=== PATIENT | male | born 1985 | race Caucasian/White ===

== ENCOUNTER 2020-10-16 16:30 | Emergency (ER) | payer MEDICAID, SELFPAY ==
[2020-10-16 17:54] VITALS: BP 140/79; PULSE 87; RESP 22; TEMP 37.6; O2SAT 97; BMI 21.7
== END 2020-10-16 22:46 | disposition left against medical advice (07) ==
PROVIDERS: Emergency Provider Emergency Medicine
DX: L02.414 Cutaneous abscess of left upper limb (principal); L02.413 Cutaneous abscess of right upper limb; F19.90 Other psychoactive substance use, unspecified, uncomplicated
CPT/HCPCS: 99281; 99282

== ENCOUNTER 2020-10-16 23:32 | Inpatient (IN) | payer MEDICAID, SELFPAY ==
[2020-10-16 23:41] VITALS: BP 140/92; BP 160/90; PULSE 82; PULSE 88; RESP 16; TEMP 37.5; O2SAT 100; O2SAT 97; BMI 21.7
[2020-10-17] VITALS (8 sets, daily range): BP systolic 115–137; BP diastolic 63–89; PULSE 56–78; RESP 12–22; TEMP 36.3–37.4; O2SAT 98–100
--- NOTE | 2020-10-17 03:10 | ED_ITS ---
HPI - Skin/Abscess/Foreign Bdy General Chief complaint: Skin/Abscess/Foreign Body Stated complaint: ABSCESS Time Seen by Provider: 10/17/20 03:00 Source: patient Mode of arrival: EMS Limitations: no limitations History of Present Illness HPI narrative: Patient comes emergency room complaining of bilateral abscesses in both arms. Patient states it started 2-3 days ago. Patient admits to inject heroin. Patient denies fever chills, patient complaining of localized pain, states the redness is spreading especially on their right arm. Patient denies fever chills Related Data Allergies Allergy/AdvReac Type Severity Reaction Status Date / Time ibuprofen Allergy Unknown headaches Verified 10/17/20 03:21 onion [ONION] Allergy Unknown ANAPHYLAXIS Verified 10/17/20 03:21 Review of Systems Review of Systems: Constitutional : No Weight loss, No Fever, No Chills, No Night Sweats, No Fatigue, No Malaise ENT/Mouth : No Hearing loss, No Ear Pain, No Nasal Congestion, No Sinus Pain, No Hoarseness, No sore throat, No Rhinorrhea, No Swallowing Difficulty Eyes: No Eye Pain, No Swelling, No Redness, No Foreign Body, No Discharge, No Vision Changes Cardiovascular : No Chest Pain, No SOB, No Dyspnea on Exertion, No Orthopnea, No Edema, No Palpitations Respiratory : No Cough, No Sputum, No Wheezing, No Smoke Exposure, No Dyspnea Gastrointestinal : No Nausea, No Vomiting, No Diarrhea, No Constipation, No abdominal Pain, No Hematochezia, No Melena Genitourinary : no irregular bleeding, No Dysuria, No Urinary Frequency, No Hematuria, No Urinary Incontinence, No Urgency, No Flank Pain, No Urinary Flow Changes, No Hesitancy Musculoskeletal : No joint pain, No Myalgias, No Joint Swelling Skin : Abscesses in both arms Neuro : No Weakness, No Numbness, No Paresthesias, No Loss of Consciousness, No Dizziness, No Headache Psych : No Anxiety/Panic, No Depression, No SI/HI/AH/VH, No Social Issues, Heme/Lymph: No Bruising, No Bleeding,No Lymphadenopathy Endocrine : No Polyuria, No Polydipsia, No Temperature Intolerance PMFSH Past Medical History Medical History (Updated 10/17/20 @ 05:59 by Olinda Allred MD) IV drug user No known health problems Social History Social History Alcohol intake: never Smoking Status: Current every day smoker Use of substances other than those prescribed or required for medical reasons: Yes Substance Use Type: Crack/Cocaine and Heroin Advance Directives: No Advance Directives Information Provided: No Physical Exam Vital Signs: Vital Signs: Last Vital Signs Temp 99.1 F 10/17/20 04:45 Pulse 78 10/17/20 05:32 Resp 22 H 10/17/20 05:32 BP 135/63 10/17/20 05:32 Pulse Ox 98 10/17/20 05:32 Body Mass Index 21.7 Appearance: Alert. Oriented X3. No acute distress. Eyes: Pupils equal, round and reactive to light. ENT: Pharynx normal. Neck: Normal inspection. Neck supple. No lymph nodes noted. No crepitus CVS: Normal heart rate and rhythm. Pulses normal. Normal S1 and S2, 2/6 systolic murmur Respiratory: No respiratory distress. Breath sounds normal. No Wheezing. No rales Abdomen: Soft and nontender. No rigidity. No distention. good BS x4 Skin: Skin warm and dry. In the forearms, patient has multiple scabs, needle track medina. Patient has bilateral abscesses, left arm is prominent, bedside ultrasound shows a significant amount of pus in the left anterior cubital fossa. Right arm has extensive cellulitis from the anterior cubital fossa toe extending towards the mid upper arm. Patient has no pain to palpation on the elbow, able to flex elbow, states has no joint pain Extremities: No lower extremity edema. See above Neuro: Oriented X 3. No motor deficit. No sensory deficit. Moving all extermities. No slurred speech. Course Course Course Narrative: Patient agree to have the abscess is drained, IV antibiotics being started, agrees to stay. On physical exam, it was noted the patient has systolic murmur, patient states he is aware of it, not new. Patient has 1 incision in the left forearm and 2 in the left forearm. A large amount of pus was drained from all 3 incisions. Between both arms, it is estimated that the patient drained approximately a cup full (200 mL). On physical exam after the drainage was completed. Patient is able to flex and extend both elbows, open and close both hands. No neurological deficits. I discussed the patient with our hospitalist Dr. Marr, patient is being admitted. Procedures Abscess I/D Site: upper extremity Side (if applicable): left and right Local Anesthetic: lidocaine 2% Amount of anesthesia used (mL): 20 Technique: incised with blade Amount of fluid expressed (mL): 200 Sent for culture/gram staining?: No Packing used?: iodoform MDM - Skin/Abscess/Foreign Bdy Lab Data Result diagrams: 10/17/20 04:40 10/17/20 04:40 Labs: Lab Results 10/17/20 10/17/20 10/17/20 Range/Units 04:40 04:40 04:40 WBC 16.2 H (4.8-10.8) X10*3/uL RBC 3.70 L (4.60-5.80) X10*6/uL Hgb 9.7 L (14.0-18.0) g/dl Hct 29.7 L (42-52) % MCV 80.3 (80-98) fL MCH 26.2 L (27.0-33.0) pg MCHC 32.7 (31.0-36.0) g/dl RDW 13.6 (11.0-16.0) % Plt Count 380 (160-400) X10*3/uL MPV 9.0 L (9.4-12.4) fL Immature Gran % (Auto) 0.5 H (0.0-0.4) % Neut % (Auto) 81.3 H (45-73) % Lymph % (Auto) 12.7 L (20-40) % [place] % (Auto) 5.1 (2-11) % Eos % (Auto) 0.2 (0-4) % Baso % (Auto) 0.2 (0-2) % Lymph # (Auto) 2.1 (1.2-4.9) X10*3/uL [place] # (Auto) 0.8 (0.1-1.2) X10*3/uL Eos # (Auto) 0.0 (0.0-0.4) X10*3/uL Baso # (Auto) 0.0 (0.0-0.2) X10*3/uL Abs Immat Gran (auto) 0.08 H (0.00-0.03) X10*3/uL Absolute Neuts (auto) 13.2 H (2.0-8.3) X10*3/uL Absolute Nucleated RBC 0.000 (0.0-0.012) X10*3/uL Nucleated RBC % (auto) 0.0 (0.0-0.2) /100WBC Sodium 135 (135-145) mmol/L Potassium 3.8 (3.3-5.1) mmol/L Chloride 100 (96-108) mmol/L Carbon Dioxide 27 (22-29) mmol/L Anion Gap 12 (12-20) BUN 10 (9-16) mg/dL Creatinine 0.85 (0.5-1.4) mg/dL Estim Creat Clear Calc 127.1 Estimated GFR > 60 Random Glucose 136 H (60-115) mg/dL Lactic Acid 1.0 (0.5-2.0) mmol/L Calcium 8.2 L (8.4-10.2) mg/dL Total Bilirubin 0.2 (0.0-1.0) mg/dL Direct Bilirubin < 0.2 (0.0-0.5) mg/dL AST 16 (5-37) U/L ALT 21 (0-40) U/L Alkaline Phosphatase 140 H (39-117) U/L Total Protein 6.4 L (6.5-8.0) g/dL Albumin 3.4 L (3.5-5.0) g/dL Discharge Plan Discharge Clinical Impression: IV drug user Abscess of skin or subcutaneous tissue Qualifiers: Site of cutaneous abscess: unspecified site Qualified Code(s): L02.91 - Cutaneous abscess, unspecified
[2020-10-17] MEDS: Lidocaine HCl 2 % MPF 5 ML VIAL 20 ML INFILTRATI (03:25)
--- NOTE | 2020-10-17 03:27 | PC.NURSE ---
Lido at bedside for provider use
--- NOTE | 2020-10-17 04:06 | PC.NURSE ---
No IV access established at this time. Provider aware.
[2020-10-17 04:46] LABS: Basophils Percent Auto 0.2 % (0-2); Eosinophils Percent Auto 0.2 % (0-4); Hematocrit 29.7 % (42-52); Hemoglobin 9.7 g/dl (14.0-18.0); Imm Gran Abs Auto 0.08 X10*3/uL (0.00-0.03); Imm Gran Pct Auto 0.5 % (0.0-0.4); Lymphocytes Absolute Auto 2.1 X10*3/uL (1.2-4.9); Lymphocytes Percent Auto 12.7 % (20-40); MANUAL DIFF FLAG NO; Mean Corpuscular HGB Conc 32.7 g/dl (31.0-36.0); Mean Corpuscular Hemoglobin 26.2 pg (27.0-33.0); Mean Corpuscular Volume 80.3 fL (80-98); Monocytes Absolute Auto 0.8 X10*3/uL (0.1-1.2); Monocytes Percent Auto 5.1 % (2-11); Neutrophils Absolute Auto 13.2 X10*3/uL (2.0-8.3); Neutrophils Percent Auto 81.3 % (45-73); Platelet Count 380 X10*3/uL (160-400); Red Cell Distribution Width 13.6 % (11.0-16.0); White Blood Count 16.2 X10*3/uL (4.8-10.8)
[2020-10-17] MEDS: Piperacillin Sodium/Tazobactam 3.375 GM in 0.9 % Sodium Chloride 50 ML IV (04:48)
[2020-10-17] MEDS: 0.9 % Sodium Chloride 1,000 ML 999 ML IVCONT (04:50)
[2020-10-17] MEDS: HYDROmorphone HCl 2 MG/ML VIAL IVPUSH ×2 (04:55→06:44)
[2020-10-17 05:21] LABS: Alanine Aminotransferase 21 U/L (0-40); Albumin Level 3.4 g/dL (3.5-5.0); Alkaline Phosphatase 140 U/L (39-117); Anion Gap 12 (12-20); Aspartate Amino Transferase 16 U/L (5-37); Bilirubin Direct < 0.2 mg/dL (0.0-0.5); Bilirubin Total 0.2 mg/dL (0.0-1.0); Blood Urea Nitrogen 10 mg/dL (9-16); Calcium 8.2 mg/dL (8.4-10.2); Carbon Dioxide 27 mmol/L (22-29); Chloride 100 mmol/L (96-108); Creatinine Clr Calc Pharmacy 127.1; Estimated Glomerular Filt Rate > 60; Glucose Random 136 mg/dL (60-115); Potassium 3.8 mmol/L (3.3-5.1); Sodium 135 mmol/L (135-145); Total Protein 6.4 g/dL (6.5-8.0)
[2020-10-17] MEDS: vancomycin HCL 1,000 MG in 0.9 % Sodium Chloride 250 ML 270 MG IV ×2 (05:30→18:34)
--- NOTE | 2020-10-17 07:23 | PC.NURSE ---
kitchen called for breakfast tray
[2020-10-17] MEDS: HYDROmorphone HCl 1 MG/ML SYRINGE IVPUSH ×4 (07:27→20:10)
--- NOTE | 2020-10-17 08:14 | P.HPHOSP_ITS ---
History of Present Illness Date of Service: 10/17/20 Chief Complaint: forearm bilateral pain, swelling 35M who uses IV heroin, complaining of 2 days of painful swollen abscesses. one on each forearm. at injection sites. denies fever, chills, sob, chest pain. denies previous infections or treatment. in ED noted to have elevated WBC of 16, underwent I and D in ED with packing. given vancomycin. Review of Systems Review of Systems: Constitutional: Denies fever, denies Chills Eyes: denies blurry vision ENT: denies sore throat CVS: denies chest pain Respiratory: Denies dyspnea GI: no abdominal pain : denies dysuria MSK: denies neck pain Skin: denies rash Neuro: denies specific motor weakness Psych: denies suicidal ideation Endocrine: denies heat/cold intoleratnce Hematologic: denies easy bleeding Allergy: denies hives [facility] Medical History IV drug user No known health problems Family history: reviewed and not pertinent Social History Alcohol intake: never Smoking Status: Current every day smoker Use of substances other than those prescribed or required for medical reasons: Yes Substance Use Type: Crack/Cocaine and Heroin Advance Directives: No Advance Directives Information Provided: No Meds Allergies Allergy/AdvReac Type Severity Reaction Status Date / Time ibuprofen Allergy Unknown headaches Verified 10/17/20 03:21 onion [ONION] Allergy Unknown ANAPHYLAXIS Verified 10/17/20 03:21 Active Medications: Current Medications Generic Name Dose Route Start Last Admin Trade Name Freq PRN Reason Stop Dose Admin Vancomycin HCl 1,000 mg/ 270 mls @ 270 mls/hr 10/17/20 18:00 Sodium Chloride IV Q12H [facility] Pharmacy Consult 1 each 10/17/20 03:09 Consult Rx Vancomycin Dosing MISCELLANE DAILY PRN Consult order Physical Exam Vital Signs and Narrative: Vital Signs: Last Vital Signs Temp 99.1 F 10/17/20 04:45 Pulse 78 10/17/20 05:32 Resp 22 H 10/17/20 05:32 BP 135/63 10/17/20 05:32 Pulse Ox 98 10/17/20 05:32 Body Mass Index 21.7 General: no acute distress HEENT: atraumatic Neck: normal to visual inspection CVS: S1, S2, RRR Resp: CTA bilateral Chest: non tender GI: soft, non tender, non distended : no CVA tenderness Skin: multiple track medina over arms, two areas of abscesses s/p drainage on each forearm Extremities: no edema Neuro: Oriented X3, grossly intact Psych: cooperative Results Labs CBC and Chem 7: 10/17/20 04:40 10/17/20 04:40 Labs: Laboratory Results - last 24 hr 10/17/20 10/17/20 10/17/20 04:40 04:40 04:40 MCV 80.3 MCH 26.2 L MCHC 32.7 RDW 13.6 Plt Count 380 MPV 9.0 L Immature Gran % (Auto) 0.5 H Neut % (Auto) 81.3 H Lymph % (Auto) 12.7 L [place] % (Auto) 5.1 Eos % (Auto) 0.2 Baso % (Auto) 0.2 Lymph # (Auto) 2.1 [place] # (Auto) 0.8 Eos # (Auto) 0.0 Baso # (Auto) 0.0 Abs Immat Gran (auto) 0.08 H Absolute Neuts (auto) 13.2 H Absolute Nucleated RBC 0.000 Nucleated RBC % (auto) 0.0 Anion Gap 12 Estim Creat Clear Calc 127.1 Estimated GFR > 60 Random Glucose 136 H Lactic Acid 1.0 Calcium 8.2 L Total Bilirubin 0.2 Direct Bilirubin < 0.2 AST 16 ALT 21 Alkaline Phosphatase 140 H Total Protein 6.4 L Albumin 3.4 L Assessment and Plan (1) IV drug user: Status: Acute (2) Abscess of skin or subcutaneous tissue: Qualifiers: Site of cutaneous abscess: unspecified site Qualified Code(s): L02.91 - Cutaneous abscess, unspecified Status: Acute 35M presented with bilateral forearm abscesses associated with IVDA bilateral forearm abscesses with significant purulence and elevated WBC concerning for systemic infection iv vanco follow up blood cultures general surgery eval opioid dependence with withdrawl addiction team eval smoking cessation jud low risk for VTE - encourage ambulation
--- NOTE | 2020-10-17 10:21 | PC.NURSE ---
REPORT GIVEN TECH WILL TRANSPOT PT TO FLOOR
[2020-10-17] MEDS: Nicotine 21 MG PATCH.TD24 TRANSDERMA (11:37)
--- NOTE | 2020-10-17 12:30 | MHC.RECOVRN ---
35 yr old male presented to [facility] via EMS on 10/16 due to pt L[facility] earlier. Abscesses to bilat ACs, right worse than left. Swelling noted from right AC down arm to right hand. Pt self reports using IV heroin. Pt last used IV heroin yesterday, denies other drugs/alcohol. Denies fever. Abcesses red in color, hot to the touch, circled with a skin pen. Pt denies any weeping from abcesses. Pt crying, reports severe pain, unable to straighten right arm per surveying technician. Pt subsequently admitted for treatment of bilateral forearm abscesses with significant purulence and elevated WBC concerning for systemic infection. T/w met with pt in 363 to discuss substance use. Pt reports heroin, 4 bundles daily x months, last use prior to arrival. Pt denies other substances. Pt very anxious anticipating withdrawal. Pt states If I get sick I'm just going to check out. Pt? restless and unable to engage in recovery discussion due to this. Pt interested is willing to try methadone to help while inpatient. Case discussed with pts RN as well as Antonia Mantilla APRN, who will see pt to discuss methadone further.?
--- NOTE | 2020-10-17 15:16 | MHC.CM.PN ---
CASE MANAGEMENT NAME WRITTEN ON WHITE BOARD. CONTACT CARD LEFT BEDSIDE. PATIENT CURRENTLY ASLEEP. INDEPENDENT WITH ACTIVITIES. CASE MANAGEMENT TO RETURN
--- NOTE | 2020-10-17 15:41 | P.EN_ITS ---
Event Note Date of Service: 10/17/20 Event Note: Addiction note: Patient is a 35 year old male with OUD currently medically admitted with abcess secondary to IVDU Patient seen earlier by HENRRY RN and reporting opioid withdrawal sx. Pt reporting stomach cramps, restlessness, irritability. chills and sweating when seen by this adjusto writer operator. He does report a history of methadone and buprenorphien treatment in the past. Declines buprenorphine Plan: -methadone 30mg administered with somewhat moderate effect -may receive additional 10mg tonight if necessary to address withdrawl sx -manage pain as necessary -full addiction note to follow
[2020-10-17] MEDS: 0.9 % Sodium Chloride Flush 3 ML SYRINGE IVFLUSH ×2 (16:26→22:49)
--- NOTE | 2020-10-17 16:30 | MHC.RECOVRN ---
T/w met with pt to f/u after receiving methadone dose. Pt states I'm still hurting. I'm clammy, restless. Pt appears diaphoretic. However, pt has been able to sleep and eat. Discussed with Antonia Mantilla APRN. Will continue to follow.
[2020-10-18 03:06] VITALS: BP 139/86; PULSE 56; RESP 18; TEMP 36.1; O2SAT 100
[2020-10-18] MEDS: HYDROmorphone HCl 1 MG/ML SYRINGE IVPUSH ×2 (03:15→07:42)
[2020-10-18 05:13] LABS: MANUAL DIFF FLAG NO
[2020-10-18 05:16] LABS: Basophils Percent Auto 0.2 % (0-2); Eosinophils Absolute Auto 0.1 X10*3/uL (0.0-0.4); Eosinophils Percent Auto 0.7 % (0-4); Hematocrit 32.3 % (42-52); Hemoglobin 10.2 g/dl (14.0-18.0); Imm Gran Abs Auto 0.01 X10*3/uL (0.00-0.03); Imm Gran Pct Auto 0.1 % (0.0-0.4); Lymphocytes Absolute Auto 1.6 X10*3/uL (1.2-4.9); Lymphocytes Percent Auto 19.2 % (20-40); Mean Corpuscular HGB Conc 31.6 g/dl (31.0-36.0); Mean Corpuscular Volume 82.2 fL (80-98); Mean Platelet Volume 9.5 fL (9.4-12.4); Monocytes Absolute Auto 0.4 X10*3/uL (0.1-1.2); Monocytes Percent Auto 5.1 % (2-11); Neutrophils Absolute Auto 6.3 X10*3/uL (2.0-8.3); Neutrophils Percent Auto 74.7 % (45-73); Platelet Count 426 X10*3/uL (160-400); Red Blood Count 3.93 X10*6/uL (4.60-5.80); Red Cell Distribution Width 13.4 % (11.0-16.0); White Blood Count 8.5 X10*3/uL (4.8-10.8)
[2020-10-18 05:40] LABS: Anion Gap 13 (12-20); Blood Urea Nitrogen 12 mg/dL (9-16); Calcium 8.3 mg/dL (8.4-10.2); Carbon Dioxide 22 mmol/L (22-29); Chloride 107 mmol/L (96-108); Estimated Glomerular Filt Rate > 60; Glucose Random 118 mg/dL (60-115); Potassium 4.4 mmol/L (3.3-5.1); Sodium 138 mmol/L (135-145)
[2020-10-18] MEDS: vancomycin HCL 1,000 MG in 0.9 % Sodium Chloride 250 ML 270 MG IV (06:01)
[2020-10-18] MEDS: Nicotine 21 MG PATCH.TD24 TRANSDERMA (07:37)
[2020-10-18 08:00] VITALS: TEMP 36.3
[2020-10-18 08:29] VITALS: BP 140/88; PULSE 70; RESP 18; TEMP 36.4; O2SAT 100
[2020-10-18 12:00] VITALS: TEMP 36.9
--- NOTE | 2020-10-18 12:28 | PM.DS ---
DS: Providers Provider Date of Service: 10/18/20 Date of admission: 10/17/20 08:13 Primary care physician: Unknown Physician Consults: 10/17/20 10:48 Addiction Medicine Routine Consulting Provider: Antonia Mantilla Reason for consultation: iv heroin Consult to General Surgery Routine Consulting Provider: Preet Wood Reason for consultation: bilateral forearm abscesses, ivda, s/p i and d in ED DS: Diagnosis Discharge Diagnosis (1) IV drug user: Status: Acute (2) Abscess of skin or subcutaneous tissue: Status: Acute DS: Medications Discharge Medications Home Medications: Previous Rx's Medication Instructions Recorded amoxicillin-pot clavulanate 1 tab PO Q12H #10 tab 10/18/20 [Augmentin] doxycycline hyclate 100 mg PO BID #10 tab 10/18/20 DS: Summary Hospital Course Hospital Course: Patient was admitted for abscess and cellulitis due to IV drug use and concern for systemic infection requiring IV antibiotics. Patient was treated with IV vancomycin. He was seen by surgery who performed dressing change and made recommendations for local care. Patient did not develop any systemic symptoms, WBC improved from 16.2-8.5 and blood cultures are negative to date. Patient will be discharged home with 5 more days of Augmentin and doxycycline. Time Spent with Patient Time attestation: Total time spent providing and/or coordinating discharge services: Discharge coordination time: Greater than 30 minutes Quality: Stroke Does the patient have a stroke diagnosis?: No Physical Exam Vital Signs: Vital Signs: Last Vital Signs Temp 97.5 F 10/18/20 08:29 Pulse 70 10/18/20 08:29 Resp 18 10/18/20 08:29 BP 140/88 H 10/18/20 08:29 Pulse Ox 100 10/18/20 08:29 Body Mass Index 21.7 Appearance: Alert. Oriented X3. No acute distress. Eyes: Pupils equal, round and reactive to light. ENT: Pharynx normal. Neck: Normal inspection. Neck supple. No lymph nodes noted. No crepitus CVS: Normal heart rate and rhythm. Pulses normal. Normal S1 and S2, 2/6 systolic murmur Respiratory: No respiratory distress. Breath sounds normal. No Wheezing. No rales Abdomen: Soft and nontender. No rigidity. No distention. good BS x4 Skin: Skin warm and dry. In the forearms, patient has multiple scabs, needle track medina. Patient has bilateral abscesses, left arm is prominent, bedside ultrasound shows a significant amount of pus in the left anterior cubital fossa. Right arm has extensive cellulitis from the anterior cubital fossa toe extending towards the mid upper arm. Patient has no pain to palpation on the elbow, able to flex elbow, states has no joint pain Extremities: No lower extremity edema. See above Neuro: Oriented X 3. No motor deficit. No sensory deficit. Moving all extermities. No slurred speech. DS: Data Data Completed and Pending Labs on day of discharge: Laboratory Results - last 24 hr 10/18/20 10/18/20 04:23 04:23 WBC 8.5 RBC 3.93 L Hgb 10.2 L Hct 32.3 L MCV 82.2 MCH 26.0 L MCHC 31.6 RDW 13.4 Plt Count 426 H MPV 9.5 Immature Gran % (Auto) 0.1 Neut % (Auto) 74.7 H Lymph % (Auto) 19.2 L [place] % (Auto) 5.1 Eos % (Auto) 0.7 Baso % (Auto) 0.2 Lymph # (Auto) 1.6 [place] # (Auto) 0.4 Eos # (Auto) 0.1 Baso # (Auto) 0.0 Abs Immat Gran (auto) 0.01 Absolute Neuts (auto) 6.3 Absolute Nucleated RBC 0.000 Nucleated RBC % (auto) 0.0 Sodium 138 Potassium 4.4 Chloride 107 Carbon Dioxide 22 Anion Gap 13 BUN 12 Creatinine 0.74 Estim Creat Clear Calc 146.0 Estimated GFR > 60 Random Glucose 118 H Calcium 8.3 L Preliminary micro results at discharge 10/17/20 04:40 Blood Culture - Preliminary Blood - Venous No growth after 24 hours. 10/17/20 04:40 Blood Culture - Preliminary Blood - Venous No growth after 24 hours. Discharge Plan Discharge Patient Disposition: Home, Self-Care Discharge Diagnosis: abscess Referrals: Physician,Unknown [Primary Care Provider] - 1 Week Discharge Medications: New amoxicillin-pot clavulanate [Augmentin] 875-125 mg tablet 1 tab PO Q12H Qty: 10 RF: 0 doxycycline hyclate 100 mg tablet 100 mg PO BID Qty: 10 RF: 0 Discharge Orders: Discharge Order (Routine); Ordered 10/18/20 Ordered By: Bartolome Nova Activity on Discharge: As tolerated Stand Alone Forms: Patient Portal Discharge page Care Plan Goals: recovery Health Concerns: abscess Plan of Treatment: antibiotics, local dressings, avoid drugs Assessment: see above
--- NOTE | 2020-10-18 12:34 | P.CONGS_ITS ---
History of Present Illness Consult details Consult date: 10/18/20 Requesting physician: Bartolome Nova Narrative: 35-year-old male patient presenting with complaints of pain bilateral upper extremities. He has a history of IV drug abuse and reports injecting both locations. He noted increased redness and swelling over the last several days and subsequently presented to the emergency department. In the emergency department he was found to have bilateral antecubital fossa abscess collections. He was subsequently treated with incision and drainage with production of a large purulence collection. He reports feeling improved today and notes the redness in his arm to be much improved. He is being discharged from the hospital today. Surgical consultation was recommended for wound care evaluation. Review of Systems Constitutional: Constitutional: Reports body ache(s), Reports fatigue and Rep orts night sweats Cardiovascular: Cardiovascular: Reports no additional cardiovascular complaints Respiratory: Respiratory: Reports no additional respiratory complaints Gastrointestinal: Gastrointestinal: Reports no additional gastrointestinal complaints Musculoskeletal: Musculoskeletal: Reports as per HPI Integumentary/Breasts: Skin/Breast: Reports as per HPI Psychiatric: Comments: Addiction history Endocrine: Endocrine: Reports fatigue PMFSH Past Medical History Medical History IV drug user No known health problems Family History Family history: reviewed and not pertinent Social History Social History Household Members: None Housing: Homeless Alcohol intake: never Smoking Status: Current every day smoker Tobacco Type: Cigarette Packs Per Day: 0.5 Cigarettes Per Day: 10.0 Substance Use Type: Heroin Meds Allergies Allergy/AdvReac Type Severity Reaction Status Date / Time ibuprofen Allergy Unknown headaches Verified 10/17/20 03:21 onion [ONION] Allergy Unknown ANAPHYLAXIS Verified 10/17/20 03:21 Active Medications: Current Medications Generic Name Dose Route Start Last Admin Trade Name Freq PRN Reason Stop Dose Admin Hydromorphone HCl 1 mg 10/17/20 10:48 10/18/20 07:42 Hydromorphone Hcl 1 Mg/Ml Syringe IVPUSH 1 mg Q4H PRN Administration pain Vancomycin HCl 1,000 mg/ 270 mls @ 270 mls/hr 10/17/20 18:00 10/18/20 07:47 Sodium Chloride IV Infused Q12H AD Infusion Methadone HCl 40 mg 10/18/20 08:00 10/18/20 07:37 Methadone Hcl 1 Mg/0.1 Ml Oral.Conc PO 40 mg DAILY AD Administration Nicotine 21 mg 10/17/20 10:48 10/18/20 07:37 Nicotine 21 Mg Patch.Td24 TRANSDERMA 21 mg DAILY AD Administration Pharmacy Consult 1 each 10/17/20 03:09 Consult Rx Vancomycin Dosing MISCELLANE DAILY PRN Consult order Sodium Chloride 3 ml 10/17/20 16:00 10/18/20 07:50 0.9 % Sodium Chloride Flush 3 Ml Syringe IVFLUSH Not Given QSHIFT AD Physical Exam Vital Signs: Vital Signs: Last Vital Signs Temp 97.5 F 10/18/20 08:29 Pulse 70 10/18/20 08:29 Resp 18 10/18/20 08:29 BP 140/88 H 10/18/20 08:29 Pulse Ox 100 10/18/20 08:29 Body Mass Index 21.7 Const: General: cooperative, comfortable, alert and awake Nutritional Appearance: thin Orientation/consciousness: patient oriented x3 Eyes: Sclerae: sclerae normal Resp: Effort & Inspection: normal respiratory effort and no stridor GI: Inspection: Yes normal to inspection Skin: Other: See extremities below Neuro: General: patient oriented x3 Extrem: Other: Right antecubital fossa: 2 areas of incision and drainage with packing. Dressings were changed. Some purulence drainage is noted from the lateral wound. The packing was removed and the collection completely drained. Incisions are open and no undrained collection is identified. Wounds were dressed with dry sterile dressings and [place]. No erythema is noted in the skin. Left antecubital fossa: 1 incision and drainage areas located in the antecubital fossa. Packing was removed and no residual purulence collection could be identified. No erythema is noted in the surrounding skin. Clean sterile dressings with [place] dressings were applied. Results Labs Result diagrams: 10/18/20 04:23 10/18/20 04:23 Labs: Abnormal lab results 10/18/20 10/18/20 Range/Units 04:23 04:23 RBC 3.93 L (4.60-5.80) X10*6/uL Hgb 10.2 L (14.0-18.0) g/dl Hct 32.3 L (42-52) % MCH 26.0 L (27.0-33.0) pg Plt Count 426 H (160-400) X10*3/uL Neut % (Auto) 74.7 H (45-73) % Lymph % (Auto) 19.2 L (20-40) % Random Glucose 118 H (60-115) mg/dL Calcium 8.3 L (8.4-10.2) mg/dL Short CBC 10/18/20 Range/Units 04:23 WBC 8.5 (4.8-10.8) X10*3/uL Hgb 10.2 L (14.0-18.0) g/dl Hct 32.3 L (42-52) % Plt Count 426 H (160-400) X10*3/uL BMP 10/18/20 04:23 Sodium 138 Potassium 4.4 Chloride 107 Carbon Dioxide 22 BUN 12 Creatinine 0.74 Calcium 8.3 L All other labs normal. Assessment and Plan (1) Abscess of skin or subcutaneous tissue: Qualifiers: Site of cutaneous abscess: unspecified site Qualified Code(s): L02.91 - Cutaneous abscess, unspecified Status: Acute 35-year-old male patient with history of IV drug abuse, presenting with bilateral antecubital abscess collections, status post incision and drainage in the emergency department. Both wounds are adequately drained with no evidence of residual abscess. Surrounding cellulitis is resolved. Patient will need daily dressing changes to the wound which could include large Band-Aids to be applied over the incision and drainage location. He should be supplied with adequate dressings for the next week. He with following up next week for Suboxone treatment.
--- NOTE | 2020-10-18 12:42 | MHC.CM.PN ---
PATIENT DOES NOT WANT TO DC TO A DETOX PROGRAM. HE IS WILLING TO PARTICIPATE IN OUTPATIENT SUBOXONE TREATMENT WITH [facility] FOLLOW UP THIS WEDNESDAY. PATIENT WILL NEED EXTRA BANDAGE SUPPLIES. RN AWARE.
--- NOTE | 2020-10-18 13:00 | MHC.RECOVRN ---
T/w met with pt to discuss continuance of methadone. Pt would like to remain on MOUD, however, has barriers due to transportation to an OTP daily. Pt would prefer to transition to Suboxone and in time, Sublocade. Pt reports success in the past with Sublocade. Case discussed with Antonia Mantilla APRN who will discuss microdosing with pt to transition. Pt has appt at the [facility] on Saturday 10/21 at 1PM.
--- NOTE | 2020-10-18 13:31 | HO.ADDICT_ITS ---
History of Present Illness Date of Service: 10/18/2020 Chief Complaint: ABSCESS, IVDA Reason for Consult: OUD Requesting physician: Bartolome Nova Discussed with referring provider: Yes Sources of Information: patient interviewed and chart reviewed HPI Narrative: Patient is a 35 year old male with OUD currently medically admitted with abscess to his arm. He has been medically cleared for discharge and this lead technical writer is following up on initial visit from 10/17 when patient was started on methadone to address opioid withdrawal. Methadone increased to 40mg based on persisting withdrawal sx, with good effect Patient reports he had previously been on suboxone and sublocade and would like to transition back to that. He is currently unhoused and has minimal supports in this area Past Psychiatric History: deferred Medical Evaluation Reviewed: Yes Review of Systems Constitutional: Reports malaise Psychiatric: Reports anxiety Diagnostics Vital Signs (24Hr): Vital Signs - 24 hr 10/17/20 15:18 10/17/20 19:09 10/17/20 23:51 Temperature 97.5 F 98.2 F 97.3 F Pulse Rate 63 72 56 Respiratory Rate 16 16 16 Blood Pressure 129/73 133/75 137/89 Pulse Oximetry 100 99 100 10/18/20 03:06 10/18/20 08:00 10/18/20 08:29 Temperature 97 F 97.3 F 97.5 F Pulse Rate 56 70 Respiratory Rate 18 18 Blood Pressure 139/86 140/88 H Pulse Oximetry 100 100 Body Mass Index 21.7 Labs Results: 10/18/20 04:23 10/18/20 04:23 Labs: Laboratory Results - last 48 hr 10/17/20 10/17/20 10/17/20 04:40 04:40 04:40 WBC 16.2 H RBC 3.70 L Hgb 9.7 L Hct 29.7 L MCV 80.3 MCH 26.2 L MCHC 32.7 RDW 13.6 Plt Count 380 MPV 9.0 L Immature Gran % (Auto) 0.5 H Neut % (Auto) 81.3 H Lymph % (Auto) 12.7 L [place] % (Auto) 5.1 Eos % (Auto) 0.2 Baso % (Auto) 0.2 Lymph # (Auto) 2.1 [place] # (Auto) 0.8 Eos # (Auto) 0.0 Baso # (Auto) 0.0 Abs Immat Gran (auto) 0.08 H Absolute Neuts (auto) 13.2 H Absolute Nucleated RBC 0.000 Nucleated RBC % (auto) 0.0 Sodium 135 Potassium 3.8 Chloride 100 Carbon Dioxide 27 Anion Gap 12 BUN 10 Creatinine 0.85 Estim Creat Clear Calc 127.1 Estimated GFR > 60 Random Glucose 136 H Lactic Acid 1.0 Calcium 8.2 L Total Bilirubin 0.2 Direct Bilirubin < 0.2 AST 16 ALT 21 Alkaline Phosphatase 140 H Total Protein 6.4 L Albumin 3.4 L 10/18/20 10/18/20 04:23 04:23 WBC 8.5 RBC 3.93 L Hgb 10.2 L Hct 32.3 L MCV 82.2 MCH 26.0 L MCHC 31.6 RDW 13.4 Plt Count 426 H MPV 9.5 Immature Gran % (Auto) 0.1 Neut % (Auto) 74.7 H Lymph % (Auto) 19.2 L [place] % (Auto) 5.1 Eos % (Auto) 0.7 Baso % (Auto) 0.2 Lymph # (Auto) 1.6 [place] # (Auto) 0.4 Eos # (Auto) 0.1 Baso # (Auto) 0.0 Abs Immat Gran (auto) 0.01 Absolute Neuts (auto) 6.3 Absolute Nucleated RBC 0.000 Nucleated RBC % (auto) 0.0 Sodium 138 Potassium 4.4 Chloride 107 Carbon Dioxide 22 Anion Gap 13 BUN 12 Creatinine 0.74 Estim Creat Clear Calc 146.0 Estimated GFR > 60 Random Glucose 118 H Lactic Acid Calcium 8.3 L Total Bilirubin Direct Bilirubin AST ALT Alkaline Phosphatase Total Protein Albumin Mental Status Exam Mental Status Exam Patient Appearance: Unkempt Patient Orientation: Person, Place, Time and Situation Level of Consciousness: Awake, Appropriate and Alert Patient Behavior: Appropriate and Cooperative Mood Description: Calm and Appropriate Affect Description: Calm and Appropriate Patient Cognition Impaired: No Ability to Follow Directions: Excellent Speech Pattern: Clear Delusions: Not Present Thought Process: Intact and Goal Oriented Thought Content: positive for Intact Judgement: Good Medications Medications Current Medications Generic Name Dose Route Start Last Admin Trade Name Freq PRN Reason Stop Dose Admin Hydromorphone HCl 1 mg 10/17/20 10:48 10/18/20 07:42 Hydromorphone Hcl 1 Mg/Ml Syringe IVPUSH 1 mg Q4H PRN Administration pain Vancomycin HCl 1,000 mg/ 270 mls @ 270 mls/hr 10/17/20 18:00 10/18/20 07:47 Sodium Chloride IV Infused Q12H AD Infusion Methadone HCl 40 mg 10/18/20 08:00 10/18/20 07:37 Methadone Hcl 1 Mg/0.1 Ml Oral.Conc PO 40 mg DAILY AD Administration Nicotine 21 mg 10/17/20 10:48 10/18/20 07:37 Nicotine 21 Mg Patch.Td24 TRANSDERMA 21 mg DAILY AD Administration Pharmacy Consult 1 each 10/17/20 03:09 Consult Rx Vancomycin Dosing MISCELLANE DAILY PRN Consult order Sodium Chloride 3 ml 10/17/20 16:00 10/18/20 07:50 0.9 % Sodium Chloride Flush 3 Ml Syringe IVFLUSH Not Given QSHIFT AD Allergies Allergies Allergy/AdvReac Type Severity Reaction Status Date / Time ibuprofen Allergy Unknown headaches Verified 10/17/20 03:21 onion [ONION] Allergy Unknown ANAPHYLAXIS Verified 10/17/20 03:21 Assessment & Plan Assessment & Plan (1) Opioid use disorder: Status: Acute Code(s): F11.99 - Opioid use, unspecified with unspecified opioid-induced disorder Recommendations: * plan to transition from methadone to buprenorphine * will start microdosing over the weekend--written and verbal instructions provided by this lead technical writer. Pt verbalized understandings * appt scheduled at [facility] for Wednesday, 10/21 for intake with provider * take home narcan provided as well Greater than 50% of the session was spent on counseling and/or coordination of care Patient educated on: medication risk/benefits and therapeutic strategies Informed Consent: understands [facility] Past Medical History Medical History IV drug user No known health problems Family History Family history: reviewed and not pertinent Social History Social History Household Members: None Housing: Homeless Alcohol intake: never Smoking Status: Current every day smoker Tobacco Type: Cigarette Packs Per Day: 0.5 Cigarettes Per Day: 10.0 Substance Use Type: Heroin
== END 2020-10-18 14:25 | disposition home or self-care (01) | DRG 383 ==
LOC: HO.ED 10-17 02:59 → HO.EDOVER 10-17 08:19 → HO.S3 10-17 08:38
PROVIDERS: Admitting Provider Internal Medicine; Emergency Provider Emergency Medicine; Visit Provider Internal Medicine
DX: L02.413 Cutaneous abscess of right upper limb (principal); L02.414 Cutaneous abscess of left upper limb; F11.23 Opioid dependence with withdrawal; L03.114 Cellulitis of left upper limb; L03.113 Cellulitis of right upper limb; F17.210 Nicotine dependence, cigarettes, uncomplicated; Z71.6 Tobacco abuse counseling; Z88.6 Allergy status to analgesic agent; Z79.899 Other long term (current) drug therapy
CPT/HCPCS: 36415; 80048; 80076; 83605; 85025; 87040; 96365; 96367; 96368; 96375; 99218; 99285; J1170; J2543; J3370

== ENCOUNTER → 2020-10-21 13:10 | Outpatient (BNVA) | payer MEDICAID, SELFPAY | PROVIDERS: Visit Provider Internal Medicine | DX: F11.99 Opioid use, unspecified with unspecified opioid-induced disorder (principal); L02.91 Cutaneous abscess, unspecified; F19.90 Other psychoactive substance use, unspecified, uncomplicated | CPT/HCPCS: 80305; 99202 ==

== ENCOUNTER 2022-03-28 05:13 | Emergency (ER) | payer MEDICAID, SELFPAY ==
[2022-03-28 05:17] VITALS: BP 124/84; PULSE 84; RESP 18; TEMP 37.4; O2SAT 99; BMI 21.2
[2022-03-28] MEDS: Lidocaine HCl 1 % MPF 5 ML VIAL 30 ML INFILTRATI (10:05)
[2022-03-28] MEDS: cephALEXin 500 MG CAPSULE PO (10:45)
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
== END 2022-03-28 11:44 | disposition home or self-care (01) ==
PROVIDERS: Emergency Provider Emergency Medicine
DX: L02.413 Cutaneous abscess of right upper limb (principal); L03.113 Cellulitis of right upper limb; S01.511A Laceration without foreign body of lip, initial encounter; Y04.2XXA Assault by strike against or bumped into by another person, initial encounter; F19.10 Other psychoactive substance abuse, uncomplicated; R50.9 Fever, unspecified; F11.20 Opioid dependence, uncomplicated; F17.210 Nicotine dependence, cigarettes, uncomplicated; Y93.01 Activity, walking, marching and hiking; Y92.414 Local residential or business street as the place of occurrence of the external cause; Y99.9 Unspecified external cause status; Z79.899 Other long term (current) drug therapy
CPT/HCPCS: 10060; 12013; 87070; 87077; 87186; 87205; 99283; 99284

== ENCOUNTER 2022-10-29 03:29 | Emergency (ER) | payer MEDICAID, SELFPAY ==
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
[2022-10-29 06:11] VITALS: BP 120/60; PULSE 67; RESP 17; TEMP 36.7; O2SAT 95
--- NOTE | 2022-10-29 06:25 | PC.NURSE ---
pt sleeping on stretcher in 6 hallway, respirations even and unlabored no apparent distress. metabolize to freedom per MD. pt placed in physician observation until sober to call for ride . pt denies SI/HI. has no current complaints. vital signs stable. will CTM
--- NOTE | 2022-10-29 08:34 | PC.NURSE ---
offered the pt deotx but pt refused, md sargent
[2022-10-29 08:57] VITALS: BP 130/72; PULSE 54; RESP 18; O2SAT 97
== END 2022-10-29 09:30 | disposition home or self-care (01) ==
PROVIDERS: Emergency Provider Emergency Medicine
DX: F10.129 Alcohol abuse with intoxication, unspecified (principal); F11.90 Opioid use, unspecified, uncomplicated; Y90.9 Presence of alcohol in blood, level not specified; F17.210 Nicotine dependence, cigarettes, uncomplicated; Z71.6 Tobacco abuse counseling
CPT/HCPCS: 99282; 99284

== ENCOUNTER 2022-12-12 12:57 | Emergency (ER) | payer MEDICAID, SELFPAY ==
[2022-12-12 13:38] VITALS: BP 127/79; PULSE 79; RESP 17; TEMP 36.3; O2SAT 97; BMI 16.3
--- NOTE | 2022-12-12 13:38 | ED.GENADULT ---
HPI - General Adult General Chief complaint: Extremity Problem Stated complaint: both feet pain infection and swelling Time Seen by Provider: 12/12/22 13:43 Source: patient Mode of arrival: ambulatory Limitations: no limitations History of Present Illness HPI narrative: this is a 37-year-old male with a history of opiate use disorder, currently homeless who presents to the ER with complaints of intermittent feet redness, swelling and pain over the last few months. Patient reports he frequently wears wet socks and shoes. He has a hard time keeping his feet dry. He denies any fevers or chills. He has plans to go to detox on to Wednesday or Wednesday. He is not currently interested in any detox related resources. He does not want to start any Suboxone or methadone. Related Data Previous Rx's Medication Instructions Recorded amoxicillin 875 mg-potassium 1 tab PO Q12H #10 tabs 10/18/20 clavulanate 125 mg tablet (Augmentin) buprenorphine 2 mg-naloxone 0.5 mg 1 film buccal DAILY #4 ea 10/18/20 sublingual film (Suboxone) clonidine HCl 0.1 mg tablet 0.1 mg PO TID PRN anxiety #10 tabs 10/18/20 doxycycline hyclate 100 mg tablet 100 mg PO BID #10 tabs 10/18/20 buprenorphine 8 mg-naloxone 2 mg 2 film sublingual DAILY 7 days #14 10/21/20 sublingual film (Suboxone) ea cephalexin 500 mg capsule 500 mg PO QID 7 days #28 caps 03/28/22 doxycycline hyclate 100 mg tablet 100 mg PO BID 7 days #14 tabs 03/28/22 doxycycline monohydrate 100 mg 100 mg PO BID #14 tabs 12/12/22 tablet Allergies Allergy/AdvReac Type Severity Reaction Status Date / Time ibuprofen Allergy Unknown headaches Verified 10/17/20 03:21 onion [ONION] Allergy Unknown ANAPHYLAXIS Verified 10/17/20 03:21 Review of Systems Review of Systems: Yes all other systems are reviewed and are negative Constitutional: Constitutional: Reports no additional constitutional complaints, Denies body ache(s), Denies chills, Denies fever(s), Denies headache(s) and Denies weakness Eyes: Eyes: Reports no additional eye complaints and Denies change in vision ENT: Reports system reviewed and no additional complaints, except as documented, Denies dizziness, Denies headache(s), Denies nasal congestion, Denies nasal discharge and Denies neck pain Cardiovascular: Cardiovascular: Reports no additional cardiovascular complaints, Denies chest pain, Denies leg edema and Denies dyspnea Respiratory: Respiratory: Reports no additional respiratory complaints, Denies cough and Denies dyspnea Gastrointestinal: Gastrointestinal: Reports no additional gastrointestinal complaints, Denies abdominal pain, Denies diarrhea, Denies nausea and Denies vomiting Genitourinary: Genitourinary: Denies urinary incontinence Musculoskeletal: Musculoskeletal: Reports no additional musculoskeletal complaints, Denies back pain, Denies arthralgias, Denies joint swelling, Denies neck pain, Denies numbness and Denies tingling Integumentary/Breasts: Skin/Breast: Reports system reviewed and no additional complaints, except as docu, Reports swelling, Reports erythema and Denies rash Neurologic: Reports system reviewed and no additional complaints, except as documented, Denies dizziness, Denies headache(s), Denies numbness, Denies tingling and Denies weakness PMFSH Past Medical History Attestation statement: The following information was validated with the patient. Source: old records reviewed and nursing notes reviewed Medical History Alcohol abuse IV drug user No known health problems Social History Social History Household Members: None Housing: Homeless Alcohol intake: never Cigarette Packs Per Day: 0.5 Cigarettes Per Day: 10.0 Smoked in Last 30 Days: No Use of substances other than those prescribed or required for medical reasons: No Substance Use Type: Marijuana Advance Directives: No Advance Directives Information Provided: No Physical Exam ED Vital Signs: Vital Signs - 24 hr 12/12/22 13:38 12/12/22 14:19 Temperature 97.3 F 98.1 F Pulse Rate 79 66 Respiratory Rate 17 15 Blood Pressure 127/79 132/80 Pulse Oximetry 97 97 Oxygen Delivery Method Room Air Room Air BMI result Body Mass Index 16.3 Const General: alert and poor hygiene Nutritional Appearance: thin Orientation/consciousness: patient oriented x3 Limitations: no limitations HENMT Head: Yes normal to inspection Ears: hearing grossly normal bilaterally Eyes General: appearance normal, both eyes and all related structures Pupils: Equal, round and reactive pupils present Neck Neck: Yes normal visual inspection Chest Chest palpation & inspection: normal inspection of the chest Resp Effort & Inspection: normal respiratory effort Cardio Peripheral pulses: Peripheral pulses 2+ throughout Neuro General: patient oriented x3 and moves all extremities Cranial nerves: Yes Equal, round and reactive pupils present Cognition (Neuro): normal cognition Gait exam (Neuro): Normal gait present Extrem Other: Course Course Course Narrative: RME: 37yo M w/PMHx ETOH abuse, IVDA, c/o bilateral feet pain, feeling raw x few months. denies injecting in feet. denies injury/fall. patient currently homeless L foot appears swollen, mildly erythematous w/skin breakdown. R foot not evaluated in triage Will need proper eval, cleansing and dressing Full HPI, ROS and PE to be performed by primary ED provider. Medical Decision Making Medical Decision Making [facility] Narrative: 37-year-old male with history of opiate use disorder, currently homeless presents the ER with bilateral feet redness and swelling and pain. On exam patient has some mild cellulitis likely secondary to moisture, unable to keep his feet dry. we discussed keeping his feet dry. will start him on oral antibiotic. offered detox resources but patient declined Differential Diagnosis Differential Diagnoses: The differential diagnosis associated with the presentation includes cellulitis Prescription Management I considered prescription management with: Antibiotic mild cellulitis necessitating oral antibiotics Discharge Plan Discharge Clinical Impression: Cellulitis Patient Disposition: Home, Self-Care Instructions: Cellulitis (ED) Prescriptions: New doxycycline monohydrate 100 mg tablet 100 mg PO BID Qty: 14 0RF No Action amoxicillin-pot clavulanate [Augmentin] 875-125 mg tablet 1 tab PO Q12H Qty: 10 0RF doxycycline hyclate 100 mg tablet 100 mg PO BID Qty: 10 0RF buprenorphine-naloxone [Suboxone] 2-0.5 mg film 1 film buccal DAILY Qty: 4 0RF Rx Instructions: place 1 strip/tab under (each) side of tongue clonidine HCl 0.1 mg tablet 0.1 mg PO TID PRN (Reason: anxiety) Qty: 10 0RF cephalexin 500 mg capsule 500 mg PO QID 7 Days Qty: 28 0RF doxycycline hyclate 100 mg tablet 100 mg PO BID 7 Days Qty: 14 0RF buprenorphine-naloxone [Suboxone] 8-2 mg film 2 film sublingual DAILY 7 Days Qty: 14 0RF Rx Instructions: place 1 strip/tab under (each) side of tongue Referrals: Physician,None [Primary Care Provider] - Interventions: ED Discharge Assessment Last Done: 12/12/22 14:20 Discharge Date/Time: 12/12/22 14:21
[2022-12-12 14:19] VITALS: BP 132/80; PULSE 66; RESP 15; TEMP 36.7; O2SAT 97
== END 2022-12-12 14:21 | disposition home or self-care (01) ==
PROVIDERS: Emergency Provider Emergency Medicine
DX: L03.116 Cellulitis of left lower limb (principal); L03.115 Cellulitis of right lower limb; F19.10 Other psychoactive substance abuse, uncomplicated; Z79.899 Other long term (current) drug therapy
CPT/HCPCS: 99283; 99284

== ENCOUNTER 2023-04-27 21:06 | Emergency (ER) | payer MEDICAID, SELFPAY ==
--- NOTE | ~2023-04-27 | XR_ITS ---
EXAMINATION: XR MANDIBLE CLINICAL INFORMATION: Right-sided pain with question of fracture COMPARISON: None available. TECHNIQUE: 4 views of the mandible were obtained. FINDINGS: There are no fractures or dislocations. No bone, joint or soft tissue abnormality is demonstrated. XR/XR mandible min 4V IMPRESSION: Unremarkable examination.
[2023-04-27 21:28] VITALS: BP 140/101; PULSE 84; RESP 20; TEMP 36.7; O2SAT 98; BMI 23.7
[2023-04-28 00:08] VITALS: BP 123/83; PULSE 82; RESP 20; TEMP 36.8; O2SAT 99
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
--- NOTE | 2023-04-28 01:03 | PC.NURSE ---
pt left with out discharge instructions.
== END 2023-04-28 01:06 | disposition home or self-care (01) ==
PROVIDERS: Emergency Provider Emergency Medicine Emergency Medical Services
DX: S09.90XA Unspecified injury of head, initial encounter (principal); X58.XXXA Exposure to other specified factors, initial encounter; Y93.9 Activity, unspecified; Y92.9 Unspecified place or not applicable; Y99.9 Unspecified external cause status; F19.90 Other psychoactive substance use, unspecified, uncomplicated; R68.84 Jaw pain
CPT/HCPCS: 70110; 99283; 99284

== ENCOUNTER 2024-01-10 17:47 | Emergency (ER) | payer MEDICAID, SELFPAY ==
[2024-01-10 17:59] VITALS: PULSE 123
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
[2024-01-10 18:06] VITALS: BP 130/90; PULSE 104; RESP 18; TEMP 36.8; O2SAT 94; BMI 21.8
[2024-01-10 18:24] VITALS: BP 130/90; PULSE 104; RESP 18; TEMP 36.8; O2SAT 94
== END 2024-01-10 18:25 | disposition home or self-care (01) ==
PROVIDERS: Emergency Provider Student in an Organized Health Care Education/Training Program
DX: R45.1 Restlessness and agitation (principal)
CPT/HCPCS: 99282

== ENCOUNTER 2024-01-12 01:38 | Inpatient (IN) | payer MEDICAID, SELFPAY ==
[2024-01-12] VITALS (15 sets, daily range): BP systolic 90–124; BP diastolic 50–88; PULSE 53–98; RESP 12–30; TEMP 36.3–38; O2SAT 97–100; BMI 26.6; BMI 24.5
--- NOTE | ~2024-01-12 | XR_ITS ---
EXAMINATION: XR CHEST CLINICAL INFORMATION: Chills. COMPARISON: None available. TECHNIQUE: Frontal view of the chest was obtained. FINDINGS: No significant abnormality is noted involving the heart, lungs, mediastinum, bony thorax or soft tissues. XR/XR chest 1V IMPRESSION: Unremarkable examination.
--- NOTE | ~2024-01-12 | CT_ITS ---
EXAMINATION: CT ABDOMEN AND PELVIS WITHOUT CONTRAST CLINICAL INFORMATION: Abdominal pain and fever. COMPARISON: None available. TECHNIQUE: Multidetector volumetric imaging was performed from the superior aspect of the liver through the pubic symphysis. Sagittal and coronal reformatted images were obtained on the technologist's workstation. This CT examination was performed using dose optimization techniques as appropriate, variously including the following: *Automated exposure control *Adjustment of mA and/or kV according to patient size (this includes techniques or standardized protocols for targeted exams where dose is matched to indication/reason for exam; i.e. extremities or head) *Use of iterative reconstruction technique DLP: 414 mGy-cm FINDINGS: LUNG BASES: Trace right pleural effusion. LIVER, GALLBLADDER, AND BILIARY TREE: The noncontrast liver is enlarged. Periportal edema. No biliary ductal dilatation is present. Diffuse gallbladder wall thickening and gallbladder wall edema. PANCREAS: Appears edematous with possible peripancreatic stranding. SPLEEN: Enlarged. ADRENAL GLANDS: No adrenal mass. KIDNEYS AND URETERS: The kidneys are symmetric in size. No hydronephrosis, hydroureter, or calculi seen. No perinephric stranding. BLADDER: Unremarkable. GASTROINTESTINAL TRACT: Possible small bowel wall thickening. No small bowel obstruction. Small volume ascites in the abdomen and pelvis. ABDOMINAL WALL: No significant hernia is appreciated. LYMPH NODES: No bulky lymphadenopathy. VASCULAR: Normal caliber abdominal aorta. PELVIC VISCERA: Unremarkable. OSSEOUS STRUCTURES: No destructive bone lesions. CT/CT abdomen pelvis wo IV con IMPRESSION: Diffuse gallbladder wall thickening and gallbladder wall edema. Advise correlation with right upper quadrant ultrasound. The pancreas appears edematous with possible peripancreatic stranding. Advise correlation with pancreatic enzymes. Hepatosplenomegaly. Periportal edema. Trace right pleural effusion. Small volume ascites. Possible small bowel wall thickening. This may represent enteritis versus wet bowel pattern.
--- NOTE | ~2024-01-12 | US_ITS ---
EXAMINATION: US ABDOMEN LIMITED CLINICAL INFORMATION: Abdominal pain. COMPARISON: CT abdomen and pelvis of the same date. TECHNIQUE: Real-time imaging of the right upper quadrant abdominal viscera. FINDINGS: GALLBLADDER: There is gallbladder wall thickening to 1.3 cm. No gallstone is seen. There is mild pericholecystic fluid. COMMON BILE DUCT: Normal in caliber measuring 0.4 cm in diameter. US/US abdomen limited IMPRESSION: There is gallbladder wall thickening to 1.3 cm, without gallstone seen. There is mild pericholecystic fluid. The findings suggest possible acalculous cholecystitis. This could be further evaluated with nuclear HIDA imaging, if clinically indicated.
--- NOTE | 2024-01-12 01:55 | MHC.EDTECH ---
Pt changed over with security. Belongings in decon.
--- NOTE | 2024-01-12 03:20 | PC.NURSE ---
Multiple failed attempts at obtaining IV line and lab work. U/S guided line pending. aware.
[2024-01-12] MEDS: 0.9 % Sodium Chloride 1,000 ML 500 ML IVCONT (03:27)
[2024-01-12 03:28] LABS: Hematocrit 32.5 % (42.0-52.0); Hemoglobin 10.6 g/dl (14.0-18.0); Mean Corpuscular HGB Conc 32.6 g/dl (31.0-36.0); Mean Corpuscular Hemoglobin 25.4 pg (27.0-33.0); Mean Corpuscular Volume 77.8 fL (80.0-98.0); Mean Platelet Volume 8.9 fL (9.4-12.4); Platelet Count 294 X10*3/uL (160-400); Red Blood Count 4.18 X10*6/uL (4.60-5.80); Red Cell Distribution Width 14.9 % (11.0-16.0); White Blood Count 8.6 X10*3/uL (4.8-10.8)
[2024-01-12 03:41] LABS: Alanine Aminotransferase 152 U/L (0-40); Albumin Level 3.3 g/dL (3.5-5.0); Alkaline Phosphatase 226 U/L (39-117); Anion Gap 16 (12-20); Aspartate Amino Transferase 537 U/L (5-37); Bilirubin Total 0.7 mg/dL (0.0-1.0); Blood Urea Nitrogen 21 mg/dL (9-16); Calcium 8.4 mg/dL (8.4-10.2); Carbon Dioxide 19 mmol/L (22-29); Chloride 103 mmol/L (96-108); Creatinine Clr Calc Pharmacy 73.4; Estimated Glomerular Filt Rate 59; Glucose Random 159 mg/dL (60-115); Potassium 3.4 mmol/L (3.3-5.1); Sodium 135 mmol/L (135-145); Total Protein 6.6 g/dL (6.5-8.0)
[2024-01-12 03:55] LABS: Band Neutrophils Percent 21 % (3-5); Lymphocytes Absolute Manual 0.3 X10*3/uL (1.2-4.9); Lymphocytes Percent Manual 4 % (20-40); Metamyelocytes Absolute 0.2 X10*3/uL; Metamyelocytes Percent 2 %; Neutrophils Absolute Manual 8.1 X10*3/uL (2.0-8.3); Neutrophils Percent Manual 73 % (45-73)
[2024-01-12 03:57] LABS: Acanthocytes 2+ (3-5) /OIF; Hypochromasia 1+ (5-14) /OIF; Microcytosis 1+ (5-14) /OIF; Ovalocytes 1+ (5-14) /OIF; Platelet Estimate NORMAL (NORMAL); Platelet Morphology Comment NORMAL; RBC Morphology NOTED; Toxic Vacuolation PRESENT
[2024-01-12] MEDS: cefTRIAXone sodium 1 GM in 0.9 % Sodium Chloride 50 ML IV (04:20)
--- NOTE | 2024-01-12 04:20 | MHC.EDTECH ---
Pt given juice and water per request and Pt was given a urinal and instructed to use that when he needs to urinate for a sample. Call dixon within reach.
[2024-01-12 04:37] LABS: Lactic Acid 3.8 mmol/L (0.5-2.0)
--- NOTE | 2024-01-12 04:43 | ED_ITS ---
HPI - General Adult General Chief complaint: ETOH/Substance Use Stated complaint: herion use cold headache Time Seen by Provider: 01/12/24 01:45 Source: patient and EMS Mode of arrival: EMS Limitations: no limitations History of Present Illness ED Provider: Dr. Vazquez HPI narrative: After shooting up heroine patient presents with shaking chills and headache. Onset (ago): hour(s) Related Data Previous Rx's ?Medication ?Instructions ?Recorded amoxicillin 875 mg-potassium 1 tab PO Q12H #10 tabs 10/18/20 clavulanate 125 mg tablet (Augmentin) buprenorphine 2 mg-naloxone 0.5 mg 1 film buccal DAILY #4 ea 10/18/20 sublingual film (Suboxone) clonidine HCl 0.1 mg tablet 0.1 mg PO TID PRN anxiety #10 tabs 10/18/20 doxycycline hyclate 100 mg tablet 100 mg PO BID #10 tabs 10/18/20 buprenorphine 8 mg-naloxone 2 mg 2 film sublingual DAILY 7 days #14 10/21/20 sublingual film (Suboxone) ea cephalexin 500 mg capsule 500 mg PO QID 7 days #28 caps 03/28/22 doxycycline hyclate 100 mg tablet 100 mg PO BID 7 days #14 tabs 03/28/22 doxycycline monohydrate 100 mg 100 mg PO BID #14 tabs 12/12/22 tablet cephalexin 500 mg capsule 500 mg PO TID 7 days #21 caps 04/28/23 ibuprofen 400 mg tablet 400 mg PO Q6H PRN pain #20 tabs 04/28/23 Allergies Allergy/AdvReac Type Severity Reaction Status Date / Time ibuprofen Allergy Unknown headaches Verified 01/12/24 02:02 onion [ONION] Allergy Unknown ANAPHYLAXIS Verified 01/12/24 02:02 Review of Systems 2 Review of Systems: Yes all other systems are reviewed and are negative Neurologic: Denies Sensory deficit (Neuro) PMFSH Past Medical History Medical History Alcohol abuse IV drug user No known health problems Social History Social History Household Members: None Housing: Homeless Alcohol intake: never Cigarette Packs Per Day: 0.5 Cigarettes Per Day: 10.0 Smoked in Last 30 Days: Yes Use of substances other than those prescribed or required for medical reasons: Yes Substance Use Type: Heroin Substance Use Frequency: Chronic Longstanding Last Used Substance: Hours (ago) Advance Directives: No Advance Directives Information Provided: Yes Do you have a plan to hurt others: No Plan Physical Exam ED Vital Signs: Vital Signs - 24 hr 01/12/24 01:58 01/12/24 03:58 Temperature 98.9 F 100.4 F Pulse Rate 93 98 Respiratory Rate 18 16 Blood Pressure 106/50 L 116/79 Pulse Oximetry 100 99 Oxygen Delivery Method Room Air Room Air BMI result Body Mass Index 26.6 Const Other: unkept male looking older than stated age, shivering feeling unwell Nutritional Appearance: average body habitus Orientation/consciousness: oriented to person and patient oriented x3 Limitations: no limitations HENMT Head: Yes normal to inspection Ears: external ears normal General nose exam: Normal external nose present Mouth: Normal oral and palatal mucosa present and oropharynx normal Throat: Yes posterior oropharynx normal Eyes General: appearance normal, both eyes and all related structures Neck Neck: Yes normal visual inspection Chest Chest palpation & inspection: normal inspection of the chest Resp Auscultation: clear to auscultation bilaterally Cardio Jugular venous distension: no JVD Rate: regular rate Rhythm: regular rhythm Heart sounds: S1 normal heart sound present and S2 normal heart sound present GI Inspection: Yes normal to inspection Palpation (GI): Soft to palpation, nontender and No hepatosplenomegaly present Auscultation: normal bowel sounds General: Yes no CVA tenderness Back/Spine/Pelvis Back: no CVA tenderness Skin General skin exam: no rashes or lesions noted Neuro General: oriented to person and patient oriented x3 Cranial nerves: Yes CN's II-XII intact bilaterally Motor exam (neuro): 5/5 motor strength present throughout Sensory Exam: No Sensory deficit (Neuro) Extrem General: Yes normal to inspection Psych Appearance: grossly normal Course Reevaluation(s) Reevaluation #1: with bandemia of 24 and lactic acid of 3.8 will admit for likely bacteremia Time: 04:46 Reevaluation #2: I spent 40 minutes of critical care, with interventions, assessments, speaking to patient, consultants, and family. Time: 04:46 Medications Administered Discontinued Medications Generic Name Dose Route Start Last Admin Trade Name Freq PRN Reason Stop Dose Admin Sodium Chloride 1,000 mls @ 500 mls/hr 01/12/24 02:15 01/12/24 04:23 Ns IVCONT 01/12/24 04:14 Infused .Q2H AD Infusion Ceftriaxone Sodium 1 gm/ 50 mls @ 100 mls/hr 01/12/24 04:09 01/12/24 04:50 Sodium Chloride IV 01/12/24 04:38 Infused ONCE ONE Infusion Medical Decision Making Differential Diagnosis Differential Diagnoses: The differential diagnosis associated with the presentation includes (sepsis, bacteremia, opiate withdrawal, medication reaction) Admission/Observation Consideration of admission/observation: Escalation of care including admission/observation considered (upon arrival patient was considered for admission) Consult Healthcare Provider Management of the patient was discussed with: Hospitalist Lab Data MDM Lab Attestation statement: I reviewed the patient's lab results. 01/12/24 03:23 01/12/24 03:23 Labs: Lab Results 01/12/24 01/12/24 Range/Units 03:23 04:19 WBC 8.6 (4.8-10.8) X10*3/uL RBC 4.18 L (4.60-5.80) X10*6/uL Hgb 10.6 L (14.0-18.0) g/dl Hct 32.5 L (42.0-52.0) % MCV 77.8 L (80.0-98.0) fL MCH 25.4 L (27.0-33.0) pg MCHC 32.6 (31.0-36.0) g/dl RDW 14.9 (11.0-16.0) % Plt Count 294 (160-400) X10*3/uL MPV 8.9 L (9.4-12.4) fL Immature Gran % (Auto) Cancelled Neut % (Auto) Cancelled Lymph % (Auto) Cancelled [place] % (Auto) Cancelled Eos % (Auto) Cancelled Baso % (Auto) Cancelled Lymph # (Auto) Cancelled [place] # (Auto) Cancelled Eos # (Auto) Cancelled Baso # (Auto) Cancelled Abs Immat Gran (auto) Cancelled Absolute Neuts (auto) Cancelled Absolute Nucleated RBC 0.000 (0.0-0.012) X10*3/uL Nucleated RBC % (auto) 0.0 (0.0-0.2) /100WBC Neutrophils % (Manual) 73 (45-73) % Band Neutrophils % 21 H (3-5) % Lymphocytes % (Manual) 4 L (20-40) % Metamyelocytes % 2 % Abs Neuts (Manual) 8.1 (2.0-8.3) X10*3/uL Lymphocytes # (Manual) 0.3 L (1.2-4.9) X10*3/uL Metamyelocytes # 0.2 X10*3/uL Toxic Vacuolation PRESENT Platelet Estimate NORMAL (NORMAL) Plt Morphology Comment NORMAL RBC Morphology NOTED Hypochromasia 1+ (5-14) /OIF Microcytosis 1+ (5-14) /OIF Ovalocytes 1+ (5-14) /OIF Acanthocytes (Spur) 2+ (3-5) /OIF Sodium 135 (135-145) mmol/L Potassium 3.4 (3.3-5.1) mmol/L Chloride 103 (96-108) mmol/L Carbon Dioxide 19 L (22-29) mmol/L Anion Gap 16 (12-20) BUN 21 H (9-16) mg/dL Creatinine 1.35 (0.5-1.4) mg/dL Estim Creat Clear Calc 73.4 Estimated GFR 59 Random Glucose 159 H (60-115) mg/dL Lactic Acid 3.8 H* (0.5-2.0) mmol/L Calcium 8.4 (8.4-10.2) mg/dL Total Bilirubin 0.7 (0.0-1.0) mg/dL AST 537 H (5-37) U/L ALT 152 H (0-40) U/L Alkaline Phosphatase 226 H (39-117) U/L Total Protein 6.6 (6.5-8.0) g/dL Albumin 3.3 L (3.5-5.0) g/dL Independent Interpretation I performed an independent interpretation of an: Plain X-Ray (no infiltrate) Independent Historian Clinical information obtained from an independent historian. History obtained from or confirmed by: EMS Chronic Conditions Patient?s care impacted by: Other (IVDU) Social Determinants Patient?s care significantly limited by Social Determinants of Health including: Alcoholism and drug addiction in family Discharge Plan Discharge Clinical Impression: Bacteremia, Bandemia, IV drug user, Opioid use disorder Patient Disposition: Admitted As Inpatient Print Language: Macedonian
[2024-01-12] MEDS: vancomycin/NS 2,000 MG/500 ML PLAST..BAG 250 MG IV (05:26)
[2024-01-12] MEDS: LACTATED RINGERS 2449.41 ML IV (05:28)
[2024-01-12 06:22] LABS: Reflex Lactate? Lactic Acid Added
[2024-01-12] MEDS: Lactated Ringers 1,000 ML 999 ML IV ×2 (07:50→15:00)
--- NOTE | 2024-01-12 07:50 | PC.NURSE ---
patient appears to be asleep, respirations equal and unlabored. patient noted to be hypotensive this morning, provider called to bedside, medicated per mar with LR 1000ml. patient in normal sinus rhythm. skin dry and intact. patient awakens to verbal stimuli.
[2024-01-12 08:38] LABS: Reflex Lactate? 2 Y
[2024-01-12] MEDS: methADONE HCl 20 MG/2 ML ORAL.CONC 40 MG PO (08:46)
--- NOTE | 2024-01-12 08:55 | PC.NURSE ---
patient alter this RN that he as feeling as if he has stomach cramping, patient ambulated with thi RN to the bathroom, states he had diarrhea. patient requested methadone to help with withdrawal. ED provider ordered methadone for patient. patient medicated per AUG. VSS, respirations equal and unlabored.
--- NOTE | 2024-01-12 09:05 | P.HPHOSP_ITS ---
History of Present Illness Date of Service: 01/12/24 Chief Complaint: Chills This is a 38-year-old male with 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 Patient states he has been having fevers and chills that started on the day of presentation. Also has associated nausea and nonbloody emesis. Patient admits to using IV heroin on the day of presentation. Is not on any prescription medications. Denies chest discomfort, palpitations, shortness of breath, changes in urinary or bowel habits. Endorses generalized abdominal discomfort, intermittent, nonradiating. In the emergency department, patient with temperature 100.4 degrees and 21% bands. Lactic acid elevated at 4 Review of Systems 2 Constitutional: Constitutional: Reports chills, Reports fatigue and Reports fever(s) ENT: Reports system reviewed and no additional complaints, except as documented Cardiovascular: Cardiovascular: Reports no additional cardiovascular complaints Respiratory: Respiratory: Reports no additional respiratory complaints Gastrointestinal: Gastrointestinal: Reports abdominal pain, Reports nausea and Reports vomiting Genitourinary: Genitourinary: Reports no additional male genitourinary complaints Endocrine: Endocrine: Reports fatigue [facility] Medical History Alcohol abuse IV drug user No known health problems Pertinent family history: No family history of early CAD Social History Household Members: None Housing: Homeless Alcohol intake: never Cigarette Packs Per Day: 0.5 Cigarettes Per Day: 10.0 Smoked in Last 30 Days: Yes Use of substances other than those prescribed or required for medical reasons: Yes Substance Use Type: Heroin Substance Use Frequency: Chronic Longstanding Last Used Substance: Hours (ago) Advance Directives: No Advance Directives Information Provided: Yes Do you have a plan to hurt others: No Plan Meds Allergies Allergy/AdvReac Type Severity Reaction Status Date / Time ibuprofen Allergy Unknown headaches Verified 01/12/24 02:02 onion [ONION] Allergy Unknown ANAPHYLAXIS Verified 01/12/24 02:02 Physical Exam 2 Vital Signs and Narrative: Vital Signs: Last Vital Signs Temp 98.5 F 01/12/24 08:50 Pulse 76 01/12/24 08:50 Resp 29 H 01/12/24 08:50 BP 118/82 01/12/24 08:50 Pulse Ox 100 01/12/24 08:50 O2 Del Method Room Air 01/12/24 08:50 BMI result Body Mass Index 26.6 Middle-aged male lying in bed in no distress Neck supple, no JVD Regular rate and rhythm, S1-S2 heard Regular breath sounds bilaterally, no wheezing or crackles appreciated Abdomen with generalized mild tenderness, no rigidity, no rebound tenderness Patient is awake, alert and oriented to self, place, time and person ; no focal motor deficit Psych: Normal mood Bilateral extremities with track medina Results Labs 01/12/24 03:23 01/12/24 03:23 Labs: Laboratory Results - last 24 hr 01/12/24 01/12/24 01/12/24 03:23 04:19 06:34 MCV 77.8 L MCH 25.4 L MCHC 32.6 RDW 14.9 Plt Count 294 MPV 8.9 L Immature Gran % (Auto) Cancelled Neut % (Auto) Cancelled Lymph % (Auto) Cancelled [place] % (Auto) Cancelled Eos % (Auto) Cancelled Baso % (Auto) Cancelled Lymph # (Auto) Cancelled [place] # (Auto) Cancelled Eos # (Auto) Cancelled Baso # (Auto) Cancelled Abs Immat Gran (auto) Cancelled Absolute Neuts (auto) Cancelled Absolute Nucleated RBC 0.000 Nucleated RBC % (auto) 0.0 Neutrophils % (Manual) 73 Band Neutrophils % 21 H Lymphocytes % (Manual) 4 L Metamyelocytes % 2 Abs Neuts (Manual) 8.1 Lymphocytes # (Manual) 0.3 L Metamyelocytes # 0.2 Toxic Vacuolation PRESENT Platelet Estimate NORMAL Plt Morphology Comment NORMAL RBC Morphology NOTED Hypochromasia 1+ (5-14) Microcytosis 1+ (5-14) Ovalocytes 1+ (5-14) Acanthocytes (Spur) 2+ (3-5) Anion Gap 16 Estim Creat Clear Calc 73.4 Estimated GFR 59 Random Glucose 159 H Lactic Acid 3.8 H* Lactic Acid F/U @ 2Hr 4.0 H* Calcium 8.4 Total Bilirubin 0.7 AST 537 H ALT 152 H Alkaline Phosphatase 226 H Total Protein 6.6 Albumin 3.3 L Imaging Radiologist's Impressions: Impressions Chest X-Ray 01/12/24 04:55 IMPRESSION: Unremarkable examination. Assessment and Plan (1) Bandemia: Status: Acute (2) IV drug user: Status: Acute Plan This is a 38-year-old male with 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 #. Fevers, chills with bandemia: Concern for bacteremia in a patient with IV drug use disorder. Does have a history of MRSA. Continue IV vancomycin. Monitor cultures #. Acute lactic acidosis: Likely due to sepsis in the setting of above. Resuscitating with IV crystalloids #. Microcytic anemia: Obtaining iron panel #. Abdominal discomfort with elevated transaminases: Obtaining CT abdomen/pelvis to further evaluate #. Opiate use disorder: Monitor for withdrawal. 40 mg methadone given in the ER. Consulted Addiction Team Med rec pending DVT prophylaxis: Lovenox Full code Admit as inpatient and will require two night minimum hospital stay for IV antibiotics (as above), which is not possible in a lesser acute setting. Quality Stroke Does the patient have a stroke diagnosis?: No VTE Prior VTE?: No VTE Risk Level:: Medical - moderate - high VTE Device Contraindication: Treatment Not Indicated VTE Drug Contraindication: N/A - Med Ordered
--- NOTE | 2024-01-12 09:26 | PHA.PROG ---
Admission Date/Time: January 12, 2024 09:12 Indication: SKIN Weight in k.647 kg Adjusted body weight in Kg: [place] body weight in Kg: Obesity Dosing Indication % IBW: Serum Creatinine - Last 168 Hours 01/12/24 03:23 Creatinine 1.35 Estimated CrCl and GFR - Last 168 Hours 01/12/24 03:23 Estim Creat Clear Calc 73.4 Estimated GFR 59 Vancomycin Loading Dose: 2000 MG Current Vancomycin Dosing Regimen: 750 MG Q12H Vancomycin Monitoring using AUC goal of 400 - 600 range with trough as surrogate marker: SFH=653 TROUGH=14.3 Date and Time for next Vancomycin Level to be drawn: 01/13/2024 @1600 Pharmacist Comments on Vancomycin Plan: Vancomycin dosing will take advantage of [employer] as a clinical decision support tool that uses Bayesian modeling to calculate individual patient's pharmacokinetic parameters and forecast the patient's drug concentration time course with the target goal AUC 24 range of 400 - 600 mg/L/hr.
[2024-01-12] MEDS: Morphine Sulfate 4 MG/ML CARTRIDGE IVPUSH (10:01)
[2024-01-12] MEDS: ondansetron HCL 4 MG/2 ML VIAL IVPUSH ×2 (10:01→19:27)
[2024-01-12] MEDS: Enoxaparin Sodium 40 MG/0.4 ML SYRINGE SUBCUT (10:03)
--- NOTE | 2024-01-12 10:30 | PC.NURSE ---
phlebotomy attempted blood draw for lactic acid, unable to get draw. stated she was going to ask a coworker to come try.
--- NOTE | 2024-01-12 11:01 | PHA.MEDREC ---
Addendum entered by Nimesh Brandon [facility] 01/12/24 12:29: MED REC DOUBLE CHECKED BY [facility] Original Note: Pharmacy Consult ? Medication Reconciliation Pharmacy has completed the medication reconciliation. Went down to speak to patient a few times this morning and I had no luck with the patient and was not able to get a response or anything. I called his pharmacy on file and asked when he last filled with them and they state They cannot see the last time he filled due to not having anything in their record history except for medications from 2022 that were never filled or picked up. I looked in patient profile to get more info and I noticed a note from this morning 01/12/24 @0900 they said he is not on any prescription medications.
--- NOTE | 2024-01-12 11:21 | MHC.RECOVRN ---
Briefly met with pt in ED10 after consult placed to Addiction Medicine for OUD. Pt had presented to the ED reporting cotton fever. Upon evaluation, pt admitted for concern for bacteremia. Pt laying in bed, actively vomiting and diaphoretic. Received 40 mg methadone approx 1 hour prior to meeting. Pt reports using heroin/fentanyl, at least 2 bundles daily, IV, as well as cocaine, a couple grams, IV. Unable to have full discussion regarding substance use due to pt not feeling well. Pt to receive Zofran and morphine, will follow up later. Discussed with Antonia Mantilla APRN.
[2024-01-12] MEDS: Calcium Carbonate 750 MG TAB.CHEW PO (13:26)
[2024-01-12 14:04] LABS: ~Lactic Acid-LAB USE ONLY 3.4 mmol/L (0.5-2.0)
[2024-01-12 16:04] LABS: Lipase 17 U/L (8-78)
[2024-01-12] MEDS: methADONE HCl 20 MG/2 ML ORAL.CONC 10 MG PO (16:37)
[2024-01-12] MEDS: vancomycin HCL 750 MG in 0.9 % Sodium Chloride 250 ML 265 MG IV (18:14)
[2024-01-13] MEDS: Metoclopramide HCl 10 MG/2 ML VIAL 5 MG IVPUSH ×2 (02:30→19:49)
[2024-01-13 03:52] VITALS: BP 119/66; PULSE 60; RESP 18; TEMP 37.2; O2SAT 96
--- NOTE | 2024-01-13 04:33 | PC.NURSE ---
Patient has been vomiting a lot, not able to keep fluids down. Dr Nova made aware, Reglan PRN and LR ordered.
[2024-01-13] MEDS: Lactated Ringers 1,000 ML 80 ML IVCONT ×2 (04:48→20:29)
[2024-01-13] MEDS: ondansetron HCL 4 MG/2 ML VIAL IVPUSH ×2 (04:48→18:34)
[2024-01-13] MEDS: vancomycin HCL 750 MG in 0.9 % Sodium Chloride 250 ML 265 MG IV (04:49)
[2024-01-13 06:14] LABS: Hematocrit 32.6 % (42.0-52.0); Mean Corpuscular HGB Conc 33.7 g/dl (31.0-36.0); Mean Corpuscular Hemoglobin 25.4 pg (27.0-33.0); Mean Corpuscular Volume 75.3 fL (80.0-98.0); Mean Platelet Volume 9.6 fL (9.4-12.4); Platelet Count 323 X10*3/uL (160-400); Red Blood Count 4.33 X10*6/uL (4.60-5.80); Red Cell Distribution Width 14.9 % (11.0-16.0)
[2024-01-13 06:27] LABS: White Blood Count 45.6 X10*3/uL (4.8-10.8)
--- NOTE | 2024-01-13 06:29 | PM.EVENT ---
Event Note Date of Service: 01/13/24 Event Note: leukomoid reaction concern for acute cholecystitis, adding iv zosyn and gen surgery consults Time Spent With Patient Time: Total time managing care of this patient today ____ minutes.
[2024-01-13 06:48] LABS: Anion Gap 15 (12-20); Blood Urea Nitrogen 19 mg/dL (9-16); Calcium 8.5 mg/dL (8.4-10.2); Carbon Dioxide 27 mmol/L (22-29); Chloride 98 mmol/L (96-108); Creatinine Clr Calc Pharmacy 94.4; Estimated Glomerular Filt Rate > 60; Glucose Random 128 mg/dL (60-115); Iron 8 mcg/dL (45-160); Percent Iron Saturation 3 % (15-50); Potassium 2.6 mmol/L (3.3-5.1); Sodium 137 mmol/L (135-145); Total Iron Binding Capacity 246 mcg/dL (228-428); Unsaturated Iron Binding 238 ug/dL
[2024-01-13] MEDS: Potassium Chloride/H20 10 MEQ/100 ML PIGGYBACK 100 MEQ IV ×8 (06:53→13:37)
[2024-01-13] MEDS: 0.9 % Sodium Chloride Flush 3 ML SYRINGE IVFLUSH (06:57)
[2024-01-13 07:03] LABS: Band Neutrophils Percent 23 % (3-5); Lymphocytes Absolute Manual 1.4 X10*3/uL (1.2-4.9); Lymphocytes Percent Manual 3 % (20-40); Metamyelocytes Absolute 0.5 X10*3/uL; Metamyelocytes Percent 1 %; Monocytes Absolute Manual 1.8 X10*3/uL (0.1-1.2); Monocytes Percent Manual 4 % (2-11); Neutrophils Percent Manual 69 % (45-73)
[2024-01-13 07:07] LABS: Acanthocytes 1+ (0-2) /OIF; Burr Cells 1+ (0-2) /OIF; Microcytosis 1+ (5-14) /OIF; Ovalocytes 1+ (5-14) /OIF; RBC Morphology NOTED
[2024-01-13 07:08] LABS: Hypochromasia 1+ (5-14) /OIF; Platelet Estimate NORMAL (NORMAL); Platelet Morphology Comment NORMAL; Toxic Vacuolation PRESENT
[2024-01-13] MEDS: methADONE HCl 20 MG/2 ML ORAL.CONC 50 MG PO (07:45)
[2024-01-13] MEDS: Piperacillin Sodium/Tazobactam 3.375 GM in 0.9 % Sodium Chloride 50 ML IV (07:46)
[2024-01-13 08:00] VITALS: BP 118/73; PULSE 56; RESP 18; TEMP 36.4; O2SAT 97
--- NOTE | 2024-01-13 09:20 | P.PNIM_ITS ---
Subjective Subjective Date of Service: 01/13/24 Interval History: Multiple episodes of nausea and nonbloody emesis overnight. Continues to have abdominal pain. Unable to tolerate p.o. intake Constitutional Constitutional: Reports fatigue, Reports malaise and Reports weakness Cardiovascular Cardiovascular: Reports no additional cardiovascular complaints Respiratory Respiratory: Reports no additional respiratory complaints Gastrointestinal Gastrointestinal: Reports abdominal pain, Reports nausea and Reports vomiting Neurologic Neurologic: Reports weakness Endocrine Endocrine: Reports fatigue Physical Exam 2 Vital Signs: Vital Signs: Last Vital Signs Temp 97.6 F 01/13/24 08:00 Pulse 56 01/13/24 08:00 Resp 18 01/13/24 08:00 BP 118/73 01/13/24 08:00 Pulse Ox 97 01/13/24 08:00 O2 Del Method Room Air 01/13/24 08:00 BMI result Body Mass Index 24.5 Middle-aged male lying in bed in no distress Neck supple, no JVD Regular rate and rhythm, S1-S2 heard Regular breath sounds bilaterally, no wheezing or crackles appreciated Abdomen with right upper quadrant tenderness, no rigidity, no rebound tenderness Patient is awake, alert and oriented to self, place, time and person ; no focal motor deficit Psych: Normal mood No pedal edema Objective Data Active Medications Acetaminophen (Acetaminophen 325 Mg Tablet) 650 mg PO Q6H PRN PRN Reason: Pain, Mild (Pain Scale 1-3), fever or headache Calcium Carbonate (Calcium Carbonate 750 Mg Tab.Chew) 750 mg PO Q4H PRN PRN Reason: Heartburn Last Admin: 01/12/24 13:26 Dose: 750 mg Documented By: EMMA Enoxaparin Sodium (Enoxaparin Sodium 40 Mg/0.4 Ml Syringe) 40 mg SUBCUT Q24H [facility] Last Admin: 01/12/24 10:03 Dose: 40 mg Documented By: EMMA Vancomycin HCl 750 mg/ Sodium (Chloride) 265 mls @ 265 mls/hr IV Q12H [facility] Last Infusion: 01/13/24 05:59 Dose: Infused Documented By: ACRRIE Lactated Ringer's (Lr) 1,000 mls @ 80 mls/hr IVCONT .[id number] [facility] Last Infusion: 01/13/24 05:59 Dose: 80 mls/hr Documented By: CARRIE Piperacillin Sod/Tazobactam (Sod 3.375 gm/ Sodium Chloride) 50 mls @ 100 mls/hr IV Q6H [facility] Last Infusion: 01/13/24 08:18 Dose: Infused Documented By: MERLIN Potassium Chloride (Potassium Chloride/H20) 10 meq in 100 mls @ 100 mls/hr IV Q1H [facility] Stop: 01/13/24 10:59 Last Admin: 01/13/24 08:56 Dose: 100 mls/hr Documented By: MERLIN Magnesium Hydroxide (Milk Of Magnesia 30 Ml Oral.Susp) 30 ml PO DAILY PRN PRN Reason: Constipation Melatonin (Melatonin 3 Mg Tablet) 6 mg PO BEDTIME PRN PRN Reason: Insomnia Methadone HCl (Methadone Hcl 20 Mg/2 Ml Oral.Conc) 50 mg PO DAILY [facility] Last Admin: 01/13/24 07:45 Dose: 50 mg Documented By: MERLIN Metoclopramide HCl (Metoclopramide Hcl 10 Mg/2 Ml Vial) 5 mg IVPUSH Q6H PRN PRN Reason: Nausea and Vomiting Last Admin: 01/13/24 02:30 Dose: 5 mg Documented By: CARRIE Ondansetron HCl (Ondansetron Hcl 4 Mg/2 Ml Vial) 4 mg IVPUSH Q8H PRN PRN Reason: Nausea and Vomiting Last Admin: 01/13/24 04:48 Dose: 4 mg Documented By: CARRIE Pharmacy Consult (Consult Rx Vancomycin Dosing) 1 each MISCELLANE DAILY PRN PRN Reason: Consult order Sodium Chloride (0.9 % Sodium Chloride Flush 3 Ml Syringe) 3 ml IVFLUSH QSHIFT [facility] Last Admin: 01/13/24 06:57 Dose: 3 ml Documented By: MERLIN Labs 01/13/24 05:26 01/13/24 05:26 Labs: Laboratory Results - last 24 hr 01/12/24 01/12/24 01/13/24 03:23 13:31 05:26 MCV 75.3 L MCH 25.4 L MCHC 33.7 RDW 14.9 Plt Count 323 MPV 9.6 Immature Gran % (Auto) Cancelled Neut % (Auto) Cancelled Lymph % (Auto) Cancelled [place] % (Auto) Cancelled Eos % (Auto) Cancelled Baso % (Auto) Cancelled Lymph # (Auto) Cancelled [place] # (Auto) Cancelled Eos # (Auto) Cancelled Baso # (Auto) Cancelled Abs Immat Gran (auto) Cancelled Absolute Neuts (auto) Cancelled Absolute Nucleated RBC 0.000 Nucleated RBC % (auto) 0.0 Neutrophils % (Manual) 69 Band Neutrophils % 23 H Lymphocytes % (Manual) 3 L Monocytes % (Manual) 4 Metamyelocytes % 1 Abs Neuts (Manual) 42.0 H Lymphocytes # (Manual) 1.4 Monocytes # (Manual) 1.8 H Metamyelocytes # 0.5 Toxic Vacuolation PRESENT Platelet Estimate NORMAL Plt Morphology Comment NORMAL RBC Morphology NOTED Hypochromasia 1+ (5-14) Microcytosis 1+ (5-14) Ovalocytes 1+ (5-14) [place] Cells 1+ (0-2) Acanthocytes (Spur) 1+ (0-2) Smear Path Review SEE NOTE Anion Gap 15 Estim Creat Clear Calc 94.4 Estimated GFR > 60 Random Glucose 128 H Lactic Acid F/U @ 4Hr 3.4 H* Calcium 8.5 Iron 8 L TIBC 246 % Saturation 3 L Unsat Iron Binding 238 Lipase 17 Microbiology Microbiology Results: Microbiology 01/12/24 03:23 Blood Culture - Preliminary Blood - Venous No growth after 24 hours. 01/12/24 03:23 Blood Culture - Preliminary Blood - Venous No growth after 24 hours. Assessment and Plan (1) Cholecystitis: Status: Acute Plan This is a 38-year-old male with 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 #. Sepsis due to acute cholecystitis: Initiated IV Zosyn. Spoke to General surgery> plan for cholecystectomy either later today or tomorrow morning. Will keep patient NPO. Hold Lovenox. Also continue IV vancomycin for concern of bacteremia in this patient with IV drug use and history of MRSA. Follow blood cultures. #. Leukemoid reaction in the setting of above. #. Hypokalemia due to GI losses: Repleting #. Acute lactic acidosis: Due to sepsis. Resuscitated with IV crystalloids #. Iron deficiency anemia: Start iron supplementation once acute infection resolves. Outpatient follow-up #. Elevated transaminases due to sepsis. Repeat liver panel pending #. Opiate use disorder: Monitor for withdrawal. Methadone 50 mg daily initiated by Addiction Team DVT prophylaxis: Hold Lovenox for surgical procedure Full code Admit as inpatient and will require two night minimum hospital stay for IV antibiotics (as above), which is not possible in a lesser acute setting. Quality Stroke Does the patient have a stroke diagnosis?: No VTE Prior VTE?: No VTE Risk Level:: Medical - moderate - high VTE Device Contraindication: Treatment Not Indicated VTE Drug Contraindication: N/A - Med Ordered
--- NOTE | 2024-01-13 10:06 | P.CONGS_ITS ---
History of Present Illness Consult details Consult date: 01/13/24 Narrative: Patient was not the best historian but states he has had several day history of upper abdominal/right upper quadrant pain which has progressed. Because of persistence of discomfort, he presented emergency department where workup including CT scan and an ultrasound her consistent with acute cholecystitis. Patient otherwise tolerating a diet, has regular bowel habits. Never been jaundiced before. He has never had such symptoms before. Chart was reviewed and patient evaluated PMFSH Past Medical History Medical History Alcohol abuse IV drug user No known health problems Social History Social History Household Members: None Housing: Homeless Do you presently have visiting nurse or other home services: No Alcohol intake: never Patient Tobacco Use Status: Current everyday Tobacco user Tobacco use type: Cigarette Cigarette Packs Per Day: 1 Cigarettes Per Day: 20.0 Second Hand Smoke Exposure: No Substance Use Type: Crack/Cocaine, Heroin and Marijuana Meds Allergies Allergy/AdvReac Type Severity Reaction Status Date / Time ibuprofen Allergy Unknown headaches Verified 01/12/24 02:02 onion [ONION] Allergy Unknown ANAPHYLAXIS Verified 01/12/24 02:02 Active Medications: Current Medications Acetaminophen (Acetaminophen 325 Mg Tablet) 650 mg PO Q6H PRN PRN Reason: Pain, Mild (Pain Scale 1-3), fever or headache Calcium Carbonate (Calcium Carbonate 750 Mg Tab.Chew) 750 mg PO Q4H PRN PRN Reason: Heartburn Last Admin: 01/12/24 13:26 Dose: 750 mg Vancomycin HCl 750 mg/ Sodium (Chloride) 265 mls @ 265 mls/hr IV Q12H [facility] Last Infusion: 01/13/24 05:59 Dose: Infused Lactated Ringer's (Lr) 1,000 mls @ 80 mls/hr IVCONT .[id number] [facility] Last Infusion: 01/13/24 05:59 Dose: 80 mls/hr Potassium Chloride (Potassium Chloride/H20) 10 meq in 100 mls @ 100 mls/hr IV Q1H [facility] Stop: 01/13/24 10:59 Last Admin: 01/13/24 09:40 Dose: 100 mls/hr Potassium Chloride (Potassium Chloride/H20) 10 meq in 100 mls @ 100 mls/hr IV Q1H [facility] Stop: 01/13/24 13:29 Piperacillin Sod/Tazobactam (Sod 4.5 gm/ Sodium Chloride) 100 mls @ 200 mls/hr IV Q6H [facility] Magnesium Hydroxide (Milk Of Magnesia 30 Ml Oral.Susp) 30 ml PO DAILY PRN PRN Reason: Constipation Melatonin (Melatonin 3 Mg Tablet) 6 mg PO BEDTIME PRN PRN Reason: Insomnia Methadone HCl (Methadone Hcl 20 Mg/2 Ml Oral.Conc) 50 mg PO DAILY [facility] Last Admin: 01/13/24 07:45 Dose: 50 mg Metoclopramide HCl (Metoclopramide Hcl 10 Mg/2 Ml Vial) 5 mg IVPUSH Q6H PRN PRN Reason: Nausea and Vomiting Last Admin: 01/13/24 02:30 Dose: 5 mg Ondansetron HCl (Ondansetron Hcl 4 Mg/2 Ml Vial) 4 mg IVPUSH Q8H PRN PRN Reason: Nausea and Vomiting Last Admin: 01/13/24 04:48 Dose: 4 mg Pharmacy Consult (Consult Rx Vancomycin Dosing) 1 each MISCELLANE DAILY PRN PRN Reason: Consult order Sodium Chloride (0.9 % Sodium Chloride Flush 3 Ml Syringe) 3 ml IVFLUSH QSHIFT [facility] Last Admin: 01/13/24 06:57 Dose: 3 ml Home Medications ?Medication ?Instructions ?Recorded ?Confirmed ?Last Taken ?Type No Known Home Meds 01/12/24 01/12/24 Unknown History Physical Exam 2 Vital Signs: Vital Signs: Last Vital Signs Temp 97.6 F 01/13/24 08:00 Pulse 56 01/13/24 08:00 Resp 18 01/13/24 08:00 BP 118/73 01/13/24 08:00 Pulse Ox 97 01/13/24 08:00 O2 Del Method Room Air 01/13/24 08:00 BMI result Body Mass Index 24.5 Chest: Other: Chest breath sounds bilaterally, HS 1 in 2 GI: Other: Marked right upper quadrant tenderness and a positive Patel's sign Results Labs 01/13/24 05:26 01/13/24 05:26 Labs: Abnormal lab results 01/12/24 01/13/24 Range/Units 13:31 05:26 WBC 45.6 H* (4.8-10.8) X10*3/uL RBC 4.33 L (4.60-5.80) X10*6/uL Hgb 11.0 L (14.0-18.0) g/dl Hct 32.6 L (42.0-52.0) % MCV 75.3 L (80.0-98.0) fL MCH 25.4 L (27.0-33.0) pg Band Neutrophils % 23 H (3-5) % Lymphocytes % (Manual) 3 L (20-40) % Abs Neuts (Manual) 42.0 H (2.0-8.3) X10*3/uL Monocytes # (Manual) 1.8 H (0.1-1.2) X10*3/uL Potassium 2.6 L* D (3.3-5.1) mmol/L BUN 19 H (9-16) mg/dL Random Glucose 128 H (60-115) mg/dL Lactic Acid F/U @ 4Hr 3.4 H* (0.5-2.0) mmol/L Iron 8 L (45-160) mcg/dL % Saturation 3 L (15-50) % Short CBC 01/13/24 Range/Units 05:26 WBC 45.6 H* (4.8-10.8) X10*3/uL Hgb 11.0 L (14.0-18.0) g/dl Hct 32.6 L (42.0-52.0) % Plt Count 323 (160-400) X10*3/uL BMP 01/13/24 05:26 Sodium 137 Potassium 2.6 L* D Chloride 98 Carbon Dioxide 27 BUN 19 H Creatinine 1.05 Calcium 8.5 All other labs normal. Assessment and Plan (1) Cholecystitis: Status: Acute Plan I discussed with the patient therapeutic options which include continued observation with IV antibiotics or laparoscopic cholecystectomy. He prefers to have the problem resolved. Risks, benefits, alternatives laparoscopic possible open cholecystectomy reviewed with the patient and included but not limited to bleeding, infection, numbness, pain, scarring, bowel or bile duct injury or leak and the patient wishes to proceed. All questions answered. Arrangements made for an add on for today. Patient's LFTs from admission were within normal limits. A.m. LFTs pending. Patient is undergoing repletion of hypokalemia Procedures Date of Service Date of Service: 01/13/24
--- NOTE | 2024-01-13 10:10 | PC.NURSE ---
4 bags of IV potassium ordered at 7 am , and additional 4 bags of IV potassium ordered at 8am . This rn confirmed with that we wanted a total of 8 bags , he confirmed yes . Dr. Munoz at bedside and states potential surgery this afternoon for gallbladder , this rn also updated him on labs . No further labs ordered at this time . pt appears comfortable , no vomiting this AM.
[2024-01-13 10:13] LABS: Alanine Aminotransferase 86 U/L (0-40); Albumin Level 3.2 g/dL (3.5-5.0); Alkaline Phosphatase 147 U/L (39-117); Aspartate Amino Transferase 63 U/L (5-37); Bilirubin Direct 0.2 mg/dL (0.0-0.5); Bilirubin Total 0.4 mg/dL (0.0-1.0); Total Protein 6.6 g/dL (6.5-8.0)
--- NOTE | 2024-01-13 10:30 | ECG_ITS ---
Test Reason : drug use Blood Pressure : / mmHG Vent. Rate : 055 BPM Atrial Rate : 055 BPM P-R Int : 136 ms QRS Dur : 106 ms QT Int : 518 ms P-R-T Axes : 080 065 052 degrees QTc Int : 495 ms Sinus bradycardia Minimal voltage criteria for LVH, may be normal variant ( Sokolow-Ortez ) Prolonged QT Abnormal ECG When compared with ECG of 21-NOV-2017 22:14, Premature ventricular complexes are no longer Present Vent. rate has decreased BY 44 BPM Nonspecific T wave abnormality no longer evident in Lateral leads Referred By: Elizabeth Smith Electronically Signed By:AMY HENRIQUEZ MD
[2024-01-13 10:35] LABS: Appearance Urine Clear; Color Urine Yellow; Glucose Urine UA Negative (Negative); Leukocyte Esterase Urine Negative (Negative); Nitrite Urine Negative (Negative); PH >= 9.0 (5.0-9.0); Specific Gravity - Urine 1.025 (1.005-1.025); UMIC TRIGGER UACC YES; Urine Blood Negative (Negative); Urine Ketones Negative (Negative); Urine Protein 100 (2+) mg/dL (Neg-Trace)
[2024-01-13 10:40] LABS: Bacteria Urine None Seen (None Seen); Hyaline Casts Urine 0-2 /LPF (0-2); RBC Urine 0-2 /HPF (0-2); Squamous Epithelial Cell Urine 0-2 /HPF (0-2); WBC Urine 0-5 /HPF (0-5)
[2024-01-13] MEDS: Magnesium Sulfate/H2O 2 GM/50 ML PIGGYBACK IV (10:48)
[2024-01-13 11:04] LABS: Amphetamine Screen Urine Not Detected (Not Detect); Barbiturates, Urine Not Detected (Not Detect); Benzodiazepines Screen Urine Not Detected (Not Detect); Buprenorphine Scr Not Detected (Not Detect); Cannabinoid Screen Urine Not Detected (Not Detect); Cocaine Screen Urine POSITIVE (Not Detect); Fentanyl, urine POSITIVE (Not Detect); Methadone Screen, Urine Positive (Not Detect); Opiate Screen Urine POSITIVE (Not Detect); Oxycodone Screen Urine Not Detected (Not Detect); Phencyclidine Screen Urine Not Detected (Not Detect)
--- NOTE | 2024-01-13 11:16 | MHC.SHP ---
Pre-Procedural Eval Section A - 24 Hr Update-Section A only Date of Service: 01/14/24 The patient is an INPATIENT: Yes Changes since office visit: No Cold of Flu in the past 2 weeks, No New Medical Problems, No Changes in Medication and No Patient answered all questions Section B - Complete if H&P > 30 days Chief Complaint: Chills Allergies: Allergies Allergy/AdvReac Type Severity Reaction Status Date / Time ibuprofen Allergy Unknown headaches Verified 01/12/24 02:02 onion [ONION] Allergy Unknown ANAPHYLAXIS Verified 01/12/24 02:02 Plan I have reviewed the history and physical and performed a pertinent physical examination on my patient. No changes have occurred unless specified. Time Spent With Patient Time: Total time managing care of this patient today ____ minutes.
[2024-01-13 11:19] LABS: Alanine Aminotransferase 95 U/L (0-40); Albumin Level 3.2 g/dL (3.5-5.0); Alkaline Phosphatase 162 U/L (39-117); Aspartate Amino Transferase 83 U/L (5-37); Bilirubin Total 0.5 mg/dL (0.0-1.0); Total Protein 6.7 g/dL (6.5-8.0)
[2024-01-13 11:20] LABS: Troponin-I High Sensitivity 15.7 ng/L (<3.5-35.0)
[2024-01-13 11:30] LABS: Phosphorus 3.4 mg/dL (2.7-4.5)
[2024-01-13 11:59] LABS: Phosphorus 3.6 mg/dL (2.7-4.5)
--- NOTE | 2024-01-13 12:32 | MHC.CM.PN ---
PT REPORTS HE IS HOMELESS AND STAYS ON THE STREETS IN [place] HE DENIES BEING CONNECTED TO ANY COMMUNITY SERVICES OR HAVING DME HE HAS NO HEALTH INSURANCE OR PCP AT THIS TIME HE IS AWARE A REFERRAL WAS SENT TO [facility] FOR [place] PT REPORTS IF HE GETS MH BACK, HE WOULD LIKE TO DC TO [facility] IN [place]
[2024-01-13] MEDS: Piperacillin Sodium/Tazobactam 4.5 GM in 0.9 % Sodium Chloride 100 ML IV ×2 (13:14→19:51)
--- NOTE | 2024-01-13 14:14 | P.PNADD_ITS ---
Subjective Subjective Date of Service: 01/13/24 Reason For Visit: Chills Interim History: Patient seen in follow up -admitted with cholecystitis Initiated on methadone while in ED and seen by operations associate--this AM received methadone 50mg Substance use history reviewed Admission assessment documented as meeting +screen for AUDIT, however this is incorrect as patient reported not drinking alcohol during screen. Seen in room 361. Eyes closed, but awake. Reports he is not feeling well, having abdominal discomfort. Reporting intermittent leg cramps and restlessness. Scheduled for abdullahi today. Review of Systems Acute medical concerns: Yes Medical Review of Systems: unchanged Mental Status Exam Mental Status Exam Patient Behavior: Guarded Mood Description: Calm Diagnostics Vital Signs (24Hr): Vital Signs - 24 hr 01/12/24 16:52 01/12/24 17:50 01/12/24 19:43 Temperature 97.3 F 98.2 F 98.2 F Pulse Rate 65 53 56 Respiratory Rate 16 14 16 Blood Pressure 114/69 124/64 108/74 Pulse Oximetry 98 99 100 Oxygen Delivery Method Room Air Room Air Room Air 01/13/24 03:52 01/13/24 08:00 Temperature 98.9 F 97.6 F Pulse Rate 60 56 Respiratory Rate 18 18 Blood Pressure 119/66 118/73 Pulse Oximetry 96 97 Oxygen Delivery Method Room Air Room Air BMI result Body Mass Index 24.5 Labs 01/13/24 05:26 01/13/24 05:26 Labs: Laboratory Results - last 48 hr 01/12/24 01/12/24 01/12/24 03:23 04:19 06:34 WBC 8.6 RBC 4.18 L Hgb 10.6 L Hct 32.5 L MCV 77.8 L MCH 25.4 L MCHC 32.6 RDW 14.9 Plt Count 294 MPV 8.9 L Immature Gran % (Auto) Cancelled Neut % (Auto) Cancelled Lymph % (Auto) Cancelled [place] % (Auto) Cancelled Eos % (Auto) Cancelled Baso % (Auto) Cancelled Lymph # (Auto) Cancelled [place] # (Auto) Cancelled Eos # (Auto) Cancelled Baso # (Auto) Cancelled Abs Immat Gran (auto) Cancelled Absolute Neuts (auto) Cancelled Absolute Nucleated RBC 0.000 Nucleated RBC % (auto) 0.0 Neutrophils % (Manual) 73 Band Neutrophils % 21 H Lymphocytes % (Manual) 4 L Monocytes % (Manual) Metamyelocytes % 2 Abs Neuts (Manual) 8.1 Lymphocytes # (Manual) 0.3 L Monocytes # (Manual) Metamyelocytes # 0.2 Toxic Vacuolation PRESENT Platelet Estimate NORMAL Plt Morphology Comment NORMAL RBC Morphology NOTED Hypochromasia 1+ (5-14) Microcytosis 1+ (5-14) Ovalocytes 1+ (5-14) Rachel Cells Acanthocytes (Spur) 2+ (3-5) Smear Path Review Hold Purple Top Sodium 135 Potassium 3.4 Chloride 103 Carbon Dioxide 19 L Anion Gap 16 BUN 21 H Creatinine 1.35 Estim Creat Clear Calc 73.4 Estimated GFR 59 Random Glucose 159 H Fasting Glucose Lactic Acid 3.8 H* Lactic Acid F/U @ 2Hr 4.0 H* Lactic Acid F/U @ 4Hr Calcium 8.4 Phosphorus Iron TIBC % Saturation Unsat Iron Binding Total Bilirubin 0.7 Direct Bilirubin AST 537 H ALT 152 H Alkaline Phosphatase 226 H Troponin I High Sens Total Protein 6.6 Albumin 3.3 L Lipase 17 Hold Yellow Top Urine Color Urine Appearance Urine pH Ur Specific [place] Urine Protein Urine Glucose (UA) Urine Ketones Urine Blood Urine Nitrite Ur Leukocyte Esterase Urine RBC Urine WBC Ur Squamous Epith Cells Urine Bacteria Hyaline Casts Urine Opiates Screen Ur Buprenorphine Scrn Ur Oxycodone Screen Urine Methadone Screen Urine Fentanyl Screen Ur Barbiturates Screen Ur Phencyclidine Scrn Ur Amphetamines Screen U Benzodiazepines Scrn Urine Cocaine Screen U Marijuana (THC) Screen 01/12/24 01/13/24 01/13/24 13:31 05:26 05:26 WBC 45.6 H* RBC 4.33 L Hgb 11.0 L Hct 32.6 L MCV 75.3 L MCH 25.4 L MCHC 33.7 RDW 14.9 Plt Count 323 MPV 9.6 Immature Gran % (Auto) Cancelled Neut % (Auto) Cancelled Lymph % (Auto) Cancelled [place] % (Auto) Cancelled Eos % (Auto) Cancelled Baso % (Auto) Cancelled Lymph # (Auto) Cancelled [place] # (Auto) Cancelled Eos # (Auto) Cancelled Baso # (Auto) Cancelled Abs Immat Gran (auto) Cancelled Absolute Neuts (auto) Cancelled Absolute Nucleated RBC 0.000 Nucleated RBC % (auto) 0.0 Neutrophils % (Manual) 69 Band Neutrophils % 23 H Lymphocytes % (Manual) 3 L Monocytes % (Manual) 4 Metamyelocytes % 1 Abs Neuts (Manual) 42.0 H Lymphocytes # (Manual) 1.4 Monocytes # (Manual) 1.8 H Metamyelocytes # 0.5 Toxic Vacuolation PRESENT Platelet Estimate NORMAL Plt Morphology Comment NORMAL RBC Morphology NOTED Hypochromasia 1+ (5-14) Microcytosis 1+ (5-14) Ovalocytes 1+ (5-14) [place] Cells 1+ (0-2) Acanthocytes (Spur) 1+ (0-2) Smear Path Review SEE NOTE Hold Purple Top Sodium 137 Cancelled Potassium 2.6 L* D Chloride Carbon Dioxide Anion Gap BUN Creatinine Estim Creat Clear Calc Estimated GFR Random Glucose Fasting Glucose Lactic Acid Lactic Acid F/U @ 2Hr Lactic Acid F/U @ 4Hr 3.4 H* Calcium Phosphorus Iron TIBC % Saturation Unsat Iron Binding Total Bilirubin Direct Bilirubin AST ALT Alkaline Phosphatase Troponin I High Sens Total Protein Albumin Lipase Hold Yellow Top Urine Color Urine Appearance Urine pH Ur Specific [place] Urine Protein Urine Glucose (UA) Urine Ketones Urine Blood Urine Nitrite Ur Leukocyte Esterase Urine RBC Urine WBC Ur Squamous Epith Cells Urine Bacteria Hyaline Casts Urine Opiates Screen Ur Buprenorphine Scrn Ur Oxycodone Screen Urine Methadone Screen Urine Fentanyl Screen Ur Barbiturates Screen Ur Phencyclidine Scrn Ur Amphetamines Screen U Benzodiazepines Scrn Urine Cocaine Screen U Marijuana (THC) Screen 01/13/24 01/13/24 01/13/24 05:26 05:26 05:26 WBC RBC Hgb Hct MCV MCH MCHC RDW Plt Count MPV Immature Gran % (Auto) Neut % (Auto) Lymph % (Auto) [place] % (Auto) Eos % (Auto) Baso % (Auto) Lymph # (Auto) [place] # (Auto) Eos # (Auto) Baso # (Auto) Abs Immat Gran (auto) Absolute Neuts (auto) Absolute Nucleated RBC Nucleated RBC % (auto) Neutrophils % (Manual) Band Neutrophils % Lymphocytes % (Manual) Monocytes % (Manual) Metamyelocytes % Abs Neuts (Manual) Lymphocytes # (Manual) Monocytes # (Manual) Metamyelocytes # Toxic Vacuolation Platelet Estimate Plt Morphology Comment RBC Morphology Hypochromasia Microcytosis Ovalocytes [place] Cells Acanthocytes (Spur) Smear Path Review Hold Purple Top Sodium Potassium Cancelled Chloride 98 Cancelled Carbon Dioxide 27 Cancelled Anion Gap 15 BUN Creatinine Estim Creat Clear Calc Estimated GFR Random Glucose Fasting Glucose Lactic Acid Lactic Acid F/U @ 2Hr Lactic Acid F/U @ 4Hr Calcium Phosphorus Iron TIBC % Saturation Unsat Iron Binding Total Bilirubin Direct Bilirubin AST ALT Alkaline Phosphatase Troponin I High Sens Total Protein Albumin Lipase Hold Yellow Top Urine Color Urine Appearance Urine pH Ur Specific [place] Urine Protein Urine Glucose (UA) Urine Ketones Urine Blood Urine Nitrite Ur Leukocyte Esterase Urine RBC Urine WBC Ur Squamous Epith Cells Urine Bacteria Hyaline Casts Urine Opiates Screen Ur Buprenorphine Scrn Ur Oxycodone Screen Urine Methadone Screen Urine Fentanyl Screen Ur Barbiturates Screen Ur Phencyclidine Scrn Ur Amphetamines Screen U Benzodiazepines Scrn Urine Cocaine Screen U Marijuana (THC) Screen 01/13/24 01/13/24 01/13/24 05:26 05:26 05:26 WBC RBC Hgb Hct MCV MCH MCHC RDW Plt Count MPV Immature Gran % (Auto) Neut % (Auto) Lymph % (Auto) [place] % (Auto) Eos % (Auto) Baso % (Auto) Lymph # (Auto) [place] # (Auto) Eos # (Auto) Baso # (Auto) Abs Immat Gran (auto) Absolute Neuts (auto) Absolute Nucleated RBC Nucleated RBC % (auto) Neutrophils % (Manual) Band Neutrophils % Lymphocytes % (Manual) Monocytes % (Manual) Metamyelocytes % Abs Neuts (Manual) Lymphocytes # (Manual) Monocytes # (Manual) Metamyelocytes # Toxic Vacuolation Platelet Estimate Plt Morphology Comment RBC Morphology Hypochromasia Microcytosis Ovalocytes [place] Cells Acanthocytes (Spur) Smear Path Review Hold Purple Top Sodium Potassium Chloride Carbon Dioxide Anion Gap Cancelled BUN 19 H Cancelled Creatinine 1.05 Cancelled Estim Creat Clear Calc 94.4 Estimated GFR Random Glucose Fasting Glucose Lactic Acid Lactic Acid F/U @ 2Hr Lactic Acid F/U @ 4Hr Calcium Phosphorus Iron TIBC % Saturation Unsat Iron Binding Total Bilirubin Direct Bilirubin AST ALT Alkaline Phosphatase Troponin I High Sens Total Protein Albumin Lipase Hold Yellow Top Urine Color Urine Appearance Urine pH Ur Specific [place] Urine Protein Urine Glucose (UA) Urine Ketones Urine Blood Urine Nitrite Ur Leukocyte Esterase Urine RBC Urine WBC Ur Squamous Epith Cells Urine Bacteria Hyaline Casts Urine Opiates Screen Ur Buprenorphine Scrn Ur Oxycodone Screen Urine Methadone Screen Urine Fentanyl Screen Ur Barbiturates Screen Ur Phencyclidine Scrn Ur Amphetamines Screen U Benzodiazepines Scrn Urine Cocaine Screen U Marijuana (THC) Screen 01/13/24 01/13/24 01/13/24 05:26 05:26 05:26 WBC RBC Hgb Hct MCV MCH MCHC RDW Plt Count MPV Immature Gran % (Auto) Neut % (Auto) Lymph % (Auto) [place] % (Auto) Eos % (Auto) Baso % (Auto) Lymph # (Auto) [place] # (Auto) Eos # (Auto) Baso # (Auto) Abs Immat Gran (auto) Absolute Neuts (auto) Absolute Nucleated RBC Nucleated RBC % (auto) Neutrophils % (Manual) Band Neutrophils % Lymphocytes % (Manual) Monocytes % (Manual) Metamyelocytes % Abs Neuts (Manual) Lymphocytes # (Manual) Monocytes # (Manual) Metamyelocytes # Toxic Vacuolation Platelet Estimate Plt Morphology Comment RBC Morphology Hypochromasia Microcytosis Ovalocytes Rachel Cells Acanthocytes (Spur) Smear Path Review Hold Purple Top Sodium Potassium Chloride Carbon Dioxide Anion Gap BUN Creatinine Estim Creat Clear Calc Cancelled Estimated GFR > 60 Cancelled Random Glucose 128 H Fasting Glucose Cancelled Cancelled Lactic Acid Lactic Acid F/U @ 2Hr Lactic Acid F/U @ 4Hr Calcium 8.5 Phosphorus Iron TIBC % Saturation Unsat Iron Binding Total Bilirubin Direct Bilirubin AST ALT Alkaline Phosphatase Troponin I High Sens Total Protein Albumin Lipase Hold Yellow Top Urine Color Urine Appearance Urine pH Ur Specific [place] Urine Protein Urine Glucose (UA) Urine Ketones Urine Blood Urine Nitrite Ur Leukocyte Esterase Urine RBC Urine WBC Ur Squamous Epith Cells Urine Bacteria Hyaline Casts Urine Opiates Screen Ur Buprenorphine Scrn Ur Oxycodone Screen Urine Methadone Screen Urine Fentanyl Screen Ur Barbiturates Screen Ur Phencyclidine Scrn Ur Amphetamines Screen U Benzodiazepines Scrn Urine Cocaine Screen U Marijuana (THC) Screen 01/13/24 01/13/24 01/13/24 05:26 05:26 05:26 WBC RBC Hgb Hct MCV MCH MCHC RDW Plt Count MPV Immature Gran % (Auto) Neut % (Auto) Lymph % (Auto) [place] % (Auto) Eos % (Auto) Baso % (Auto) Lymph # (Auto) [place] # (Auto) Eos # (Auto) Baso # (Auto) Abs Immat Gran (auto) Absolute Neuts (auto) Absolute Nucleated RBC Nucleated RBC % (auto) Neutrophils % (Manual) Band Neutrophils % Lymphocytes % (Manual) Monocytes % (Manual) Metamyelocytes % Abs Neuts (Manual) Lymphocytes # (Manual) Monocytes # (Manual) Metamyelocytes # Toxic Vacuolation Platelet Estimate Plt Morphology Comment RBC Morphology Hypochromasia Microcytosis Ovalocytes [place] Cells Acanthocytes (Spur) Smear Path Review Hold Purple Top Sodium Potassium Chloride Carbon Dioxide Anion Gap BUN Creatinine Estim Creat Clear Calc Estimated GFR Random Glucose Fasting Glucose Lactic Acid Lactic Acid F/U @ 2Hr Lactic Acid F/U @ 4Hr Calcium Cancelled Phosphorus 3.4 Iron 8 L TIBC 246 % Saturation 3 L Unsat Iron Binding 238 Total Bilirubin 0.5 Cancelled Direct Bilirubin AST 83 H Cancelled ALT 95 H Alkaline Phosphatase Troponin I High Sens Total Protein Albumin Lipase Hold Yellow Top Urine Color Urine Appearance Urine pH Ur Specific [place] Urine Protein Urine Glucose (UA) Urine Ketones Urine Blood Urine Nitrite Ur Leukocyte Esterase Urine RBC Urine WBC Ur Squamous Epith Cells Urine Bacteria Hyaline Casts Urine Opiates Screen Ur Buprenorphine Scrn Ur Oxycodone Screen Urine Methadone Screen Urine Fentanyl Screen Ur Barbiturates Screen Ur Phencyclidine Scrn Ur Amphetamines Screen U Benzodiazepines Scrn Urine Cocaine Screen U Marijuana (THC) Screen 01/13/24 01/13/24 01/13/24 05:26 05:26 05:26 WBC RBC Hgb Hct MCV MCH MCHC RDW Plt Count MPV Immature Gran % (Auto) Neut % (Auto) Lymph % (Auto) [place] % (Auto) Eos % (Auto) Baso % (Auto) Lymph # (Auto) [place] # (Auto) Eos # (Auto) Baso # (Auto) Abs Immat Gran (auto) Absolute Neuts (auto) Absolute Nucleated RBC Nucleated RBC % (auto) Neutrophils % (Manual) Band Neutrophils % Lymphocytes % (Manual) Monocytes % (Manual) Metamyelocytes % Abs Neuts (Manual) Lymphocytes # (Manual) Monocytes # (Manual) Metamyelocytes # Toxic Vacuolation Platelet Estimate Plt Morphology Comment RBC Morphology Hypochromasia Microcytosis Ovalocytes [place] Cells Acanthocytes (Spur) Smear Path Review Hold Purple Top Sodium Potassium Chloride Carbon Dioxide Anion Gap BUN Creatinine Estim Creat Clear Calc Estimated GFR Random Glucose Fasting Glucose Lactic Acid Lactic Acid F/U @ 2Hr Lactic Acid F/U @ 4Hr Calcium Phosphorus Iron TIBC % Saturation Unsat Iron Binding Total Bilirubin Direct Bilirubin AST ALT Cancelled Alkaline Phosphatase 162 H Cancelled Troponin I High Sens 15.7 Total Protein 6.7 Cancelled Albumin 3.2 L Lipase Hold Yellow Top Urine Color Urine Appearance Urine pH Ur Specific [place] Urine Protein Urine Glucose (UA) Urine Ketones Urine Blood Urine Nitrite Ur Leukocyte Esterase Urine RBC Urine WBC Ur Squamous Epith Cells Urine Bacteria Hyaline Casts Urine Opiates Screen Ur Buprenorphine Scrn Ur Oxycodone Screen Urine Methadone Screen Urine Fentanyl Screen Ur Barbiturates Screen Ur Phencyclidine Scrn Ur Amphetamines Screen U Benzodiazepines Scrn Urine Cocaine Screen U Marijuana (THC) Screen 01/13/24 01/13/24 01/13/24 05:26 09:50 10:24 WBC RBC Hgb Hct MCV MCH MCHC RDW Plt Count MPV Immature Gran % (Auto) Neut % (Auto) Lymph % (Auto) [place] % (Auto) Eos % (Auto) Baso % (Auto) Lymph # (Auto) [place] # (Auto) Eos # (Auto) Baso # (Auto) Abs Immat Gran (auto) Absolute Neuts (auto) Absolute Nucleated RBC Nucleated RBC % (auto) Neutrophils % (Manual) Band Neutrophils % Lymphocytes % (Manual) Monocytes % (Manual) Metamyelocytes % Abs Neuts (Manual) Lymphocytes # (Manual) Monocytes # (Manual) Metamyelocytes # Toxic Vacuolation Platelet Estimate Plt Morphology Comment RBC Morphology Hypochromasia Microcytosis Ovalocytes [place] Cells Acanthocytes (Spur) Smear Path Review Hold Purple Top Sodium Potassium Chloride Carbon Dioxide Anion Gap BUN Creatinine Estim Creat Clear Calc Estimated GFR Random Glucose Fasting Glucose Lactic Acid Lactic Acid F/U @ 2Hr Lactic Acid F/U @ 4Hr Calcium Phosphorus Iron TIBC % Saturation Unsat Iron Binding Total Bilirubin 0.4 Direct Bilirubin 0.2 AST 63 H ALT 86 H Alkaline Phosphatase 147 H Troponin I High Sens Total Protein 6.6 Albumin Cancelled 3.2 L Lipase Hold Yellow Top Urine Color Yellow Urine Appearance Clear Urine pH >= 9.0 Ur Specific [place] 1.025 Urine Protein 100 (2+) H Urine Glucose (UA) Negative Urine Ketones Negative Urine Blood Negative Urine Nitrite Negative Ur Leukocyte Esterase Negative Urine RBC 0-2 Urine WBC 0-5 Ur Squamous Epith Cells 0-2 Urine Bacteria None Seen Hyaline Casts 0-2 Urine Opiates Screen POSITIVE H Ur Buprenorphine Scrn Not Detected Ur Oxycodone Screen Not Detected Urine Methadone Screen Positive H Urine Fentanyl Screen POSITIVE H Ur Barbiturates Screen Not Detected Ur Phencyclidine Scrn Not Detected Ur Amphetamines Screen Not Detected U Benzodiazepines Scrn Not Detected Urine Cocaine Screen POSITIVE H U Marijuana (THC) Screen Not Detected 01/13/24 11:31 WBC RBC Hgb Hct MCV MCH MCHC RDW Plt Count MPV Immature Gran % (Auto) Neut % (Auto) Lymph % (Auto) [place] % (Auto) Eos % (Auto) Baso % (Auto) Lymph # (Auto) [place] # (Auto) Eos # (Auto) Baso # (Auto) Abs Immat Gran (auto) Absolute Neuts (auto) Absolute Nucleated RBC Nucleated RBC % (auto) Neutrophils % (Manual) Band Neutrophils % Lymphocytes % (Manual) Monocytes % (Manual) Metamyelocytes % Abs Neuts (Manual) Lymphocytes # (Manual) Monocytes # (Manual) Metamyelocytes # Toxic Vacuolation Platelet Estimate Plt Morphology Comment RBC Morphology Hypochromasia Microcytosis Ovalocytes [place] Cells Acanthocytes (Spur) Smear Path Review Hold Purple Top SEE NOTE Sodium Potassium Chloride Carbon Dioxide Anion Gap BUN Creatinine Estim Creat Clear Calc Estimated GFR Random Glucose Fasting Glucose Lactic Acid Lactic Acid F/U @ 2Hr Lactic Acid F/U @ 4Hr Calcium Phosphorus 3.6 Iron TIBC % Saturation Unsat Iron Binding Total Bilirubin Direct Bilirubin AST ALT Alkaline Phosphatase Troponin I High Sens Total Protein Albumin Lipase Hold Yellow Top See Note Urine Color Urine Appearance Urine pH Ur Specific [place] Urine Protein Urine Glucose (UA) Urine Ketones Urine Blood Urine Nitrite Ur Leukocyte Esterase Urine RBC Urine WBC Ur Squamous Epith Cells Urine Bacteria Hyaline Casts Urine Opiates Screen Ur Buprenorphine Scrn Ur Oxycodone Screen Urine Methadone Screen Urine Fentanyl Screen Ur Barbiturates Screen Ur Phencyclidine Scrn Ur Amphetamines Screen U Benzodiazepines Scrn Urine Cocaine Screen U Marijuana (THC) Screen Imaging Radiology Impressions: ITS Impressions Chest X-Ray 01/12/24 04:55 IMPRESSION: Unremarkable examination. Abdomen/Pelvis CT 01/12/24 10:31 IMPRESSION: Diffuse gallbladder wall thickening and gallbladder wall edema. Advise correlation with right upper quadrant ultrasound. The pancreas appears edematous with possible peripancreatic stranding. Advise correlation with pancreatic enzymes. Hepatosplenomegaly. Periportal edema. Trace right pleural effusion. Small volume ascites. Possible small bowel wall thickening. This may represent enteritis versus wet bowel pattern. Abdomen Ultrasound 01/12/24 14:29 IMPRESSION: There is gallbladder wall thickening to 1.3 cm, without gallstone seen. There is mild pericholecystic fluid. The findings suggest possible acalculous cholecystitis. This could be further evaluated with nuclear HIDA imaging, if clinically indicated. Medications Medications Current Medications Acetaminophen (Acetaminophen 325 Mg Tablet) 650 mg PO Q6H PRN PRN Reason: Pain, Mild (Pain Scale 1-3), fever or headache Calcium Carbonate (Calcium Carbonate 750 Mg Tab.Chew) 750 mg PO Q4H PRN PRN Reason: Heartburn Last Admin: 01/12/24 13:26 Dose: 750 mg Vancomycin HCl 750 mg/ Sodium (Chloride) 265 mls @ 265 mls/hr IV Q12H [facility] Last Infusion: 01/13/24 05:59 Dose: Infused Lactated Ringer's (Lr) 1,000 mls @ 80 mls/hr IVCONT .[id number] [facility] Last Infusion: 01/13/24 05:59 Dose: 80 mls/hr Piperacillin Sod/Tazobactam (Sod 4.5 gm/ Sodium Chloride) 100 mls @ 200 mls/hr IV Q6H [facility] Last Infusion: 01/13/24 13:47 Dose: Infused Magnesium Hydroxide (Milk Of Magnesia 30 Ml Oral.Susp) 30 ml PO DAILY PRN PRN Reason: Constipation Melatonin (Melatonin 3 Mg Tablet) 6 mg PO BEDTIME PRN PRN Reason: Insomnia Methadone HCl (Methadone Hcl 20 Mg/2 Ml Oral.Conc) 50 mg PO DAILY [facility] Last Admin: 01/13/24 07:45 Dose: 50 mg Metoclopramide HCl (Metoclopramide Hcl 10 Mg/2 Ml Vial) 5 mg IVPUSH Q6H PRN PRN Reason: Nausea and Vomiting Last Admin: 01/13/24 02:30 Dose: 5 mg Ondansetron HCl (Ondansetron Hcl 4 Mg/2 Ml Vial) 4 mg IVPUSH Q8H PRN PRN Reason: Nausea and Vomiting Last Admin: 01/13/24 04:48 Dose: 4 mg Pharmacy Consult (Consult Rx Vancomycin Dosing) 1 each MISCELLANE DAILY PRN PRN Reason: Consult order Sodium Chloride (0.9 % Sodium Chloride Flush 3 Ml Syringe) 3 ml IVFLUSH QSHIFT [facility] Last Admin: 01/13/24 13:20 Dose: Not Given Tizanidine HCl (Tizanidine Hcl 4 Mg Tablet) 4 mg PO TID AD Allergies Allergies Allergy/AdvReac Type Severity Reaction Status Date / Time ibuprofen Allergy Unknown headaches Verified 01/12/24 02:02 onion [ONION] Allergy Unknown ANAPHYLAXIS Verified 01/12/24 02:02 Assessment & Plan Assessment & Plan (1) Opioid use disorder: Status: Acute Code(s): F11.99 - Opioid use, unspecified with unspecified opioid-induced disorder Assessment and Plan: * increase methadone to 60mg in AM * tizanidine TID to address restless legs/muscle spasms (should d/c prior to discharge) * will continue to follow Total time managing care of this patient today _20___ minutes.
[2024-01-13 14:29] LABS: Troponin-I High Sensitivity 10.3 ng/L (<3.5-35.0)
[2024-01-13] MEDS: TiZANidine HCL 4 MG TABLET PO ×2 (15:13→20:26)
[2024-01-13 15:37] VITALS: BP 105/65; PULSE 57; RESP 14; TEMP 37.6; O2SAT 97
[2024-01-13 16:33] LABS: Vancomycin Random 7.3 mcg/mL (15-20)
[2024-01-13] MEDS: vancomycin HCL 1,250 MG in 0.9 % Sodium Chloride 250 ML 166.67 MG IV (17:41)
[2024-01-13 19:36] VITALS: BP 115/71; PULSE 75; RESP 20; TEMP 37.1; O2SAT 97
--- NOTE | 2024-01-13 21:12 | HE.PHANOTE ---
RE: VANCO DOSING Random came back as 7.3. Dose is increased to 1250 mg q12h. Next random is scheduled for 01/14/24 @1600.
[2024-01-14] VITALS (17 sets, daily range): BP systolic 107–190; BP diastolic 69–127; PULSE 46–74; RESP 8–20; TEMP 36.4–36.7; O2SAT 96–100
[2024-01-14] MEDS: Piperacillin Sodium/Tazobactam 4.5 GM in 0.9 % Sodium Chloride 100 ML IV ×4 (01:52→20:02)
[2024-01-14] MEDS: vancomycin HCL 1,250 MG in 0.9 % Sodium Chloride 250 ML 166.67 MG IV ×2 (05:17→17:45)
[2024-01-14 05:54] LABS: Basophils Absolute Auto 0.1 X10*3/uL (0.0-0.2); Basophils Percent Auto 0.3 % (0-2); Hematocrit 30.9 % (42.0-52.0); Hemoglobin 10.3 g/dl (14.0-18.0); Imm Gran Abs Auto 0.56 X10*3/uL (0.00-0.03); Imm Gran Pct Auto 1.9 % (0.0-0.4); MANUAL DIFF FLAG SCAN; Mean Corpuscular HGB Conc 33.3 g/dl (31.0-36.0); Mean Corpuscular Hemoglobin 25.1 pg (27.0-33.0); Mean Corpuscular Volume 75.4 fL (80.0-98.0); Mean Platelet Volume 10.2 fL (9.4-12.4); Monocytes Percent Auto 3.4 % (2-11); Neutrophils Absolute Auto 25.3 x10*3/uL (2.0-8.3); Neutrophils Percent Auto 84.4 % (45-73); PLT CLUMP 1; Red Cell Distribution Width 14.8 % (11.0-16.0); SCAN SMEAR FLAG 1
[2024-01-14 05:55] LABS: White Blood Count 29.9 X10*3/uL (4.8-10.8)
[2024-01-14 06:16] LABS: Alanine Aminotransferase 61 U/L (0-40); Alkaline Phosphatase 135 U/L (39-117); Anion Gap 10 (12-20); Aspartate Amino Transferase 25 U/L (5-37); Bilirubin Total 0.4 mg/dL (0.0-1.0); Blood Urea Nitrogen 16 mg/dL (9-16); Carbon Dioxide 23 mmol/L (22-29); Chloride 107 mmol/L (96-108); Creatinine Clr Calc Pharmacy 111.4; Estimated Glomerular Filt Rate > 60; Glucose Random 112 mg/dL (60-115); Magnesium 2.2 mg/dL (1.6-2.6); Potassium 3.4 mmol/L (3.3-5.1); Sodium 137 mmol/L (135-145); Total Protein 6.2 g/dL (6.5-8.0)
[2024-01-14 06:25] LABS: SLIDE REVIEW VERIFIED
[2024-01-14] MEDS: methADONE HCl 20 MG/2 ML ORAL.CONC 60 MG PO (08:38)
[2024-01-14] MEDS: TiZANidine HCL 4 MG TABLET PO ×2 (08:39→20:02)
--- NOTE | 2024-01-14 13:02 | MHC.CM.PN ---
PER MD ROUNDS, PT IS NOT EXPECTED TO BE MEDICALLY CLEARED TODAY DCP REMAINS TBD, PT HOPING FOR SA TREATMENT HOWEVER MAY HAVE TO DC TO A LONG TERM
[2024-01-14] MEDS: Lactated Ringers 1,000 ML 80 ML IVCONT (13:14)
--- NOTE | 2024-01-14 13:22 | MHC.RECOVRN ---
Pts referral sent to [facility].
--- NOTE | 2024-01-14 13:44 | P.CONAN_ITS ---
[facility] Active Problems Active Problems: All Active Problems Cholecystitis (Acute) Bandemia (Acute) Bacteremia (Acute) Opioid use disorder (Acute) Abscess of skin or subcutaneous tissue (Acute) IV drug user (Acute) Past Medical History Medical History Alcohol abuse IV drug user No known health problems Surgical History History of Problems with Anesthesia: No Social History Social History Household Members: None Housing: Homeless Do you presently have visiting nurse or other home services: No Alcohol intake: never Patient Tobacco Use Status: Current everyday Tobacco user Tobacco use type: Cigarette Cigarette Packs Per Day: 0.5 Cigarettes Per Day: 10.0 Second Hand Smoke Exposure: No Substance Use Type: Crack/Cocaine, Heroin and Marijuana service: No Meds Allergies Allergy/AdvReac Type Severity Reaction Status Date / Time ibuprofen Allergy Unknown headaches Verified 01/12/24 02:02 onion [ONION] Allergy Unknown ANAPHYLAXIS Verified 01/12/24 02:02 Active Medications: Current Medications Acetaminophen (Acetaminophen 325 Mg Tablet) 650 mg PO Q6H PRN PRN Reason: Pain, Mild (Pain Scale 1-3), fever or headache Calcium Carbonate (Calcium Carbonate 750 Mg Tab.Chew) 750 mg PO Q4H PRN PRN Reason: Heartburn Last Admin: 01/12/24 13:26 Dose: 750 mg Lactated Ringer's (Lr) 1,000 mls @ 80 mls/hr IVCONT .[id number] [facility] Last Admin: 01/14/24 13:14 Dose: 80 mls/hr Piperacillin Sod/Tazobactam (Sod 4.5 gm/ Sodium Chloride) 100 mls @ 200 mls/hr IV Q6H [facility] Last Infusion: 01/14/24 09:16 Dose: Infused Vancomycin HCl 1,250 mg/ (Sodium Chloride) 250 mls @ 166.667 mls/hr IV Q12H [facility] Last Infusion: 01/14/24 06:54 Dose: Infused Magnesium Hydroxide (Milk Of Magnesia 30 Ml Oral.Susp) 30 ml PO DAILY PRN PRN Reason: Constipation Melatonin (Melatonin 3 Mg Tablet) 6 mg PO BEDTIME PRN PRN Reason: Insomnia Methadone HCl (Methadone Hcl 20 Mg/2 Ml Oral.Conc) 60 mg PO DAILY [facility] Last Admin: 01/14/24 08:38 Dose: 60 mg Metoclopramide HCl (Metoclopramide Hcl 10 Mg/2 Ml Vial) 5 mg IVPUSH Q6H PRN PRN Reason: Nausea and Vomiting Last Admin: 01/13/24 19:49 Dose: 5 mg Ondansetron HCl (Ondansetron Hcl 4 Mg/2 Ml Vial) 4 mg IVPUSH Q8H PRN PRN Reason: Nausea and Vomiting Last Admin: 01/13/24 18:34 Dose: 4 mg Pharmacy Consult (Consult Rx Vancomycin Dosing) 1 each MISCELLANE DAILY PRN PRN Reason: Consult order Sodium Chloride (0.9 % Sodium Chloride Flush 3 Ml Syringe) 3 ml IVFLUSH QSHIFT [facility] Last Admin: 01/14/24 08:43 Dose: Not Given Tizanidine HCl (Tizanidine Hcl 4 Mg Tablet) 4 mg PO TID [facility] Last Admin: 01/14/24 08:39 Dose: 4 mg Home Medications ?Medication ?Instructions ?Recorded ?Confirmed ?Last Taken ?Type No Known Home Meds 01/12/24 01/12/24 Unknown History Exam Height,Weight and Vital Signs: Height 5 ft 9 in Weight 75.2 kg Last Vital Signs Temp 97.7 F 01/14/24 07:56 Pulse 46 L 01/14/24 07:56 Resp 18 01/14/24 07:56 BP 113/69 01/14/24 07:56 Pulse Ox 96 01/14/24 07:56 O2 Del Method Room Air 01/14/24 07:56 Pertinent Lab Results Pertinent Lab Results: Laboratory Tests 01/12/24 01/12/24 01/12/24 03:23 04:19 06:34 WBC 8.6 RBC 4.18 L Hgb 10.6 L Hct 32.5 L MCV 77.8 L MCH 25.4 L MCHC 32.6 RDW 14.9 Plt Count 294 MPV 8.9 L Immature Gran % (Auto) Cancelled Neut % (Auto) Cancelled Lymph % (Auto) Cancelled [place] % (Auto) Cancelled Eos % (Auto) Cancelled Baso % (Auto) Cancelled Lymph # (Auto) Cancelled [place] # (Auto) Cancelled Eos # (Auto) Cancelled Baso # (Auto) Cancelled Abs Immat Gran (auto) Cancelled Absolute Neuts (auto) Cancelled Absolute Nucleated RBC 0.000 Nucleated RBC % (auto) 0.0 Neutrophils % (Manual) 73 Band Neutrophils % 21 H Lymphocytes % (Manual) 4 L Monocytes % (Manual) Metamyelocytes % 2 Abs Neuts (Manual) 8.1 Lymphocytes # (Manual) 0.3 L Monocytes # (Manual) Metamyelocytes # 0.2 Toxic Vacuolation PRESENT Platelet Estimate NORMAL Plt Morphology Comment NORMAL RBC Morphology NOTED Hypochromasia 1+ (5-14) Microcytosis 1+ (5-14) Ovalocytes 1+ (5-14) Morrison Cells Acanthocytes (Spur) 2+ (3-5) Smear Tech's Comments Smear Path Review Hold Purple Top Sodium 135 Potassium 3.4 Chloride 103 Carbon Dioxide 19 L Anion Gap 16 BUN 21 H Creatinine 1.35 Estim Creat Clear Calc 73.4 Estimated GFR 59 Random Glucose 159 H Fasting Glucose Lactic Acid 3.8 H* Lactic Acid F/U @ 2Hr 4.0 H* Lactic Acid F/U @ 4Hr Calcium 8.4 Phosphorus Magnesium Iron TIBC % Saturation Unsat Iron Binding Total Bilirubin 0.7 Direct Bilirubin AST 537 H ALT 152 H Alkaline Phosphatase 226 H Troponin I High Sens Total Protein 6.6 Albumin 3.3 L Lipase 17 Hold Yellow Top Urine Color Urine Appearance Urine pH Ur Specific [place] Urine Protein Urine Glucose (UA) Urine Ketones Urine Blood Urine Nitrite Ur Leukocyte Esterase Urine RBC Urine WBC Ur Squamous Epith Cells Urine Bacteria Hyaline Casts Random Vancomycin Urine Opiates Screen Ur Buprenorphine Scrn Ur Oxycodone Screen Urine Methadone Screen Urine Fentanyl Screen Ur Barbiturates Screen Ur Phencyclidine Scrn Ur Amphetamines Screen U Benzodiazepines Scrn Urine Cocaine Screen U Marijuana (THC) Screen 01/12/24 01/13/24 01/13/24 13:31 05:26 05:26 WBC 45.6 H* RBC 4.33 L Hgb 11.0 L Hct 32.6 L MCV 75.3 L MCH 25.4 L MCHC 33.7 RDW 14.9 Plt Count 323 MPV 9.6 Immature Gran % (Auto) Cancelled Neut % (Auto) Cancelled Lymph % (Auto) Cancelled [place] % (Auto) Cancelled Eos % (Auto) Cancelled Baso % (Auto) Cancelled Lymph # (Auto) Cancelled [place] # (Auto) Cancelled Eos # (Auto) Cancelled Baso # (Auto) Cancelled Abs Immat Gran (auto) Cancelled Absolute Neuts (auto) Cancelled Absolute Nucleated RBC 0.000 Nucleated RBC % (auto) 0.0 Neutrophils % (Manual) 69 Band Neutrophils % 23 H Lymphocytes % (Manual) 3 L Monocytes % (Manual) 4 Metamyelocytes % 1 Abs Neuts (Manual) 42.0 H Lymphocytes # (Manual) 1.4 Monocytes # (Manual) 1.8 H Metamyelocytes # 0.5 Toxic Vacuolation PRESENT Platelet Estimate NORMAL Plt Morphology Comment NORMAL RBC Morphology NOTED Hypochromasia 1+ (5-14) Microcytosis 1+ (5-14) Ovalocytes 1+ (5-14) Morrison Cells 1+ (0-2) Acanthocytes (Spur) 1+ (0-2) Smear Tech's Comments Smear Path Review SEE NOTE Hold Purple Top Sodium 137 Cancelled Potassium 2.6 L* D Chloride Carbon Dioxide Anion Gap BUN Creatinine Estim Creat Clear Calc Estimated GFR Random Glucose Fasting Glucose Lactic Acid Lactic Acid F/U @ 2Hr Lactic Acid F/U @ 4Hr 3.4 H* Calcium Phosphorus Magnesium Iron TIBC % Saturation Unsat Iron Binding Total Bilirubin Direct Bilirubin AST ALT Alkaline Phosphatase Troponin I High Sens Total Protein Albumin Lipase Hold Yellow Top Urine Color Urine Appearance Urine pH Ur Specific [place] Urine Protein Urine Glucose (UA) Urine Ketones Urine Blood Urine Nitrite Ur Leukocyte Esterase Urine RBC Urine WBC Ur Squamous Epith Cells Urine Bacteria Hyaline Casts Random Vancomycin Urine Opiates Screen Ur Buprenorphine Scrn Ur Oxycodone Screen Urine Methadone Screen Urine Fentanyl Screen Ur Barbiturates Screen Ur Phencyclidine Scrn Ur Amphetamines Screen U Benzodiazepines Scrn Urine Cocaine Screen U Marijuana (THC) Screen 01/13/24 01/13/24 01/13/24 05:26 05:26 05:26 WBC RBC Hgb Hct MCV MCH MCHC RDW Plt Count MPV Immature Gran % (Auto) Neut % (Auto) Lymph % (Auto) [place] % (Auto) Eos % (Auto) Baso % (Auto) Lymph # (Auto) [place] # (Auto) Eos # (Auto) Baso # (Auto) Abs Immat Gran (auto) Absolute Neuts (auto) Absolute Nucleated RBC Nucleated RBC % (auto) Neutrophils % (Manual) Band Neutrophils % Lymphocytes % (Manual) Monocytes % (Manual) Metamyelocytes % Abs Neuts (Manual) Lymphocytes # (Manual) Monocytes # (Manual) Metamyelocytes # Toxic Vacuolation Platelet Estimate Plt Morphology Comment RBC Morphology Hypochromasia Microcytosis Ovalocytes Morrison Cells Acanthocytes (Spur) Smear Tech's Comments Smear Path Review Hold Purple Top Sodium Potassium Cancelled Chloride 98 Cancelled Carbon Dioxide 27 Cancelled Anion Gap 15 BUN Creatinine Estim Creat Clear Calc Estimated GFR Random Glucose Fasting Glucose Lactic Acid Lactic Acid F/U @ 2Hr Lactic Acid F/U @ 4Hr Calcium Phosphorus Magnesium Iron TIBC % Saturation Unsat Iron Binding Total Bilirubin Direct Bilirubin AST ALT Alkaline Phosphatase Troponin I High Sens Total Protein Albumin Lipase Hold Yellow Top Urine Color Urine Appearance Urine pH Ur Specific [place] Urine Protein Urine Glucose (UA) Urine Ketones Urine Blood Urine Nitrite Ur Leukocyte Esterase Urine RBC Urine WBC Ur Squamous Epith Cells Urine Bacteria Hyaline Casts Random Vancomycin Urine Opiates Screen Ur Buprenorphine Scrn Ur Oxycodone Screen Urine Methadone Screen Urine Fentanyl Screen Ur Barbiturates Screen Ur Phencyclidine Scrn Ur Amphetamines Screen U Benzodiazepines Scrn Urine Cocaine Screen U Marijuana (THC) Screen 01/13/24 01/13/24 01/13/24 05:26 05:26 05:26 WBC RBC Hgb Hct MCV MCH MCHC RDW Plt Count MPV Immature Gran % (Auto) Neut % (Auto) Lymph % (Auto) [place] % (Auto) Eos % (Auto) Baso % (Auto) Lymph # (Auto) [place] # (Auto) Eos # (Auto) Baso # (Auto) Abs Immat Gran (auto) Absolute Neuts (auto) Absolute Nucleated RBC Nucleated RBC % (auto) Neutrophils % (Manual) Band Neutrophils % Lymphocytes % (Manual) Monocytes % (Manual) Metamyelocytes % Abs Neuts (Manual) Lymphocytes # (Manual) Monocytes # (Manual) Metamyelocytes # Toxic Vacuolation Platelet Estimate Plt Morphology Comment RBC Morphology Hypochromasia Microcytosis Ovalocytes Rachel Cells Acanthocytes (Spur) Smear Tech's Comments Smear Path Review Hold Purple Top Sodium Potassium Chloride Carbon Dioxide Anion Gap Cancelled BUN 19 H Cancelled Creatinine 1.05 Cancelled Estim Creat Clear Calc 94.4 Estimated GFR Random Glucose Fasting Glucose Lactic Acid Lactic Acid F/U @ 2Hr Lactic Acid F/U @ 4Hr Calcium Phosphorus Magnesium Iron TIBC % Saturation Unsat Iron Binding Total Bilirubin Direct Bilirubin AST ALT Alkaline Phosphatase Troponin I High Sens Total Protein Albumin Lipase Hold Yellow Top Urine Color Urine Appearance Urine pH Ur Specific [place] Urine Protein Urine Glucose (UA) Urine Ketones Urine Blood Urine Nitrite Ur Leukocyte Esterase Urine RBC Urine WBC Ur Squamous Epith Cells Urine Bacteria Hyaline Casts Random Vancomycin Urine Opiates Screen Ur Buprenorphine Scrn Ur Oxycodone Screen Urine Methadone Screen Urine Fentanyl Screen Ur Barbiturates Screen Ur Phencyclidine Scrn Ur Amphetamines Screen U Benzodiazepines Scrn Urine Cocaine Screen U Marijuana (THC) Screen 01/13/24 01/13/24 01/13/24 05:26 05:26 05:26 WBC RBC Hgb Hct MCV MCH MCHC RDW Plt Count MPV Immature Gran % (Auto) Neut % (Auto) Lymph % (Auto) [place] % (Auto) Eos % (Auto) Baso % (Auto) Lymph # (Auto) [place] # (Auto) Eos # (Auto) Baso # (Auto) Abs Immat Gran (auto) Absolute Neuts (auto) Absolute Nucleated RBC Nucleated RBC % (auto) Neutrophils % (Manual) Band Neutrophils % Lymphocytes % (Manual) Monocytes % (Manual) Metamyelocytes % Abs Neuts (Manual) Lymphocytes # (Manual) Monocytes # (Manual) Metamyelocytes # Toxic Vacuolation Platelet Estimate Plt Morphology Comment RBC Morphology Hypochromasia Microcytosis Ovalocytes Rachel Cells Acanthocytes (Spur) Smear Tech's Comments Smear Path Review Hold Purple Top Sodium Potassium Chloride Carbon Dioxide Anion Gap BUN Creatinine Estim Creat Clear Calc Cancelled Estimated GFR > 60 Cancelled Random Glucose 128 H Fasting Glucose Cancelled Cancelled Lactic Acid Lactic Acid F/U @ 2Hr Lactic Acid F/U @ 4Hr Calcium 8.5 Phosphorus Magnesium Iron TIBC % Saturation Unsat Iron Binding Total Bilirubin Direct Bilirubin AST ALT Alkaline Phosphatase Troponin I High Sens Total Protein Albumin Lipase Hold Yellow Top Urine Color Urine Appearance Urine pH Ur Specific [place] Urine Protein Urine Glucose (UA) Urine Ketones Urine Blood Urine Nitrite Ur Leukocyte Esterase Urine RBC Urine WBC Ur Squamous Epith Cells Urine Bacteria Hyaline Casts Random Vancomycin Urine Opiates Screen Ur Buprenorphine Scrn Ur Oxycodone Screen Urine Methadone Screen Urine Fentanyl Screen Ur Barbiturates Screen Ur Phencyclidine Scrn Ur Amphetamines Screen U Benzodiazepines Scrn Urine Cocaine Screen U Marijuana (THC) Screen 01/13/24 01/13/24 01/13/24 05:26 05:26 05:26 WBC RBC Hgb Hct MCV MCH MCHC RDW Plt Count MPV Immature Gran % (Auto) Neut % (Auto) Lymph % (Auto) [place] % (Auto) Eos % (Auto) Baso % (Auto) Lymph # (Auto) [place] # (Auto) Eos # (Auto) Baso # (Auto) Abs Immat Gran (auto) Absolute Neuts (auto) Absolute Nucleated RBC Nucleated RBC % (auto) Neutrophils % (Manual) Band Neutrophils % Lymphocytes % (Manual) Monocytes % (Manual) Metamyelocytes % Abs Neuts (Manual) Lymphocytes # (Manual) Monocytes # (Manual) Metamyelocytes # Toxic Vacuolation Platelet Estimate Plt Morphology Comment RBC Morphology Hypochromasia Microcytosis Ovalocytes Morrison Cells Acanthocytes (Spur) Smear Tech's Comments Smear Path Review Hold Purple Top Sodium Potassium Chloride Carbon Dioxide Anion Gap BUN Creatinine Estim Creat Clear Calc Estimated GFR Random Glucose Fasting Glucose Lactic Acid Lactic Acid F/U @ 2Hr Lactic Acid F/U @ 4Hr Calcium Cancelled Phosphorus 3.4 Magnesium Iron 8 L TIBC 246 % Saturation 3 L Unsat Iron Binding 238 Total Bilirubin 0.5 Cancelled Direct Bilirubin AST 83 H Cancelled ALT 95 H Alkaline Phosphatase Troponin I High Sens Total Protein Albumin Lipase Hold Yellow Top Urine Color Urine Appearance Urine pH Ur Specific [place] Urine Protein Urine Glucose (UA) Urine Ketones Urine Blood Urine Nitrite Ur Leukocyte Esterase Urine RBC Urine WBC Ur Squamous Epith Cells Urine Bacteria Hyaline Casts Random Vancomycin Urine Opiates Screen Ur Buprenorphine Scrn Ur Oxycodone Screen Urine Methadone Screen Urine Fentanyl Screen Ur Barbiturates Screen Ur Phencyclidine Scrn Ur Amphetamines Screen U Benzodiazepines Scrn Urine Cocaine Screen U Marijuana (THC) Screen 01/13/24 01/13/24 01/13/24 05:26 05:26 05:26 WBC RBC Hgb Hct MCV MCH MCHC RDW Plt Count MPV Immature Gran % (Auto) Neut % (Auto) Lymph % (Auto) [place] % (Auto) Eos % (Auto) Baso % (Auto) Lymph # (Auto) [place] # (Auto) Eos # (Auto) Baso # (Auto) Abs Immat Gran (auto) Absolute Neuts (auto) Absolute Nucleated RBC Nucleated RBC % (auto) Neutrophils % (Manual) Band Neutrophils % Lymphocytes % (Manual) Monocytes % (Manual) Metamyelocytes % Abs Neuts (Manual) Lymphocytes # (Manual) Monocytes # (Manual) Metamyelocytes # Toxic Vacuolation Platelet Estimate Plt Morphology Comment RBC Morphology Hypochromasia Microcytosis Ovalocytes Rachel Cells Acanthocytes (Spur) Smear Tech's Comments Smear Path Review Hold Purple Top Sodium Potassium Chloride Carbon Dioxide Anion Gap BUN Creatinine Estim Creat Clear Calc Estimated GFR Random Glucose Fasting Glucose Lactic Acid Lactic Acid F/U @ 2Hr Lactic Acid F/U @ 4Hr Calcium Phosphorus Magnesium Iron TIBC % Saturation Unsat Iron Binding Total Bilirubin Direct Bilirubin AST ALT Cancelled Alkaline Phosphatase 162 H Cancelled Troponin I High Sens 15.7 Total Protein 6.7 Cancelled Albumin 3.2 L Lipase Hold Yellow Top Urine Color Urine Appearance Urine pH Ur Specific [place] Urine Protein Urine Glucose (UA) Urine Ketones Urine Blood Urine Nitrite Ur Leukocyte Esterase Urine RBC Urine WBC Ur Squamous Epith Cells Urine Bacteria Hyaline Casts Random Vancomycin Urine Opiates Screen Ur Buprenorphine Scrn Ur Oxycodone Screen Urine Methadone Screen Urine Fentanyl Screen Ur Barbiturates Screen Ur Phencyclidine Scrn Ur Amphetamines Screen U Benzodiazepines Scrn Urine Cocaine Screen U Marijuana (THC) Screen 01/13/24 01/13/24 01/13/24 05:26 09:50 10:24 WBC RBC Hgb Hct MCV MCH MCHC RDW Plt Count MPV Immature Gran % (Auto) Neut % (Auto) Lymph % (Auto) [place] % (Auto) Eos % (Auto) Baso % (Auto) Lymph # (Auto) [place] # (Auto) Eos # (Auto) Baso # (Auto) Abs Immat Gran (auto) Absolute Neuts (auto) Absolute Nucleated RBC Nucleated RBC % (auto) Neutrophils % (Manual) Band Neutrophils % Lymphocytes % (Manual) Monocytes % (Manual) Metamyelocytes % Abs Neuts (Manual) Lymphocytes # (Manual) Monocytes # (Manual) Metamyelocytes # Toxic Vacuolation Platelet Estimate Plt Morphology Comment RBC Morphology Hypochromasia Microcytosis Ovalocytes Rachel Cells Acanthocytes (Spur) Smear Tech's Comments Smear Path Review Hold Purple Top Sodium Potassium Chloride Carbon Dioxide Anion Gap BUN Creatinine Estim Creat Clear Calc Estimated GFR Random Glucose Fasting Glucose Lactic Acid Lactic Acid F/U @ 2Hr Lactic Acid F/U @ 4Hr Calcium Phosphorus Magnesium Iron TIBC % Saturation Unsat Iron Binding Total Bilirubin 0.4 Direct Bilirubin 0.2 AST 63 H ALT 86 H Alkaline Phosphatase 147 H Troponin I High Sens Total Protein 6.6 Albumin Cancelled 3.2 L Lipase Hold Yellow Top Urine Color Yellow Urine Appearance Clear Urine pH >= 9.0 Ur Specific [place] 1.025 Urine Protein 100 (2+) H Urine Glucose (UA) Negative Urine Ketones Negative Urine Blood Negative Urine Nitrite Negative Ur Leukocyte Esterase Negative Urine RBC 0-2 Urine WBC 0-5 Ur Squamous Epith Cells 0-2 Urine Bacteria None Seen Hyaline Casts 0-2 Random Vancomycin Urine Opiates Screen POSITIVE H Ur Buprenorphine Scrn Not Detected Ur Oxycodone Screen Not Detected Urine Methadone Screen Positive H Urine Fentanyl Screen POSITIVE H Ur Barbiturates Screen Not Detected Ur Phencyclidine Scrn Not Detected Ur Amphetamines Screen Not Detected U Benzodiazepines Scrn Not Detected Urine Cocaine Screen POSITIVE H U Marijuana (THC) Screen Not Detected 01/13/24 01/13/24 01/13/24 11:31 13:51 15:56 WBC RBC Hgb Hct MCV MCH MCHC RDW Plt Count MPV Immature Gran % (Auto) Neut % (Auto) Lymph % (Auto) [place] % (Auto) Eos % (Auto) Baso % (Auto) Lymph # (Auto) [place] # (Auto) Eos # (Auto) Baso # (Auto) Abs Immat Gran (auto) Absolute Neuts (auto) Absolute Nucleated RBC Nucleated RBC % (auto) Neutrophils % (Manual) Band Neutrophils % Lymphocytes % (Manual) Monocytes % (Manual) Metamyelocytes % Abs Neuts (Manual) Lymphocytes # (Manual) Monocytes # (Manual) Metamyelocytes # Toxic Vacuolation Platelet Estimate Plt Morphology Comment RBC Morphology Hypochromasia Microcytosis Ovalocytes Rachel Cells Acanthocytes (Spur) Smear Tech's Comments Smear Path Review Hold Purple Top SEE NOTE Sodium Potassium Chloride Carbon Dioxide Anion Gap BUN Creatinine Estim Creat Clear Calc Estimated GFR Random Glucose Fasting Glucose Lactic Acid Lactic Acid F/U @ 2Hr Lactic Acid F/U @ 4Hr Calcium Phosphorus 3.6 Magnesium Iron TIBC % Saturation Unsat Iron Binding Total Bilirubin Direct Bilirubin AST ALT Alkaline Phosphatase Troponin I High Sens 10.3 Total Protein Albumin Lipase Hold Yellow Top See Note Urine Color Urine Appearance Urine pH Ur Specific [place] Urine Protein Urine Glucose (UA) Urine Ketones Urine Blood Urine Nitrite Ur Leukocyte Esterase Urine RBC Urine WBC Ur Squamous Epith Cells Urine Bacteria Hyaline Casts Random Vancomycin 7.3 L Urine Opiates Screen Ur Buprenorphine Scrn Ur Oxycodone Screen Urine Methadone Screen Urine Fentanyl Screen Ur Barbiturates Screen Ur Phencyclidine Scrn Ur Amphetamines Screen U Benzodiazepines Scrn Urine Cocaine Screen U Marijuana (THC) Screen 01/14/24 05:41 WBC 29.9 H RBC 4.10 L Hgb 10.3 L Hct 30.9 L MCV 75.4 L MCH 25.1 L MCHC 33.3 RDW 14.8 Plt Count TNP MPV 10.2 Immature Gran % (Auto) 1.9 H Neut % (Auto) 84.4 H Lymph % (Auto) 10.0 L [place] % (Auto) 3.4 Eos % (Auto) 0.0 Baso % (Auto) 0.3 Lymph # (Auto) 3.0 [place] # (Auto) 1.0 Eos # (Auto) 0.0 Baso # (Auto) 0.1 Abs Immat Gran (auto) 0.56 H Absolute Neuts (auto) 25.3 H Absolute Nucleated RBC 0.000 Nucleated RBC % (auto) 0.0 Neutrophils % (Manual) Band Neutrophils % Lymphocytes % (Manual) Monocytes % (Manual) Metamyelocytes % Abs Neuts (Manual) Lymphocytes # (Manual) Monocytes # (Manual) Metamyelocytes # Toxic Vacuolation Platelet Estimate Plt Morphology Comment RBC Morphology Hypochromasia Microcytosis Ovalocytes Rachel Cells Acanthocytes (Spur) Smear Tech's Comments VERIFIED Smear Path Review Hold Purple Top Sodium 137 Potassium 3.4 D Chloride 107 Carbon Dioxide 23 Anion Gap 10 L BUN 16 Creatinine 0.89 Estim Creat Clear Calc 111.4 Estimated GFR > 60 Random Glucose 112 Fasting Glucose Lactic Acid Lactic Acid F/U @ 2Hr Lactic Acid F/U @ 4Hr Calcium 8.0 L Phosphorus 3.0 Magnesium 2.2 Iron TIBC % Saturation Unsat Iron Binding Total Bilirubin 0.4 Direct Bilirubin AST 25 ALT 61 H Alkaline Phosphatase 135 H Troponin I High Sens Total Protein 6.2 L Albumin 3.0 L Lipase Hold Yellow Top Urine Color Urine Appearance Urine pH Ur Specific [place] Urine Protein Urine Glucose (UA) Urine Ketones Urine Blood Urine Nitrite Ur Leukocyte Esterase Urine RBC Urine WBC Ur Squamous Epith Cells Urine Bacteria Hyaline Casts Random Vancomycin Urine Opiates Screen Ur Buprenorphine Scrn Ur Oxycodone Screen Urine Methadone Screen Urine Fentanyl Screen Ur Barbiturates Screen Ur Phencyclidine Scrn Ur Amphetamines Screen U Benzodiazepines Scrn Urine Cocaine Screen U Marijuana (THC) Screen Airway Mallampati Class: II (globally poor dentition) TM Dist: >3cm Neck ROM: Full Loose/Missing/Broken Teeth: Yes, Upper and Lower Heart: RRR Lungs: CTA Assessment and Plan Assessment Anesthesia Assessment: Anesthesia Plan Discussed and Chart Reviewed Final Anesthetic Review History of Problems with Anesthesia: No NPO: Yes ASA Class: III Final Preanesthetic Review: Meds/Allgs Chart Reviewed, Consent Obtained/Reviewed and Anes Risks/Benef Reviewed Patient Risk: Intermediate Procedure Risk: Intermediate Anesthetic Plan Anesthetic Plan: GA Disposition: Standard PACU
--- NOTE | 2024-01-14 13:54 | P.PNIM_ITS ---
Subjective Subjective Date of Service: 01/14/24 Interval History: abd pain Review of Systems Patient says nausea vomiting improving, still has abdominal pain No fever Physical Exam 2 Vital Signs: Vital Signs: Last Vital Signs Temp 97.7 F 01/14/24 07:56 Pulse 46 L 01/14/24 07:56 Resp 18 01/14/24 07:56 BP 113/69 01/14/24 07:56 Pulse Ox 96 01/14/24 07:56 O2 Del Method Room Air 01/14/24 07:56 BMI result Body Mass Index 24.5 Appearance: Alert.? Oriented X3.? cvs: rrr, [id number] res: clear to auscultation ,no rhonchii or wheezing abd: no rebound or guarding , bs present. ext pulses present , no cyanosis . neuro: axo3 , nonfocal. Objective Data Active Medications Acetaminophen (Acetaminophen 325 Mg Tablet) 650 mg PO Q6H PRN PRN Reason: Pain, Mild (Pain Scale 1-3), fever or headache Calcium Carbonate (Calcium Carbonate 750 Mg Tab.Chew) 750 mg PO Q4H PRN PRN Reason: Heartburn Last Admin: 01/12/24 13:26 Dose: 750 mg Documented By: EMMA Lactated Ringer's (Lr) 1,000 mls @ 80 mls/hr IVCONT .[id number] [facility] Last Admin: 01/14/24 13:14 Dose: 80 mls/hr Documented By: AMAYA Piperacillin Sod/Tazobactam (Sod 4.5 gm/ Sodium Chloride) 100 mls @ 200 mls/hr IV Q6H [facility] Last Infusion: 01/14/24 09:16 Dose: Infused Documented By: AMAYA Vancomycin HCl 1,250 mg/ (Sodium Chloride) 250 mls @ 166.667 mls/hr IV Q12H [facility] Last Infusion: 01/14/24 06:54 Dose: Infused Documented By: AMAYA Magnesium Hydroxide (Milk Of Magnesia 30 Ml Oral.Susp) 30 ml PO DAILY PRN PRN Reason: Constipation Melatonin (Melatonin 3 Mg Tablet) 6 mg PO BEDTIME PRN PRN Reason: Insomnia Methadone HCl (Methadone Hcl 20 Mg/2 Ml Oral.Conc) 60 mg PO DAILY [facility] Last Admin: 01/14/24 08:38 Dose: 60 mg Documented By: AMAYA Metoclopramide HCl (Metoclopramide Hcl 10 Mg/2 Ml Vial) 5 mg IVPUSH Q6H PRN PRN Reason: Nausea and Vomiting Last Admin: 01/13/24 19:49 Dose: 5 mg Documented By: ROHAN Ondansetron HCl (Ondansetron Hcl 4 Mg/2 Ml Vial) 4 mg IVPUSH Q8H PRN PRN Reason: Nausea and Vomiting Last Admin: 01/13/24 18:34 Dose: 4 mg Documented By: MERLIN Pharmacy Consult (Consult Rx Vancomycin Dosing) 1 each MISCELLANE DAILY PRN PRN Reason: Consult order Sodium Chloride (0.9 % Sodium Chloride Flush 3 Ml Syringe) 3 ml IVFLUSH QSHIFT [facility] Last Admin: 01/14/24 08:43 Dose: Not Given Documented By: AMAYA Non-Admin Reason: IV Running Tizanidine HCl (Tizanidine Hcl 4 Mg Tablet) 4 mg PO TID [facility] Last Admin: 01/14/24 08:39 Dose: 4 mg Documented By: AMAYA Labs 01/14/24 05:41 01/14/24 05:41 Labs: Laboratory Results - last 24 hr 01/13/24 01/13/24 01/14/24 13:51 15:56 05:41 MCV 75.4 L MCH 25.1 L MCHC 33.3 RDW 14.8 Plt Count TNP MPV 10.2 Immature Gran % (Auto) 1.9 H Neut % (Auto) 84.4 H Lymph % (Auto) 10.0 L [place] % (Auto) 3.4 Eos % (Auto) 0.0 Baso % (Auto) 0.3 Lymph # (Auto) 3.0 [place] # (Auto) 1.0 Eos # (Auto) 0.0 Baso # (Auto) 0.1 Abs Immat Gran (auto) 0.56 H Absolute Neuts (auto) 25.3 H Absolute Nucleated RBC 0.000 Nucleated RBC % (auto) 0.0 Smear Tech's Comments VERIFIED Anion Gap 10 L Estim Creat Clear Calc 111.4 Estimated GFR > 60 Random Glucose 112 Calcium 8.0 L Phosphorus 3.0 Magnesium 2.2 Total Bilirubin 0.4 AST 25 ALT 61 H Alkaline Phosphatase 135 H Troponin I High Sens 10.3 Total Protein 6.2 L Albumin 3.0 L Random Vancomycin 7.3 L Microbiology Microbiology Results: Microbiology 01/12/24 03:23 Blood Culture - Preliminary Blood - Venous No growth after 48 hours. 01/12/24 03:23 Blood Culture - Preliminary Blood - Venous No growth after 48 hours. 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 Sepsis due to acute cholecystitis: Initiated IV Zosyn. Spoke to General surgery> plan for cholecystectomy either later today or tomorrow morning. NPO. Hold Lovenox in anticipation of surgery, Also continue IV vancomycin for concern of bacteremia in this patient with IV drug use and history of MRSA. Follow blood cultures. Leukemoid reaction in the setting of above. wbc improving Hypokalemia due to GI losses: Repleting Acute lactic acidosis: Due to sepsis. Resuscitated with IV crystalloids . Iron deficiency anemia: Start iron supplementation once acute infection resolves. Outpatient follow-up Elevated transaminases due to sepsis. Repeat liver panel pending Opiate use disorder: Monitor for withdrawal. Methadone 50 mg daily initiated by Addiction Team DVT prophylaxis: Hold Lovenox for surgical procedure Full code ongoing inpatient need for hospital stay for IV antibiotics (as above), also need gall bladder surgery,which is not possible in a lesser acute setting. Quality Stroke Does the patient have a stroke diagnosis?: No VTE Prior VTE?: No VTE Risk Level:: Medical - moderate - high VTE Device Contraindication: Treatment Not Indicated VTE Drug Contraindication: N/A - Med Ordered
--- NOTE | 2024-01-14 14:20 | MHC.SHP ---
Pre-Procedural Eval Section A - 24 Hr Update-Section A only Date of Service: 01/14/24 The patient is an INPATIENT: Yes Changes since office visit: No Cold of Flu in the past 2 weeks, No New Medical Problems, No Changes in Medication and No Patient answered all questions The patient has been examined within 24 hours of the surgical procedure. The History & Physical has been completed within 30 days and I have reviewed it.: Yes Section B - Complete if H&P > 30 days Chief Complaint: Chills Allergies: Allergies Allergy/AdvReac Type Severity Reaction Status Date / Time ibuprofen Allergy Unknown headaches Verified 01/12/24 02:02 onion [ONION] Allergy Unknown ANAPHYLAXIS Verified 01/12/24 02:02 Plan I have reviewed the history and physical and performed a pertinent physical examination on my patient. No changes have occurred unless specified. Time Spent With Patient Time: Total time managing care of this patient today ____ minutes.
--- NOTE | 2024-01-14 15:37 | W.PM.OPN ---
Operative Note Operative Note Date of Service: 01/14/24 Narrative: Preoperative diagnosis: [] Symptomatic gallbladder/acute cholecystitis Postop diagnosis: [] The same Procedure [] laparoscopic cholecystectomy Surgeon: [] Alexander Loan Workout Officer: [] Hilary Type of Anesthesia: [] General Indication for surgery: [] Edematous inflamed Gallbladder with omental adhesions to it. Moderately intrahepatic gallbladder. Findings: [] Patient brought to the operating room, placed on operative table supine position, after an adequate level of general anesthesia was induced, the patient's abdomen was prepped and draped in usual sterile fashion. Using a supraumbilical curvilinear incision, Barahona technique was used to insufflate abdominal cavity to 15 mm of CO2. Upper midline and right subcostal ports were placed under direct laparoscopic view, and the patient placed in reverse Trendelenburg position, and tilted to the left. Findings were as noted above. Gallbladder was grasped using laparoscopic graspers and retracted superiorly and laterally. Soft omental adhesions were swept off the gallbladder where the hilum was approached. Cystic artery and cystic duct were each identified, circumferentially skeletonized, traced directly into the gallbladder, and critical view obtained. Each was clipped proximally x2, distally x1, and transected. The gallbladder which was moderately intrahepatic was then cauterized from the gallbladder fossa using Bovie. Specimen placed in an Endo-Catch bag, and retrieved through the umbilical port. Abdominal cavity was copiously irrigated and secured hemostasis. All ports removed under direct laparoscopic view. Wounds were closed in the following manner; umbilical wound is fascia reapproximated using interrupted 0 Vicryl sutures. Skin wounds were closed using subcuticular 4-0 Vicryl sutures followed by Steri-Strips and sterile dressings. Wounds were infiltrated 0.5% Marcaine at completion. Sponge, needle, and instrument counts reported correct. Patient tolerated the procedure well and emerged from anesthesia stable condition. EBL minimal
[2024-01-14] MEDS: fentaNYL citrate/PF 100 MCG/2 ML VIAL 50 MCG IVPUSH ×2 (15:38→15:43)
[2024-01-14] MEDS: hydrALAZINE HCl 20 MG/ML VIAL 10 MG IVPUSH (16:05)
[2024-01-14 17:54] LABS: Vancomycin Random 15.7 mcg/mL (15-20)
[2024-01-14] MEDS: Morphine Sulfate 4 MG/ML CARTRIDGE IVPUSH (19:00)
[2024-01-14] MEDS: HYDROmorphone HCl 1 MG/ML SYRINGE IVPUSH (20:37)
[2024-01-15] VITALS (7 sets, daily range): BP systolic 123–152; BP diastolic 80–105; PULSE 46–65; RESP 16–18; TEMP 36.3–37.1; O2SAT 96–99
[2024-01-15] MEDS: Piperacillin Sodium/Tazobactam 4.5 GM in 0.9 % Sodium Chloride 100 ML IV ×4 (02:18→19:26)
[2024-01-15] MEDS: Morphine Sulfate 4 MG/ML CARTRIDGE IVPUSH (02:22)
--- NOTE | 2024-01-15 02:46 | PC.NURSE ---
Pt c/o unrelieved surgical pain after the prn Morphine, Dr. Ortega was notified, Dilaudid IV x1 given with good effect, pt slept at intervals.
[2024-01-15] MEDS: vancomycin HCL 1,250 MG in 0.9 % Sodium Chloride 250 ML 166.67 MG IV (05:56)
[2024-01-15] MEDS: Lactated Ringers 1,000 ML 80 ML IVCONT ×2 (05:56→19:28)
[2024-01-15 07:20] LABS: Creatinine Clr Calc Pharmacy 94.4; Estimated Glomerular Filt Rate > 60
[2024-01-15] MEDS: HYDROmorphone HCl 1 MG/ML SYRINGE IVPUSH ×4 (07:57→23:18)
[2024-01-15] MEDS: methADONE HCl 20 MG/2 ML ORAL.CONC 60 MG PO (08:02)
[2024-01-15] MEDS: Docusate Sodium 100 MG CAPSULE PO ×2 (08:04→19:27)
[2024-01-15] MEDS: TiZANidine HCL 4 MG TABLET PO ×3 (08:04→19:27)
--- NOTE | 2024-01-15 09:57 | PM.PNGS ---
Subjective Subjective Date of Service: 01/15/24 Interval history: Underwent laparoscopic cholecystectomy yesterday Patient complaining of some incisional pain No events overnight Physical Exam Vital Signs: Vital Signs: Last Vital Signs Temp 97.8 F 01/15/24 07:52 Pulse 65 01/15/24 07:52 Resp 16 01/15/24 07:52 BP 133/86 01/15/24 07:52 Pulse Ox 98 01/15/24 07:52 O2 Del Method Room Air 01/15/24 07:52 O2 Flow Rate 1 01/14/24 16:18 BMI result Body Mass Index 24.5 Const: General: comfortable and no acute distress Resp: Effort & Inspection: normal respiratory effort GI: Other: Soft, dressings dry, no guarding Objective Data Active Medications Acetaminophen (Acetaminophen 325 Mg Tablet) 650 mg PO Q6H PRN PRN Reason: Pain, Mild (Pain Scale 1-3), fever or headache Calcium Carbonate (Calcium Carbonate 750 Mg Tab.Chew) 750 mg PO Q4H PRN PRN Reason: Heartburn Last Admin: 01/12/24 13:26 Dose: 750 mg Documented By: EMMA Docusate Sodium (Docusate Sodium 100 Mg Capsule) 100 mg PO BID [facility] Last Admin: 01/15/24 08:04 Dose: 100 mg Documented By: EDA Hydromorphone HCl (Hydromorphone Hcl 1 Mg/Ml Syringe) 1 mg IVPUSH Q4H PRN; Protocol PRN Reason: Pain, Moderate(Pain Scale 4-6) Last Admin: 01/15/24 07:57 Dose: 1 mg Documented By: EDA Comments: pain is 9/10, pt requesting this medication as the only one that helps Hydromorphone HCl (Hydromorphone Hcl 1 Mg/Ml Syringe) 1 mg IVPUSH BID PRN; Protocol PRN Reason: Pain, Severe (Pain Scale 7-10) Lactated Ringer's (Lr) 1,000 mls @ 80 mls/hr IVCONT .[id number] [facility] Last Admin: 01/15/24 05:56 Dose: 80 mls/hr Documented By: BRITTANEY Piperacillin Sod/Tazobactam (Sod 4.5 gm/ Sodium Chloride) 100 mls @ 200 mls/hr IV Q6H [facility] Last Admin: 01/15/24 08:02 Dose: 200 mls/hr Documented By: EDA Magnesium Hydroxide (Milk Of Magnesia 30 Ml Oral.Susp) 30 ml PO DAILY PRN PRN Reason: Constipation Melatonin (Melatonin 3 Mg Tablet) 6 mg PO BEDTIME PRN PRN Reason: Insomnia Methadone HCl (Methadone Hcl 20 Mg/2 Ml Oral.Conc) 60 mg PO DAILY [facility] Last Admin: 01/15/24 08:02 Dose: 60 mg Documented By: EDA Metoclopramide HCl (Metoclopramide Hcl 10 Mg/2 Ml Vial) 5 mg IVPUSH Q6H PRN PRN Reason: Nausea and Vomiting Last Admin: 01/13/24 19:49 Dose: 5 mg Documented By: ROHAN Ondansetron HCl (Ondansetron Hcl 4 Mg/2 Ml Vial) 4 mg IVPUSH Q8H PRN PRN Reason: Nausea and Vomiting Last Admin: 01/13/24 18:34 Dose: 4 mg Documented By: MERLIN Polyethylene Glycol (Polyethylene Glycol 3350 17 Gm Powd.Pack) 17 gm PO DAILY PRN PRN Reason: Constipation Sodium Chloride (0.9 % Sodium Chloride Flush 3 Ml Syringe) 3 ml IVFLUSH QSHIFT [facility] Last Admin: 01/15/24 00:56 Dose: Not Given Documented By: BRITTANEY Non-Admin Reason: IV Running Tizanidine HCl (Tizanidine Hcl 4 Mg Tablet) 4 mg PO TID [facility] Last Admin: 01/15/24 08:04 Dose: 4 mg Documented By: EDA Labs 01/14/24 05:41 01/15/24 05:55 Labs: Laboratory Results - last 24 hr 01/14/24 01/15/24 17:25 05:55 Estim Creat Clear Calc 94.4 Estimated GFR > 60 Random Vancomycin 15.7 Procedures Date of Service Date of Service: 01/15/24 Progress Note: A&P Assessment and plan (1) Cholecystitis: Status: Acute Assessment and Plan: Status post lap abdullahi yesterday Looks well Has opioid use disorder and preop skin abscess as well Diet as tolerated Okay to shower starting tomorrow and remove dressings Follow up with Dr. Munoz in the office in 1-2 weeks Time Spent With Patient Time: Total time managing care of this patient today ____ minutes. Quality Stroke Does the patient have a stroke diagnosis?: No VTE Prior VTE?: No VTE Risk Level:: Medical - moderate - high VTE Device Contraindication: Treatment Not Indicated VTE Drug Contraindication: N/A - Med Ordered
--- NOTE | 2024-01-15 10:15 | MHC.RECOVRN ---
Met with pt in 358 to follow up and provide support.? Pt sitting up in bed but drowsy and lethargic.? Pt S/P gallbladder removal and is reporting having a lot of abd pain. Pt is receiving IV Dilaudid 1mg Q 4 hours PRN. Pt also requesting his methadone be increased as I used to be on 90mg . I spoke with pt's nurse Ruth and with pt and plan is for pt to access IV Dilaudid more frequently to control pain, if needed. No COWS assessment was ordered and pt did not present with W/D during my visit (he seemed somewhat sedated). Pt states that the W/D happen in the evening so we will monitor COWS t/o the day and evening and t/w will re assess in the AM. Ruth has agreed to reach out to provider if pain med is maxed out and changes needed.? Pt denies other concerns at this time.? T/w available as needed. Will F/U tomorrow.
--- NOTE | 2024-01-15 13:02 | P.PNIM_ITS ---
Subjective Subjective Date of Service: 01/15/24 Interval History: acute cholecystitis Review of Systems abd pain improving no nausea/vomiting no fevers Physical Exam 2 Vital Signs: Vital Signs: Last Vital Signs Temp 97.4 F 01/15/24 12:00 Pulse 53 01/15/24 12:00 Resp 16 01/15/24 12:00 BP 138/80 01/15/24 12:00 Pulse Ox 97 01/15/24 12:00 O2 Del Method Room Air 01/15/24 12:00 O2 Flow Rate 1 01/14/24 16:18 BMI result Body Mass Index 24.5 Appearance: Alert.? Oriented X3.? cvs: rrr, [id number] res: clear to auscultation ,no rhonchii or wheezing abd: no rebound or guarding , has some inciconal pain at lap abdullahi site,bs present. ext pulses present , no cyanosis . neuro: axo3 , nonfocal. Objective Data Active Medications Acetaminophen (Acetaminophen 325 Mg Tablet) 650 mg PO Q6H PRN PRN Reason: Pain, Mild (Pain Scale 1-3), fever or headache Calcium Carbonate (Calcium Carbonate 750 Mg Tab.Chew) 750 mg PO Q4H PRN PRN Reason: Heartburn Last Admin: 01/12/24 13:26 Dose: 750 mg Documented By: EMMA Docusate Sodium (Docusate Sodium 100 Mg Capsule) 100 mg PO BID [facility] Last Admin: 01/15/24 08:04 Dose: 100 mg Documented By: EDA Hydromorphone HCl (Hydromorphone Hcl 1 Mg/Ml Syringe) 1 mg IVPUSH Q4H PRN; Protocol PRN Reason: Pain, Moderate(Pain Scale 4-6) Last Admin: 01/15/24 07:57 Dose: 1 mg Documented By: EDA Comments: pain is 9/10, pt requesting this medication as the only one that helps Hydromorphone HCl (Hydromorphone Hcl 1 Mg/Ml Syringe) 1 mg IVPUSH BID PRN; Protocol PRN Reason: Pain, Severe (Pain Scale 7-10) Lactated Ringer's (Lr) 1,000 mls @ 80 mls/hr IVCONT .[id number] [facility] Last Admin: 01/15/24 05:56 Dose: 80 mls/hr Documented By: CASTILLynn Piperacillin Sod/Tazobactam (Sod 4.5 gm/ Sodium Chloride) 100 mls @ 200 mls/hr IV Q6H [facility] Last Infusion: 01/15/24 09:59 Dose: Infused Documented By: EDA Magnesium Hydroxide (Milk Of Magnesia 30 Ml Oral.Susp) 30 ml PO DAILY PRN PRN Reason: Constipation Melatonin (Melatonin 3 Mg Tablet) 6 mg PO BEDTIME PRN PRN Reason: Insomnia Methadone HCl (Methadone Hcl 20 Mg/2 Ml Oral.Conc) 60 mg PO DAILY [facility] Last Admin: 01/15/24 08:02 Dose: 60 mg Documented By: EDA Metoclopramide HCl (Metoclopramide Hcl 10 Mg/2 Ml Vial) 5 mg IVPUSH Q6H PRN PRN Reason: Nausea and Vomiting Last Admin: 01/13/24 19:49 Dose: 5 mg Documented By: ROHAN Ondansetron HCl (Ondansetron Hcl 4 Mg/2 Ml Vial) 4 mg IVPUSH Q8H PRN PRN Reason: Nausea and Vomiting Last Admin: 01/13/24 18:34 Dose: 4 mg Documented By: MERLIN Polyethylene Glycol (Polyethylene Glycol 3350 17 Gm Powd.Pack) 17 gm PO DAILY PRN PRN Reason: Constipation Sodium Chloride (0.9 % Sodium Chloride Flush 3 Ml Syringe) 3 ml IVFLUSH QSHIFT [facility] Last Admin: 01/15/24 09:57 Dose: Not Given Documented By: EDA Non-Admin Reason: IV Running Tizanidine HCl (Tizanidine Hcl 4 Mg Tablet) 4 mg PO TID [facility] Last Admin: 01/15/24 08:04 Dose: 4 mg Documented By: EDA Labs 01/14/24 05:41 01/15/24 05:55 Labs: Laboratory Results - last 24 hr 01/14/24 01/15/24 17:25 05:55 Estim Creat Clear Calc 94.4 Estimated GFR > 60 Random Vancomycin 15.7 Assessment and Plan (1) Cholecystitis: Status: Acute Assessment and Plan: 38-year-old male with 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 Sepsis due to acute cholecystitis: s/p lap abdullahi (01/14/24) no fevers blood cultures-negative @48hrs continue linda almaguer . Leukemoid reaction in the setting of above. wbc improving Hypokalemia due to GI losses: Repleting Acute lactic acidosis: Due to sepsis. Resuscitated with IV crystalloids . Iron deficiency anemia: Start iron supplementation once acute infection resolves. Outpatient follow-up Elevated transaminases due to sepsis. Repeat liver panel pending Opiate use disorder: Methadone 60 mg daily addiction team following DVT prophylaxis: Hold Lovenox for surgical procedure Full code ongoing inpatient need for hospital stay for IV antibiotics (as above), also need gall bladder surgery,which is not possible in a lesser acute setting. Quality Stroke Does the patient have a stroke diagnosis?: No VTE Prior VTE?: No VTE Risk Level:: Medical - moderate - high VTE Device Contraindication: Treatment Not Indicated VTE Drug Contraindication: N/A - Med Ordered
--- NOTE | 2024-01-15 14:36 | HO.POSTANES ---
Post Anesthesia Evaluation Post Anesthesia Evaluation Date of Service: 01/15/24 Vital Signs: Vital Signs Temp Pulse Resp BP Pulse Ox O2 Del Method 01/15/24 12:00 97.4 F 53 16 138/80 97 Room Air 01/15/24 07:52 97.8 F 65 16 133/86 98 Room Air 01/15/24 03:37 98.4 F 47 L 16 123/94 H 98 Room Air Anesthesia: General Endotracheal-GETA Mental Status: Awake Pain Control: Satisfactory Nausea/Vomiting: None Hydration: Adequate Anesthesia-Related Issues: No Anes. Related Issues
[2024-01-16] VITALS (9 sets, daily range): BP systolic 135–161; BP diastolic 89–110; PULSE 45–54; RESP 14–18; TEMP 36.8–37.1; O2SAT 97–99
[2024-01-16] MEDS: Piperacillin Sodium/Tazobactam 4.5 GM in 0.9 % Sodium Chloride 100 ML IV ×4 (02:12→20:05)
[2024-01-16] MEDS: HYDROmorphone HCl 1 MG/ML SYRINGE IVPUSH ×5 (03:58→23:15)
[2024-01-16] MEDS: methADONE HCl 20 MG/2 ML ORAL.CONC 60 MG PO (08:12)
[2024-01-16] MEDS: polyethylene glycoL 3350 17 GM POWD.PACK PO (08:18)
[2024-01-16] MEDS: Docusate Sodium 100 MG CAPSULE PO ×2 (08:21→20:04)
[2024-01-16] MEDS: TiZANidine HCL 4 MG TABLET PO ×3 (08:21→20:04)
[2024-01-16] MEDS: Lactated Ringers 1,000 ML 80 ML IVCONT ×2 (08:27→20:44)
--- NOTE | 2024-01-16 09:53 | PM.EVENT ---
Event Note Date of Service: 01/16/24 Event Note: Complains of pain Says he has problems with constipation as well Otherwise tolerating diet well Looks comfortable Abdomen soft Incisions clean and dry Dressings removed Vital signs stable Seems stable for discharge from surgical standpoint Stool softeners for constipation Time Spent With Patient Time: Total time managing care of this patient today ____ minutes.
--- NOTE | 2024-01-16 10:57 | P.PNIM_ITS ---
Subjective Subjective Date of Service: 01/16/24 Interval History: acute cholecystitis Review of Systems abd pain improving no fever or chills Physical Exam 2 Vital Signs: Vital Signs: Last Vital Signs Temp 98.7 F 01/16/24 07:41 Pulse 50 01/16/24 07:41 Resp 16 01/16/24 07:41 BP 135/90 H 01/16/24 07:41 Pulse Ox 99 01/16/24 07:41 O2 Del Method Room Air 01/16/24 07:41 O2 Flow Rate 1 01/14/24 16:18 BMI result Body Mass Index 24.5 Appearance: Alert.? Oriented X3.? cvs: rrr, [id number] . res: clear to auscultation ,no rhonchii or wheezing abd: no rebound or guarding ,abd soarness at incision area , bs present. ext pulses present , no cyanosis. neuro: axo3 , nonfocal. Objective Data Active Medications Acetaminophen (Acetaminophen 325 Mg Tablet) 650 mg PO Q6H PRN PRN Reason: Pain, Mild (Pain Scale 1-3), fever or headache Calcium Carbonate (Calcium Carbonate 750 Mg Tab.Chew) 750 mg PO Q4H PRN PRN Reason: Heartburn Last Admin: 01/12/24 13:26 Dose: 750 mg Documented By: EMMA Docusate Sodium (Docusate Sodium 100 Mg Capsule) 100 mg PO BID [facility] Last Admin: 01/16/24 08:21 Dose: 100 mg Documented By: EDA Hydromorphone HCl (Hydromorphone Hcl 1 Mg/Ml Syringe) 1 mg IVPUSH Q4H PRN; Protocol PRN Reason: Pain, Moderate(Pain Scale 4-6) Last Admin: 01/16/24 03:58 Dose: 1 mg Documented By: CASTRAYMON Hydromorphone HCl (Hydromorphone Hcl 1 Mg/Ml Syringe) 1 mg IVPUSH BID PRN; Protocol PRN Reason: Pain, Severe (Pain Scale 7-10) Last Admin: 01/16/24 08:23 Dose: 1 mg Documented By: EDA Lactated Ringer's (Lr) 1,000 mls @ 80 mls/hr IVCONT .[id number] [facility] Last Admin: 01/16/24 08:27 Dose: 80 mls/hr Documented By: EDA Piperacillin Sod/Tazobactam (Sod 4.5 gm/ Sodium Chloride) 100 mls @ 200 mls/hr IV Q6H [facility] Last Infusion: 01/16/24 10:05 Dose: Infused Documented By: EDA Magnesium Hydroxide (Milk Of Magnesia 30 Ml Oral.Susp) 30 ml PO DAILY PRN PRN Reason: Constipation Melatonin (Melatonin 3 Mg Tablet) 6 mg PO BEDTIME PRN PRN Reason: Insomnia Methadone HCl (Methadone Hcl 20 Mg/2 Ml Oral.Conc) 60 mg PO DAILY [facility] Last Admin: 01/16/24 08:12 Dose: 60 mg Documented By: EDA Metoclopramide HCl (Metoclopramide Hcl 10 Mg/2 Ml Vial) 5 mg IVPUSH Q6H PRN PRN Reason: Nausea and Vomiting Last Admin: 01/13/24 19:49 Dose: 5 mg Documented By: ROHAN Ondansetron HCl (Ondansetron Hcl 4 Mg/2 Ml Vial) 4 mg IVPUSH Q8H PRN PRN Reason: Nausea and Vomiting Last Admin: 01/13/24 18:34 Dose: 4 mg Documented By: MERLIN Polyethylene Glycol (Polyethylene Glycol 3350 17 Gm Powd.Pack) 17 gm PO DAILY PRN PRN Reason: Constipation Last Admin: 01/16/24 08:18 Dose: 17 gm Documented By: EDA Sodium Chloride (0.9 % Sodium Chloride Flush 3 Ml Syringe) 3 ml IVFLUSH QSHIFT [facility] Last Admin: 01/16/24 08:28 Dose: Not Given Documented By: EDA Non-Admin Reason: IV Running Tizanidine HCl (Tizanidine Hcl 4 Mg Tablet) 4 mg PO TID [facility] Last Admin: 01/16/24 08:21 Dose: 4 mg Documented By: EDA Labs 01/14/24 05:41 01/15/24 05:55 Assessment and Plan (1) Cholecystitis: Status: Acute Assessment and Plan: 38-year-old male with 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 Sepsis due to acute cholecystitis: s/p lap abdullahi (01/14/24) no fevers blood cultures-negative @48hrs continue zosyn ,dc vanco . Leukemoid reaction in the setting of above. wbc improving Hypokalemia due to GI losses: Repleting Acute lactic acidosis: Due to sepsis. Resuscitated with IV crystalloids . Iron deficiency anemia: Start iron supplementation once acute infection resolves. Outpatient follow-up Elevated transaminases due to sepsis. Repeat liver panel pending Opiate use disorder: Methadone 60 mg daily addiction team following DVT prophylaxis: Lovenox Full code ongoing inpatient need for hospital stay for IV antibiotics (as above), also need gall bladder surgery,which is not possible in a lesser acute setting. Quality Stroke Does the patient have a stroke diagnosis?: No VTE Prior VTE?: No VTE Risk Level:: Medical - moderate - high VTE Device Contraindication: Treatment Not Indicated VTE Drug Contraindication: N/A - Med Ordered
[2024-01-16 11:12] LABS: Hematocrit 39.5 % (42.0-52.0); Hemoglobin 12.5 g/dl (14.0-18.0); Mean Corpuscular HGB Conc 31.6 g/dl (31.0-36.0); Mean Corpuscular Hemoglobin 24.9 pg (27.0-33.0); Mean Corpuscular Volume 78.5 fL (80.0-98.0); Mean Platelet Volume 9.9 fL (9.4-12.4); Platelet Count 318 X10*3/uL (160-400); Red Blood Count 5.03 X10*6/uL (4.60-5.80); Red Cell Distribution Width 14.6 % (11.0-16.0); White Blood Count 10.2 X10*3/uL (4.8-10.8)
[2024-01-16] MEDS: Enoxaparin Sodium 40 MG/0.4 ML SYRINGE SUBCUT (11:23)
[2024-01-16 11:33] LABS: Anion Gap 17 (12-20); Blood Urea Nitrogen 11 mg/dL (9-16); Calcium 8.7 mg/dL (8.4-10.2); Carbon Dioxide 16 mmol/L (22-29); Chloride 108 mmol/L (96-108); Creatinine Clr Calc Pharmacy 97.2; Estimated Glomerular Filt Rate > 60; Glucose Random 109 mg/dL (60-115); Potassium 3.8 mmol/L (3.3-5.1); Sodium 137 mmol/L (135-145)
--- NOTE | 2024-01-16 11:57 | MHC.RECOVRN ---
Met with pt in 358 to follow up and provide support.? Pt sitting up in recliner but drowsy and lethargic.? Pt reports better pain control with using pain meds more consistently. COWS was ordered and pt has not scored higher than a 0. No W/D sx reported or observed. Pt again is requesting an increase in his methadone as he is not at his therapeutic dose . I educated pt. on reasons methadone would be increased and also on being proactive with his pain management to stay ahead of it. I informed pt that I would refer ACS director for eval tomorrow for further input on dosing and pain control. He agreed. Report to pt's nurse Ruth Blandon. Pt denies other concerns at this time.? ACS will continue to follow while pt. is admitted. Report to ACS team
--- NOTE | 2024-01-16 16:58 | PC.NURSE ---
at about 16:45, T called nursing station to alert visitor in room of 361 was noted to have handed the patient something on camera, that was then placed in pocket of hemal. Patient walked into bathroom, and was stopped before entering. This nurse asked for the patient to empty pockets and hand over what was given by the visitor. Nurse was handed a glass pipe and a red continuous towel roller. Visitor exited hospital, security called and on unit. Security secured and searched room. Visitors restricted per security.
[2024-01-16] MEDS: 0.9 % Sodium Chloride Flush 3 ML SYRINGE IVFLUSH (20:06)
--- NOTE | 2024-01-16 21:05 | PC.NURSE ---
Assumed care of patient at 19:00. Pt states pain is 7/10. Pt given scheduled Tizanidine. Duplicate dilaudid prn orders clarified with covering Dr. Merlos; duplicate order discontinued by .
[2024-01-17] VITALS: BP 155/89; PULSE 52; RESP 17; TEMP 37.1; O2SAT 97
[2024-01-17] MEDS: Piperacillin Sodium/Tazobactam 4.5 GM in 0.9 % Sodium Chloride 100 ML IV ×2 (02:31→08:14)
[2024-01-17 03:03] VITALS: BP 162/98; PULSE 50; RESP 15; TEMP 36.7; O2SAT 98
[2024-01-17] MEDS: HYDROmorphone HCl 1 MG/ML SYRINGE IVPUSH ×2 (03:09→08:13)
[2024-01-17 03:39] VITALS: RESP 16
[2024-01-17 07:52] VITALS: BP 163/103; PULSE 50; RESP 14; TEMP 36.6; O2SAT 99
[2024-01-17] MEDS: TiZANidine HCL 4 MG TABLET PO ×2 (08:07→15:33)
[2024-01-17] MEDS: Docusate Sodium 100 MG CAPSULE PO (08:07)
[2024-01-17] MEDS: methADONE HCl 20 MG/2 ML ORAL.CONC 60 MG PO (08:08)
--- NOTE | 2024-01-17 11:04 | MHC.CM.PN ---
pcp l;ist given to pt prior to dc
[2024-01-17] MEDS: Amoxicillin/Potassium Clav 875 MG TABLET PO (11:07)
[2024-01-17] MEDS: amLODIPine Besylate 2.5 MG TABLET PO (11:07)
[2024-01-17] MEDS: Enoxaparin Sodium 40 MG/0.4 ML SYRINGE SUBCUT (11:08)
--- NOTE | 2024-01-17 11:14 | PM.DS ---
DS: Providers Provider Date of Service: 01/17/24 Date of admission: 01/12/24 09:12 Date of discharge: 01/17/24 Primary care physician: Val Physician Admitting clinician: Gray Sanford Attending physician on admission: Gray Sanford Consults: 01/12/24 09:19 Addiction Medicine Stat Consulting Provider: Addiction Covering Reason for consultation: opioid use disorder 01/13/24 06:28 Consult to General Surgery Routine Consulting Provider: [facility] [place] General Surgeons Reason for consultation: acute cholecystitis DS: Diagnosis Discharge Diagnosis (1) Cholecystitis: Status: Acute DS: Summary Hospital Course Hospital Course: 38-year-old male with 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 Patient states he has been having fevers and chills that started on the day of presentation. Also has associated nausea and nonbloody emesis. Patient admits to using IV heroin on the day of presentation. Is not on any prescription medications. Denies chest discomfort, palpitations, shortness of breath, changes in urinary or bowel habits. Endorses generalized abdominal discomfort, intermittent, nonradiating. In the emergency department, patient with temperature 100.4 degrees and 21% bands. Lactic acid elevated at 4. 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 seen by surgery -s/p kaur fernando , with above management -sepsis improved , wbc normalised,lft's improving ,blood cultures neg: switch to po augmentin upon discharge. opoid use disorder : seen by care team on methadone 60 mg po daily.as per addiction-referred to [facility] [place] [facility] . elevated BP: blood pressure flactuating - added amlodipine 2.5 mg po daily, moniter bp.moniter bp,lifestyle modifications ,low salt diet. patient was strongly advised for getting outpatient pcp for further management . plan: Complete Augmentin 875 mg p.o. b.i.d. for 6 more days. Started on amlodipine 2.5 mg daily, Monitor blood pressure. Strongly advised to abstain from drugs use, follow-up outpatient clinic as per Addiction. Follow-up with surgery, patient was strongly advised for getting outpatient pcp for further management . Time Attestation Total time managing care of this patient today: 40 mintues. Discharge Coordination Time (in mins): 40 min Quality: Safe Use of Opioids Does Pt have an Active Cancer Diagnosis on the Problem List?: No Quality: Stroke Does the patient have a stroke diagnosis?: No Physical Exam Vital Signs: Vital Signs: Last Vital Signs Temp 97.9 F 01/17/24 07:52 Pulse 50 01/17/24 07:52 Resp 14 01/17/24 07:52 BP 163/103 H 01/17/24 07:52 Pulse Ox 99 01/17/24 07:52 O2 Del Method Room Air 01/17/24 07:52 O2 Flow Rate 1 01/14/24 16:18 BMI result Body Mass Index 24.5 Appearance: Alert.? Oriented X3.? cvs: rrr, [id number] . res: clear to auscultation ,no rhonchii or wheezing abd: no rebound or guarding ,lap abdullahi area -seems clean /no discharge or erythema , bs present. ext pulses present , no cyanosis. neuro: axo3 , nonfocal. DS: Data Data Completed and Pending Completed studies during hospitalization [Text1]: Procedures Detoxification Services for Substance Abuse Treatment (10/17/20) Drainage of Left Upper Arm Skin, External Approach (10/17/20) Drainage of Right Upper Arm Skin, External Approach (10/17/20) Pending studies at discharge: Pending at discharge 01/14/24 15:12 Surgical [PTH] Routine Labs on day of discharge: Laboratory Results - last 24 hr 01/16/24 11:01 WBC 10.2 RBC 5.03 D Hgb 12.5 L D Hct 39.5 L D MCV 78.5 L MCH 24.9 L MCHC 31.6 RDW 14.6 Plt Count 318 MPV 9.9 Absolute Nucleated RBC 0.000 Nucleated RBC % (auto) 0.0 Sodium 137 Potassium 3.8 Chloride 108 Carbon Dioxide 16 L Anion Gap 17 BUN 11 Creatinine 1.02 Estim Creat Clear Calc 97.2 Estimated GFR > 60 Random Glucose 109 Calcium 8.7 D Imaging Chest x-ray: Radiologist's impression: ITS Impressions Chest X-Ray 01/12/24 04:55 IMPRESSION: Unremarkable examination. Abdomen/Pelvis CT 01/12/24 10:31 IMPRESSION: Diffuse gallbladder wall thickening and gallbladder wall edema. Advise correlation with right upper quadrant ultrasound. The pancreas appears edematous with possible peripancreatic stranding. Advise correlation with pancreatic enzymes. Hepatosplenomegaly. Periportal edema. Trace right pleural effusion. Small volume ascites. Possible small bowel wall thickening. This may represent enteritis versus wet bowel pattern. Abdomen Ultrasound 01/12/24 14:29 IMPRESSION: There is gallbladder wall thickening to 1.3 cm, without gallstone seen. There is mild pericholecystic fluid. The findings suggest possible acalculous cholecystitis. This could be further evaluated with nuclear HIDA imaging, if clinically indicated. Discharge Plan Discharge Anticipated Discharge Date/Time: 01/17/24 10:54 Patient Disposition: Home, Self-Care Discharge Diagnosis: sepsis sec to acute cholecystitis ,elevated BP,Opiate use . Referrals: Physician,None [Primary Care Provider] - 1 Week Ludin Munoz MD [Physician] - 1 Week Discharge Medications: New hydrocodone-acetaminophen 5-325 mg tablet 1 tab PO Q4-6H PRN (Reason: pain) Qty: 20 0RF Rx Instructions: Partial Fill upon patient request. methadone [Methadose] 10 mg/mL Concentrate 60 mg PO DAILY Qty: 1 0RF Rx Instructions: Partial Fill upon patient request. (DME) blood pressure monitor [Blood Pressure Kit] Kit See Rx Instructions .Route Qty: 1 0RF Rx Instructions: As directed amlodipine 2.5 mg Tablet 2.5 mg PO DAILY Qty: 90 0RF Protocol: Hold for SBP< HOLD for SBP < : 90 polyethylene glycol 3350 [Miralax] 17 gram/dose powder 17 g PO DAILY PRN (Reason: constipation) Qty: 119 0RF amoxicillin-pot clavulanate 875-125 mg tablet 1 tab PO BID Qty: 12 0RF docusate sodium [Colace] 100 mg capsule 100 mg PO BID Qty: 20 0RF Discharge Orders: Discharge Order (Routine); Ordered 01/17/24 Ordered By: Gray Sanford Diet: Low salt diet Activity on Discharge: As tolerated Stand Alone Forms: Patient Portal Discharge page Print Language: Fijian Activity Restrictions/Additional Instructions: Ice to wound 20 minutes several times today and tomorrow. May shower in 2 days. Remove outside dressing only. Leave Steri-Strips intact. 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 opoid use disorder : seen by care team on methadone 60 mg po daily.as per addiction-referred to [facility] [place] [facility] . elevated BP: blood pressure flactuating - added amlodipine 2.5 mg po daily, moniter bp.moniter bp,lifestyle modifications ,low salt diet. patient was strongly advised for getting outpatient pcp for further management . plan: Complete Augmentin 875 mg p.o. b.i.d. for 6 more days. Started on amlodipine 2.5 mg daily, Monitor blood pressure. Strongly advised to abstain from drugs use, follow-up outpatient clinic as per Addiction. Follow-up with surgery, patient was strongly advised for getting outpatient pcp for further management . Health Concerns: as above. Plan of Treatment: as above. Assessment: as above.
[2024-01-17 12:00] VITALS: BP 142/89; PULSE 53; RESP 16; TEMP 36.8; O2SAT 97
[2024-01-17 14:31] VITALS: BP 144/95; PULSE 64; RESP 16; TEMP 36.9; O2SAT 99
== END 2024-01-17 16:27 | disposition home or self-care (01) | DRG 710 ==
LOC: HO.ED 08:11 → HO.EDOVER 09:13 → HO.S3 14:09
PROVIDERS: Anesthesiology; Surgery; Admitting Provider Student in an Organized Health Care Education/Training Program; Emergency Provider Emergency Medicine; Visit Provider Internal Medicine
PROC: 0FT44ZZ Resection of Gallbladder, Percutaneous Endoscopic Approach (ICD-10-PCS; CPT 47562; principal; 2024-01-14 14:10)
DX: A41.9 Sepsis, unspecified organism (principal); E87.21 Acute metabolic acidosis; K81.0 Acute cholecystitis; E87.6 Hypokalemia; F10.10 Alcohol abuse, uncomplicated; D50.9 Iron deficiency anemia, unspecified; F11.90 Opioid use, unspecified, uncomplicated; F17.210 Nicotine dependence, cigarettes, uncomplicated; Z71.6 Tobacco abuse counseling; Z86.14 Personal history of Methicillin resistant Staphylococcus aureus infection
CPT/HCPCS: 36415; 71045; 74176; 76705; 80048; 80053; 80076; 80202; 80307; 81001; 82040; 82247; 82565; 83540; 83605; 83690; 83735; 84075; 84100; 84155; 84450; 84460; 84484; 85007; 85025; 85027; 87040; 88304; 93005; 99285; J0131; J0360; J0696; J1100; J1170; J1596; J1650; J2250; J2270; J2405; J2543; J2704; J2765; J2795; J3010; J3370; J3371; J3475; J3480; J7120

== ENCOUNTER 2024-01-12 09:12 | Outpatient (BNV) | payer MEDICAID, SELFPAY | END 2024-01-13 10:30 | PROVIDERS: Admitting Provider Student in an Organized Health Care Education/Training Program; Emergency Provider Emergency Medicine; Visit Provider Internal Medicine Cardiovascular Disease | DX: R00.1 Bradycardia, unspecified (principal); R94.31 Abnormal electrocardiogram [ECG] [EKG] | CPT/HCPCS: 93010 ==

== ENCOUNTER → 2024-01-12 09:12 | Outpatient (BNV) | payer MEDICAID, SELFPAY | PROVIDERS: Admitting Provider Student in an Organized Health Care Education/Training Program; Emergency Provider Emergency Medicine; Visit Provider Nurse Practitioner Psychiatric/Mental Health | DX: F11.90 Opioid use, unspecified, uncomplicated (principal) | CPT/HCPCS: 99231 ==

== ENCOUNTER → 2024-01-12 09:12 | Outpatient (BNV) | payer MEDICAID, SELFPAY | PROVIDERS: Admitting Provider Student in an Organized Health Care Education/Training Program; Emergency Provider Emergency Medicine; Visit Provider Surgery | DX: K81.9 Cholecystitis, unspecified (principal) | CPT/HCPCS: 47562; 99024; 99223; 99499 ==

== ENCOUNTER → 2024-01-12 09:12 | Outpatient (BNV) | payer MEDICAID, SELFPAY | PROVIDERS: Admitting Provider Student in an Organized Health Care Education/Training Program; Emergency Provider Emergency Medicine; Visit Provider Student in an Organized Health Care Education/Training Program | DX: A41.9 Sepsis, unspecified organism (principal); K81.9 Cholecystitis, unspecified | CPT/HCPCS: 99223; 99231; 99232; 99233; 99239; 99499 ==

== ENCOUNTER 2024-03-19 18:01 | Inpatient (IN) | payer MEDICAID, SELFPAY ==
--- NOTE | 2024-03-19 | ECG_ITS ---
Test Reason : ABD PAIN Blood Pressure : / mmHG Vent. Rate : 094 BPM Atrial Rate : 094 BPM P-R Int : 130 ms QRS Dur : 088 ms QT Int : 338 ms P-R-T Axes : 070 063 058 degrees QTc Int : 422 ms Normal sinus rhythm Minimal voltage criteria for LVH, may be normal variant ( Sokolow-Ortez ) Borderline ECG When compared with ECG of 13-JAN-2024 10:35, Vent. rate has increased BY 39 BPM QT has shortened Referred By: Generic ED Physician Electronically Signed By:RACHELL ARMENTA
--- NOTE | ~2024-03-19 | MR_ITS ---
EXAMINATION: MRI ABDOMEN WITHOUT CONTRAST, MRCP CLINICAL INFORMATION: Abdominal pain, dilated common bile duct. COMPARISON: CT abdomen/pelvis 03/19/2024. TECHNIQUE: Multiple routine MRI sequences through the abdomen were obtained without intravenous contrast. 3D MRCP images were processed on an independent workstation under concurrent supervision. FINDINGS: Limited evaluation secondary to motion. LUNG BASES: No focal consolidation or pleural effusion. LIVER: Hepatomegaly measuring 21.7 cm craniocaudally. Otherwise, liver is normal in morphology and signal. Periportal edema again noted. No discrete focal liver lesions. GALLBLADDER AND BILIARY TREE: Cholecystectomy with small amount of free fluid around the liver and postcholecystectomy bed. Evaluation of the biliary tree is limited due to motion, MRCP images are essentially nondiagnostic. Within the limitations, there is mild extrahepatic biliary ductal dilatation without significant intrahepatic biliary ductal dilatation. The common bile duct measures up to 1.1 cm in diameter with gradual tapering into the periampullary region. A few T2 hypointense filling defects that are only visualized on the nonfat sat axial T2 HASTE sequence 5, for example images 24 and 28 are most suggestive of artifacts, although evaluation is limited due to motion. SPLEEN: Splenomegaly measuring 13.5 cm craniocaudally. PANCREAS: No significant abnormality. ADRENAL GLANDS: Unremarkable. KIDNEYS AND URETERS: Unremarkable. LYMPHOVASCULAR STRUCTURES: Normal caliber abdominal aorta. No lymphadenopathy. OSSEOUS STRUCTURES: No acute or suspicious osseous abnormalities. MR/MR MRCP IMPRESSION: Limited evaluation secondary to motion. Small amount of free fluid and stranding in the postoperative bed is indeterminate in a recent postoperative setting. Evaluation of biliary tree injury and abscesses is limited in the absence of intravenous contrast. Clinical correlation is advised. Mild extrahepatic biliary ductal dilatation with a few T2 hypointense filling defects in the common bile duct that are only visualized in one of the sequences, suggestive of artifacts, although evaluation is limited due to motion. No significant intrahepatic biliary ductal dilatation. Redemonstration of hepatosplenomegaly and mild intrahepatic periportal edema. Electronically signed by: Roxanne Orourke MD 03/20/2024 03:50 PM EDT
--- NOTE | ~2024-03-19 | XR_ITS ---
EXAMINATION: XR CHEST CLINICAL INFORMATION: Fever COMPARISON: Chest x-ray 01/12/2024 TECHNIQUE: Frontal view of the chest was obtained. FINDINGS: No significant abnormality is noted involving the heart, lungs, mediastinum, bony thorax or soft tissues. XR/XR chest 1V IMPRESSION: Unremarkable chest examination. Electronically signed by: Obi Pitts MD 03/19/2024 09:16 PM EDT RP
--- NOTE | ~2024-03-19 | CT_ITS ---
EXAMINATION: CT ABDOMEN AND PELVIS WITH CONTRAST CLINICAL INFORMATION: Abdominal pain, vomiting COMPARISON: 01/12/2024 TECHNIQUE: Multidetector volumetric images were obtained from the superior aspect of the liver through the pubic symphysis following administration 85 mL of Omnipaque 350 intravenous contrast. Sagittal and coronal reformatted images were obtained on the technologist's workstation. Oral contrast: No This CT examination was performed using dose optimization techniques as appropriate, variously including the following: *Automated exposure control *Adjustment of mA and/or kV according to patient size (this includes techniques or standardized protocols for targeted exams where dose is matched to indication/reason for exam; i.e. extremities or head) *Use of iterative reconstruction technique DLP: 435 mGy-cm FINDINGS: LUNG BASES: The visualized lung bases are unremarkable. LIVER, GALLBLADDER, AND BILIARY TREE: Enlarged with a long length of 22.5 cm. There is moderate periportal edema within the liver. The liver is normal in shape, and attenuation. No focal hepatic lesion. Status post cholecystectomy. Small amount of fluid is seen within the gallbladder fossa. Common bile duct is mildly dilated measuring 8 mm slightly increased compared to the prior exam. PANCREAS: Unremarkable. SPLEEN: Enlarged with a long length of 13.2 cm. ADRENAL GLANDS: Unremarkable. KIDNEYS AND URETERS: The kidneys are normal in size, shape, and attenuation. No hydronephrosis, hydroureter, or calculi seen. No perinephric stranding. BLADDER: Unremarkable. GASTROINTESTINAL TRACT: The small and large bowel are unremarkable. Large amount of retained stool seen within the colon The appendix is unremarkable. ABDOMINAL WALL: No significant hernia is appreciated. LYMPH NODES: Normal. VASCULAR: Unremarkable. PELVIC VISCERA: Unremarkable. OSSEOUS STRUCTURES: Unremarkable. CT/CT abdomen pelvis w IV con IMPRESSION: 1. Status post cholecystectomy. Small amount of postoperative fluid seen within the gallbladder fossa. Cannot exclude a secondary infection. 2. Common bile duct is mildly dilated measuring 8 mm slightly increased compared to the prior exam. Cannot exclude retained common bile duct stone 3. Hepatosplenomegaly. Moderate periportal edema. 4. Large amount of retained stool seen within the colon. Electronically signed by: José Miguel Cramer MD 03/19/2024 10:02 PM EDT
--- NOTE | ~2024-03-19 | CT_ITS ---
EXAMINATION: CT ABDOMEN AND PELVIS WITH CONTRAST CLINICAL INFORMATION: worsening WBC count, ?GB fossa abscess COMPARISON: CT abdomen/pelvis 03/19/2024 TECHNIQUE: Multidetector volumetric images were obtained from the superior aspect of the liver through the pubic symphysis following administration 85 mL of Omnipaque 350 intravenous contrast. Sagittal and coronal reformatted images were obtained on the technologist's workstation. Oral contrast: No This CT examination was performed using dose optimization techniques as appropriate, variously including the following: *Automated exposure control *Adjustment of mA and/or kV according to patient size (this includes techniques or standardized protocols for targeted exams where dose is matched to indication/reason for exam; i.e. extremities or head) *Use of iterative reconstruction technique DLP: 294 mGy-cm FINDINGS: LUNG BASES: Dependent bibasilar opacities, increased from prior. No pleural effusion. Normal-sized heart without pericardial effusion. LIVER, GALLBLADDER, AND BILIARY TREE: Hepatomegaly measuring up to 21.3 cm maximum craniocaudal dimension. Status post cholecystectomy. The common bile duct is normal in caliber measuring up to 0.7 cm, compared to 0.8 cm on 03/19/2024. There is mild periportal edema, improved from prior. There is a small volume of low-density fluid in the gallbladder fossa, decreased from 03/19/2024. PANCREAS: Unremarkable. SPLEEN: Splenomegaly measuring up to 13.4 cm, as before. ADRENAL GLANDS: Unremarkable. KIDNEYS AND URETERS: The kidneys are normal in size, shape, and attenuation. No hydronephrosis, hydroureter, or calculi seen. No perinephric stranding. BLADDER: Unremarkable. GASTROINTESTINAL TRACT: The small and large bowel are nondilated. Small stool burden overall, improved from 03/19/2024. Normal appendix, coronal images 45-51. ABDOMINAL WALL: Small volume subcutaneous emphysema along the right lower quadrant abdominal wall, new from prior. No significant hernia is appreciated. LYMPH NODES: Normal. VASCULAR: Unremarkable. PELVIC VISCERA: Normal CT appearance of the prostate and seminal vesicles. OSSEOUS STRUCTURES: Unremarkable. CT/CT abdomen pelvis w IV con IMPRESSION: 1. Status post cholecystectomy. There is a small volume of low-density fluid in the gallbladder fossa, decreased from 03/19/2024. No gas locules to suggest infection. Mild common bile duct dilation is also improving. Mild periportal edema noted, improved from prior. 2. Hepatosplenomegaly, as before. 3. Worsening dependent bilateral opacities could reflect worsening atelectasis versus developing pneumonia. 4. Small volume subcutaneous emphysema along the right lower quadrant abdominal wall, new from prior and nonspecific. Clinically correlate for possible injection medication. Fleischner guidelines were followed. Electronically signed by: Radha Clayton DO 03/21/2024 05:22 PM EDT
[2024-03-19 18:23] VITALS: BP 130/68; PULSE 89; O2SAT 99
[2024-03-19 18:46] VITALS: BP 160/88; PULSE 98; RESP 18; TEMP 37.9; O2SAT 96; BMI 21.6
--- NOTE | 2024-03-19 19:44 | PC.NURSE ---
2x attempts to obtain labs, unable to d/t scar tissue. awaiting eval by ed provider.
--- NOTE | 2024-03-19 20:20 | ED.GENADULT ---
HPI - General Adult General Chief complaint: Nausea/Vomiting/Diarrhea Stated complaint: vomiting Time Seen by Provider: 03/19/24 19:55 Source: patient, RN notes reviewed and old records reviewed Mode of arrival: EMS Limitations: no limitations History of Present Illness ED Provider: Roselia HPI narrative: 38-year-old male presents with leg and lower back pain, as well as abdominal pain. He says that this morning his legs began to hurt, states that the pain is crampy, and that he feels dehydrated. He denies radiation of pain, paresthesias, or falls. His pain is in his lower back, in his worse to the left and right of the spinal column. He says that it does not radiate up or down his back, denies urinary incontinence or difficulty. He says that his abdominal pain began in mid day, is in his lower abdomen, this is that it does not radiate, that he has associated nausea and vomiting. Denies hematemesis. He had a cholecystectomy on 01/13 after being found to be septic from cholecystitis. He has a history of IV drug use, says that he is currently on methadone, but still he occasionally uses intravenously. Denies drugs or alcohol today. Onset (ago): hour(s) Location: back, abdomen, left, right and lower extremity Radiation: non-radiation Severity: moderate Quality: aching and constant Pain Consistency: constant Relieving factors: none Exacerbating factors: none Associated symptoms: fever/chills and nausea/vomiting Treatments prior to arrival: none Related Data Previous Rx's ?Medication ?Instructions ?Recorded hydrocodone 5 mg-acetaminophen 325 1 tab PO Q4-6H PRN pain #20 tabs 01/14/24 mg tablet amlodipine 2.5 mg tablet 2.5 mg PO DAILY #90 tabs 01/17/24 amoxicillin 875 mg-potassium 1 tab PO BID #12 tabs 01/17/24 clavulanate 125 mg tablet blood pressure monitor (Blood #1 ea 01/17/24 Pressure Kit) docusate sodium 100 mg capsule 100 mg PO BID #20 caps 01/17/24 (Colace) methadone 10 mg/mL oral 60 mg (6 mL) PO DAILY #1 mL 01/17/24 concentrate (Methadose) polyethylene glycol 3350 17 17 g PO DAILY PRN constipation 01/17/24 gram/dose oral powder (Miralax) #119 grams Allergies Allergy/AdvReac Type Severity Reaction Status Date / Time ibuprofen Allergy Unknown headaches Verified 03/19/24 18:47 onion [ONION] Allergy Unknown ANAPHYLAXIS Verified 03/19/24 18:47 Review of Systems Constitutional: Constitutional: Reports chills, Reports fatigue, Reports fever(s) and Denies headache(s) ENT: Denies headache(s) and Denies sore throat Cardiovascular: Cardiovascular: Denies chest pain and Denies dyspnea Respiratory: Respiratory: Denies cough and Denies dyspnea Gastrointestinal: Gastrointestinal: Reports abdominal pain, Denies constipation, Reports GI cramping, Denies fecal incontinence, Denies diarrhea, Reports nausea, Reports vomiting and Denies hematemesis Genitourinary: Genitourinary: Denies difficulty urinating and Denies dysuria Musculoskeletal: Musculoskeletal: Reports as per HPI Integumentary/Breasts: Skin/Breast: Reports as per HPI Neurologic: Denies headache(s) and Denies focal weakness Endocrine: Endocrine: Reports fatigue PMFSH Past Medical History Medical History Alcohol abuse IV drug user No known health problems Social History Social History Household Members: None Housing: Homeless Do you presently have visiting nurse or other home services: No Alcohol intake: never Comment: discontinued Patient Tobacco Use Status: Current everyday Tobacco user Tobacco use type: Cigarette Cigarette Packs Per Day: 0.5 Cigarettes Per Day: 10.0 Smoked in Last 30 Days: Yes Second Hand Smoke Exposure: No Use of substances other than those prescribed or required for medical reasons: Yes Substance Use Type: Crack/Cocaine, Heroin, IV Drugs and Marijuana Advance Directives: No Advance Directives Information Provided: No Do you have a plan to hurt others: No Plan service: No Physical Exam ED Vital Signs: Vital Signs - 24 hr 03/19/24 18:46 03/19/24 20:45 03/19/24 22:09 Temperature 100.3 F 99.7 F Pulse Rate 98 94 100 Respiratory Rate 18 16 18 Blood Pressure 160/88 H 129/91 H 129/94 H Pulse Oximetry 96 99 96 Oxygen Delivery Method Room Air Room Air Room Air 03/19/24 22:44 Temperature Pulse Rate 91 Respiratory Rate 16 Blood Pressure 134/82 Pulse Oximetry 97 Oxygen Delivery Method Room Air BMI result Body Mass Index 21.6 Const General: healthy appearing, comfortable, no acute distress, alert and awake Nutritional Appearance: well nourished Orientation/consciousness: patient oriented x3 HENMT Head: Yes normocephalic and Yes atraumatic Throat: Yes posterior oropharynx normal Eyes Eyelids: Yes eyelids normal Conjunctivae: conjunctivae normal Sclerae: sclerae normal Corneas: corneas normal Pupils: Equal, round and reactive pupils present EOM: EOMs intact bilaterally Neck Neck: Yes full ROM Resp Effort & Inspection: normal respiratory effort, able to speak in complete sentences, no audible wheezes and not labored Auscultation: clear to auscultation bilaterally Cardio Rate: regular rate Rhythm: regular rhythm GI Inspection: No distended Palpation (GI): Soft to palpation, not firm, nontender, no guarding and not rigid Auscultation: normoactive bowel sounds General: Yes no CVA tenderness Back/Spine/Pelvis Other: Mild TTP at paraspinal region bilaterally at lumbar region. No focal vertebral tenderness, step-offs or deformities. Back: no CVA tenderness Thoracic/Lumbar Spine: thoracic and lumbar spine normal to inspection and thoraco-lumbar ROM normal Skin Other: Patient has track [place] to the bilateral distal upper extremities. There was no obvious abscess, evidence of cellulitis. No streaking erythema General skin exam: no rashes or lesions noted and elasticity normal Neuro General: patient oriented x3 Cranial nerves: Yes CN's II-XII intact bilaterally, Yes Equal, round and reactive pupils present and Yes Bilaterally intact EOM present Cognition (Neuro): normal cognition Extrem Other: Moving all extremities well without any obvious deformities. Right lower extremity: normal to inspection, full ROM and normal capillary refill Left lower extremity: normal to inspection, full ROM and normal capillary refill Course Reevaluation(s) Reevaluation #1: Patient's LFTs noted to be elevated, he had already received 1 dose of Tylenol for his temperature of 100.3?. We will withhold any further Tylenol. I add on a Tylenol level as well as hepatitis profile and a CT scan of the abdomen pelvis. The patient is already status post cholecystectomy. Time: 21:10 Reevaluation #2: The patient has a bandemia of 16%, lactic acid 2.6, CT scan can not rule out infection. At this point we will treat the patient for sepsis with vancomycin, Zosyn to cover both intra-abdominal infection as well as possible bacteremia/endocarditis from IV drug abuse though he has no obvious skin findings. I IV fluids he has received 1 L, does not meet criteria for severe sepsis. Sepsis focused exam performed and unchanged Time: 22:27 Medications Administered Discontinued Medications Generic Name Dose Route Start Last Admin Trade Name Freq PRN Reason Stop Dose Admin Acetaminophen 975 mg 03/19/24 20:18 03/19/24 20:29 Acetaminophen 325 Mg Tablet PO 03/19/24 20:19 975 mg ONCE ONE Administration Sodium Chloride 1,000 mls @ 999 mls/hr 03/19/24 20:30 03/19/24 22:07 Ns IV 03/19/24 21:30 Infused .Q1H1M AD Infusion Piperacillin Sod/Tazobactam 50 mls @ 100 mls/hr 03/19/24 22:12 03/19/24 22:41 Sod 3.375 gm/ Sodium Chloride IV 03/19/24 22:41 100 mls/hr ONCE ONE Administration Iohexol 85 ml 03/19/24 21:31 03/19/24 21:31 Iohexol 350 Mg/Ml 100 Ml Infus..Btl IV 03/19/24 21:32 85 ml ONCE ONE Administration Medical Decision Making Medical Decision Making MDM Narrative: 38-year-old male with past medical history significant for IV drug abuse, cholecystectomy 2 months ago presents for evaluation of fever, body aches. He has no focal findings on exam. He does have track Active IV drug abuse, bacteremia/endocarditis is possible though he ruled out for bacteremia 2 months ago when he was admitted. He admits to occasional active IV drug abuse. He has no evidence of cellulitis or abscess on his arms or legs. Denies injecting any were else. Given that 2 months of a lap symptoms cholecystectomy I doubt a postop infection is the cause of his symptoms today, the patient will have a chest x-ray, viral swabs and a urinalysis. The patient currently does not meet sepsis criteria, but labs are pending at this time. Differential Diagnosis Differential Diagnoses: The differential diagnosis associated with the presentation includes Bacteremia Sepsis Endocarditis COVID-19 Pneumonia Admission/Observation Consideration of admission/observation: Escalation of care including admission/observation considered Consult Healthcare Provider Management of the patient was discussed with: Hospitalist (Dr. Ortega will admit the patient) Lab Data MDM Lab Attestation statement: I reviewed the patient's lab results. The patient has no leukocytosis but does have a left shift with a bandemia 16%. Does have a chronic anemia, platelet count 225. Electrolytes are within normal limits. 03/19/24 20:24 03/19/24 20:24 Labs: Lab Results 03/19/24 03/19/24 03/19/24 Range/Units 19:41 20:24 21:37 WBC 5.1 (4.8-10.8) X10*3/uL RBC 4.19 L (4.60-5.80) X10*6/uL Hgb 10.6 L (14.0-18.0) g/dl Hct 32.5 L (42.0-52.0) % MCV 77.6 L (80.0-98.0) fL MCH 25.3 L (27.0-33.0) pg MCHC 32.6 (31.0-36.0) g/dl RDW 15.3 (11.0-16.0) % Plt Count 225 D (160-400) X10*3/uL MPV 8.9 L (9.4-12.4) fL Immature Gran % (Auto) Cancelled Neut % (Auto) Cancelled Lymph % (Auto) Cancelled [place] % (Auto) Cancelled Eos % (Auto) Cancelled Baso % (Auto) Cancelled Lymph # (Auto) Cancelled [place] # (Auto) Cancelled Eos # (Auto) Cancelled Baso # (Auto) Cancelled Abs Immat Gran (auto) Cancelled Absolute Neuts (auto) Cancelled Absolute Nucleated RBC 0.000 (0.0-0.012) X10*3/uL Nucleated RBC % (auto) 0.0 (0.0-0.2) /100WBC Neutrophils % (Manual) 71 (45-73) % Band Neutrophils % 16 H (3-5) % Lymphocytes % (Manual) 8 L (20-40) % Metamyelocytes % 5 % Abs Neuts (Manual) 4.4 (2.0-8.3) X10*3/uL Lymphocytes # (Manual) 0.4 L (1.2-4.9) X10*3/uL Metamyelocytes # 0.3 X10*3/uL Toxic Vacuolation PRESENT Platelet Estimate NORMAL (NORMAL) Plt Morphology Comment NORMAL RBC Morphology NORMAL Smear Tech's Comments MANUAL DIFF Sodium 140 (135-145) mmol/L Potassium 3.6 (3.3-5.1) mmol/L Chloride 103 (96-108) mmol/L Carbon Dioxide 27 (22-29) mmol/L Anion Gap 14 (12-20) BUN 20 H (9-16) mg/dL Creatinine 1.10 (0.5-1.4) mg/dL Estim Creat Clear Calc 94.4 Estimated GFR > 60 Random Glucose 152 H (60-115) mg/dL Lactic Acid 2.6 H* (0.5-2.0) mmol/L Calcium 8.4 (8.4-10.2) mg/dL Total Bilirubin 1.8 H (0.0-1.0) mg/dL AST 1241 H (5-37) U/L ALT 560 H (0-40) U/L Alkaline Phosphatase 829 H (39-117) U/L Total Creatine Kinase 48 (38-174) U/L C-Reactive Protein 1.64 H (< or = 0.50) mg/dL Total Protein 6.5 (6.5-8.0) g/dL Albumin 3.5 (3.5-5.0) g/dL Lipase 12 (8-78) U/L Urine Color Yellow Urine Appearance Clear Urine pH 6.0 (5.0-9.0) Ur Specific [place] 1.015 (1.005-1.025) Urine Protein Trace (Neg-Trace) mg/dL Urine Glucose (UA) Negative (Negative) mg/dL Urine Ketones Negative (Negative) mg/dL Urine Blood Negative (Negative) Urine Nitrite Negative (Negative) Ur Leukocyte Esterase Negative (Negative) Urine RBC 0-2 (0-2) /HPF Urine WBC 0-5 (0-5) /HPF Ur Squamous Epith Cells 0-2 (0-2) /HPF Urine Bacteria None Seen (None Seen) Hyaline Casts 0-2 (0-2) /LPF Urine Opiates Screen POSITIVE H (Not Detect) Ur Buprenorphine Scrn Not Detected (Not Detect) ng/mL Ur Oxycodone Screen Not Detected (Not Detect) ng/mL Urine Methadone Screen Positive H (Not Detect) ng/mL Urine Fentanyl Screen POSITIVE H (Not Detect) Acetaminophen 4 (<30) mcg/mL Ur Barbiturates Screen Not Detected (Not Detect) Ur Phencyclidine Scrn Not Detected (Not Detect) Ur Amphetamines Screen Not Detected (Not Detect) U Benzodiazepines Scrn Not Detected (Not Detect) Urine Cocaine Screen POSITIVE H (Not Detect) U Marijuana (THC) Screen Not Detected (Not Detect) Influenza Type A (PCR) NEGATIVE (Negative) Influenza Type B (PCR) NEGATIVE (Negative) RSV RNA Qual (PCR) NEGATIVE (Negative) SARS-CoV-2 RNA (RT-PCR) NEGATIVE (Negative) Discharge Plan Discharge Clinical Impression: Polysubstance abuse, Sepsis Patient Disposition: Admitted As Inpatient Prescriptions: No Action hydrocodone-acetaminophen 5-325 mg tablet 1 tab PO Q4-6H PRN (Reason: pain) Qty: 20 0RF Rx Instructions: Partial Fill upon patient request. amlodipine 2.5 mg Tablet 2.5 mg PO DAILY Qty: 90 0RF Protocol: Hold for SBP< HOLD for SBP < : 90 amoxicillin-pot clavulanate 875-125 mg tablet 1 tab PO BID Qty: 12 0RF methadone [Methadose] 10 mg/mL Concentrate 60 mg PO DAILY Qty: 1 0RF Rx Instructions: Partial Fill upon patient request. docusate sodium [Colace] 100 mg capsule 100 mg PO BID Qty: 20 0RF polyethylene glycol 3350 [Miralax] 17 gram/dose powder 17 g PO DAILY PRN (Reason: constipation) Qty: 119 0RF (DME) blood pressure monitor [Blood Pressure Kit] Kit See Rx Instructions .Route Qty: 1 0RF Rx Instructions: As directed Print Language: Malaysian
[2024-03-19] MEDS: Acetaminophen 325 MG TABLET 975 MG PO (20:29)
[2024-03-19] MEDS: 0.9 % Sodium Chloride 1,000 ML 999 ML IV (20:32)
[2024-03-19 20:41] LABS: Hematocrit 32.5 % (42.0-52.0); Hemoglobin 10.6 g/dl (14.0-18.0); Mean Corpuscular HGB Conc 32.6 g/dl (31.0-36.0); Mean Corpuscular Hemoglobin 25.3 pg (27.0-33.0); Mean Corpuscular Volume 77.6 fL (80.0-98.0); Mean Platelet Volume 8.9 fL (9.4-12.4); Platelet Count 225 X10*3/uL (160-400); Red Blood Count 4.19 X10*6/uL (4.60-5.80); Red Cell Distribution Width 15.3 % (11.0-16.0); White Blood Count 5.1 X10*3/uL (4.8-10.8)
[2024-03-19 20:41] LABS: Influenza A PCR NEGATIVE (Negative); Influenza B PCR NEGATIVE (Negative); Resp Syncy Virus RNA Qual PCR NEGATIVE (Negative); SARS COV2 PCR INHOUSE NEGATIVE (Negative)
--- NOTE | 2024-03-19 20:44 | PC.NURSE ---
u/s iv establishd by Nolan PAGE. temp not obtained at this time as pt drinking ice water. pt medicated per aug for previous temp documented. labs drawn. vss. pt is tolerating po intake. resting comfortably. ivf infusing.
[2024-03-19 20:45] VITALS: BP 129/91; PULSE 94; RESP 16; O2SAT 99
[2024-03-19 20:55] LABS: Lactic Acid 2.6 mmol/L (0.5-2.0)
[2024-03-19 20:59] LABS: Alanine Aminotransferase 560 U/L (0-40); Albumin Level 3.5 g/dL (3.5-5.0); Alkaline Phosphatase 829 U/L (39-117); Anion Gap 14 (12-20); Aspartate Amino Transferase 1241 U/L (5-37); Bilirubin Total 1.8 mg/dL (0.0-1.0); Blood Urea Nitrogen 20 mg/dL (9-16); Calcium 8.4 mg/dL (8.4-10.2); Carbon Dioxide 27 mmol/L (22-29); Chloride 103 mmol/L (96-108); Creatinine Clr Calc Pharmacy 94.4; Estimated Glomerular Filt Rate > 60; Glucose Random 152 mg/dL (60-115); Lipase 12 U/L (8-78); Potassium 3.6 mmol/L (3.3-5.1); Sodium 140 mmol/L (135-145); Total Protein 6.5 g/dL (6.5-8.0)
[2024-03-19 21:00] LABS: C Reactive Protein 1.64 mg/dL (< or = 0.50); SLIDE REVIEW MANUAL DIFF
[2024-03-19 21:16] LABS: Neutrophils Percent Manual 71 % (45-73)
[2024-03-19 21:19] LABS: Band Neutrophils Percent 16 % (3-5); Lymphocytes Absolute Manual 0.4 X10*3/uL (1.2-4.9); Lymphocytes Percent Manual 8 % (20-40); Metamyelocytes Absolute 0.3 X10*3/uL; Metamyelocytes Percent 5 %; Neutrophils Absolute Manual 4.4 X10*3/uL (2.0-8.3)
[2024-03-19 21:21] LABS: Platelet Estimate NORMAL (NORMAL); Platelet Morphology Comment NORMAL; RBC Morphology NORMAL; Toxic Vacuolation PRESENT
[2024-03-19] MEDS: iohexoL 350 MG/ML 100 ML INFUS..BTL 85 ML IV (21:31)
[2024-03-19 21:46] LABS: Appearance Urine Clear; Color Urine Yellow; Glucose Urine UA Negative (Negative); Leukocyte Esterase Urine Negative (Negative); Nitrite Urine Negative (Negative); Specific Gravity - Urine 1.015 (1.005-1.025); Urine Blood Negative (Negative); Urine Ketones Negative (Negative); Urine Protein Trace mg/dL (Neg-Trace)
[2024-03-19 21:48] LABS: Bacteria Urine None Seen (None Seen); Hyaline Casts Urine 0-2 /LPF (0-2); RBC Urine 0-2 /HPF (0-2); Squamous Epithelial Cell Urine 0-2 /HPF (0-2); WBC Urine 0-5 /HPF (0-5)
[2024-03-19 21:58] LABS: Acetaminophen LAB 4 mcg/mL (<30)
[2024-03-19 21:59] LABS: Amphetamine Screen Urine Not Detected (Not Detect); Barbiturates, Urine Not Detected (Not Detect); Benzodiazepines Screen Urine Not Detected (Not Detect); Buprenorphine Scr Not Detected (Not Detect); Cannabinoid Screen Urine Not Detected (Not Detect); Cocaine Screen Urine POSITIVE (Not Detect); Fentanyl, urine POSITIVE (Not Detect); Methadone Screen, Urine Positive (Not Detect); Opiate Screen Urine POSITIVE (Not Detect); Oxycodone Screen Urine Not Detected (Not Detect); Phencyclidine Screen Urine Not Detected (Not Detect)
[2024-03-19 22:09] VITALS: BP 129/94; PULSE 100; RESP 18; TEMP 37.6; O2SAT 96
--- NOTE | 2024-03-19 22:09 | PC.NURSE ---
pt moved to room 18, on heart monitor. pt changed over to hospital attire. initially pt denied having drugs/paraphernalia. pt then reported having a box of drugs on him and agreeable for all belongings to be secured. security to bedside. belongings taken to sofie.
[2024-03-19 22:30] LABS: Reflex Lactate? Lactic Acid Added
--- NOTE | 2024-03-19 22:31 | P.HPHOSP_ITS ---
History of Present Illness Date of Service: 03/19/24 Chief Complaint: Abd pain This is a 38-year-old male with pertinent history of IV polysubstance use disorder, history of MRSA infection, hypertension who presents to the emergency department for evaluation of abdominal pain. Of note, patient was admitted about 2 months ago due to sepsis in the setting of acute cholecystitis and underwent cholecystectomy. Patient states he is not taking any home prescription medications. He presented to the ER as he had abdominal pain right-sided on the day of presentation. It was initially intermittent but progressed to being constant, nonradiating and without any relieving factors. Also complaining of lower back pain. Denies fevers or chills. Admits to using IV drugs. Abdominal pain is associated with nausea and vomiting and he is unable to tolerate p.o. intake. No chest pain, cough, changes in urinary habits. In the emergency department, bandemia 16% present and AST/ALT and alkaline phosphatase significantly elevated Review of Systems 2 Constitutional: Constitutional: Reports fatigue, Reports malaise, Reports poor appetite and Reports weakness Gastrointestinal: Gastrointestinal: Reports abdominal pain, Reports nausea and Reports vomiting Genitourinary: Genitourinary: Reports no additional male genitourinary complaints Neurologic: Reports weakness Endocrine: Endocrine: Reports fatigue [facility] Medical History Alcohol abuse IV drug user No known health problems Pertinent family history: No family history of early CAD Social History Household Members: None Housing: Homeless Do you presently have visiting nurse or other home services: No Alcohol intake: never Comment: discontinued Patient Tobacco Use Status: Current everyday Tobacco user Tobacco use type: Cigarette Cigarette Packs Per Day: 0.5 Cigarettes Per Day: 10.0 Smoked in Last 30 Days: Yes Second Hand Smoke Exposure: No Use of substances other than those prescribed or required for medical reasons: Yes Substance Use Type: Crack/Cocaine, Heroin, IV Drugs and Marijuana Advance Directives: No Advance Directives Information Provided: No Do you have a plan to hurt others: No Plan service: No Meds Allergies Allergy/AdvReac Type Severity Reaction Status Date / Time ibuprofen Allergy Unknown headaches Verified 03/19/24 18:47 onion [ONION] Allergy Unknown ANAPHYLAXIS Verified 03/19/24 18:47 Active Medications: Current Medications Piperacillin Sod/Tazobactam (Sod 3.375 gm/ Sodium Chloride) 50 mls @ 100 mls/hr IV ONCE ONE Stop: 03/19/24 22:41 Vancomycin HCl (Vancomycin/Ns) 2,000 mg in 500 mls @ 250 mls/hr IV ONCE ONE Stop: 03/20/24 00:29 Physical Exam 2 Vital Signs and Narrative: Vital Signs: Last Vital Signs Temp 99.7 F 03/19/24 22:09 Pulse 100 03/19/24 22:09 Resp 18 03/19/24 22:09 BP 129/94 H 03/19/24 22:09 Pulse Ox 96 03/19/24 22:09 O2 Del Method Room Air 03/19/24 22:09 BMI result Body Mass Index 21.6 Middle-aged male lying in bed in no distress Neck supple, no JVD Regular rate and rhythm, S1-S2 heard Regular breath sounds bilaterally, no wheezing or crackles appreciated Abdomen with tenderness to palpation, no rigidity, no rebound tenderness Patient is awake, alert and oriented to self, place, time and person ; no focal motor deficit Psych: Normal mood Multiple track medina seen in bilateral upper extremities Results Labs 03/19/24 20:24 03/19/24 20:24 Labs: Laboratory Results - last 24 hr 03/19/24 03/19/24 03/19/24 19:41 20:24 21:37 MCV 77.6 L MCH 25.3 L MCHC 32.6 RDW 15.3 Plt Count 225 D MPV 8.9 L Immature Gran % (Auto) Cancelled Neut % (Auto) Cancelled Lymph % (Auto) Cancelled [place] % (Auto) Cancelled Eos % (Auto) Cancelled Baso % (Auto) Cancelled Lymph # (Auto) Cancelled [place] # (Auto) Cancelled Eos # (Auto) Cancelled Baso # (Auto) Cancelled Abs Immat Gran (auto) Cancelled Absolute Neuts (auto) Cancelled Absolute Nucleated RBC 0.000 Nucleated RBC % (auto) 0.0 Neutrophils % (Manual) 71 Band Neutrophils % 16 H Lymphocytes % (Manual) 8 L Metamyelocytes % 5 Abs Neuts (Manual) 4.4 Lymphocytes # (Manual) 0.4 L Metamyelocytes # 0.3 Toxic Vacuolation PRESENT Platelet Estimate NORMAL Plt Morphology Comment NORMAL RBC Morphology NORMAL Smear Tech's Comments MANUAL DIFF Anion Gap 14 Estim Creat Clear Calc 94.4 Estimated GFR > 60 Random Glucose 152 H Lactic Acid 2.6 H* Calcium 8.4 Total Bilirubin 1.8 H AST 1241 H ALT 560 H Alkaline Phosphatase 829 H Total Creatine Kinase 48 C-Reactive Protein 1.64 H Total Protein 6.5 Albumin 3.5 Lipase 12 Urine Color Yellow Urine Appearance Clear Urine pH 6.0 Ur Specific [place] 1.015 Urine Protein Trace Urine Glucose (UA) Negative Urine Ketones Negative Urine Blood Negative Urine Nitrite Negative Ur Leukocyte Esterase Negative Urine RBC 0-2 Urine WBC 0-5 Ur Squamous Epith Cells 0-2 Urine Bacteria None Seen Hyaline Casts 0-2 Urine Opiates Screen POSITIVE H Ur Buprenorphine Scrn Not Detected Ur Oxycodone Screen Not Detected Urine Methadone Screen Positive H Urine Fentanyl Screen POSITIVE H Acetaminophen 4 Ur Barbiturates Screen Not Detected Ur Phencyclidine Scrn Not Detected Ur Amphetamines Screen Not Detected U Benzodiazepines Scrn Not Detected Urine Cocaine Screen POSITIVE H U Marijuana (THC) Screen Not Detected Influenza Type A (PCR) NEGATIVE Influenza Type B (PCR) NEGATIVE RSV RNA Qual (PCR) NEGATIVE SARS-CoV-2 RNA (RT-PCR) NEGATIVE Imaging Radiologist's Impressions: Impressions Chest X-Ray 03/19/24 20:33 IMPRESSION: Unremarkable chest examination. Electronically signed by: Obi Pitts MD 03/19/2024 09:16 PM EDT RP Abdomen/Pelvis CT 03/19/24 21:09 IMPRESSION: 1. Status post cholecystectomy. Small amount of postoperative fluid seen within the gallbladder fossa. Cannot exclude a secondary infection. 2. Common bile duct is mildly dilated measuring 8 mm slightly increased compared to the prior exam. Cannot exclude retained common bile duct stone 3. Hepatosplenomegaly. Moderate periportal edema. 4. Large amount of retained stool seen within the colon. Electronically signed by: José Miguel Cramer MD 03/19/2024 10:02 PM EDT RP Assessment and Plan (1) Bandemia: Status: Acute (2) Cholestasis: Status: Acute (3) Transaminitis: Status: Acute Plan This is a 38-year-old male with pertinent history of IV polysubstance use disorder, history of MRSA infection, hypertension who presents to the emergency department for evaluation of abdominal pain. #. Abdominal pain with bandemia, transaminitis and cholestasis: Will admit patient with empiric IV antibiotics. CBD elevated, obtaining MRCP. Imaging also concerning for questionable gallbladder foci infection. Consulted General surgery and Gastroenterology. Will keep patient NPO #. Lack take acidosis, acute due to sepsis #. Polysubstance use disorder: Monitor for withdrawal. Consulted Addiction Team #. Hypertension: Initiated on amlodipine during previous hospitalization. Noncompliant. Continue to monitor #. Iron deficiency anemia: Iron supplementation once acute infection resolves Med rec pending DVT prophylaxis: Mechanical until surgical evaluation Full code Admit as inpatient and will require two night minimum hospital stay for IV antibiotics (as above), which is not possible in a lesser acute setting. Specialist consult pending Quality Stroke Does the patient have a stroke diagnosis?: No VTE Prior VTE?: No VTE Risk Level:: Medical - moderate - high VTE Device Contraindication: N/A - Device Ordered VTE Drug Contraindication: Treatment Not Indicated
[2024-03-19] MEDS: Piperacillin Sodium/Tazobactam 3.375 GM in 0.9 % Sodium Chloride 50 ML IV (22:41)
[2024-03-19 22:44] VITALS: BP 134/82; PULSE 91; RESP 16; O2SAT 97
[2024-03-19 23:09] LABS: Bilirubin Direct 1.3 mg/dL (0.0-0.5)
[2024-03-19] MEDS: vancomycin/NS 2,000 MG/500 ML PLAST..BAG 250 MG IV (23:28)
[2024-03-19 23:41] VITALS: BP 129/81; PULSE 89; RESP 18; TEMP 37.4; O2SAT 97
--- NOTE | 2024-03-19 23:42 | MHC.EDTECH ---
This tech took over care of patient at 2300,rounded and introduced self to patient,vitals taken,pillow/blanket given,emptied 650MLS from urinal,belongings placed in deacon by previous shift,belongings list completed at this time, patient is resting with eyes closed,call dixon in reach
[2024-03-19 23:57] LABS: ~Lactic Acid-LAB USE ONLY 2.4 mmol/L (0.5-2.0)
[2024-03-20 01:06] VITALS: BP 115/74; PULSE 76; RESP 16; TEMP 36.6; O2SAT 98
[2024-03-20 01:08] VITALS: BMI 21.0
[2024-03-20 01:33] LABS: Reflex Lactate? 2 Y
[2024-03-20 02:35] LABS: ~Lactic Acid-LAB USE ONLY 1.5 mmol/L (0.5-2.0)
[2024-03-20 04:00] VITALS: BP 120/81; PULSE 55; RESP 18; TEMP 36.7; O2SAT 99
[2024-03-20] MEDS: Piperacillin Sodium/Tazobactam 4.5 GM in 0.9 % Sodium Chloride 100 ML IV ×4 (04:00→21:28)
[2024-03-20 07:06] LABS: Alanine Aminotransferase 474 U/L (0-40); Albumin Level 3.3 g/dL (3.5-5.0); Alkaline Phosphatase 639 U/L (39-117); Anion Gap 13 (12-20); Aspartate Amino Transferase 540 U/L (5-37); Bilirubin Total 1.2 mg/dL (0.0-1.0); Blood Urea Nitrogen 18 mg/dL (9-16); Calcium 7.9 mg/dL (8.4-10.2); Carbon Dioxide 24 mmol/L (22-29); Chloride 105 mmol/L (96-108); Creatinine Clr Calc Pharmacy 98.3; Estimated Glomerular Filt Rate > 60; Glucose Random 147 mg/dL (60-115); Potassium 3.5 mmol/L (3.3-5.1); Sodium 138 mmol/L (135-145); Total Protein 6.4 g/dL (6.5-8.0)
--- NOTE | 2024-03-20 07:26 | HE.PHANOTE ---
METHADONE Pt recieves from [facility], . Per Jeanette Hurd at facility, pt last received 75 mg on 03/18 @ 0700.
--- NOTE | 2024-03-20 07:32 | PHA.PROG ---
Admission Date/Time: March 19, 2024 22:30 Indication: Sepsis Weight in k.2 kg Adjusted body weight in K.82 Serum Creatinine - Last 168 Hours 03/19/24 03/20/24 20:24 05:47 Creatinine 1.10 1.03 Estimated CrCl and GFR - Last 168 Hours 03/19/24 03/20/24 20:24 05:47 Estim Creat Clear Calc 94.4 98.3 Estimated GFR > 60 > 60 Vancomycin Loading Dose: 2,000 mg Current Vancomycin Dosing Regimen: 1,000 q12h Vancomycin Monitoring using AUC goal of 400 - 600 range with trough as surrogate marker: 518, predicted trough 16.1 Date and Time for next Vancomycin Level to be drawn: 03/21 @ 0800 Pharmacist Comments on Vancomycin Plan: Vancomycin dosing will take advantage of [employer] as a clinical decision support tool that uses Bayesian modeling to calculate individual patient's pharmacokinetic parameters and forecast the patient's drug concentration time course with the target goal AUC 24 range of 400 - 600 mg/L/hr.
[2024-03-20 07:37] LABS: Hematocrit 30.5 % (42.0-52.0); Hemoglobin 10.1 g/dl (14.0-18.0); Mean Corpuscular HGB Conc 33.1 g/dl (31.0-36.0); Mean Corpuscular Hemoglobin 25.6 pg (27.0-33.0); Mean Corpuscular Volume 77.4 fL (80.0-98.0); Mean Platelet Volume 9.8 fL (9.4-12.4); Platelet Count 211 X10*3/uL (160-400); Red Blood Count 3.94 X10*6/uL (4.60-5.80); Red Cell Distribution Width 15.5 % (11.0-16.0); White Blood Count 17.1 X10*3/uL (4.8-10.8)
[2024-03-20 07:40] VITALS: BP 136/86; PULSE 55; RESP 16; TEMP 36.8; O2SAT 99
[2024-03-20] MEDS: methADONE HCl 20 MG/2 ML ORAL.CONC 75 MG PO (07:55)
[2024-03-20 08:12] LABS: Band Neutrophils Percent 24 % (3-5); Lymphocytes Absolute Manual 1.2 X10*3/uL (1.2-4.9); Lymphocytes Percent Manual 7 % (20-40); Metamyelocytes Absolute 0.3 X10*3/uL; Metamyelocytes Percent 2 %; Monocytes Absolute Manual 0.5 X10*3/uL (0.1-1.2); Monocytes Percent Manual 3 % (2-11); Neutrophils Percent Manual 64 % (45-73)
[2024-03-20 08:15] LABS: Microcytosis 1+ (5-14) /OIF; RBC Morphology NOTED
[2024-03-20 08:16] LABS: Dohle Bodies PRESENT; Platelet Estimate NORMAL (NORMAL); Platelet Morphology Comment NORMAL; Toxic Vacuolation PRESENT
--- NOTE | 2024-03-20 08:32 | P.CNGI_ITS ---
History of Present Illness Data of Consult Service Date: 03/20/24 Requesting physician: Chaparrita Ortega Primary Care Provider: Stew Koch MD [facility] Reason for consult: Abd pain, elevated LFTs This is a 38-year-old gentleman with past medical history of polysubstance drug use, history of MRSA infection, recent hospitalization for acute cholecystitis status post lap abdullahi 01/14/2024. Who presented to the hospital yesterday evening for worsening abdominal pain with nausea and vomiting. Reports onset around 3-4 days ago, sudden, radiates to his back. Assoc with N/V and decreased PO intake. Does not report etOH use. Has hx of IVDU and last use for around 3 days ago. On arrival home patient was noted to have low-grade fevers. Labs were significant for high white count with 24% bands. Chem 7 with BRENDA. High lactate of 2.6, which has now normalized with IV fluid resuscitation. LFTs markedly abnormal with initial total bilirubin of 1.8, alk-phos 829, AST 1241, ALT 560, bili today is 1.2, alk-phos 639, AST 540. CT abdomen pelvis images reviewed and shows dilated CBD to 8 mm with prominent intrahepatics and fluid in gallbladder fossa. Patient is currently on vanc Zosyn for antibiotic treatment. Review of Systems 2 Review of Systems: Yes all other systems are reviewed and are negative PMFSH Past Medical History Medical History Alcohol abuse IV drug user No known health problems Social History Social History Household Members: Other Housing: Homeless Do you presently have visiting nurse or other home services: No Alcohol intake: never Comment: discontinued Patient Tobacco Use Status: Tobacco use Unknown Tobacco use type: Cigarette Cigarette Packs Per Day: 0.5 Cigarettes Per Day: 10.0 Second Hand Smoke Exposure: No Substance Use Type: Crack/Cocaine, Heroin, IV Drugs and Marijuana service: No Meds Allergies Allergy/AdvReac Type Severity Reaction Status Date / Time ibuprofen Allergy Unknown headaches Verified 03/19/24 18:47 onion [ONION] Allergy Unknown ANAPHYLAXIS Verified 03/19/24 18:47 Active Medications: Current Medications Acetaminophen (Acetaminophen 325 Mg Tablet) 650 mg PO Q6H PRN PRN Reason: Pain, Mild (Pain Scale 1-3), fever or headache Calcium Carbonate (Calcium Carbonate 750 Mg Tab.Chew) 750 mg PO Q4H PRN PRN Reason: Heartburn Piperacillin Sod/Tazobactam (Sod 4.5 gm/ Sodium Chloride) 100 mls @ 200 mls/hr IV Q6H [facility] Last Infusion: 03/20/24 04:30 Dose: Infused Vancomycin HCl 1,000 mg/ (Sodium Chloride) 270 mls @ 270 mls/hr IV Q12H [facility] Magnesium Hydroxide (Milk Of Magnesia 30 Ml Oral.Susp) 30 ml PO DAILY PRN PRN Reason: Constipation Melatonin (Melatonin 3 Mg Tablet) 6 mg PO BEDTIME PRN PRN Reason: Insomnia Methadone HCl (Methadone Hcl 20 Mg/2 Ml Oral.Conc) 75 mg PO DAILY@0800 [facility] Last Admin: 03/20/24 07:55 Dose: 75 mg Ondansetron HCl (Ondansetron Hcl 4 Mg/2 Ml Vial) 4 mg IVPUSH Q8H PRN PRN Reason: Nausea and Vomiting Pharmacy Consult (Consult Rx Vancomycin Dosing) 1 each MISCELLANE DAILY PRN PRN Reason: Consult order Sodium Chloride (0.9 % Sodium Chloride Flush 3 Ml Syringe) 3 ml IVFLUSH QSHIFT [facility] Last Admin: 03/19/24 23:47 Dose: Not Given Home Medications ?Medication ?Instructions ?Recorded ?Confirmed ?Last Taken ?Type amlodipine 2.5 mg tablet 2.5 mg PO DAILY 03/20/24 03/20/24 Unknown History methadone 10 mg/5 mL oral solution 75 mg PO DAILY 03/20/24 03/20/24 03/18/24 History Physical Exam 2 Vital Signs: Vital Signs: Last Vital Signs Temp 98.2 F 03/20/24 07:40 Pulse 55 03/20/24 07:40 Resp 16 03/20/24 07:40 BP 136/86 03/20/24 07:40 Pulse Ox 99 03/20/24 07:40 O2 Del Method Room Air 03/20/24 07:40 BMI result Body Mass Index 21.0 disheveled male nonicteric clammy abd soft, tender in RUQ and RLQ with guarding, no rebound tenderness multiple track medina on bilateral upper extremities Results Labs 03/20/24 05:47 03/20/24 05:47 Labs: Short CBC 03/19/24 03/20/24 Range/Units 20:24 05:47 WBC 5.1 17.1 H (4.8-10.8) X10*3/uL Hgb 10.6 L 10.1 L (14.0-18.0) g/dl Hct 32.5 L 30.5 L (42.0-52.0) % Plt Count 225 D 211 (160-400) X10*3/uL BMP 03/19/24 03/20/24 20:24 05:47 Sodium 140 138 Potassium 3.6 3.5 Chloride 103 105 Carbon Dioxide 27 24 BUN 20 H 18 H Creatinine 1.10 1.03 Calcium 8.4 7.9 L Cardiac Enzymes 03/19/24 Range/Units 20:24 Total Creatine Kinase 48 (38-174) U/L Liver Function 03/19/24 03/20/24 Range/Units 20:24 05:47 Total Bilirubin 1.8 H 1.2 H (0.0-1.0) mg/dL Direct Bilirubin 1.3 H (0.0-0.5) mg/dL AST 1241 H 540 H (5-37) U/L ALT 560 H 474 H (0-40) U/L Alkaline Phosphatase 829 H 639 H (39-117) U/L Albumin 3.5 3.3 L (3.5-5.0) g/dL Urine 03/19/24 Range/Units 21:37 Urine Color Yellow Urine Appearance Clear Urine pH 6.0 (5.0-9.0) Ur Specific [place] 1.015 (1.005-1.025) Urine Protein Trace (Neg-Trace) mg/dL Urine Glucose (UA) Negative (Negative) mg/dL Assessment and Plan (1) Sepsis: Status: Acute (2) Abdominal pain: Status: Acute (3) Elevated LFTs: Status: Acute (4) Dilated cbd, acquired: Status: Acute Plan Ddx include cholangitis 2/2 CBD stone, bile leak -although typical presentation is within a few days-weeks post cholecystectomy, pyogenic abscess (no enhancement on contrasted CT). Panc r/o based on imaging and lipase. Plan: - Management of sepsis with IVF and Abx as per primary team - Agree with MRCP - ERCP contingent on findings on MRCP Thank you for allowing me to participate in his care. Please not hesitate to reach out for any questions or concerns Procedures Date of Service Date of Service: 03/20/24
--- NOTE | 2024-03-20 08:33 | PHA.MEDREC ---
Pharmacy Consult ? Medication Reconciliation Pharmacy has completed the medication reconciliation. Patient poor historian; asked about amlodipine and he shook his head yes but is unsure about when he last took it. Shook his head no when asked about any other prescription or OTC medications.
--- NOTE | 2024-03-20 08:51 | HO.PM.IMPN ---
Subjective Subjective Date of Service: 03/20/24 Interval History: abd pain Physical Exam Vital Signs: Vital Signs: Last Vital Signs Temp 98.2 F 03/20/24 07:40 Pulse 55 03/20/24 07:40 Resp 16 03/20/24 07:40 BP 136/86 03/20/24 07:40 Pulse Ox 99 03/20/24 07:40 O2 Del Method Room Air 03/20/24 07:40 BMI result Body Mass Index 21.0 General: AO X 3, no acute distress Resp: CTA bilateral, no accessory muscles used CVS: S1,S2,RRR GI: soft, non tender, non distended Neuro: motor grossly intact, alert Objective Data Active Medications Acetaminophen (Acetaminophen 325 Mg Tablet) 650 mg PO Q6H PRN PRN Reason: Pain, Mild (Pain Scale 1-3), fever or headache Calcium Carbonate (Calcium Carbonate 750 Mg Tab.Chew) 750 mg PO Q4H PRN PRN Reason: Heartburn Piperacillin Sod/Tazobactam (Sod 4.5 gm/ Sodium Chloride) 100 mls @ 200 mls/hr IV Q6H [facility] Last Infusion: 03/20/24 04:30 Dose: Infused Documented By: DAYNA Vancomycin HCl 1,000 mg/ (Sodium Chloride) 270 mls @ 270 mls/hr IV Q12H [facility] Magnesium Hydroxide (Milk Of Magnesia 30 Ml Oral.Susp) 30 ml PO DAILY PRN PRN Reason: Constipation Melatonin (Melatonin 3 Mg Tablet) 6 mg PO BEDTIME PRN PRN Reason: Insomnia Methadone HCl (Methadone Hcl 20 Mg/2 Ml Oral.Conc) 75 mg PO DAILY@0800 [facility] Last Admin: 03/20/24 07:55 Dose: 75 mg Documented By: ARIN Co-signed By: AMAYA Ondansetron HCl (Ondansetron Hcl 4 Mg/2 Ml Vial) 4 mg IVPUSH Q8H PRN PRN Reason: Nausea and Vomiting Pharmacy Consult (Consult Rx Vancomycin Dosing) 1 each MISCELLANE DAILY PRN PRN Reason: Consult order Sodium Chloride (0.9 % Sodium Chloride Flush 3 Ml Syringe) 3 ml IVFLUSH QSHIFT [facility] Last Admin: 03/19/24 23:47 Dose: Not Given Documented By: CARROL Non-Admin Reason: IV Running Labs 03/20/24 05:47 03/20/24 05:47 Labs: Laboratory Results - last 24 hr 03/19/24 03/19/24 03/19/24 19:41 20:24 21:37 MCV 77.6 L MCH 25.3 L MCHC 32.6 RDW 15.3 Plt Count 225 D MPV 8.9 L Immature Gran % (Auto) Cancelled Neut % (Auto) Cancelled Lymph % (Auto) Cancelled [place] % (Auto) Cancelled Eos % (Auto) Cancelled Baso % (Auto) Cancelled Lymph # (Auto) Cancelled [place] # (Auto) Cancelled Eos # (Auto) Cancelled Baso # (Auto) Cancelled Abs Immat Gran (auto) Cancelled Absolute Neuts (auto) Cancelled Absolute Nucleated RBC 0.000 Nucleated RBC % (auto) 0.0 Neutrophils % (Manual) 71 Band Neutrophils % 16 H Lymphocytes % (Manual) 8 L Monocytes % (Manual) Metamyelocytes % 5 Abs Neuts (Manual) 4.4 Lymphocytes # (Manual) 0.4 L Monocytes # (Manual) Metamyelocytes # 0.3 Toxic Vacuolation PRESENT Dohle Bodies Platelet Estimate NORMAL Plt Morphology Comment NORMAL RBC Morphology NORMAL Microcytosis Smear Tech's Comments MANUAL DIFF Anion Gap 14 Estim Creat Clear Calc 94.4 Estimated GFR > 60 Random Glucose 152 H Lactic Acid 2.6 H* Lactic Acid F/U @ 2Hr Lactic Acid F/U @ 4Hr Calcium 8.4 Total Bilirubin 1.8 H Direct Bilirubin 1.3 H AST 1241 H ALT 560 H Alkaline Phosphatase 829 H Total Creatine Kinase 48 C-Reactive Protein 1.64 H Total Protein 6.5 Albumin 3.5 Lipase 12 Urine Color Yellow Urine Appearance Clear Urine pH 6.0 Ur Specific [place] 1.015 Urine Protein Trace Urine Glucose (UA) Negative Urine Ketones Negative Urine Blood Negative Urine Nitrite Negative Ur Leukocyte Esterase Negative Urine RBC 0-2 Urine WBC 0-5 Ur Squamous Epith Cells 0-2 Urine Bacteria None Seen Hyaline Casts 0-2 Urine Opiates Screen POSITIVE H Ur Buprenorphine Scrn Not Detected Ur Oxycodone Screen Not Detected Urine Methadone Screen Positive H Urine Fentanyl Screen POSITIVE H Acetaminophen 4 Ur Barbiturates Screen Not Detected Ur Phencyclidine Scrn Not Detected Ur Amphetamines Screen Not Detected U Benzodiazepines Scrn Not Detected Urine Cocaine Screen POSITIVE H U Marijuana (THC) Screen Not Detected Influenza Type A (PCR) NEGATIVE Influenza Type B (PCR) NEGATIVE RSV RNA Qual (PCR) NEGATIVE SARS-CoV-2 RNA (RT-PCR) NEGATIVE 03/19/24 03/20/24 03/20/24 23:28 02:21 05:47 MCV 77.4 L MCH 25.6 L MCHC 33.1 RDW 15.5 Plt Count 211 MPV 9.8 Immature Gran % (Auto) Cancelled Neut % (Auto) Cancelled Lymph % (Auto) Cancelled [place] % (Auto) Cancelled Eos % (Auto) Cancelled Baso % (Auto) Cancelled Lymph # (Auto) Cancelled [place] # (Auto) Cancelled Eos # (Auto) Cancelled Baso # (Auto) Cancelled Abs Immat Gran (auto) Cancelled Absolute Neuts (auto) Cancelled Absolute Nucleated RBC 0.000 Nucleated RBC % (auto) 0.0 Neutrophils % (Manual) 64 Band Neutrophils % 24 H Lymphocytes % (Manual) 7 L Monocytes % (Manual) 3 Metamyelocytes % 2 Abs Neuts (Manual) 15.0 H Lymphocytes # (Manual) 1.2 Monocytes # (Manual) 0.5 Metamyelocytes # 0.3 Toxic Vacuolation PRESENT Dohle Bodies PRESENT Platelet Estimate NORMAL Plt Morphology Comment NORMAL RBC Morphology NOTED Microcytosis 1+ (5-14) Smear Tech's Comments Anion Gap 13 Estim Creat Clear Calc 98.3 Estimated GFR > 60 Random Glucose 147 H Lactic Acid Lactic Acid F/U @ 2Hr 2.4 H* Lactic Acid F/U @ 4Hr 1.5 Calcium 7.9 L Total Bilirubin 1.2 H Direct Bilirubin AST 540 H ALT 474 H Alkaline Phosphatase 639 H Total Creatine Kinase C-Reactive Protein Total Protein 6.4 L Albumin 3.3 L Lipase Urine Color Urine Appearance Urine pH Ur Specific [place] Urine Protein Urine Glucose (UA) Urine Ketones Urine Blood Urine Nitrite Ur Leukocyte Esterase Urine RBC Urine WBC Ur Squamous Epith Cells Urine Bacteria Hyaline Casts Urine Opiates Screen Ur Buprenorphine Scrn Ur Oxycodone Screen Urine Methadone Screen Urine Fentanyl Screen Acetaminophen Ur Barbiturates Screen Ur Phencyclidine Scrn Ur Amphetamines Screen U Benzodiazepines Scrn Urine Cocaine Screen U Marijuana (THC) Screen Influenza Type A (PCR) Influenza Type B (PCR) RSV RNA Qual (PCR) SARS-CoV-2 RNA (RT-PCR) Assessment and Plan (1) Dilated cbd, acquired: Status: Acute Plan 38M PMH IVDA, polysubstance dependence, htn presented with abdominal pain sepsis Biliary versus bacteremia and IVDA Continue vanc Zosyn Follow up MRCP and cultures Polysubstance dependence Continue methadone Hypertension Holding amlodipine for normal blood pressure DVT prophylaxis with Lovenox Full Code reason for continued hospitalization: Awaiting cultures and defercesence Quality Stroke Does the patient have a stroke diagnosis?: No VTE Prior VTE?: No VTE Risk Level:: Medical - moderate - high VTE Device Contraindication: N/A - Device Ordered VTE Drug Contraindication: Treatment Not Indicated
[2024-03-20] MEDS: 0.9 % Sodium Chloride Flush 3 ML SYRINGE IVFLUSH ×3 (09:05→21:29)
[2024-03-20] MEDS: Enoxaparin Sodium 40 MG/0.4 ML SYRINGE SUBCUT (09:40)
[2024-03-20] MEDS: vancomycin HCL 1,000 MG in 0.9 % Sodium Chloride 250 ML 270 MG IV ×2 (09:40→22:02)
--- NOTE | 2024-03-20 14:29 | PM.PNGS ---
Subjective Subjective Date of Service: 03/20/24 Interval history: Patient is lying in his chair. He is comfortable. He has no abdominal issues or complaints. MRCP is still not read. LFTs continue to show improvement Physical Exam Vital Signs: Vital Signs: Last Vital Signs Temp 98.2 F 03/20/24 07:40 Pulse 55 03/20/24 07:40 Resp 16 03/20/24 07:40 BP 136/86 03/20/24 07:40 Pulse Ox 99 03/20/24 07:40 O2 Del Method Room Air 03/20/24 07:40 BMI result Body Mass Index 21.0 GI: Other: Abdomen is soft, benign Objective Data Active Medications Acetaminophen (Acetaminophen 325 Mg Tablet) 650 mg PO Q6H PRN PRN Reason: Pain, Mild (Pain Scale 1-3), fever or headache Calcium Carbonate (Calcium Carbonate 750 Mg Tab.Chew) 750 mg PO Q4H PRN PRN Reason: Heartburn Enoxaparin Sodium (Enoxaparin Sodium 40 Mg/0.4 Ml Syringe) 40 mg SUBCUT Q24H [facility] Last Admin: 03/20/24 09:40 Dose: 40 mg Documented By: ARIN Piperacillin Sod/Tazobactam (Sod 4.5 gm/ Sodium Chloride) 100 mls @ 200 mls/hr IV Q6H [facility] Last Infusion: 03/20/24 09:45 Dose: Infused Documented By: ARIN Vancomycin HCl 1,000 mg/ (Sodium Chloride) 270 mls @ 270 mls/hr IV Q12H [facility] Last Infusion: 03/20/24 10:44 Dose: Infused Documented By: ARIN Magnesium Hydroxide (Milk Of Magnesia 30 Ml Oral.Susp) 30 ml PO DAILY PRN PRN Reason: Constipation Melatonin (Melatonin 3 Mg Tablet) 6 mg PO BEDTIME PRN PRN Reason: Insomnia Methadone HCl (Methadone Hcl 20 Mg/2 Ml Oral.Conc) 75 mg PO DAILY@0800 [facility] Last Admin: 03/20/24 07:55 Dose: 75 mg Documented By: ARIN Co-signed By: AMAYA Ondansetron HCl (Ondansetron Hcl 4 Mg/2 Ml Vial) 4 mg IVPUSH Q8H PRN PRN Reason: Nausea and Vomiting Pharmacy Consult (Consult Rx Vancomycin Dosing) 1 each MISCELLANE DAILY PRN PRN Reason: Consult order Sodium Chloride (0.9 % Sodium Chloride Flush 3 Ml Syringe) 3 ml IVFLUSH QSHIFT [facility] Last Admin: 03/20/24 09:05 Dose: 3 ml Documented By: ARIN Labs 03/20/24 05:47 03/20/24 05:47 Labs: Laboratory Results - last 24 hr 03/19/24 03/19/24 03/19/24 19:41 20:24 21:37 MCV 77.6 L MCH 25.3 L MCHC 32.6 RDW 15.3 Plt Count 225 D MPV 8.9 L Immature Gran % (Auto) Cancelled Neut % (Auto) Cancelled Lymph % (Auto) Cancelled [place] % (Auto) Cancelled Eos % (Auto) Cancelled Baso % (Auto) Cancelled Lymph # (Auto) Cancelled [place] # (Auto) Cancelled Eos # (Auto) Cancelled Baso # (Auto) Cancelled Abs Immat Gran (auto) Cancelled Absolute Neuts (auto) Cancelled Absolute Nucleated RBC 0.000 Nucleated RBC % (auto) 0.0 Neutrophils % (Manual) 71 Band Neutrophils % 16 H Lymphocytes % (Manual) 8 L Monocytes % (Manual) Metamyelocytes % 5 Abs Neuts (Manual) 4.4 Lymphocytes # (Manual) 0.4 L Monocytes # (Manual) Metamyelocytes # 0.3 Toxic Vacuolation PRESENT Dohle Bodies Platelet Estimate NORMAL Plt Morphology Comment NORMAL RBC Morphology NORMAL Microcytosis Smear Tech's Comments MANUAL DIFF Anion Gap 14 Estim Creat Clear Calc 94.4 Estimated GFR > 60 Random Glucose 152 H Lactic Acid 2.6 H* Lactic Acid F/U @ 2Hr Lactic Acid F/U @ 4Hr Calcium 8.4 Total Bilirubin 1.8 H Direct Bilirubin 1.3 H AST 1241 H ALT 560 H Alkaline Phosphatase 829 H Total Creatine Kinase 48 C-Reactive Protein 1.64 H Total Protein 6.5 Albumin 3.5 Lipase 12 Urine Color Yellow Urine Appearance Clear Urine pH 6.0 Ur Specific [place] 1.015 Urine Protein Trace Urine Glucose (UA) Negative Urine Ketones Negative Urine Blood Negative Urine Nitrite Negative Ur Leukocyte Esterase Negative Urine RBC 0-2 Urine WBC 0-5 Ur Squamous Epith Cells 0-2 Urine Bacteria None Seen Hyaline Casts 0-2 Urine Opiates Screen POSITIVE H Ur Buprenorphine Scrn Not Detected Ur Oxycodone Screen Not Detected Urine Methadone Screen Positive H Urine Fentanyl Screen POSITIVE H Acetaminophen 4 Ur Barbiturates Screen Not Detected Ur Phencyclidine Scrn Not Detected Ur Amphetamines Screen Not Detected U Benzodiazepines Scrn Not Detected Urine Cocaine Screen POSITIVE H U Marijuana (THC) Screen Not Detected Influenza Type A (PCR) NEGATIVE Influenza Type B (PCR) NEGATIVE RSV RNA Qual (PCR) NEGATIVE SARS-CoV-2 RNA (RT-PCR) NEGATIVE 03/19/24 03/20/24 03/20/24 23:28 02:21 05:47 MCV 77.4 L MCH 25.6 L MCHC 33.1 RDW 15.5 Plt Count 211 MPV 9.8 Immature Gran % (Auto) Cancelled Neut % (Auto) Cancelled Lymph % (Auto) Cancelled [place] % (Auto) Cancelled Eos % (Auto) Cancelled Baso % (Auto) Cancelled Lymph # (Auto) Cancelled [place] # (Auto) Cancelled Eos # (Auto) Cancelled Baso # (Auto) Cancelled Abs Immat Gran (auto) Cancelled Absolute Neuts (auto) Cancelled Absolute Nucleated RBC 0.000 Nucleated RBC % (auto) 0.0 Neutrophils % (Manual) 64 Band Neutrophils % 24 H Lymphocytes % (Manual) 7 L Monocytes % (Manual) 3 Metamyelocytes % 2 Abs Neuts (Manual) 15.0 H Lymphocytes # (Manual) 1.2 Monocytes # (Manual) 0.5 Metamyelocytes # 0.3 Toxic Vacuolation PRESENT Dohle Bodies PRESENT Platelet Estimate NORMAL Plt Morphology Comment NORMAL RBC Morphology NOTED Microcytosis 1+ (5-14) Smear Tech's Comments Anion Gap 13 Estim Creat Clear Calc 98.3 Estimated GFR > 60 Random Glucose 147 H Lactic Acid Lactic Acid F/U @ 2Hr 2.4 H* Lactic Acid F/U @ 4Hr 1.5 Calcium 7.9 L Total Bilirubin 1.2 H Direct Bilirubin AST 540 H ALT 474 H Alkaline Phosphatase 639 H Total Creatine Kinase C-Reactive Protein Total Protein 6.4 L Albumin 3.3 L Lipase Urine Color Urine Appearance Urine pH Ur Specific [place] Urine Protein Urine Glucose (UA) Urine Ketones Urine Blood Urine Nitrite Ur Leukocyte Esterase Urine RBC Urine WBC Ur Squamous Epith Cells Urine Bacteria Hyaline Casts Urine Opiates Screen Ur Buprenorphine Scrn Ur Oxycodone Screen Urine Methadone Screen Urine Fentanyl Screen Acetaminophen Ur Barbiturates Screen Ur Phencyclidine Scrn Ur Amphetamines Screen U Benzodiazepines Scrn Urine Cocaine Screen U Marijuana (THC) Screen Influenza Type A (PCR) Influenza Type B (PCR) RSV RNA Qual (PCR) SARS-CoV-2 RNA (RT-PCR) Procedures Date of Service Date of Service: 03/20/24 Progress Note: A&P Assessment and plan (1) Elevated LFTs: Status: Acute (2) Dilated cbd, acquired: Status: Acute Plan Patient is tentatively scheduled for a laparoscopic gallbladder by Dr. Wood for tomorrow. Continue current plan Time Spent With Patient Time: Total time managing care of this patient today ____ minutes. Quality Stroke Does the patient have a stroke diagnosis?: No VTE Prior VTE?: No VTE Risk Level:: Medical - moderate - high VTE Device Contraindication: N/A - Device Ordered VTE Drug Contraindication: Treatment Not Indicated
--- NOTE | 2024-03-20 14:31 | P.CONGS_ITS ---
History of Present Illness Consult details Consult date: 03/20/24 Narrative: Patient is admitted for variety of issues. He is complaining of multiple areas of discomfort including shoulder, back, and abdomen. States that he is about commence a diet now. Also claims he has not had any flatus or stool since admission. Chart was reviewed and patient evaluated. Placed and has a plethora of social issues and polysubstance abuse history. Patient was roughly 2 months status post laparoscopic cholecystectomy. LFTs which were elevated on admission are sequentially decreasing. White count 17 PMFSH Past Medical History Medical History Alcohol abuse IV drug user No known health problems Social History Social History Household Members: Other Housing: Homeless Do you presently have visiting nurse or other home services: No Alcohol intake: never Comment: discontinued Patient Tobacco Use Status: Tobacco use Unknown Tobacco use type: Cigarette Cigarette Packs Per Day: 0.5 Cigarettes Per Day: 10.0 Second Hand Smoke Exposure: No Substance Use Type: Crack/Cocaine, Heroin, IV Drugs and Marijuana service: No Meds Allergies Allergy/AdvReac Type Severity Reaction Status Date / Time ibuprofen Allergy Unknown headaches Verified 03/19/24 18:47 onion [ONION] Allergy Unknown ANAPHYLAXIS Verified 03/19/24 18:47 Active Medications: Current Medications Acetaminophen (Acetaminophen 325 Mg Tablet) 650 mg PO Q6H PRN PRN Reason: Pain, Mild (Pain Scale 1-3), fever or headache Calcium Carbonate (Calcium Carbonate 750 Mg Tab.Chew) 750 mg PO Q4H PRN PRN Reason: Heartburn Enoxaparin Sodium (Enoxaparin Sodium 40 Mg/0.4 Ml Syringe) 40 mg SUBCUT Q24H [facility] Last Admin: 03/20/24 09:40 Dose: 40 mg Piperacillin Sod/Tazobactam (Sod 4.5 gm/ Sodium Chloride) 100 mls @ 200 mls/hr IV Q6H [facility] Last Infusion: 03/20/24 09:45 Dose: Infused Vancomycin HCl 1,000 mg/ (Sodium Chloride) 270 mls @ 270 mls/hr IV Q12H [facility] Last Infusion: 03/20/24 10:44 Dose: Infused Magnesium Hydroxide (Milk Of Magnesia 30 Ml Oral.Susp) 30 ml PO DAILY PRN PRN Reason: Constipation Melatonin (Melatonin 3 Mg Tablet) 6 mg PO BEDTIME PRN PRN Reason: Insomnia Methadone HCl (Methadone Hcl 20 Mg/2 Ml Oral.Conc) 75 mg PO DAILY@0800 [facility] Last Admin: 03/20/24 07:55 Dose: 75 mg Ondansetron HCl (Ondansetron Hcl 4 Mg/2 Ml Vial) 4 mg IVPUSH Q8H PRN PRN Reason: Nausea and Vomiting Pharmacy Consult (Consult Rx Vancomycin Dosing) 1 each MISCELLANE DAILY PRN PRN Reason: Consult order Sodium Chloride (0.9 % Sodium Chloride Flush 3 Ml Syringe) 3 ml IVFLUSH QSHIFT [facility] Last Admin: 03/20/24 09:05 Dose: 3 ml Home Medications ?Medication ?Instructions ?Recorded ?Confirmed ?Last Taken ?Type amlodipine 2.5 mg tablet 2.5 mg PO DAILY 03/20/24 03/20/24 Unknown History methadone 10 mg/5 mL oral solution 75 mg PO DAILY 03/20/24 03/20/24 03/18/24 History Physical Exam 2 Vital Signs: Vital Signs: Last Vital Signs Temp 98.2 F 03/20/24 07:40 Pulse 55 03/20/24 07:40 Resp 16 03/20/24 07:40 BP 136/86 03/20/24 07:40 Pulse Ox 99 03/20/24 07:40 O2 Del Method Room Air 03/20/24 07:40 BMI result Body Mass Index 21.0 GI: Other: Abdomen is soft. Incisions all well healed. Mild upper abdominal tenderness but no evidence of any guarding, rebound, or rigidity. Results Labs 03/20/24 05:47 03/20/24 05:47 Labs: Abnormal lab results 03/19/24 03/19/24 03/19/24 Range/Units 20:24 21:37 23:28 WBC (4.8-10.8) X10*3/uL RBC 4.19 L (4.60-5.80) X10*6/uL Hgb 10.6 L (14.0-18.0) g/dl Hct 32.5 L (42.0-52.0) % MCV 77.6 L (80.0-98.0) fL MCH 25.3 L (27.0-33.0) pg MPV 8.9 L (9.4-12.4) fL Band Neutrophils % 16 H (3-5) % Lymphocytes % (Manual) 8 L (20-40) % Abs Neuts (Manual) (2.0-8.3) X10*3/uL Lymphocytes # (Manual) 0.4 L (1.2-4.9) X10*3/uL BUN 20 H (9-16) mg/dL Random Glucose 152 H (60-115) mg/dL Lactic Acid 2.6 H* (0.5-2.0) mmol/L Lactic Acid F/U @ 2Hr 2.4 H* (0.5-2.0) mmol/L Calcium (8.4-10.2) mg/dL Total Bilirubin 1.8 H (0.0-1.0) mg/dL Direct Bilirubin 1.3 H (0.0-0.5) mg/dL AST 1241 H (5-37) U/L ALT 560 H (0-40) U/L Alkaline Phosphatase 829 H (39-117) U/L C-Reactive Protein 1.64 H (< or = 0.50) mg/dL Total Protein (6.5-8.0) g/dL Albumin (3.5-5.0) g/dL Urine Opiates Screen POSITIVE H (Not Detect) Urine Methadone Screen Positive H (Not Detect) ng/mL Urine Fentanyl Screen POSITIVE H (Not Detect) Urine Cocaine Screen POSITIVE H (Not Detect) 03/20/24 Range/Units 05:47 WBC 17.1 H (4.8-10.8) X10*3/uL RBC 3.94 L (4.60-5.80) X10*6/uL Hgb 10.1 L (14.0-18.0) g/dl Hct 30.5 L (42.0-52.0) % MCV 77.4 L (80.0-98.0) fL MCH 25.6 L (27.0-33.0) pg MPV (9.4-12.4) fL Band Neutrophils % 24 H (3-5) % Lymphocytes % (Manual) 7 L (20-40) % Abs Neuts (Manual) 15.0 H (2.0-8.3) X10*3/uL Lymphocytes # (Manual) (1.2-4.9) X10*3/uL BUN 18 H (9-16) mg/dL Random Glucose 147 H (60-115) mg/dL Lactic Acid (0.5-2.0) mmol/L Lactic Acid F/U @ 2Hr (0.5-2.0) mmol/L Calcium 7.9 L (8.4-10.2) mg/dL Total Bilirubin 1.2 H (0.0-1.0) mg/dL Direct Bilirubin (0.0-0.5) mg/dL AST 540 H (5-37) U/L ALT 474 H (0-40) U/L Alkaline Phosphatase 639 H (39-117) U/L C-Reactive Protein (< or = 0.50) mg/dL Total Protein 6.4 L (6.5-8.0) g/dL Albumin 3.3 L (3.5-5.0) g/dL Urine Opiates Screen (Not Detect) Urine Methadone Screen (Not Detect) ng/mL Urine Fentanyl Screen (Not Detect) Urine Cocaine Screen (Not Detect) Short CBC 03/19/24 03/20/24 Range/Units 20:24 05:47 WBC 5.1 17.1 H (4.8-10.8) X10*3/uL Hgb 10.6 L 10.1 L (14.0-18.0) g/dl Hct 32.5 L 30.5 L (42.0-52.0) % Plt Count 225 D 211 (160-400) X10*3/uL BMP 03/19/24 03/20/24 20:24 05:47 Sodium 140 138 Potassium 3.6 3.5 Chloride 103 105 Carbon Dioxide 27 24 BUN 20 H 18 H Creatinine 1.10 1.03 Calcium 8.4 7.9 L Cardiac Enzymes 03/19/24 Range/Units 20:24 Total Creatine Kinase 48 (38-174) U/L Liver Function 03/19/24 03/20/24 Range/Units 20:24 05:47 Total Bilirubin 1.8 H 1.2 H (0.0-1.0) mg/dL Direct Bilirubin 1.3 H (0.0-0.5) mg/dL AST 1241 H 540 H (5-37) U/L ALT 560 H 474 H (0-40) U/L Alkaline Phosphatase 829 H 639 H (39-117) U/L Albumin 3.5 3.3 L (3.5-5.0) g/dL Urine 03/19/24 Range/Units 21:37 Urine Color Yellow Urine Appearance Clear Urine pH 6.0 (5.0-9.0) Ur Specific [place] 1.015 (1.005-1.025) Urine Protein Trace (Neg-Trace) mg/dL Urine Glucose (UA) Negative (Negative) mg/dL All other labs normal. Assessment and Plan (1) Dilated cbd, acquired: Status: Acute (2) Abdominal pain: Status: Acute (3) Transaminitis: Status: Acute (4) Bacteremia: Status: Acute (5) Opioid use disorder: Status: Acute Plan Everything reviewed the patient's CT scan, this is most probably postoperative changes and unlikely to be the cause of the patient's current source of infection. No other intra-abdominal pathology demonstrated on CT. At present, no acute surgical issues. Procedures Date of Service Date of Service: 03/20/24
--- NOTE | 2024-03-20 14:46 | MHC.CM.PN ---
Pt self-care, reports being homeless and lives on the streets. Pt states he wants to go to a detox center upon discharge, and would like to go to [facility] in [place], [place]. Pt declined further resources (pt resource booklet) when offered by this CM.
[2024-03-20 15:10] VITALS: BP 122/82; PULSE 50; RESP 12; TEMP 37; O2SAT 98
[2024-03-20 19:05] VITALS: BP 125/86; PULSE 50; RESP 16; TEMP 36.9; O2SAT 99
[2024-03-21] VITALS (7 sets, daily range): BP systolic 122–156; BP diastolic 70–91; PULSE 48–55; RESP 14–18; TEMP 36.6–37.6; O2SAT 96–98
[2024-03-21] MEDS: Piperacillin Sodium/Tazobactam 4.5 GM in 0.9 % Sodium Chloride 100 ML IV ×4 (04:02→22:56)
[2024-03-21 06:10] LABS: INTERNATIONAL NORM RATIO 1.3 (0.9-1.1); Prothrombin Time 15.6 SEC (10.9-12.4)
[2024-03-21 06:20] LABS: Alanine Aminotransferase 302 U/L (0-40); Albumin Level 3.2 g/dL (3.5-5.0); Alkaline Phosphatase 476 U/L (39-117); Anion Gap 12 (12-20); Aspartate Amino Transferase 138 U/L (5-37); Bilirubin Direct 0.2 mg/dL (0.0-0.5); Bilirubin Total 0.5 mg/dL (0.0-1.0); Blood Urea Nitrogen 17 mg/dL (9-16); Calcium 8.1 mg/dL (8.4-10.2); Carbon Dioxide 22 mmol/L (22-29); Chloride 107 mmol/L (96-108); Creatinine Clr Calc Pharmacy 104.4; Estimated Glomerular Filt Rate > 60; Glucose Fasting 175 mg/dL (60-99); Magnesium 2.1 mg/dL (1.6-2.6); Potassium 3.5 mmol/L (3.3-5.1); Sodium 137 mmol/L (135-145); Total Protein 6.4 g/dL (6.5-8.0)
[2024-03-21 06:28] LABS: Hematocrit 32.9 % (42.0-52.0); Hemoglobin 10.4 g/dl (14.0-18.0); Mean Corpuscular HGB Conc 31.6 g/dl (31.0-36.0); Mean Corpuscular Volume 79.1 fL (80.0-98.0); Platelet Count 253 X10*3/uL (160-400); Red Blood Count 4.16 X10*6/uL (4.60-5.80); Red Cell Distribution Width 15.6 % (11.0-16.0); White Blood Count 20.7 X10*3/uL (4.8-10.8)
[2024-03-21 08:36] LABS: HBS Num1 57.26 mIU/mL (0-7.99); HBsAGNum1 0.61 S/CO (0.00-0.99); Hepatitis A Antibody IgM 0.34 Index (0-0.79); Hepatitis B Core Antibody Nonreactive (Nonreactive); Hepatitis B Surface Antigen Negative (Negative); ~HepC Num1 12.22 S/CO (0.00-0.79); ~Hepatitis A Antibody IgM Nonreactive (Nonreactive); ~Hepatitis B Surface Antibody REACTIVE (Nonreactive); ~Hepatitis C Antibody Reactive (Nonreactive)
[2024-03-21] MEDS: Enoxaparin Sodium 40 MG/0.4 ML SYRINGE SUBCUT (08:38)
[2024-03-21] MEDS: methADONE HCl 20 MG/2 ML ORAL.CONC 75 MG PO (08:38)
[2024-03-21] MEDS: 0.9 % Sodium Chloride Flush 3 ML SYRINGE IVFLUSH ×2 (08:39→15:48)
--- NOTE | 2024-03-21 08:40 | P.PNGS_ITS ---
Subjective Subjective Date of Service: 03/21/24 Interval history: Continues to have RUQ abd pain, nausea. Does not feel any better since admission. Physical Exam 2 Vital Signs: Vital Signs: Last Vital Signs Temp 99.6 F 03/21/24 08:00 Pulse 50 03/21/24 08:00 Resp 14 03/21/24 08:00 BP 156/91 H 03/21/24 08:00 Pulse Ox 97 03/21/24 08:00 O2 Del Method Room Air 03/21/24 08:00 BMI result Body Mass Index 21.0 Const: General: no acute distress and alert Orientation/consciousness: p atient oriented x3 Resp: Effort & Inspection: normal respiratory effort GI: Inspection: Yes incision (well healed ) Palpation (GI): Tenderness to palpation present (GI) in the RUQ, Guarding due to palpation present (GI) (voluntary) and not rigid Percussion: Yes normal to percussion Skin: General skin exam: no rashes or lesions noted Neuro: General: patient oriented x3 and moves all extremities Objective Data Active Medications Acetaminophen (Acetaminophen 325 Mg Tablet) 650 mg PO Q6H PRN PRN Reason: Pain, Mild (Pain Scale 1-3), fever or headache Calcium Carbonate (Calcium Carbonate 750 Mg Tab.Chew) 750 mg PO Q4H PRN PRN Reason: Heartburn Enoxaparin Sodium (Enoxaparin Sodium 40 Mg/0.4 Ml Syringe) 40 mg SUBCUT Q24H [facility] Last Admin: 03/20/24 09:40 Dose: 40 mg Documented By: ARIN Piperacillin Sod/Tazobactam (Sod 4.5 gm/ Sodium Chloride) 100 mls @ 200 mls/hr IV Q6H [facility] Last Infusion: 03/21/24 04:35 Dose: Infused Documented By: NOEMÍ Vancomycin HCl 1,000 mg/ (Sodium Chloride) 270 mls @ 270 mls/hr IV Q12H [facility] Last Infusion: 03/20/24 23:08 Dose: Infused Documented By: NOEMÍ Magnesium Hydroxide (Milk Of Magnesia 30 Ml Oral.Susp) 30 ml PO DAILY PRN PRN Reason: Constipation Melatonin (Melatonin 3 Mg Tablet) 6 mg PO BEDTIME PRN PRN Reason: Insomnia Methadone HCl (Methadone Hcl 20 Mg/2 Ml Oral.Conc) 75 mg PO DAILY@0800 [facility] Last Admin: 03/20/24 07:55 Dose: 75 mg Documented By: ARIN Co-signed By: AMAYA Ondansetron HCl (Ondansetron Hcl 4 Mg/2 Ml Vial) 4 mg IVPUSH Q8H PRN PRN Reason: Nausea and Vomiting Pharmacy Consult (Consult Rx Vancomycin Dosing) 1 each MISCELLANE DAILY PRN PRN Reason: Consult order Sodium Chloride (0.9 % Sodium Chloride Flush 3 Ml Syringe) 3 ml IVFLUSH QSHIFT [facility] Last Admin: 03/20/24 21:29 Dose: 3 ml Documented By: NOEMÍ Labs 03/21/24 05:16 03/21/24 05:16 Labs: Laboratory Results - last 24 hr 03/21/24 05:16 MCV 79.1 L MCH 25.0 L MCHC 31.6 RDW 15.6 Plt Count 253 MPV 10.0 Absolute Nucleated RBC 0.000 Nucleated RBC % (auto) 0.0 PT 15.6 H INR 1.3 H Anion Gap 12 Estim Creat Clear Calc 104.4 Estimated GFR > 60 Fasting Glucose 175 H Calcium 8.1 L Magnesium 2.1 Total Bilirubin 0.5 Direct Bilirubin 0.2 AST 138 H ALT 302 H Alkaline Phosphatase 476 H Total Protein 6.4 L Albumin 3.2 L Microbiology Microbiology Results: Microbiology 03/19/24 20:24 Blood Culture - Preliminary Blood - Venous No growth after 24 hours. 03/19/24 20:24 Blood Culture - Preliminary Blood - Venous No growth after 24 hours. Procedures Date of Service Date of Service: 03/21/24 Progress Note: A&P Assessment and plan (1) Abdominal pain: Status: Acute (2) Elevated LFTs: Status: Acute Plan MRCP unrevealing, LFTs downtrending. However remains markedly tender in the RUQ with worsening leukocytosis on IV zosyn and vancomycin. Will therefore repeat CT scan with IV contrast to reassess for possible collection. Time Spent With Patient Time: Total time managing care of this patient today ____ minutes. Quality Stroke Does the patient have a stroke diagnosis?: No VTE Prior VTE?: No VTE Risk Level:: Medical - moderate - high VTE Device Contraindication: N/A - Device Ordered VTE Drug Contraindication: Treatment Not Indicated
--- NOTE | 2024-03-21 08:47 | P.PNIM_ITS ---
Subjective Subjective Date of Service: 03/21/24 Interval History: weakness, generalized pain Physical Exam 2 Vital Signs: Vital Signs: Last Vital Signs Temp 99.6 F 03/21/24 08:00 Pulse 50 03/21/24 08:00 Resp 14 03/21/24 08:00 BP 156/91 H 03/21/24 08:00 Pulse Ox 97 03/21/24 08:00 O2 Del Method Room Air 03/21/24 08:00 BMI result Body Mass Index 21.0 Const: General: no acute distress and alert Orientation/consciousness: p atient oriented x3 Resp: Effort & Inspection: normal respiratory effort GI: Inspection: Yes incision (well healed ) Palpation (GI): Tenderness to palpation present (GI) in the RUQ, Guarding due to palpation present (GI) (voluntary) and not rigid Percussion: Yes normal to percussion Skin: General skin exam: no rashes or lesions noted Neuro: General: patient oriented x3 and moves all extremities Objective Data Active Medications Acetaminophen (Acetaminophen 325 Mg Tablet) 650 mg PO Q6H PRN PRN Reason: Pain, Mild (Pain Scale 1-3), fever or headache Calcium Carbonate (Calcium Carbonate 750 Mg Tab.Chew) 750 mg PO Q4H PRN PRN Reason: Heartburn Enoxaparin Sodium (Enoxaparin Sodium 40 Mg/0.4 Ml Syringe) 40 mg SUBCUT Q24H [facility] Last Admin: 03/20/24 09:40 Dose: 40 mg Documented By: ARIN Piperacillin Sod/Tazobactam (Sod 4.5 gm/ Sodium Chloride) 100 mls @ 200 mls/hr IV Q6H [facility] Last Infusion: 03/21/24 04:35 Dose: Infused Documented By: NOEMÍ Vancomycin HCl 1,000 mg/ (Sodium Chloride) 270 mls @ 270 mls/hr IV Q12H [facility] Last Infusion: 03/20/24 23:08 Dose: Infused Documented By: NOEMÍ Magnesium Hydroxide (Milk Of Magnesia 30 Ml Oral.Susp) 30 ml PO DAILY PRN PRN Reason: Constipation Melatonin (Melatonin 3 Mg Tablet) 6 mg PO BEDTIME PRN PRN Reason: Insomnia Methadone HCl (Methadone Hcl 20 Mg/2 Ml Oral.Conc) 75 mg PO DAILY@0800 [facility] Last Admin: 03/20/24 07:55 Dose: 75 mg Documented By: RAIN Co-signed By: AMAYA Ondansetron HCl (Ondansetron Hcl 4 Mg/2 Ml Vial) 4 mg IVPUSH Q8H PRN PRN Reason: Nausea and Vomiting Pharmacy Consult (Consult Rx Vancomycin Dosing) 1 each MISCELLANE DAILY PRN PRN Reason: Consult order Sodium Chloride (0.9 % Sodium Chloride Flush 3 Ml Syringe) 3 ml IVFLUSH QSHIFT [facility] Last Admin: 03/20/24 21:29 Dose: 3 ml Documented By: NOEMÍ Labs 03/21/24 05:16 03/21/24 05:16 Labs: Laboratory Results - last 24 hr 03/21/24 05:16 MCV 79.1 L MCH 25.0 L MCHC 31.6 RDW 15.6 Plt Count 253 MPV 10.0 Absolute Nucleated RBC 0.000 Nucleated RBC % (auto) 0.0 PT 15.6 H INR 1.3 H Anion Gap 12 Estim Creat Clear Calc 104.4 Estimated GFR > 60 Fasting Glucose 175 H Calcium 8.1 L Magnesium 2.1 Total Bilirubin 0.5 Direct Bilirubin 0.2 AST 138 H ALT 302 H Alkaline Phosphatase 476 H Total Protein 6.4 L Albumin 3.2 L Microbiology Microbiology Results: Microbiology 03/19/24 20:24 Blood Culture - Preliminary Blood - Venous No growth after 24 hours. 03/19/24 20:24 Blood Culture - Preliminary Blood - Venous No growth after 24 hours. Assessment and Plan (1) Dilated cbd, acquired: Status: Acute Plan 38M PMH IVDA, polysubstance dependence, htn presented with abdominal pain sepsis Biliary versus bacteremia in IVDA Continue vanc Zosyn mrcp negative, cultures no growth to date increasing leukocytosis and persistent ruq tenderness, surgery appreciated - CT abd with iv contrast Polysubstance dependence Continue methadone Hypertension amlodipine DVT prophylaxis with Lovenox Full Code reason for continued hospitalization: Awaiting cultures and defercesence Quality Stroke Does the patient have a stroke diagnosis?: No VTE Prior VTE?: No VTE Risk Level:: Medical - moderate - high VTE Device Contraindication: N/A - Device Ordered VTE Drug Contraindication: Treatment Not Indicated
[2024-03-21 09:00] LABS: Vancomycin Random 7.8 mcg/mL (15-20)
--- NOTE | 2024-03-21 09:04 | HE.PHANOTE ---
DESIREE Changing dose to 1000mg Q8H per subtherapeutic trough and improved renal function. Predicted torugh 13.4, auc 496. Next trough on 03/22 @0800.
--- NOTE | 2024-03-21 09:46 | P.PNGI_ITS ---
Subjective Subjective Date of Service: 03/21/24 Interval History: COnt to be in pain in RUQ and RLQ. With nausea. White count worse today. Pt also bradycardiac. Critical Care Time (minutes): 0 Physical Exam 2 Vital Signs: Vital Signs: Last Vital Signs Temp 99.6 F 03/21/24 08:00 Pulse 48 L 03/21/24 09:44 Resp 14 03/21/24 08:00 BP 122/70 03/21/24 09:44 Pulse Ox 97 03/21/24 08:00 O2 Del Method Room Air 03/21/24 08:00 BMI result Body Mass Index 21.0 Clammy appearance Very tender in RUQ with guarding Objective Data Labs 03/21/24 05:16 03/21/24 05:16 Labs: Laboratory Results - last 24 hr 03/19/24 03/21/24 03/21/24 21:37 05:16 08:39 WBC 20.7 H RBC 4.16 L Hgb 10.4 L Hct 32.9 L MCV 79.1 L MCH 25.0 L MCHC 31.6 RDW 15.6 Plt Count 253 MPV 10.0 Absolute Nucleated RBC 0.000 Nucleated RBC % (auto) 0.0 PT 15.6 H INR 1.3 H Sodium 137 Potassium 3.5 Chloride 107 Carbon Dioxide 22 Anion Gap 12 BUN 17 H Creatinine 0.97 Estim Creat Clear Calc 104.4 Estimated GFR > 60 Fasting Glucose 175 H Calcium 8.1 L Magnesium 2.1 Total Bilirubin 0.5 Direct Bilirubin 0.2 AST 138 H ALT 302 H Alkaline Phosphatase 476 H Total Protein 6.4 L Albumin 3.2 L Random Vancomycin 7.8 L Hepatitis A IgM Ab Nonreactive Hep Bs Antigen Negative Hep Bs Antibody REACTIVE Hep B Core Total Ab Nonreactive Hepatitis C Ab (EIA) Reactive H Microbiology Microbiology Results: Microbiology 03/19/24 20:24 Blood - Venous Blood Culture - Preliminary No growth after 24 hours. 03/19/24 20:24 Blood - Venous Blood Culture - Preliminary No growth after 24 hours. Procedures Date of Service Date of Service: 03/21/24 Progress Note: A&P Assessment and plan (1) Dilated cbd, acquired: Status: Acute (2) Elevated LFTs: Status: Acute (3) Abdominal pain: Status: Acute (4) Sepsis: Status: Acute Plan Case reviewed with Dr Barahona as well - no filling defects noted on MRCP + lfts downtrending so recommends holding off ERCP at this point. Surg team is getting a repeat contrasted CT. Plan: - CT abd/pel as ordered by surg - Will review indication for ercp based on ct and LFTs - Consider echo given IVDU and bradycardia Time Spent With Patient Time: Total time managing care of this patient today ____ minutes. Quality Stroke Does the patient have a stroke diagnosis?: No VTE Prior VTE?: No VTE Risk Level:: Medical - moderate - high VTE Device Contraindication: N/A - Device Ordered VTE Drug Contraindication: Treatment Not Indicated
[2024-03-21] MEDS: amLODIPine Besylate 2.5 MG TABLET PO (10:28)
[2024-03-21] MEDS: vancomycin HCL 1,000 MG in 0.9 % Sodium Chloride 250 ML 270 MG IV ×2 (11:10→17:40)
--- NOTE | 2024-03-21 14:12 | MHC.RECOVRN ---
Met with pt in 347 after consult placed to Addiction Medicine for substance use. Pt had presented to the ED reporting nausea/vomiting, back/leg pain, and general malaise. Reports he had his gallbladder out in January. Upon evaluation, pt admitted for abdominal pain with bandemia, transaminitis and cholestasis. Pt currently receiving 75 mg methadone daily through [facility]. Pt reports he is drinking 1/2 pint whiskey daily; has not received any medications for alcohol withdrawal while here. Pt reports cocaine and heroin/fentanyl use, IV, every couple of days. When asked to quantify pt states not a lot, does not elaborate. Pt states I haven't really been using that much because I am on methadone. Pt is interested in CSS level of care after dc from [facility], particularly at [facility] in [place]. Denies other questions or concerns for t/w.
--- NOTE | 2024-03-21 14:42 | MHC.RECOVRN ---
Pts referral faxed to [facility].
[2024-03-21] MEDS: iohexoL 350 MG/ML 100 ML INFUS..BTL IV (14:43)
[2024-03-21] MEDS: Acetaminophen 325 MG TABLET 650 MG PO (15:58)
--- NOTE | 2024-03-21 16:16 | MHC.RECOVRN ---
Spoke with intake at [facility], referral has been received and will be sent for review for CSS.
[2024-03-21] MEDS: PHENobarbitaL sodium 130 MG/ML IM ONCE 230 MG IM (17:39)
--- NOTE | 2024-03-21 17:53 | PC.NURSE ---
MD Nova made aware pt stating hes starting to have withdrawal symptoms at 16:12. Scoring 6 on CIWA for mild tremors, nausea, headache, and anxiety. MD Ordered Phenobarbital protocol. MD Nova also aware Pt continues to have low HR, last recorded 50. Pt received 1st dose of IM Phenobarbital, tolerated well, effectiveness pending.
[2024-03-21] MEDS: PHENobarbitaL sodium 130 MG/ML VIAL IM Q3Hx2 175 MG IM ×2 (20:07→23:31)
[2024-03-22] MEDS: vancomycin HCL 1,000 MG in 0.9 % Sodium Chloride 250 ML 270 MG IV ×2 (01:53→11:23)
[2024-03-22] MEDS: 0.9 % Sodium Chloride Flush 3 ML SYRINGE IVFLUSH ×4 (02:02→21:26)
[2024-03-22 03:17] VITALS: BP 132/91; PULSE 50; RESP 18; TEMP 36.7; O2SAT 97
[2024-03-22] MEDS: Piperacillin Sodium/Tazobactam 4.5 GM in 0.9 % Sodium Chloride 100 ML IV ×4 (04:50→21:22)
[2024-03-22] MEDS: Acetaminophen 325 MG TABLET 650 MG PO ×2 (05:28→21:20)
[2024-03-22 07:36] VITALS: BP 139/91; PULSE 46; RESP 14; TEMP 36.9; O2SAT 97
[2024-03-22] MEDS: PHENobarbitaL 15 MG TABLET 45 MG PO ×2 (07:48→21:29)
[2024-03-22] MEDS: amLODIPine Besylate 2.5 MG TABLET PO (07:48)
[2024-03-22] MEDS: Enoxaparin Sodium 40 MG/0.4 ML SYRINGE SUBCUT (07:49)
[2024-03-22] MEDS: methADONE HCl 20 MG/2 ML ORAL.CONC 75 MG PO (07:49)
--- NOTE | 2024-03-22 08:10 | P.PNGS_ITS ---
Subjective Subjective Date of Service: 03/22/24 Interval history: Continues to c/o abdominal pain but was able to tolerate solid food yesterday. Physical Exam 2 Vital Signs: Vital Signs: Last Vital Signs Temp 98.4 F 03/22/24 07:36 Pulse 46 L 03/22/24 07:36 Resp 14 03/22/24 07:36 BP 139/91 H 03/22/24 07:36 Pulse Ox 97 03/22/24 07:36 O2 Del Method Room Air 03/22/24 07:36 BMI result Body Mass Index 21.0 Const: General: comfortable, no acute distress and alert O rientation/consciousness: patient oriented x3 Resp: Effort & Inspection: normal respiratory effort GI: Inspection: Yes normal to inspection and No distended Palpation (GI): S oft to palpation and Tenderness to palpation present (GI) (moderate diffuse tenderness) Percussion: Yes normal to percussion Skin: General skin exam: no rashes or lesions noted and no jaundice Neuro: General: patient oriented x3 and moves all extremities Objective Data Active Medications Acetaminophen (Acetaminophen 325 Mg Tablet) 650 mg PO Q6H PRN PRN Reason: Pain, Mild (Pain Scale 1-3), fever or headache Last Admin: 03/22/24 05:28 Dose: 650 mg Documented By: XENA Amlodipine Besylate (Amlodipine Besylate 2.5 Mg Tablet) 2.5 mg PO DAILY [facility]; Protocol Last Admin: 03/22/24 07:48 Dose: 2.5 mg Documented By: CASSANDRA Calcium Carbonate (Calcium Carbonate 750 Mg Tab.Chew) 750 mg PO Q4H PRN PRN Reason: Heartburn Enoxaparin Sodium (Enoxaparin Sodium 40 Mg/0.4 Ml Syringe) 40 mg SUBCUT Q24H [facility] Last Admin: 03/22/24 07:49 Dose: 40 mg Documented By: CASSANDRA Piperacillin Sod/Tazobactam (Sod 4.5 gm/ Sodium Chloride) 100 mls @ 200 mls/hr IV Q6H [facility] Last Infusion: 03/22/24 05:20 Dose: Infused Documented By: XENA Vancomycin HCl 1,000 mg/ (Sodium Chloride) 270 mls @ 270 mls/hr IV Q8H [facility] Last Infusion: 03/22/24 02:59 Dose: Infused Documented By: XENA Magnesium Hydroxide (Milk Of Magnesia 30 Ml Oral.Susp) 30 ml PO DAILY PRN PRN Reason: Constipation Melatonin (Melatonin 3 Mg Tablet) 6 mg PO BEDTIME PRN PRN Reason: Insomnia Methadone HCl (Methadone Hcl 20 Mg/2 Ml Oral.Conc) 75 mg PO DAILY@0800 [facility] Last Admin: 03/22/24 07:49 Dose: 75 mg Documented By: CASSANDRA Co-signed By: ABDIFATAH Ondansetron HCl (Ondansetron Hcl 4 Mg/2 Ml Vial) 4 mg IVPUSH Q8H PRN PRN Reason: Nausea and Vomiting Pharmacy Consult (Consult Rx Vancomycin Dosing) 1 each MISCELLANE DAILY PRN PRN Reason: Consult order Pharmacy Consult (Consult Rx Etoh Phenob Im/Po) 1 each MISCELLANE ONCE PRN; Protocol PRN Reason: Consult order Phenobarbital (Phenobarbital 15 Mg Tablet) 45 mg PO BID [facility]; Protocol Stop: 03/23/24 21:01 Last Admin: 03/22/24 07:48 Dose: 45 mg Documented By: CASSANDRA Phenobarbital (Phenobarbital 30 Mg Tablet) 30 mg PO BID [facility]; Protocol Stop: 03/25/24 21:01 Phenobarbital (Phenobarbital 30 Mg Tablet) 30 mg PO DAILY [facility]; Protocol Stop: 03/27/24 09:01 Sodium Chloride (0.9 % Sodium Chloride Flush 3 Ml Syringe) 3 ml IVFLUSH [facility] Last Admin: 03/22/24 07:50 Dose: 3 ml Documented By: CASSANDRA Labs 03/21/24 05:16 03/21/24 05:16 Labs: Laboratory Results - last 24 hr 03/19/24 03/21/24 21:37 08:39 Random Vancomycin 7.8 L Hepatitis A IgM Ab Nonreactive Hep Bs Antigen Negative Hep Bs Antibody REACTIVE Hep B Core Total Ab Nonreactive Hepatitis C Ab (EIA) Reactive H Microbiology Microbiology Results: Microbiology 03/19/24 20:24 Blood Culture - Preliminary Blood - Venous No growth after 48 hours. 03/19/24 20:24 Blood Culture - Preliminary Blood - Venous No growth after 48 hours. Procedures Date of Service Date of Service: 03/22/24 Progress Note: A&P Assessment and plan (1) Elevated LFTs: Status: Acute Plan Repeat CT scan shows decreased collection in GB fossa. Discussion with radiologist yesterday- CT scan shows enteritis, SI joint erosions suggestive of Crohns disease and presentation concerning for sclerosing cholangitis. Pt reports mother has history of Crohns. This was discussed with the medicine team. GI is following. No acute surgical issues. Time Spent With Patient Time: Total time managing care of this patient today ____ minutes. Quality Stroke Does the patient have a stroke diagnosis?: No VTE Prior VTE?: No VTE Risk Level:: Medical - moderate - high VTE Device Contraindication: N/A - Device Ordered VTE Drug Contraindication: Treatment Not Indicated
[2024-03-22 09:31] LABS: Alanine Aminotransferase 199 U/L (0-40); Albumin Level 3.2 g/dL (3.5-5.0); Alkaline Phosphatase 405 U/L (39-117); Anion Gap 11 (12-20); Aspartate Amino Transferase 45 U/L (5-37); Bilirubin Direct 0.1 mg/dL (0.0-0.5); Bilirubin Total 0.3 mg/dL (0.0-1.0); Blood Urea Nitrogen 16 mg/dL (9-16); Calcium 8.4 mg/dL (8.4-10.2); Carbon Dioxide 22 mmol/L (22-29); Chloride 109 mmol/L (96-108); Creatinine Clr Calc Pharmacy 111.2; Estimated Glomerular Filt Rate > 60; Glucose Fasting 104 mg/dL (60-99); Potassium 4.1 mmol/L (3.3-5.1); Sodium 138 mmol/L (135-145); Total Protein 6.7 g/dL (6.5-8.0)
[2024-03-22 09:58] LABS: Hematocrit 34.2 % (42.0-52.0); Hemoglobin 10.8 g/dl (14.0-18.0); Mean Corpuscular HGB Conc 31.6 g/dl (31.0-36.0); Mean Corpuscular Hemoglobin 25.3 pg (27.0-33.0); Mean Corpuscular Volume 80.1 fL (80.0-98.0); Mean Platelet Volume 10.2 fL (9.4-12.4); Platelet Count 238 X10*3/uL (160-400); Red Blood Count 4.27 X10*6/uL (4.60-5.80); Red Cell Distribution Width 15.3 % (11.0-16.0)
[2024-03-22 10:20] LABS: Vancomycin Random 14.9 mcg/mL (15-20)
--- NOTE | 2024-03-22 10:24 | HE.PHANOTE ---
Re: Esme Renal function improved. Trough returned at 14.9. Continue current dose of 1,000 mg q8h with predicted AUC 505, and predicted trough of 14.1. Next trough is 03/23 @ 0800.
--- NOTE | 2024-03-22 13:06 | P.PNIM_ITS ---
Subjective Subjective Date of Service: 03/22/24 Interval History: Seen and evaluated this morning feels better having his first good meal LFT trending down CIWA score going down no other events Review of Systems Review of Systems: Yes all other systems are reviewed and are negative Physical Exam 2 Vital Signs: Vital Signs: Last Vital Signs Temp 98.4 F 03/22/24 07:36 Pulse 46 L 03/22/24 07:36 Resp 14 03/22/24 07:36 BP 139/91 H 03/22/24 07:36 Pulse Ox 97 03/22/24 07:36 O2 Del Method Room Air 03/22/24 07:36 BMI result Body Mass Index 21.0 Const: Other: Constitutional : interactive, not in distress Cardiovascular : no JVP, no lower extremity edema Respiratory : bilateral chest movement, not in resp distress Gastrointestinal: soft, lax, mild epigastric tenderness Skin : Warm, Dry Neurological : Alert & oriented , No focal deficit Objective Data Active Medications Acetaminophen (Acetaminophen 325 Mg Tablet) 650 mg PO Q6H PRN PRN Reason: Pain, Mild (Pain Scale 1-3), fever or headache Last Admin: 03/22/24 05:28 Dose: 650 mg Documented By: XENA Amlodipine Besylate (Amlodipine Besylate 2.5 Mg Tablet) 2.5 mg PO DAILY [facility]; Protocol Last Admin: 03/22/24 07:48 Dose: 2.5 mg Documented By: CASSANDRA Calcium Carbonate (Calcium Carbonate 750 Mg Tab.Chew) 750 mg PO Q4H PRN PRN Reason: Heartburn Enoxaparin Sodium (Enoxaparin Sodium 40 Mg/0.4 Ml Syringe) 40 mg SUBCUT Q24H [facility] Last Admin: 03/22/24 07:49 Dose: 40 mg Documented By: CASSANDRA Piperacillin Sod/Tazobactam (Sod 4.5 gm/ Sodium Chloride) 100 mls @ 200 mls/hr IV Q6H [facility] Last Infusion: 03/22/24 11:26 Dose: Infused Documented By: CASSANDRA Vancomycin HCl 1,000 mg/ (Sodium Chloride) 270 mls @ 270 mls/hr IV Q8H [facility] Last Infusion: 03/22/24 12:23 Dose: Infused Documented By: ABDIFATAH Magnesium Hydroxide (Milk Of Magnesia 30 Ml Oral.Susp) 30 ml PO DAILY PRN PRN Reason: Constipation Melatonin (Melatonin 3 Mg Tablet) 6 mg PO BEDTIME PRN PRN Reason: Insomnia Methadone HCl (Methadone Hcl 20 Mg/2 Ml Oral.Conc) 75 mg PO DAILY@0800 [facility] Last Admin: 03/22/24 07:49 Dose: 75 mg Documented By: CASSANDRA Co-signed By: ABDIFATAH Ondansetron HCl (Ondansetron Hcl 4 Mg/2 Ml Vial) 4 mg IVPUSH Q8H PRN PRN Reason: Nausea and Vomiting Pharmacy Consult (Consult Rx Vancomycin Dosing) 1 each MISCELLANE DAILY PRN PRN Reason: Consult order Pharmacy Consult (Consult Rx Etoh Phenob Im/Po) 1 each MISCELLANE ONCE PRN; Protocol PRN Reason: Consult order Phenobarbital (Phenobarbital 15 Mg Tablet) 45 mg PO BID [facility]; Protocol Stop: 03/23/24 21:01 Last Admin: 03/22/24 07:48 Dose: 45 mg Documented By: CASSANDRA Phenobarbital (Phenobarbital 30 Mg Tablet) 30 mg PO BID [facility]; Protocol Stop: 03/25/24 21:01 Phenobarbital (Phenobarbital 30 Mg Tablet) 30 mg PO DAILY [facility]; Protocol Stop: 03/27/24 09:01 Sodium Chloride (0.9 % Sodium Chloride Flush 3 Ml Syringe) 3 ml [facility] Last Admin: 03/22/24 07:50 Dose: 3 ml Documented By: CASSANDRA Labs 03/22/24 09:35 03/22/24 08:44 Labs: Laboratory Results - last 24 hr 03/22/24 03/22/24 08:44 09:35 MCV 80.1 MCH 25.3 L MCHC 31.6 RDW 15.3 Plt Count 238 MPV 10.2 Absolute Nucleated RBC 0.000 Nucleated RBC % (auto) 0.0 Anion Gap 11 L Estim Creat Clear Calc 111.2 Estimated GFR > 60 Fasting Glucose 104 H Calcium 8.4 Total Bilirubin 0.3 Direct Bilirubin 0.1 AST 45 H ALT 199 H Alkaline Phosphatase 405 H Total Protein 6.7 Albumin 3.2 L Random Vancomycin 14.9 L Microbiology Microbiology Results: Microbiology 03/19/24 20:24 Blood Culture - Preliminary Blood - Venous No growth after 48 hours. 03/19/24 20:24 Blood Culture - Preliminary Blood - Venous No growth after 48 hours. Assessment and Plan (1) Dilated cbd, acquired: Status: Acute (2) Elevated LFTs: Status: Acute (3) Abdominal pain: Status: Acute (4) Transaminitis: Status: Acute (5) Sepsis: Status: Acute (6) Polysubstance abuse: Status: Acute Plan 38M PMH IVDA, polysubstance dependence, htn presented with abdominal pain sepsis 2/2 Biliary source of infection/Enteritis Seems he passed a stone\sludge as LFT trending down No evidence of bacteremia with negative blood cultures DC vanc , Continue Zosyn mrcp negative, cultures no growth to date CT showing atelactasis ; incentive spirometry and physiotherapy surgery appreciated - CT scan shows enteritis, SI joint erosions suggestive of Crohns disease and presentation concerning for sclerosing cholangitis. GI input appreciated, as LFT trending down he can be followed as outpatient with dr Beasley for EGD, Colonoscopy and possible elective ERCP Polysubstance dependence Continue methadone Alcohol withdrawal CIWA on Phenobarb protocol Continue to monitor Hx drug abuse interested in inpatient detox program; might be accepted tomorrow Hypertension amlodipine DVT prophylaxis with Lovenox Full Code reason for continued hospitalization: alcohl withdrawal on Phenobarb protocol Quality Stroke Does the patient have a stroke diagnosis?: No VTE Prior VTE?: No VTE Risk Level:: Medical - moderate - high VTE Device Contraindication: N/A - Device Ordered VTE Drug Contraindication: Treatment Not Indicated
--- NOTE | 2024-03-22 13:08 | MHC.RECOVRN ---
[facility] has cleared pt for admission, however, no bed availability today. Discussed with provider, plan to keep pt overnight and follow up with [facility] in the morning.
--- NOTE | 2024-03-22 14:58 | MHC.CM.PN ---
JESSICA HAMMONDS WORKING ON DC FOR TOMORROW TO DETOX
[2024-03-22 15:19] VITALS: BP 138/64; PULSE 51; RESP 16; TEMP 36.9; O2SAT 95
[2024-03-22 19:29] VITALS: BP 142/89; PULSE 49; RESP 18; TEMP 37; O2SAT 97
[2024-03-22] MEDS: ondansetron HCL 4 MG/2 ML VIAL IVPUSH (21:20)
[2024-03-23 03:19] VITALS: BP 147/83; PULSE 48; RESP 18; TEMP 36.8; O2SAT 98
[2024-03-23] MEDS: Piperacillin Sodium/Tazobactam 4.5 GM in 0.9 % Sodium Chloride 100 ML IV ×2 (04:04→10:29)
[2024-03-23 06:53] LABS: Alanine Aminotransferase 127 U/L (0-40); Albumin Level 2.7 g/dL (3.5-5.0); Alkaline Phosphatase 353 U/L (39-117); Aspartate Amino Transferase 34 U/L (5-37); Bilirubin Direct < 0.2 mg/dL (0.0-0.5); Bilirubin Total 0.2 mg/dL (0.0-1.0); Total Protein 6.4 g/dL (6.5-8.0)
[2024-03-23 07:45] VITALS: BP 151/99; PULSE 48; RESP 18; TEMP 36.8; O2SAT 98
[2024-03-23] MEDS: methADONE HCl 20 MG/2 ML ORAL.CONC 75 MG PO (09:02)
[2024-03-23] MEDS: Enoxaparin Sodium 40 MG/0.4 ML SYRINGE SUBCUT (09:02)
[2024-03-23] MEDS: PHENobarbitaL 15 MG TABLET 45 MG PO (09:05)
[2024-03-23] MEDS: amLODIPine Besylate 2.5 MG TABLET PO (09:05)
[2024-03-23] MEDS: 0.9 % Sodium Chloride Flush 3 ML SYRINGE IVFLUSH (09:08)
--- NOTE | 2024-03-23 10:17 | MHC.RECOVRN ---
Called [facility] x 3 to check for [facility] bed availability, intake still unsure if there will be a bed today.
--- NOTE | 2024-03-23 10:23 | MHC.CM.PN ---
PER MD ROUNDS, PT WILL DC TODAY DCP TBD PENDING RECOVERY TEAM UPDATES, [facility] VS SKILLED NURSING
--- NOTE | 2024-03-23 11:41 | MHC.RECOVRN ---
[facility] does not have CSS availability today. CM aware.
--- NOTE | 2024-03-23 11:59 | P.DS_ITS ---
DS: Providers Provider Date of Service: 03/23/24 Date of admission: 03/19/24 22:30 Date of discharge: 03/23/24 Primary care physician: Stew Koch MD Consults: 03/19/24 22:32 Addiction Medicine Routine Consulting Provider: Addiction Covering Reason for consultation: polysubsance use disorder 03/19/24 22:58 Consult to Gastroenterology Routine Consulting Provider: Xiomara Beasley Reason for consultation: eleavted lfts Consult to General Surgery Routine Consulting Provider: [facility] [place] [facility] Reason for consultation: ?GB fossa infection DS: Diagnosis Discharge Diagnosis (1) Dilated cbd, acquired: Status: Acute (2) Elevated LFTs: Status: Acute (3) Abdominal pain: Status: Acute (4) Transaminitis: Status: Acute (5) Sepsis: Status: Acute (6) Polysubstance abuse: Status: Acute (7) Cholestasis: Status: Acute (8) Elevated transaminase level: Status: Acute DS: Summary Hospital Course Hospital Course: Admission note HPI This is a 38-year-old male with pertinent history of IV polysubstance use disorder, history of MRSA infection, hypertension who presents to the emergency department for evaluation of abdominal pain. Of note, patient was admitted about 2 months ago due to sepsis in the setting of acute cholecystitis and underwent cholecystectomy. Patient states he is not taking any home prescription medications. He presented to the ER as he had abdominal pain right-sided on the day of presentation. It was initially intermittent but progressed to being constant, nonradiating and without any relieving factors. Also complaining of lower back pain. Denies fevers or chills. Admits to using IV drugs. Abdominal pain is associated with nausea and vomiting and he is unable to tolerate p.o. intake. No chest pain, cough, changes in urinary habits. In the emergency department, bandemia 16% present and AST/ALT and alkaline phosphatase significantly elevated Hospital course # Sepsis secondary to Enteritis complicated with transaminitis The patient was treated with IV antibiotics of Zosyn and Vancomycin. LFT started to trend down as it seems he passed a stone\sludge per GI team who evaluated him as No evidence of bacteremia with negative blood cultures. MRCP was done and cam back negative. CT showing atelactasis and possible Enteritis ; encouraged incentive spirometry and physiotherapy. He was seen by surgery team who reported that CT scan shows enteritis, SI joint erosions suggestive of Crohns disease and presentation concerning for sclerosing cholangitis. GI recommended as LFT trending down he can be followed as outpatient with dr Beasley for EGD, Colonoscopy and possible elective ERCP He will be treated with Augmentin to finish 1 week of antibiotics as he was able to tolerate diet and ambulate. #Polysubstance dependence Continue methadone. # Alcohol withdrawal Treated with Phenobarb protocol with good response. # Hx drug abuse interested in inpatient detox program; No beds were available during hospital stay. Seen by addiction team. Plan to follow as outpatient with detox program to check in. Discharge plan Continue antibiotics as prescribed Avoid drugs and check in with the detox program Time Attestation Discharge Coordination Time (in mins): 42 Quality: Safe Use of Opioids Does Pt have an Active Cancer Diagnosis on the Problem List?: No Quality: Stroke Does the patient have a stroke diagnosis?: No Physical Exam Vital Signs: Vital Signs: Last Vital Signs Temp 98.3 F 03/23/24 07:45 Pulse 48 L 03/23/24 07:45 Resp 18 03/23/24 07:45 BP 151/99 H 03/23/24 07:45 Pulse Ox 98 03/23/24 07:45 O2 Del Method Room Air 03/23/24 07:45 BMI result Body Mass Index 21.0 Const: Other: Constitutional : interactive, not in distress Cardiovascular : no JVP, no lower extremity edema Respiratory : bilateral chest movement, not in resp distress Gastrointestinal: soft, lax, no tenderness Skin : Warm, Dry Neurological : Alert & oriented , No focal deficit DS: Data Data Completed and Pending Completed studies during hospitalization [Text1]: Procedures Detoxification Services for Substance Abuse Treatment (10/17/20) Drainage of Left Upper Arm Skin, External Approach (10/17/20) Drainage of Right Upper Arm Skin, External Approach (10/17/20) Resection of Gallbladder, Percutaneous Endoscopic Approach (01/12/24) Labs on day of discharge: Laboratory Results - last 24 hr 03/23/24 05:32 Total Bilirubin 0.2 Direct Bilirubin < 0.2 AST 34 ALT 127 H Alkaline Phosphatase 353 H Total Protein 6.4 L Albumin 2.7 L Preliminary micro results at discharge 03/19/24 20:24 Blood Culture - Preliminary Blood - Venous No growth after 48 hours. 03/19/24 20:24 Blood Culture - Preliminary Blood - Venous No growth after 48 hours. Imaging Chest x-ray: Radiologist's impression: ITS Impressions Chest X-Ray 03/19/24 20:33 IMPRESSION: Unremarkable chest examination. Electronically signed by: Obi Pitts MD 03/19/2024 09:16 PM EDT RP Abdomen/Pelvis CT 03/19/24 21:09 IMPRESSION: 1. Status post cholecystectomy. Small amount of postoperative fluid seen within the gallbladder fossa. Cannot exclude a secondary infection. 2. Common bile duct is mildly dilated measuring 8 mm slightly increased compared to the prior exam. Cannot exclude retained common bile duct stone 3. Hepatosplenomegaly. Moderate periportal edema. 4. Large amount of retained stool seen within the colon. Electronically signed by: José Miguel Cramer MD 03/19/2024 10:02 PM EDT RP Cholangiopancreatography MRI 03/20/24 11:50 IMPRESSION: Limited evaluation secondary to motion. Small amount of free fluid and stranding in the postoperative bed is indeterminate in a recent postoperative setting. Evaluation of biliary tree injury and abscesses is limited in the absence of intravenous contrast. Clinical correlation is advised. Mild extrahepatic biliary ductal dilatation with a few T2 hypointense filling defects in the common bile duct that are only visualized in one of the sequences, suggestive of artifacts, although evaluation is limited due to motion. No significant intrahepatic biliary ductal dilatation. Redemonstration of hepatosplenomegaly and mild intrahepatic periportal edema. Electronically signed by: Roxanne Orourke MD 03/20/2024 03:50 PM EDT RP Abdomen/Pelvis CT 03/21/24 14:05 IMPRESSION: 1. Status post cholecystectomy. There is a small volume of low-density fluid in the gallbladder fossa, decreased from 03/19/2024. No gas locules to suggest infection. Mild common bile duct dilation is also improving. Mild periportal edema noted, improved from prior. 2. Hepatosplenomegaly, as before. 3. Worsening dependent bilateral opacities could reflect worsening atelectasis versus developing pneumonia. 4. Small volume subcutaneous emphysema along the right lower quadrant abdominal wall, new from prior and nonspecific. Clinically correlate for possible injection medication. Fleischner guidelines were followed. Electronically signed by: Radha Clayton DO 03/21/2024 05:22 PM EDT RP Discharge Plan Discharge Anticipated Discharge Date/Time: 03/23/24 11:55 Patient Disposition: Fdc Discharge Diagnosis: Enteritis Abdominal pain , elevated liver enzymes Referrals: Stew Koch MD [Primary Care Provider] - 1 Week Discharge Medications: New amoxicillin-pot clavulanate 875-125 mg tablet 1 tab PO BID Qty: 6 0RF Continued methadone 10 mg/5 mL Solution 75 mg PO DAILY amlodipine 2.5 mg tablet 2.5 mg PO DAILY Discharge Orders: Discharge Order (Routine); Ordered 03/23/24 Ordered By: Sindy Chen Diet: Advance to usual diet Activity on Discharge: As tolerated Stand Alone Forms: Patient Portal Discharge page Print Language: Amharic Care Plan Goals: Continue antibiotics as prescribed Avoid drugs and check in with the detox program Health Concerns: Drug abuse Plan of Treatment: Antibiotics Assessment: as above
--- NOTE | 2024-03-23 12:27 | MHC.CM.PN ---
OVERWEAVER REPORTS SHE CALLED THE TREATMENT FACILITIES AND THEY HAVE NO OPEN BEDS TODAY PT WAS INFORMED AND UNDERSTANDS HE CAN CONTINUE TO CALL FROM [facility] PT VISIBLY UPSET STATING HE DOES NOT KNOW WHAT WILL HAPPEN AND HE DOES NOT HAVE A PHONE PT AWARE HOPE FOR [facility] CAN ASSIST WITH PLACEMENT IN A TREATMENT FACILITY
== END 2024-03-23 12:34 | disposition home or self-care (01) | DRG 720 ==
LOC: HO.ED 22:50 → HO.EDOVER 23:06 → HO.S3 23:36
PROVIDERS: Internal Medicine; Physician Assistant; Admitting Provider Student in an Organized Health Care Education/Training Program; Emergency Provider Emergency Medicine; PCP Family Medicine; Visit Provider Student in an Organized Health Care Education/Training Program
DX: A41.9 Sepsis, unspecified organism (principal); E87.21 Acute metabolic acidosis; N17.9 Acute kidney failure, unspecified; K83.09 Other cholangitis; F11.20 Opioid dependence, uncomplicated; D50.9 Iron deficiency anemia, unspecified; F10.239 Alcohol dependence with withdrawal, unspecified; K52.9 Noninfective gastroenteritis and colitis, unspecified; F19.20 Other psychoactive substance dependence, uncomplicated; I10 Essential (primary) hypertension; J98.11 Atelectasis; K50.90 Crohn's disease, unspecified, without complications; Z59.02 Unsheltered homelessness; Z86.14 Personal history of Methicillin resistant Staphylococcus aureus infection; Z20.822 Contact with and (suspected) exposure to COVID-19; Z79.899 Other long term (current) drug therapy
CPT/HCPCS: 0241U; 36415; 71045; 74177; 74181; 80048; 80053; 80076; 80143; 80202; 80307; 81001; 82248; 82550; 83605; 83690; 83735; 85007; 85025; 85027; 85610; 86140; 86704; 86706; 86709; 86803; 87040; 87340; 93005; 99285; J1650; J2405; J2543; J2560; J3370; Q9967

== ENCOUNTER → 2024-03-19 19:08 | Outpatient (BNV) | payer MEDICAID, SELFPAY | PROVIDERS: Admitting Provider Student in an Organized Health Care Education/Training Program; Emergency Provider Emergency Medicine; PCP Family Medicine; Visit Provider Internal Medicine | DX: I45.6 Pre-excitation syndrome (principal); R10.9 Unspecified abdominal pain | CPT/HCPCS: 93010 ==

== ENCOUNTER → 2024-03-19 22:30 | Outpatient (BNV) | payer MEDICAID, SELFPAY | PROVIDERS: Admitting Provider Student in an Organized Health Care Education/Training Program; Emergency Provider Emergency Medicine; PCP Family Medicine; Visit Provider Surgery | DX: R79.89 Other specified abnormal findings of blood chemistry (principal) | CPT/HCPCS: 99222; 99232; 99499 ==

== ENCOUNTER → 2024-03-19 22:30 | Outpatient (BNV) | payer MEDICAID, SELFPAY | PROVIDERS: Admitting Provider Student in an Organized Health Care Education/Training Program; Emergency Provider Emergency Medicine; PCP Family Medicine; Visit Provider Internal Medicine | DX: K83.8 Other specified diseases of biliary tract (principal); R79.89 Other specified abnormal findings of blood chemistry; R10.9 Unspecified abdominal pain; A41.9 Sepsis, unspecified organism | CPT/HCPCS: 99222; 99232 ==

== ENCOUNTER → 2024-03-19 22:30 | Outpatient (BNV) | payer MEDICAID, SELFPAY | PROVIDERS: Admitting Provider Student in an Organized Health Care Education/Training Program; Emergency Provider Emergency Medicine; PCP Family Medicine; Visit Provider Student in an Organized Health Care Education/Training Program | DX: K83.8 Other specified diseases of biliary tract (principal); R74.01 Elevation of levels of liver transaminase levels; R79.89 Other specified abnormal findings of blood chemistry; R10.9 Unspecified abdominal pain | CPT/HCPCS: 99223; 99232; 99233; 99239 ==

== ENCOUNTER 2024-08-10 20:51 | Emergency (ER) | payer MEDICAID, SELFPAY ==
[2024-08-10 20:59] VITALS: BP 157/82; PULSE 110; RESP 20; TEMP 36.6; O2SAT 95; BMI 23.1
--- NOTE | 2024-08-10 20:59 | ED.PSYCH ---
HPI - Psych General Chief Complaint: General Medical Stated Complaint: cocaine use apprx. 2 hrs ago & aggressive Time Seen by Provider: 08/10/24 20:59 Source: patient and old records reviewed Mode of arrival: ambulatory Limitations: no limitations History of Present Illness ED Provider: LORETTA AMOS Narrative: 38 yo male with PMH of anxiety, drug abuse on methadone here with c/o being aggressive on the road after stubbing his toes and acting out then the police showed up and told him to go to the hospital. He has no SI/HI. He did not receive any narcan or prehospital treatments. He is alert and oriented x 3. He carries narcan. He states there is no reason to be here and he wants to leave. MD complaint: substance abuse Onset (ago): month(s) Duration: intermittent History of same: Yes Relieving factors: none Exacerbating factors: none Context: recent drug abuse Associated psychiatric symptoms: none Associated symptoms: denies other symptoms Treatments prior to arrival: none Related Data Home Medications ?Medication ?Instructions ?Recorded ?Confirmed amlodipine 2.5 mg tablet 2.5 mg PO DAILY 03/20/24 03/20/24 methadone 10 mg/5 mL oral solution 75 mg PO DAILY 03/20/24 03/20/24 Previous Rx's ?Medication ?Instructions ?Recorded amoxicillin 875 mg-potassium 1 tab PO BID #6 tabs 03/23/24 clavulanate 125 mg tablet Allergies Allergy/AdvReac Type Severity Reaction Status Date / Time ibuprofen Allergy Unknown headaches Verified 08/10/24 21:01 onion [ONION] Allergy Unknown ANAPHYLAXIS Verified 08/10/24 21:01 Review of Systems Review of Systems: Constitutional : No Fever, No Chills ENT/Mouth : No Ear Pain, No Nasal Congestion, No sore throat Eyes: No Eye Pain, No Swelling, No Redness Cardiovascular : No Chest Pain, No SOB Respiratory : No Cough, No Sputum, No Dyspnea Gastrointestinal : No Nausea, No Vomiting, No Diarrhea, No Hematochezia, No Melena Genitourinary : No Dysuria, No Urinary Frequency, No Hematuria Musculoskeletal : No Myalgias Skin : No Skin Lesions, No rash Neuro : No Weakness, No Numbness, No Paresthesias, No Dizziness, No Headache Psych : no Anxiety, no Depression, no SI/HI Heme/Lymph: No Lymphadenopathy Endocrine : No Polyuria, No Polydipsia All other systems reviewed and are negative [facility] Past Medical History Attestation statement: The following information was validated with the patient. Source: old records reviewed Medical History Polysubstance abuse Opioid use disorder Alcohol abuse IV drug user No known health problems Social History Social History Household Members: Other Housing: Homeless Do you presently have visiting nurse or other home services: No Alcohol intake: never Comment: discontinued Patient Tobacco Use Status: Tobacco use Unknown Tobacco use type: Cigarette Cigarette Packs Per Day: 0.5 Cigarettes Per Day: 10.0 Second Hand Smoke Exposure: No Substance Use Type: Crack/Cocaine, Heroin, IV Drugs and Marijuana Advance Directives: No Advance Directives Information Provided: No Do you have a plan to hurt others: No Plan service: No Physical Exam Vital Signs: Vital Signs: Last Vital Signs Temp 98 F 08/10/24 20:59 Pulse 110 H 08/10/24 20:59 Resp 20 08/10/24 20:59 BP 157/82 H 08/10/24 20:59 Pulse Ox 95 08/10/24 20:59 O2 Del Method Room Air 08/10/24 20:59 BMI result Body Mass Index 23.1 Appearance: Alert. Oriented X3. No acute distress. he is alert and oriented x 3, he is upset he is here, coherent though clearly appears to have used cocaine Eyes: Pupils equal, round and reactive to light. ENT: Pharynx normal. Neck: Normal inspection. Neck supple. CVS: Normal heart rate and rhythm. Pulses normal. Respiratory: No respiratory distress. Breath sounds normal. Abdomen: Soft and nontender. Skin: Skin warm and dry. Normal skin color. Normal skin turgor. Extremities: No lower extremity edema. No calf ttp Neuro: Oriented X 3. No motor deficit. No sensory deficit. CN2-12 intact Medical Decision Making Medical Decision Making MDM Narrative: 38 yo male wtih PMH of drug abuse here after acting out and police telling him to go to the hospital. He has no medical issues or complaints he refuses SUDE and detox. he states he carries narcan. At this time he is coherent no narcan given en route and he appears more under the influence of cocaine. Will DC at this time I do not feel I can section him. Differential Diagnosis Differential Diagnoses: The differential diagnosis associated with the presentation includes drug abuse Independent Historian Clinical information obtained from an independent historian. History obtained from or confirmed by: EMS External Record Review External record reviewed: Outpatient record Discharge Plan Discharge Clinical Impression: Acute anxiety Patient Disposition: Home, Self-Care Instructions: Anxiety (ED) Additional Instructions: You were seen in our Emergency Department today for treatment of a behavioral health issue. It is important after your visit that you follow up with either your behavioral health provider or a primary care doctor within 7 days.? If you have trouble finding a therapist you can reach out to [address] [phone] [facility] [employer] [facility] can be reached 7 days a week 24 hours a day.? Call [phone] to speak with someone.? Return for any worsening symptoms or concerns such as thoughts of self harm or harm to others. Please call 911 if you feel your mental health is worsening.? Prescriptions: No Action methadone 10 mg/5 mL Solution 75 mg PO DAILY amlodipine 2.5 mg tablet 2.5 mg PO DAILY amoxicillin-pot clavulanate 875-125 mg tablet 1 tab PO BID Qty: 6 0RF Interventions: ED Discharge Assessment Last Done: 08/10/24 21:05 Print Language: [place] Island[place]
[2024-08-10 21:05] VITALS: BP 157/82; PULSE 110; RESP 20; TEMP 36.6; O2SAT 95
--- NOTE | 2024-08-10 21:10 | PC.NURSE ---
patient stated that he had stubbed his foot on the curb and was cursing/angry and PD pulled over and called other research dietitian/ems to the scene and stated he needed to go to the hospital. pt states he has no medical complaints, he is homeless but refusing resources, states he has narcan with him. pt denies si/hi. pt did not overdose and narcan was not given by PD. evaluated patient and patient was discharged.
== END 2024-08-10 21:05 | disposition home or self-care (01) ==
PROVIDERS: Emergency Provider Emergency Medicine; PCP Family Medicine
DX: F41.9 Anxiety disorder, unspecified (principal); F14.10 Cocaine abuse, uncomplicated; R45.6 Violent behavior; Z79.899 Other long term (current) drug therapy
CPT/HCPCS: 99282

== ENCOUNTER 2024-11-28 21:48 | Inpatient (IN) | payer MEDICAID, SELFPAY ==
--- NOTE | ~2024-11-28 | CT_ITS ---
CLINICAL HISTORY: chest wall injury, tender chest, deform medial cla CT chest without contrast Comparison: None provided Findings: The heart size is normal. The visualized thyroid and mediastinum are unremarkable. There is a 6.5 mm nodule in the lingula with slightly spiculated margins and mild adjacent ground-glass. The upper abdomen is unremarkable. Focal lucency and cortical of the medial right clavicle with overlying soft tissue swelling. IMPRESSION: 1. 6.5 mm nodule in the lingula. Recommend follow-up per Fleischner society recommendations: 6-8 mm nodules have optional [address] follow-up in low risk, and 6-[address] follow-up followed by 18-[address] follow-up if no change in high risk patients. 2. Lucency of the medial right clavicle with surrounding soft tissue swelling. Differential considerations include subacute traumatic injury or possibly infection in the appropriate clinical scenario. Please correlate clinically. This document has been electronically signed by: Wu Hopson MD, PHD on 11/29/2024 00:34:22
--- NOTE | ~2024-11-28 | XR_ITS ---
EXAMINATION: XR TIBIA FIBULA 2 VIEWS RIGHT HISTORY: pain and swelling COMPARISON: There are no prior studies available for comparison. FINDINGS: AP and lateral views of the right tibia and fibula are submitted. Osseous mineralization is normal. There is no fracture or dislocation. The visualized knee and ankle joint spaces are preserved. There is soft tissue swelling at the anterior aspect of the distal tibia. XR/XR tibia fibula RT 2V IMPRESSION: Soft tissue swelling at the anterior aspect of the distal tibia. No osseous abnormality is identified. Electronically signed by: Aldo Ramos MD 12/04/2024 02:56 PM EDT
--- NOTE | ~2024-11-28 | US_ITS ---
EXAMINATION: US LOWER EXTREMITY VEINS LIMITED FOLLOW UP RIGHT HISTORY: swelling COMPARISON: There are no prior studies available for comparison. TECHNIQUE: Duplex and color Doppler sonographic examination of the deep venous system of the right lower extremity was performed. FINDINGS: The common femoral, superficial femoral, and popliteal veins are patent demonstrating normal compressibility, spontaneous flow, and augmentation. There is a normal color and spectral Doppler waveform appearance of the visualized deep venous system above the knee. The posterior tibial and peroneal veins are patent. There is diffuse subcutaneous edema. There are multiple enlarged lymph nodes and right inguinal region, the largest of which measures 5.2 x 1.8 x 2.9 cm. US/US venous duplex LE RT IMPRESSION: No evidence of acute DVT in the right lower extremity. Right inguinal lymphadenopathy. Electronically signed by: Aldo Ramos MD 11/29/2024 09:16 AM EDT
--- NOTE | ~2024-11-28 | CT_ITS ---
CLINICAL HISTORY: cellulitis, sepsis CT of the right tibia and fibula with IV contrast. Comparison: None provided Findings: No fracture or acute osseous abnormality. Old osseous irregularity of the tip of the medial malleolus represents remote prior injury. Osseous alignment is satisfactory. Visualized portions of the extensor mechanism are intact. There is extensive subcutaneous fat stranding or cellulitic change throughout the lower extremity. Changes are more severe of the anteromedial aspect of the left ankle. No organized or drainable fluid collection is identified. Impression: Extensive subcutaneous edema or cellulitic change with no drainable or organized fluid collection identified. This document has been electronically signed by: Wu Hopson MD, PHD on 11/29/2024 03:04:42
--- NOTE | 2024-11-28 22:05 | ECG_ITS ---
Test Reason : WOUND Blood Pressure : */* mmHG Vent. Rate : 93 BPM Atrial Rate : 93 BPM P-R Int : 142 ms QRS Dur : 84 ms QT Int : 356 ms P-R-T Axes : 64 66 53 degrees QTcB Int : 442 ms Normal sinus rhythm Possible Left atrial enlargement Nonspecific T wave abnormality Abnormal ECG When compared with ECG of 19-Mar-2024 19:08, No significant changes seen Referred By: Generic ED Physician Electronically Signed By: RACHELL ARMENTA
[2024-11-28 22:12] VITALS: BP 141/84; BP 170/82; PULSE 109; PULSE 98; RESP 20; TEMP 39; O2SAT 97; O2SAT 98; BMI 21.5
[2024-11-28 22:58] LABS: Hematocrit 28.7 % (42.0-52.0); Hemoglobin 9.8 g/dl (14.0-18.0); Imm Gran Abs Auto 0.38 X10*3/uL (0.00-0.03); Imm Gran Pct Auto 1.3 % (0.0-0.4); Lymphocytes Absolute Auto 2.8 X10*3/uL (1.2-4.9); MANUAL DIFF FLAG SCAN; Mean Corpuscular HGB Conc 34.1 g/dl (31.0-36.0); Mean Corpuscular Hemoglobin 26.5 pg (27.0-33.0); Mean Corpuscular Volume 77.6 fL (80.0-98.0); NRBC Abs Auto 0.000 X10*3/uL (0.0-0.012); NRBC Pct Auto 0.0 /100WBC (0.0-0.2); Platelet Count 388 X10*3/uL (160-400); Red Blood Count 3.70 X10*6/uL (4.60-5.80); SCAN SMEAR FLAG 1; White Blood Count 29.4 X10*3/uL (4.8-10.8)
--- NOTE | 2024-11-28 23:00 | ED.GENADULT ---
HPI - General Adult General Chief complaint: General Medical Stated complaint: LEG SWELLING, HTN, DIZZINESS Time Seen by Provider: 11/28/24 22:15 History of Present Illness ED Provider: Liu Carlton MD HPI narrative: 39-year-old male patient is a poor historian. Triage note is more lengthy then history I got from him. He does report striking his right pretibial area with a mirror that was in his bag few days ago since then swollen red draining. He notes the pain at the medial right collar bone unsure if he was injured denies cough or hemoptysis or recent fall that he can think of Related Data Home Medications ?Medication ?Instructions ?Recorded ?Confirmed methadone 10 mg/5 mL oral solution 95 mg PO DAILY 03/20/24 11/29/24 bupropion HCl 300 mg 24 hr tablet, 300 mg PO DAILY 11/29/24 11/29/24 extended release clonidine HCl 0.1 mg tablet 0.1 mg PO TID 11/29/24 11/29/24 cyclobenzaprine 5 mg tablet 5 mg PO TID PRN Muscle Spasm 11/29/24 11/29/24 fluoxetine 20 mg capsule 20 mg PO DAILY 11/29/24 11/29/24 Allergies Allergy/AdvReac Type Severity Reaction Status Date / Time ibuprofen Allergy Unknown headaches Verified 11/28/24 22:18 onion (ONION) Allergy Unknown ANAPHYLAXIS Verified 11/28/24 22:18 [facility] Past Medical History Medical History (Updated 11/29/24 @ 23:23 by Tamera Noel MD) Bacteremia Opioid use disorder Polysubstance abuse Alcohol abuse IV drug user No known health problems Social History Social History Household Members: None Housing: Homeless Do you presently have visiting nurse or other home services: No Alcohol intake: never Comment: discontinued Patient Tobacco Use Status: Current everyday Tobacco user Tobacco use type: Cigarette Cigarette Packs Per Day: 0.5 Cigarettes Per Day: 10.0 e-Cigarette/Vaping Use: Never Used Second Hand Smoke Exposure: No Substance Use Type: Crack/Cocaine, Heroin, IV Drugs and Marijuana service: No Physical Exam ED Vital Signs: Vital Signs - 24 hr 11/28/24 22:12 11/29/24 00:15 Temperature 102.2 F H 100.9 F H Pulse Rate 98 77 Respiratory Rate 20 16 Blood Pressure 141/84 H 136/73 Pulse Oximetry 98 97 Oxygen Delivery Method Room Air Room Air BMI result Body Mass Index 21.5 Const Other: Primary Survey: GCS: 15 Airway: Intact airway Breathing: Spontaneous respirations with bilateral breath sounds Circulation: Palpable bilateral carotid, brachial, femoral DP pulses with good skin color and distal perfusion. Disability: No gross paresis of the extremities or obvious focal neuro deficit. E FAST Ultrasound: Not indicated Secondary Survey: GENERAL: Disheveled, poorly kempt, thin HEAD The head is atraumatic, without swelling or ecchymosis of the face or behind the ears, including the periorbital area. There is no tenderness to face, and the oral and nasal mucosa are nonbloody. Dentition is intact. The TMs are without hemotympanum. NECK: Cervical collar in place. There is no midline cervical neck tenderness or stepoffs. The patient denies any numbness, tingling, or weakness of the extremities. The patient is able to range their neck completely without midline cervical pain, numbness, tingling, or weakness. EYES: Normal to inspection. Sclera non-icteric. EOMI, Pupils grossly symmetric/reactive. ENMT: External nose normal. No facial depression, gross hemotympanum, epistaxis. RESPIRATORY: Respiratory effort normal. Lungs clear to auscultation bilaterally. CARDIOVASCULAR: Regular rate. Normal rhythm. No murmur. No rubs. GI: Soft, non-tender, non-distended. No rebound or guarding. No masses palpable. No hepatosplenomegaly. No bruising. MSK: Chest Wall: Mild tenderness upon palpation over the right anterior and mid axillary chest wall. There is swelling protuberance of the medial clavicle. No crepitus no bruising Back: No ecchymosis, no abrasions or other external signs of trauma, no midline spinal tenderness. Upper Extremities: Atraumatic, no swelling, deformity, focal tenderness, +FROM of all joints. Lower Extremities: Right lower extremity with redness swelling but soft compartments. Drainage and discharge from various areas in the anterior pretibial region. Swelling about the ankle well-perfused. Otherwise Atraumatic, no swelling, deformity, focal tenderness, +FROM of all joints. SKIN: No jaundice. No abrasions, lacerations, or ecchymosis. Skin redness see above in the musculoskeletal exam NEUROLOGICAL: Alert. Comprehensive Neuro exam: Face symmetric, tongue midline, strong symmetric eye closure intact strong face deviation and shoulder shrug. Sensation intact to light touch throughout 5 out of 5 strength in bilateral upper extremities, 5 and 5 strength in lower extremities bilaterally? PSYCHIATRIC: Alert. Appearance appropriate for situation. Attitude cooperative. Course Course Course Narrative: Sepsis was activated at 07/27/2026. Fluids IV antibiotics cultures ordered. I was notified approximately 1115p patient had extremely difficult IV access due to scar tissue in the arms IV drug use. This delayed IV antibiotic and administration. I was able to establish an IV see procedure note with ultrasound guidance at about 23:30 Medications Administered Generic Name Dose Route Start Last Admin Trade Name Freq PRN Reason Stop Dose Admin Acetaminophen 650 mg 11/29/24 01:41 11/29/24 17:12 Acetaminophen 325 Mg Tablet PO 650 mg Q6H PRN Administration Pain, Mild 1-3,fever,headache Bupropion HCl 300 mg 11/29/24 10:00 11/30/24 08:21 Bupropion Hcl Xl 300 Mg Tab.Er.24h PO 300 mg DAILY AD Administration Ceftriaxone Sodium 2 gm 11/29/24 15:00 11/30/24 15:18 Ceftriaxone Sodium 2 Gm Vial IVPUSH 2 gm Q24H AD Administration Clonidine HCl 0.1 mg 11/29/24 10:00 11/30/24 15:18 Clonidine Hcl 0.1 Mg Tablet PO 0.1 mg TID AD Administration Protocol Enoxaparin Sodium 40 mg 11/29/24 02:00 11/30/24 01:03 Enoxaparin Sodium 40 Mg/0.4 Ml Syringe SUBCUT 40 mg Q24H AD Administration Fluoxetine HCl 20 mg 11/29/24 10:00 11/30/24 08:21 Fluoxetine Hcl 20 Mg Capsule PO 20 mg DAILY AD Administration Vancomycin HCl 1,000 mg/ 270 mls @ 270 mls/hr 11/30/24 12:00 11/30/24 12:49 Sodium Chloride IV Infused Q8H AD Infusion Methadone HCl 95 mg 11/29/24 09:00 11/30/24 08:23 Methadone Hcl 20 Mg/2 Ml Oral.Conc PO 95 mg DAILY AD Administration Oxycodone HCl 5 mg 11/29/24 15:53 11/29/24 16:47 Oxycodone Hcl Immed Release 5 Mg Tablet PO 5 mg Q4H PRN Administration Pain, Severe (Pain Scale 7-10) Sodium Chloride 3 ml 11/29/24 08:00 11/30/24 15:19 0.9 % Sodium Chloride Flush 3 Ml Syringe IVFLUSH 3 ml QSHIFT AD Administration Discontinued Medications Generic Name Dose Route Start Last Admin Trade Name Freq PRN Reason Stop Dose Admin Acetaminophen 975 mg 11/28/24 22:30 11/28/24 23:46 Acetaminophen 325 Mg Tablet PO 11/28/24 22:31 975 mg ONCE ONE Administration Ceftriaxone Sodium 2 gm 11/28/24 22:25 11/28/24 23:47 Ceftriaxone Sodium 2 Gm Vial IVPUSH 11/28/24 22:26 2 gm ONCE ONE Administration Sodium Chloride 1,000 mls @ 999 mls/hr 11/28/24 22:30 11/29/24 03:30 Ns IV 11/28/24 23:30 Infused .Q1H1M AD Infusion Vancomycin HCl 1,000 mg/ 535 mls @ 267.5 mls/hr 11/28/24 22:25 11/29/24 03:30 Vancomycin HCl 750 mg/ Sodium IV 11/29/24 00:24 Infused Chloride ONCE ONE Infusion Vancomycin HCl 1,000 mg/ 270 mls @ 270 mls/hr 11/29/24 12:00 11/30/24 02:04 Sodium Chloride IV Infused Q12H AD Infusion Iohexol 100 ml 11/29/24 02:07 11/29/24 02:14 Iohexol 350 Mg/Ml 100 Ml Infus..Btl IV 11/29/24 02:08 85 ml ONCE ONE Administration Ketorolac Tromethamine 15 mg 11/28/24 22:30 11/28/24 23:47 Ketorolac Tromethamine 15 Mg/Ml Vial IVPUSH 11/28/24 22:31 15 mg ONCE ONE Administration Procedures Procedure Narrative Procedure Narrative: Ultrasound Guided Peripheral Intravenous Catheter Placement Date/Time: 11/28/2024, 8 Indication: Intravenous Access Location: Right brachial arm Provider: Self I was approached by nursing staff and informed that multiple unsuccessful attempts had been made to establish IV access in the patient. The patients arm was surveyed with the ultrasound for verification of vessel collapsibility, patency, depth and caliber, as well as identification of nearby structures. The target area was prepped with chlorhexidine. A tourniquet was placed proximally on the extremity. Under real-time ultrasound guidance, an 20 G 2.25 inch AccuCath nontunneled catheter was advanced into the target vein. Dark blood was visualized in the flash chamber. The catheter was easily advanced into the vein. The catheter was evacuated of air and flushed with sterile saline. The catheter was secured in place with a tegaderm. The patient tolerated the procedure well and there were no complications. Estimated Blood Loss: 1mL Total Time for Procedure: 5min Image stored __ Unfortunately at approximately 06:05 the initial right-sided brachial catheter was removed by the patient. Another procedure needed to be done see below. Ultrasound Guided Peripheral Intravenous Catheter Placement Date/Time: 11/29/2024, 15:00 Indication: Intravenous Access Location: Left arm, brachial vein Provider: Oneil I was approached by nursing staff and informed that multiple unsuccessful attempts had been made to establish IV access in the patient. The patients arm was surveyed with the ultrasound for verification of vessel collapsibility, patency, depth and caliber, as well as identification of nearby structures. The target area was prepped with chlorhexidine. A tourniquet was placed proximally on the extremity. Under real-time ultrasound guidance, an 20 G 2.25 inch AccuCath nontunneled catheter was advanced into the target vein. Dark blood was visualized in the flash chamber. The catheter was easily advanced into the vein. The catheter was evacuated of air and flushed with sterile saline. The catheter was secured in place with a tegaderm. The patient tolerated the procedure well and there were no complications. Estimated Blood Loss: 1mL Total Time for Procedure: 5min Image stored Medical Decision Making Medical Decision Making MDM Narrative: This is a 39-year-old male on domicile old who reports severe pain at the right medial clavicle and redness and swelling of the right pretibial area. The patient is disheveled malodorous and poorly kempt. He acknowledges IV drug use. He is very poor historian and offers limited history but it seems that he injured his pretibial area in the right side several days ago kicking a bag that had a mirror in it. There some breaks in the skin anteriorly and weeping with purulent drainage. There was no crepitus or necrotic appearing skin. He is tachycardic and febrile but no hypotension. Doubt necrotizing fasciitis though this was considered. The compartments of the leg are soft. DVT ultrasound is ordered though this is more likely to be infectious. Patient covered broadly for cellulitis including MRSA coverage. He has leukocytosis. We have given him IV fluid pain control antipyretics. Chest CT performed given the patient's poor history with swelling and pain at the medial clavicle there is lucency in the bone there suggestive of possible fracture. Clinically this looks less suggestive of an infectious process without overlying skin changes but this can not be completely excluded. Inpatient team can perform MR of the clavicle/manubrial joint if they feel that is necessary. Differential Diagnosis Cellulitis, less likely fasciitis, chest wall injury rib fracture pneumothorax clavicle fracture, electrolyte derangement, dehydration, sepsis Lab Data MDM Lab Attestation statement: I reviewed the patient's lab results. 11/30/24 07:42 11/30/24 07:42 Labs: Lab Results 11/28/24 11/28/24 11/28/24 Range/Units 22:45 22:47 23:04 WBC 29.4 H (4.8-10.8) X10*3/uL RBC 3.70 L (4.60-5.80) X10*6/uL Hgb 9.8 L (14.0-18.0) g/dl Hct 28.7 L (42.0-52.0) % MCV 77.6 L (80.0-98.0) fL MCH 26.5 L (27.0-33.0) pg MCHC 34.1 (31.0-36.0) g/dl RDW 14.2 (11.0-16.0) % Plt Count 388 D (160-400) X10*3/uL MPV 9.9 (9.4-12.4) fL Immature Gran % (Auto) 1.3 H (0.0-0.4) % Neut % (Auto) 83.7 H (45-73) % Lymph % (Auto) 9.4 L (20-40) % [place] % (Auto) 5.3 (2-11) % Eos % (Auto) 0.1 (0-4) % Baso % (Auto) 0.2 (0-2) % Lymph # (Auto) 2.8 (1.2-4.9) X10*3/uL [place] # (Auto) 1.6 H (0.1-1.2) X10*3/uL Eos # (Auto) 0.0 (0.0-0.4) X10*3/uL Baso # (Auto) 0.1 (0.0-0.2) X10*3/uL Abs Immat Gran (auto) 0.38 H (0.00-0.03) X10*3/uL Absolute Neuts (auto) 24.6 H (2.0-8.3) x10*3/uL Absolute Nucleated RBC 0.000 (0.0-0.012) X10*3/uL Nucleated RBC % (auto) 0.0 (0.0-0.2) /100WBC Smear Tech's Comments VERIFIED ESR 98 H (0-15) MM/HR Sodium 131 L (135-145) mmol/L Potassium 4.4 (3.3-5.1) mmol/L Chloride 98 (96-108) mmol/L Carbon Dioxide 23 (22-29) mmol/L Anion Gap 14 (12-20) BUN 19 H (9-16) mg/dL Creatinine 1.13 (0.5-1.4) mg/dL Estim Creat Clear Calc 83.6 Estimated GFR > 60 Random Glucose 120 H (60-115) mg/dL Lactic Acid 0.9 (0.5-2.0) mmol/L Calcium 8.5 (8.4-10.2) mg/dL Total Bilirubin 0.4 (0.0-1.0) mg/dL AST 43 H (5-37) U/L ALT 39 (0-40) U/L Alkaline Phosphatase 295 H (39-117) U/L C-Reactive Protein 30.96 H (< or = 0.50) mg/dL Total Protein 7.5 (6.5-8.0) g/dL Albumin 3.5 (3.5-5.0) g/dL Discharge Plan Discharge Clinical Impression: Cellulitis Patient Disposition: Admitted As Inpatient Interventions: Admission Worksheet (ED) Last Done: 11/29/24 11:51 Discharge Date/Time: 11/29/24 12:33
[2024-11-28 23:09] LABS: Alanine Aminotransferase 39 U/L (0-40); Albumin Level 3.5 g/dL (3.5-5.0); Alkaline Phosphatase 295 U/L (39-117); Anion Gap 14 (12-20); Aspartate Amino Transferase 43 U/L (5-37); Blood Urea Nitrogen 19 mg/dL (9-16); Calcium 8.5 mg/dL (8.4-10.2); Carbon Dioxide 23 mmol/L (22-29); Chloride 98 mmol/L (96-108); Creatinine Clr Calc Pharmacy 83.6; Estimated Glomerular Filt Rate > 60; Potassium 4.4 mmol/L (3.3-5.1); Sodium 131 mmol/L (135-145); Total Protein 7.5 g/dL (6.5-8.0)
--- NOTE | 2024-11-28 23:28 | PC.NURSE ---
Multiple failed attempts at obtaining IV access as there is a lot of scar tissue. Failed attempt at obtaining and U/S guided line. Provider made aware and will attempt an U/S guided line.
[2024-11-28] MEDS: vancomycin HCL 1,000 MG, vancomycin HCL 750 MG in 0.9 % Sodium Chloride 500 ML 267.5 MG IV (23:47)
[2024-11-29] VITALS (12 sets, daily range): BP systolic 95–136; BP diastolic 59–76; PULSE 53–77; RESP 14–18; TEMP 36.4–38.3; O2SAT 96–99
--- NOTE | 2024-11-29 00:11 | PC.NURSE ---
20G U/S guided line obtained by . AB administered late for this reason. aware.
--- NOTE | 2024-11-29 01:43 | PM.IMHP ---
History of Present Illness Date of Service: 11/29/24 Chief Complaint: Leg infection This is a 39-year-old male with pertinent history of polysubstance IV drug use disorder, history of MRSA infection, mood disorder, hypertension who presents to the emergency department for evaluation of leg pain and swelling. Patient is a poor historian. Admits IV drug use. States he noticed right lower extremity swelling and redness 4 days prior to presentation. States he kicked his back that had a mirror in it that caused his leg injury. Also reports trauma to the right clavicle and it has been paining since, unclear duration. Patient is unable to verify if he takes any home p.o. prescription medications. He is homeless. Denies palpitations, shortness of breath, abdominal pain, changes in urinary or bowel habits. In the emergency department, patient was found to be septic with leukocytosis 29 and fever 102.2. He was given IV fluids and IV vancomycin in the ER Review of Systems Constitutional: Constitutional: Reports fatigue and Reports malaise Respiratory: Respiratory: Reports no additional respiratory complaints Gastrointestinal: Gastrointestinal: Reports no additional gastrointestinal complaints Genitourinary: Genitourinary: Reports no additional male genitourinary complaints Endocrine: Endocrine: Reports fatigue PMFSH Medical History Polysubstance abuse Opioid use disorder Alcohol abuse IV drug user No known health problems Pertinent family history: No family history of early CAD Social History Household Members: Other Housing: Homeless Do you presently have visiting nurse or other home services: No Alcohol intake: never Comment: discontinued Patient Tobacco Use Status: Tobacco use Unknown Tobacco use type: Cigarette Cigarette Packs Per Day: 0.5 Cigarettes Per Day: 10.0 Smoked in Last 30 Days: No Second Hand Smoke Exposure: No Use of substances other than those prescribed or required for medical reasons: Yes Substance Use Type: Crack/Cocaine, Heroin, IV Drugs and Marijuana Advance Directives: No Advance Directives Information Provided: Yes Do you have a plan to hurt others: No Plan Nutrition Risks: No Nutritional Risk service: No Meds Allergies Allergy/AdvReac Type Severity Reaction Status Date / Time ibuprofen Allergy Unknown headaches Verified 11/28/24 22:18 onion (ONION) Allergy Unknown ANAPHYLAXIS Verified 11/28/24 22:18 Home Medications ?Medication ?Instructions ?Recorded ?Confirmed ?Last Taken ?Type amlodipine 2.5 mg tablet 2.5 mg PO DAILY 03/20/24 03/20/24 Unknown History methadone 10 mg/5 mL oral solution 75 mg PO DAILY 03/20/24 03/20/24 03/18/24 History Physical Exam Vital Signs and Narrative: Vital Signs: Last Vital Signs Temp 102.2 F H 11/28/24 22:12 Pulse 98 11/28/24 22:12 Resp 20 11/28/24 22:12 BP 141/84 H 11/28/24 22:12 Pulse Ox 98 11/28/24 22:12 O2 Del Method Room Air 11/28/24 22:12 BMI result Body Mass Index 21.5 Middle-aged male lying in bed in no distress Neck supple, no JVD, right medial clavicle with tenderness Regular rate and rhythm, S1-S2 heard Regular breath sounds bilaterally, no wheezing or crackles appreciated Abdomen soft nontender, no guarding, no rigidity Patient is awake, alert and oriented to self, place, time and person ; no focal motor deficit Psych: Normal mood Right lower extremity with redness, swelling and purulent drainage ; bilateral extremities with track [place] Results Labs 11/28/24 22:47 11/28/24 22:45 Labs: Laboratory Results - last 24 hr 11/28/24 11/28/24 11/28/24 22:45 22:47 23:04 MCV 77.6 L MCH 26.5 L MCHC 34.1 RDW 14.2 Plt Count 388 D MPV 9.9 Immature Gran % (Auto) 1.3 H Neut % (Auto) 83.7 H Lymph % (Auto) 9.4 L [place] % (Auto) 5.3 Eos % (Auto) 0.1 Baso % (Auto) 0.2 Lymph # (Auto) 2.8 [place] # (Auto) 1.6 H Eos # (Auto) 0.0 Baso # (Auto) 0.1 Abs Immat Gran (auto) 0.38 H Absolute Neuts (auto) 24.6 H Absolute Nucleated RBC 0.000 Nucleated RBC % (auto) 0.0 Smear Tech's Comments VERIFIED ESR 98 H Anion Gap 14 Estim Creat Clear Calc 83.6 Estimated GFR > 60 Random Glucose 120 H Lactic Acid 0.9 Calcium 8.5 Total Bilirubin 0.4 AST 43 H ALT 39 Alkaline Phosphatase 295 H C-Reactive Protein 30.96 H Total Protein 7.5 Albumin 3.5 Assessment and Plan (1) Sepsis: Status: Acute (2) Cellulitis: Status: Acute Plan This is a 39-year-old male with pertinent history of polysubstance IV drug use disorder, history of MRSA infection, mood disorder, hypertension who presents to the emergency department for evaluation of leg pain and swelling. #. Sepsis due to right lower extremity cellulitis: Resuscitated with IV crystalloids. Initiating IV vancomycin. Lactic acid and blood culture obtained #. Polysubstance use disorder: Monitor for withdrawal. Consulted Addiction Team. UDS pending #. Hypertension: Initiated on amlodipine previously. Noncompliant. Continue to monitor #. Mood disorder: Continue home mood stabilizers #. Right medial clavicle injury due to trauma: Imaging with lucency and soft tissue swelling. Conservative management #. Microcytic anemia: Obtaining iron studies #. Homelessness: Consulted case management Med rec pending DVT prophylaxis: Lovenox Full code Admit as inpatient and will require two night minimum hospital stay for IV antibiotics (as above), which is not possible in a lesser acute setting. Quality Stroke Does the patient have a stroke diagnosis?: No VTE Prior VTE?: No VTE Risk Level:: Medical - moderate - high VTE Device Contraindication: Treatment Not Indicated VTE Drug Contraindication: N/A - Med Ordered
[2024-11-29] MEDS: iohexoL 350 MG/ML 100 ML INFUS..BTL IV (02:14)
--- NOTE | 2024-11-29 03:17 | PC.NURSE ---
Delay in fluid and vanco completion as pump continues to stop and beep for an occlusion on multiple occassions. IV line repositioned and redressed as fluids are going in very slow despite being on a pressure bag. Monitoring is ongoing.
[2024-11-29 05:04] LABS: Appearance Urine Clear; Glucose Urine UA Negative (Negative); PH 6.0 (5.0-9.0); Specific Gravity - Urine >= 1.030 (1.005-1.025); UMIC TRIGGER UACC YES
[2024-11-29 05:14] LABS: Cannabinoid Screen Urine Not Detected (Not Detect)
--- NOTE | 2024-11-29 05:43 | PC.NURSE ---
U/S guided IV came out while pt was sleeping. placed another one on the left bicep. Pt tolerated well.
[2024-11-29 05:46] LABS: Hematocrit 26.7 % (42.0-52.0); Hemoglobin 9.0 g/dl (14.0-18.0); Imm Gran Abs Auto 0.46 X10*3/uL (0.00-0.03); Imm Gran Pct Auto 1.9 % (0.0-0.4); Lymphocytes Absolute Auto 3.0 X10*3/uL (1.2-4.9); MANUAL DIFF FLAG NO; Mean Corpuscular HGB Conc 33.7 g/dl (31.0-36.0); Mean Corpuscular Hemoglobin 26.2 pg (27.0-33.0); Mean Corpuscular Volume 77.8 fL (80.0-98.0); NRBC Abs Auto 0.000 X10*3/uL (0.0-0.012); NRBC Pct Auto 0.0 /100WBC (0.0-0.2); Platelet Count 342 X10*3/uL (160-400); Red Blood Count 3.43 X10*6/uL (4.60-5.80); White Blood Count 24.0 X10*3/uL (4.8-10.8)
[2024-11-29 05:59] LABS: Anion Gap 10 (12-20); Blood Urea Nitrogen 15 mg/dL (9-16); Calcium 8.1 mg/dL (8.4-10.2); Carbon Dioxide 25 mmol/L (22-29); Chloride 102 mmol/L (96-108); Creatinine Clr Calc Pharmacy 99.4; Estimated Glomerular Filt Rate > 60; Iron 10 mcg/dL (45-160); Percent Iron Saturation 7 % (15-50); Potassium 3.2 mmol/L (3.3-5.1); Sodium 134 mmol/L (135-145); Total Iron Binding Capacity 152 mcg/dL (228-428); Unsaturated Iron Binding 142 ug/dL
--- NOTE | 2024-11-29 06:32 | MHC.EDTECH ---
pt admitted, when going through pt belongings for documentation purposes t/w discovered needles throughout pt belongings, security called. pt additional belongings currently with security. pt report given, care transferred
--- NOTE | 2024-11-29 07:14 | PC.NURSE ---
Report given to Eliane METZ, plan to move pt over to ED overflow.
--- NOTE | 2024-11-29 09:10 | PHA.MEDREC ---
Pharmacy Consult ? Medication Reconciliation Pharmacy has completed the medication reconciliation. Spoke to patient who confirmed meds
--- NOTE | 2024-11-29 09:10 | HE.PHANOTE ---
Methadone confirmation form received. Patient takes 95mg from [facility]. Last dose 11/28. Got 2 take homes on 11/27
[2024-11-29] MEDS: methADONE HCl 20 MG/2 ML ORAL.CONC 95 MG PO (09:52)
[2024-11-29] MEDS: 0.9 % Sodium Chloride Flush 3 ML SYRINGE IVFLUSH ×2 (09:53→14:12)
--- NOTE | 2024-11-29 09:56 | CA_ITS ---
Transthoracic Echocardiogram Patient (Last, First, Middle): Gustabo Alcocer C Gender: Male Date of : 1985 Age: 39 Procedure Date: 11/29/2024 Procedure Type: Transthoracic Echocardiogram Location: ER Height: 177.8 cm Weight: 68.04 kg BSA: 1.85 m2 Heart Rate: bpm BP: 98 / 68 mmHg Manager Special Events: TO Referring MD: Bernard Merlos MD Symptoms: concern for endocarditis Study Quality: Fair ECG Rhythm: Sinus Conclusions: - The left ventricular systolic function is normal. The calculated ejection fraction is 60% by biplane method. - No obvious valvular pathology seen on this study. Findings Left Ventricle Normal left ventricular cavity size. There is normal left ventricular wall thickness. The left ventricular systolic function is normal. The calculated ejection fraction is 60% by biplane method. There is no evidence of regional wall motion abnormalities. Diastolic function is normal for age. Right Ventricle Mildly increased right ventricular cavity size. There is normal right ventricular systolic function. Atria The left atrium is moderately dilated. The right atrium is normal in size. Aortic Valve There is a normal trileaflet aortic valve. There is no aortic valve stenosis. There is no aortic valve regurgitation. Mitral Valve The mitral valve appears normal. There is trace mitral valve regurgitation. There is no mitral valve stenosis. Pulmonic Valve The pulmonic valve is likely normal. Tricuspid Valve There is mild tricuspid valve regurgitation. There is no evidence of pulmonary hypertension. Great Vessels The asc aorta is normal in size. Venous The inferior vena cava is dilated and collapses less than 50% with inspiration. Pericardium/Pleural There is no evidence of pericardial effusion. Prior Study Comparison No prior study available for comparison. Recommendations, Care & Conclusions No obvious valvular pathology seen on this study. Measurements 2D Linear Measurements IVSd: 0.82 0.6-0.9/0.6-1.0 cm LVIDd: 4.77 3.9-5.3/4.2-5.9 cm LVIDd Index: 2.58 2.4-3.2/2.2-3.1 cm/m2 LVIDs: 2.92 2.0-3.6 cm LVPWd: 0.79 0.7-1.1 cm LA Diam: 3.20 2.7-3.8/3.0-4.0 cm LAIDs Index: 1.73 1.5-2.3 cm/m2 LV Mass: 156.57 67-162/88-224 g LV Mass Index: 84.64 43-95/49-115 g/m2 LVOT Diam: 2.30 3.0+(-)1.3 cm 2D Systolic Function EF 4C: 61.90 >55% EF 2C: 58.30 >55% EF BiP: 59.80 >55% Mitral Valve MV Pk E: 0.68 MV PK A: 0.60 MV Decel Time: 155.00 E/A: 1.10 E'Lateral: 11.90 E'Medial: 9.03 E/E' Med: 7.50 E/E' Lat: 5.70 PHT: 45.00 MVA PHT: 4.89 Decel [place]: 4.40 Aortic Valve AoV Pk Jeff: 1.82 AoV Mn Jeff: 1.33 AoV VTI: 0.39 AoV Pk Grad: 13.00 Aov Mn Grad: 8.00 QUANG Cont.VTI: 4.07 LVOT LVOT Pk Jeff: 1.75 LVOT Mn Jeff: 1.27 LVOT VTI: 0.38 LVOT Pk Grad: 12.00 LVOT Mn Grad: 7.00 LVOT Diam: 2.30 LVOT Area: 4.15 Diastolic Function MV Pk E: 0.68 MV Pk A: 0.60 E/A: 1.10 E'Medial: 9.03 E/E' Med: 7.50 E' Laterial: 11.90 E/E' Lat: 5.70 Right Ventricle TAPSE (mm): 26.30 TVS' Jeff: 11.20 Tricuspid Valve TR Pk Jeff: 2.41 TR Pk Grad: 23.00 RA Press: 15.00 RVSP: 38.00 Great Vessels Aorta Sinus of Valsalva: 3.47 2.0-3.5 cm Ao Asc: 3.80 2.1-3.4 cm Updated in Other Vendor System with Status of Final Eliceo Sahni MD electronically signed on 11/29/2024 12:03:27 PM with status of Final
--- NOTE | 2024-11-29 09:58 | PM.EVENT ---
Event Note Date of Service: 11/29/24 Event Note: Pt seen and examined, labs, imaging reviewed. C/o pain in right clavicaluar are with swelling and pain in the right leg. Vital are within normal and WBC is trending down . right le-year-old male with pertinent history of polysubstance IV drug use disorder, history of MRSA infection, mood disorder, hypertension who presents to the emergency department for evaluation of leg pain and swelling and found to have cellulitis of right leg Sepsis due to right lower extremity cellulitis continue vano, add Rocephin, get an echo to rule endocarditis Polysubstance use disorder: Monitor for withdrawal. addiction med consult continue methadone and clonidine Hypertension, non complaint continue norascasc and clonidine Mood disorder resume home meds Right medial clavicle injury due to trauma, not abscess: Imaging with lucency and soft tissue swelling. Conservative management Microcytic anemia: Obtaining iron studies Homelessness: Consulted case management DVT prophylaxis: Lovenox Full code Time Spent With Patient Time: Total time managing care of this patient today ____ minutes.
--- NOTE | 2024-11-29 10:16 | PC.NURSE ---
10am Med administration delayed d/t medications not stocked in overflow pyxis. Pharmacy notified- medications will be brought up.
[2024-11-29] MEDS: buPROPion HCl XL 300 MG TAB.ER.24H PO (14:10)
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
--- NOTE | 2024-11-29 15:13 | MHC.CM.PN ---
Pt. reports to be homeless, he does not have a PCP, he said he may want to DC to a snf. He was lethargic, falling asleep during conversatoin. CM to follow and assist with DC plan.
[2024-11-29] MEDS: oxyCODONE HCl Immed Release 5 MG TABLET PO (16:47)
--- NOTE | 2024-11-29 17:46 | PC.NURSE ---
P: Alteration in Comfort I: See nursing documentation and MD orders E: Patient complaint of severe pain in R shoulder per pain scale. Patient given PRN pain medication with no affect. Ice packs given with no affect. Doctor notified.
--- NOTE | 2024-11-29 23:19 | W.PM.IDCN ---
History of Present Illness Data of Consult Service Date: 11/29/24 Requesting physician: Bernard Merlos Primary Care Provider: Unknown Physician HPI Reason for consult: right leg and chest wall pain He presents with right leg pain and swelling. He has no fever or chills. He has temperature of 102.2 as well as tachycardia to 110. Blood cultures gram positive dwight on 11/28 x 2. PMFSH Past Medical History Medical History (Updated 11/29/24 @ 23:23 by Tamera Noel MD) Bacteremia Opioid use disorder Polysubstance abuse Alcohol abuse IV drug user No known health problems Social History Social History Household Members: None Housing: Homeless Do you presently have visiting nurse or other home services: No Alcohol intake: never Comment: discontinued Patient Tobacco Use Status: Current everyday Tobacco user Tobacco use type: Cigarette Cigarette Packs Per Day: 0.5 Cigarettes Per Day: 10.0 e-Cigarette/Vaping Use: Never Used Second Hand Smoke Exposure: No Substance Use Type: Crack/Cocaine, Heroin, IV Drugs and Marijuana service: No Meds Allergies Allergy/AdvReac Type Severity Reaction Status Date / Time ibuprofen Allergy Unknown headaches Verified 11/28/24 22:18 onion (ONION) Allergy Unknown ANAPHYLAXIS Verified 11/28/24 22:18 Active Medications: Current Medications Acetaminophen (Acetaminophen 325 Mg Tablet) 650 mg PO Q6H PRN PRN Reason: Pain, Mild 1-3,fever,headache Last Admin: 11/29/24 17:12 Dose: 650 mg Bupropion HCl (Bupropion Hcl Xl 300 Mg Tab.Er.24h) 300 mg PO DAILY AD Last Admin: 11/29/24 14:10 Dose: 300 mg Calcium Carbonate (Calcium Carbonate 750 Mg Tab.Chew) 750 mg PO Q4H PRN PRN Reason: Heartburn Ceftriaxone Sodium (Ceftriaxone Sodium 2 Gm Vial) 2 gm IVPUSH Q24H [facility] Last Admin: 11/29/24 15:44 Dose: 2 gm Clonidine HCl (Clonidine Hcl 0.1 Mg Tablet) 0.1 mg PO TID [facility]; Protocol Last Admin: 11/29/24 21:44 Dose: 0.1 mg Cyclobenzaprine HCl (Cyclobenzaprine Hcl 5 Mg Tablet) 5 mg PO TID PRN PRN Reason: Muscle Spasm Enoxaparin Sodium (Enoxaparin Sodium 40 Mg/0.4 Ml Syringe) 40 mg SUBCUT Q24H [facility] Last Admin: 11/29/24 02:32 Dose: 40 mg Fluoxetine HCl (Fluoxetine Hcl 20 Mg Capsule) 20 mg PO DAILY [facility] Last Admin: 11/29/24 12:28 Dose: 20 mg Vancomycin HCl 1,000 mg/ (Sodium Chloride) 270 mls @ 270 mls/hr IV Q12H [facility] Last Infusion: 11/29/24 14:00 Dose: Infused Magnesium Hydroxide (Milk Of Magnesia 30 Ml Oral.Susp) 30 ml PO DAILY PRN PRN Reason: Constipation Melatonin (Melatonin 3 Mg Tablet) 6 mg PO BEDTIME PRN PRN Reason: Insomnia Methadone HCl (Methadone Hcl 20 Mg/2 Ml Oral.Conc) 95 mg PO DAILY [facility] Last Admin: 11/29/24 09:52 Dose: 95 mg Ondansetron HCl (Ondansetron Hcl 4 Mg/2 Ml Vial) 4 mg IVPUSH Q8H PRN PRN Reason: Nausea and Vomiting Oxycodone HCl (Oxycodone Hcl Immed Release 5 Mg Tablet) 5 mg PO Q4H PRN PRN Reason: Pain, Severe (Pain Scale 7-10) Last Admin: 11/29/24 16:47 Dose: 5 mg Pharmacy Consult (Consult Rx Vancomycin Dosing) 1 each MISCELLANE DAILY PRN PRN Reason: Consult order Sodium Chloride (0.9 % Sodium Chloride Flush 3 Ml Syringe) 3 ml IVFLUSH QSHIFT [facility] Last Admin: 11/29/24 14:12 Dose: 3 ml Home Medications ?Medication ?Instructions ?Recorded ?Confirmed ?Last Taken ?Type methadone 10 mg/5 mL oral solution 95 mg PO DAILY 03/20/24 11/29/24 11/28/24 History 95 mg bupropion HCl 300 mg 24 hr tablet, 300 mg PO DAILY 11/29/24 11/29/24 Unknown History extended release clonidine HCl 0.1 mg tablet 0.1 mg PO TID 11/29/24 11/29/24 Unknown History cyclobenzaprine 5 mg tablet 5 mg PO TID PRN Muscle Spasm 11/29/24 11/29/24 Unknown History fluoxetine 20 mg capsule 20 mg PO DAILY 11/29/24 11/29/24 Unknown History Physical Exam Vital Signs: Vital Signs: Last Vital Signs Temp 99.2 F 11/29/24 21:47 Pulse 63 11/29/24 21:47 Resp 18 11/29/24 21:47 BP 115/73 11/29/24 21:47 Pulse Ox 96 11/29/24 21:47 O2 Del Method Room Air 11/29/24 21:47 BMI result Body Mass Index 21.5 Const: General: cooperative HEENT: Head: Yes normal to inspection Face and sinus: Yes normal facial exam Mouth: Normal oral and palatal mucosa present Teeth and gingiva: dentition normal Eyes: General: appearance normal, both eyes and all related structures Pupils: Equal, round and reactive pupils present Resp: Effort & Inspection: normal respiratory effort Cardio: Rate: regular rate Rhythm: regular rhythm GI: Palpation (GI): Soft to palpation and nontender : General: Yes no CVA tenderness Back/Spine/Pelvis: Back: no CVA tenderness Skin: General skin exam: no rashes or lesions noted Neuro: General: moves all extremities Cranial nerves: Yes Equal, round and reactive pupils present Extrem: Other: redness RLE General: Yes normal to inspection Psych: Appearance: grossly normal Results Labs 11/29/24 05:42 11/29/24 05:42 Labs: Short CBC 11/29/24 Range/Units 05:42 WBC 24.0 H (4.8-10.8) X10*3/uL Hgb 9.0 L (14.0-18.0) g/dl Hct 26.7 L (42.0-52.0) % Plt Count 342 (160-400) X10*3/uL BMP 11/29/24 05:42 Sodium 134 L Potassium 3.2 L D Chloride 102 Carbon Dioxide 25 BUN 15 Creatinine 0.95 Calcium 8.1 L Urine 11/29/24 Range/Units 04:53 Urine Color Yellow Urine Appearance Clear Urine pH 6.0 (5.0-9.0) Ur Specific [place] >= 1.030 H (1.005-1.025) Urine Protein 30 (1+) H (Neg-Trace) mg/dL Urine Glucose (UA) Negative (Negative) mg/dL Microbiology Microbiology Results: Microbiology 11/28/24 23:04 Blood - Venous Blood Culture - Preliminary Prelim: GPR Gram Stain only 11/28/24 22:45 Blood - Venous Blood Culture - Preliminary Prelim: GPR Gram Stain only 11/28/24 23:57 Leg - Left Gram Stain - Final Assessment and Plan (1) IV drug user: Status: Acute (2) Opioid use disorder: Status: Acute (3) Bacteremia: Status: Acute Plan Continue Ceftriaxone and Vancomycin (echo neg) Await blood cultures. Check HIV and Hepatitis C viral load.
[2024-11-30] MEDS: 0.9 % Sodium Chloride Flush 3 ML SYRINGE IVFLUSH ×4 (01:04→19:08)
[2024-11-30 07:33] VITALS: BP 138/85; PULSE 63; RESP 17; TEMP 36.9; O2SAT 96
[2024-11-30 07:57] LABS: Hematocrit 28.5 % (42.0-52.0); Hemoglobin 9.5 g/dl (14.0-18.0); Mean Corpuscular HGB Conc 33.3 g/dl (31.0-36.0); Mean Corpuscular Hemoglobin 26.1 pg (27.0-33.0); Mean Corpuscular Volume 78.3 fL (80.0-98.0); NRBC Abs Auto 0.000 X10*3/uL (0.0-0.012); NRBC Pct Auto 0.0 /100WBC (0.0-0.2); Platelet Count 379 X10*3/uL (160-400); Red Blood Count 3.64 X10*6/uL (4.60-5.80); White Blood Count 16.5 X10*3/uL (4.8-10.8)
[2024-11-30 08:12] LABS: Anion Gap 12 (12-20); Blood Urea Nitrogen 11 mg/dL (9-16); Calcium 8.1 mg/dL (8.4-10.2); Carbon Dioxide 26 mmol/L (22-29); Chloride 104 mmol/L (96-108); Creatinine Clr Calc Pharmacy 121.1; Estimated Glomerular Filt Rate > 60; Potassium 3.5 mmol/L (3.3-5.1); Sodium 138 mmol/L (135-145)
[2024-11-30 08:21] VITALS: BP 138/85
[2024-11-30] MEDS: buPROPion HCl XL 300 MG TAB.ER.24H PO (08:21)
[2024-11-30] MEDS: methADONE HCl 20 MG/2 ML ORAL.CONC 95 MG PO (08:23)
[2024-11-30 08:36] LABS: HIV Num 1 0.45 S/CO (0.00-0.99)
--- NOTE | 2024-11-30 08:54 | P.PNIM_ITS ---
Subjective Subjective Date of Service: 11/30/24 Interval History: Seen in f/u sepsis, right leg cellulitis and bacteremia c/o pain in the right leg and righ clavicular area Physical Exam 2 Vital Signs: Vital Signs: Last Vital Signs Temp 98.4 F 11/30/24 07:33 Pulse 63 11/30/24 07:33 Resp 17 11/30/24 07:33 BP 138/85 11/30/24 08:21 Pulse Ox 96 11/30/24 07:33 O2 Del Method Room Air 11/30/24 07:33 BMI result Body Mass Index 21.5 Const: Other: General: AO X 3, no acute distress Resp: CTA bilateral CVS: S1,S2,RRR GI: +BS, NT, no distention Skin: redness and scabs on right legs, see picture from [employer] note 11/29 Neuro: motor grossly intact Psych: appropriate affect Objective Data Active Medications Acetaminophen (Acetaminophen 325 Mg Tablet) 650 mg PO Q6H PRN PRN Reason: Pain, Mild 1-3,fever,headache Last Admin: 11/29/24 17:12 Dose: 650 mg Documented By: CATE Bupropion HCl (Bupropion Hcl Xl 300 Mg Tab.Er.24h) 300 mg PO DAILY [facility] Last Admin: 11/30/24 08:21 Dose: 300 mg Documented By: SHIVANI Calcium Carbonate (Calcium Carbonate 750 Mg Tab.Chew) 750 mg PO Q4H PRN PRN Reason: Heartburn Ceftriaxone Sodium (Ceftriaxone Sodium 2 Gm Vial) 2 gm IVPUSH Q24H [facility] Last Admin: 11/29/24 15:44 Dose: 2 gm Documented By: CATE Clonidine HCl (Clonidine Hcl 0.1 Mg Tablet) 0.1 mg PO TID [facility]; Protocol Last Admin: 11/30/24 08:21 Dose: 0.1 mg Documented By: SHIVANI Cyclobenzaprine HCl (Cyclobenzaprine Hcl 5 Mg Tablet) 5 mg PO TID PRN PRN Reason: Muscle Spasm Enoxaparin Sodium (Enoxaparin Sodium 40 Mg/0.4 Ml Syringe) 40 mg SUBCUT Q24H [facility] Last Admin: 11/30/24 01:03 Dose: 40 mg Documented By: DAREN Fluoxetine HCl (Fluoxetine Hcl 20 Mg Capsule) 20 mg PO DAILY [facility] Last Admin: 11/30/24 08:21 Dose: 20 mg Documented By: SHIVANI Vancomycin HCl 1,000 mg/ (Sodium Chloride) 270 mls @ 270 mls/hr IV Q12H [facility] Last Infusion: 11/30/24 02:04 Dose: Infused Documented By: DAREN Magnesium Hydroxide (Milk Of Magnesia 30 Ml Oral.Susp) 30 ml PO DAILY PRN PRN Reason: Constipation Melatonin (Melatonin 3 Mg Tablet) 6 mg PO BEDTIME PRN PRN Reason: Insomnia Methadone HCl (Methadone Hcl 20 Mg/2 Ml Oral.Conc) 95 mg PO DAILY [facility] Last Admin: 11/30/24 08:23 Dose: 95 mg Documented By: SHIVANI Co-signed By: HAKEEM Ondansetron HCl (Ondansetron Hcl 4 Mg/2 Ml Vial) 4 mg IVPUSH Q8H PRN PRN Reason: Nausea and Vomiting Oxycodone HCl (Oxycodone Hcl Immed Release 5 Mg Tablet) 5 mg PO Q4H PRN PRN Reason: Pain, Severe (Pain Scale 7-10) Last Admin: 11/29/24 16:47 Dose: 5 mg Documented By: CATE Pharmacy Consult (Consult Rx Vancomycin Dosing) 1 each MISCELLANE DAILY PRN PRN Reason: Consult order Sodium Chloride (0.9 % Sodium Chloride Flush 3 Ml Syringe) 3 ml IVFLUSH QSHIFT [facility] Last Admin: 11/30/24 08:21 Dose: 3 ml Documented By: SHIVANI Labs 11/30/24 07:42 11/30/24 07:42 Labs: Laboratory Results - last 24 hr 11/30/24 07:42 MCV 78.3 L MCH 26.1 L MCHC 33.3 RDW 14.6 Plt Count 379 MPV 9.4 Absolute Nucleated RBC 0.000 Nucleated RBC % (auto) 0.0 Anion Gap 12 Estim Creat Clear Calc 121.1 Estimated GFR > 60 Random Glucose 87 Calcium 8.1 L Microbiology Microbiology Results: Microbiology 11/28/24 23:57 Gram Stain - Final Leg - Left Routine Culture - Preliminary Staphylococcus aureus 11/28/24 23:04 Blood Culture - Preliminary Blood - Venous Prelim: GPR Gram Stain only 11/28/24 22:45 Blood Culture - Preliminary Blood - Venous Prelim: GPR Gram Stain only Assessment and Plan (1) Bacteremia: Status: Acute (2) Cellulitis: Status: Acute (3) Sepsis: Status: Acute (4) IV drug user: Status: Acute (5) Opioid use disorder: Status: Acute Plan 39-year-old male with pertinent history of polysubstance IV drug use disorder, history of MRSA infection, mood disorder, hypertension who presents to the emergency department for evaluation of leg pain and swelling and found to have cellulitis of right leg Sepsis due to right lower extremity cellulitis in setting of IVDA, WBC down from 29K to 16 now GPR bacteremia, sensitivity pending. Wound culture staph aureus continue vanco and Rocephin echo 11/29 no vegetations ID consult pending Polysubstance use disorder: Monitor for withdrawal. addiction med consult continue methadone and clonidine Hypertension, non compliant with meds continue norascasc and clonidine Mood disorder resume home meds Right medial clavicle injury due to trauma, not abscess: Imaging with lucency and soft tissue swelling. Conservative management Microcytic anemia: Obtaining iron studies Homelessness: Consulted case management Quality Stroke Does the patient have a stroke diagnosis?: No VTE Prior VTE?: No VTE Risk Level:: Medical - moderate - high VTE Device Contraindication: Treatment Not Indicated VTE Drug Contraindication: N/A - Med Ordered
--- NOTE | 2024-11-30 10:39 | HE.PHANOTE ---
RE: VANCO DOSING Trough came back as 9 mg/L and renal function is stable. Dose is increased to 1000 mg q8h, next trough is scheduled for 12/01/24 @1000.
[2024-11-30 15:27] VITALS: BP 120/75; PULSE 61; RESP 17; TEMP 36.6; O2SAT 96
--- NOTE | 2024-11-30 15:56 | MHC.CM.PN ---
Addendum entered by Evangelina Romero RN 11/30/24 16:03: MRALENE emailed to [facility] w/ request for guest dosing start date of Wednesday. Also faxed information to [employer]. Original Note: Per MD rounds patient will likely need SNF for IV abx. Discussed w/ patient who agrees to plan and accepted a bed at [facility]. No estimated discharge date at this time. Patient signed MARLENE for [facility] to release information to [employer] for guest dosing. Also completed HCP naming his mother as HCA.
[2024-11-30] MEDS: oxyCODONE HCl Immed Release 5 MG TABLET PO (19:19)
[2024-11-30 23:27] VITALS: BP 115/76; PULSE 56; RESP 16; TEMP 37.3; O2SAT 98
[2024-12-01 07:32] VITALS: BP 124/78; PULSE 63; RESP 18; TEMP 37.2; O2SAT 98
[2024-12-01 09:05] VITALS: BP 124/78
[2024-12-01] MEDS: methADONE HCl 20 MG/2 ML ORAL.CONC 95 MG PO (09:05)
[2024-12-01] MEDS: buPROPion HCl XL 300 MG TAB.ER.24H PO (09:05)
[2024-12-01] MEDS: 0.9 % Sodium Chloride Flush 3 ML SYRINGE IVFLUSH ×3 (09:05→19:48)
--- NOTE | 2024-12-01 09:07 | HO.PM.IMPN ---
Subjective Subjective Date of Service: 12/01/24 Interval History: Seen in f/u sepsis, right leg cellulitis and bacteremia still complaint of pain in the leg, there is difficulty drawing blood on him Physical Exam Vital Signs: Vital Signs: Last Vital Signs Temp 98.9 F 12/01/24 07:32 Pulse 63 12/01/24 07:32 Resp 18 12/01/24 07:32 BP 124/78 12/01/24 07:32 Pulse Ox 98 12/01/24 07:32 O2 Del Method Room Air 12/01/24 07:32 BMI result Body Mass Index 21.5 Const: Other: General: AO X 3, no acute distress Resp: CTA bilateral CVS: S1,S2,RRR GI: +BS, NT, no distention Skin: redness and scabs on right legs, see picture from [employer] note 11/29 Neuro: motor grossly intact Psych: appropriate affect Objective Data Active Medications Acetaminophen (Acetaminophen 325 Mg Tablet) 650 mg PO Q6H PRN PRN Reason: Pain, Mild 1-3,fever,headache Last Admin: 11/29/24 17:12 Dose: 650 mg Documented By: CATE Bupropion HCl (Bupropion Hcl Xl 300 Mg Tab.Er.24h) 300 mg PO DAILY [facility] Last Admin: 11/30/24 08:21 Dose: 300 mg Documented By: SHIVANI Calcium Carbonate (Calcium Carbonate 750 Mg Tab.Chew) 750 mg PO Q4H PRN PRN Reason: Heartburn Ceftriaxone Sodium (Ceftriaxone Sodium 2 Gm Vial) 2 gm IVPUSH Q24H [facility] Last Admin: 11/30/24 15:18 Dose: 2 gm Documented By: SHIVANI Clonidine HCl (Clonidine Hcl 0.1 Mg Tablet) 0.1 mg PO TID [facility]; Protocol Last Admin: 11/30/24 19:07 Dose: 0.1 mg Documented By: CARRIE Cyclobenzaprine HCl (Cyclobenzaprine Hcl 5 Mg Tablet) 5 mg PO TID PRN PRN Reason: Muscle Spasm Last Admin: 11/30/24 19:18 Dose: 5 mg Documented By: CARRIE Enoxaparin Sodium (Enoxaparin Sodium 40 Mg/0.4 Ml Syringe) 40 mg SUBCUT Q24H [facility] Last Admin: 12/01/24 03:08 Dose: 40 mg Documented By: CARRIE Fluoxetine HCl (Fluoxetine Hcl 20 Mg Capsule) 20 mg PO DAILY [facility] Last Admin: 11/30/24 08:21 Dose: 20 mg Documented By: SHIVANI Vancomycin HCl 1,000 mg/ (Sodium Chloride) 270 mls @ 270 mls/hr IV Q8H [facility] Last Infusion: 12/01/24 04:09 Dose: Infused Documented By: CARRIE Magnesium Hydroxide (Milk Of Magnesia 30 Ml Oral.Susp) 30 ml PO DAILY PRN PRN Reason: Constipation Melatonin (Melatonin 3 Mg Tablet) 6 mg PO BEDTIME PRN PRN Reason: Insomnia Methadone HCl (Methadone Hcl 20 Mg/2 Ml Oral.Conc) 95 mg PO DAILY [facility] Last Admin: 11/30/24 08:23 Dose: 95 mg Documented By: SHIVANI Co-signed By: HAKEEM Ondansetron HCl (Ondansetron Hcl 4 Mg/2 Ml Vial) 4 mg IVPUSH Q8H PRN PRN Reason: Nausea and Vomiting Oxycodone HCl (Oxycodone Hcl Immed Release 5 Mg Tablet) 5 mg PO Q4H PRN PRN Reason: Pain, Severe (Pain Scale 7-10) Last Admin: 11/30/24 19:19 Dose: 5 mg Documented By: CARRIE Pharmacy Consult (Consult Rx Vancomycin Dosing) 1 each MISCELLANE DAILY PRN PRN Reason: Consult order Sodium Chloride (0.9 % Sodium Chloride Flush 3 Ml Syringe) 3 ml IVFLUSH QSHIFT [facility] Last Admin: 11/30/24 19:08 Dose: 3 ml Documented By: CARRIE Labs 11/30/24 07:42 11/30/24 07:42 Labs: Laboratory Results - last 24 hr 11/30/24 11/30/24 07:42 10:10 Random Vancomycin 9.0 L HIV 1&2 Ab/P24 Ag 4thGn Nonreactive Microbiology Microbiology Results: Microbiology 11/28/24 23:57 Gram Stain - Final Leg - Left Routine Culture - Final Staphylococcus aureus 11/28/24 23:04 Blood Culture - Preliminary Blood - Venous Bacillus species 11/28/24 22:45 Blood Culture - Preliminary Blood - Venous Bacillus species Assessment and Plan (1) Bacteremia: Status: Acute (2) Cellulitis: Status: Acute (3) Sepsis: Status: Acute (4) IV drug user: Status: Acute (5) Opioid use disorder: Status: Acute Plan 39-year-old male with pertinent history of polysubstance IV drug use disorder, history of MRSA infection, mood disorder, hypertension who presents to the emergency department for evaluation of leg pain and swelling and found to have cellulitis of right leg Sepsis due to right lower extremity cellulitis in setting of IVDA, WBC down from 29K to 16 now GPR bacteremia (Bacillus species) being sent out for , sensitivity.. Wound culture staph aureus (MSSA) continue vanco and Rocephin echo 11/29 no vegetations ID consult pending repeat blood cultures today Polysubstance use disorder: Monitor for withdrawal. addiction med consult continue methadone and clonidine Hypertension, non compliant with meds continue Norvasc and clonidine Mood disorder resume home meds Right medial clavicle injury due to trauma, not abscess: Imaging with lucency and soft tissue swelling. Conservative management Microcytic anemia: Obtaining iron studies Homelessness: Consulted case management DVT propyhlaxis: Levenox Full code Quality Stroke Does the patient have a stroke diagnosis?: No VTE Prior VTE?: No VTE Risk Level:: Medical - moderate - high VTE Device Contraindication: Treatment Not Indicated VTE Drug Contraindication: N/A - Med Ordered
[2024-12-01 10:38] LABS: Anion Gap 14 (12-20); Blood Urea Nitrogen 9 mg/dL (9-16); Calcium 8.2 mg/dL (8.4-10.2); Carbon Dioxide 25 mmol/L (22-29); Chloride 101 mmol/L (96-108); Creatinine Clr Calc Pharmacy 133.0; Estimated Glomerular Filt Rate > 60; Potassium 3.6 mmol/L (3.3-5.1); Sodium 136 mmol/L (135-145)
[2024-12-01 10:49] LABS: Hematocrit 28.0 % (42.0-52.0); Hemoglobin 9.0 g/dl (14.0-18.0); Mean Corpuscular HGB Conc 32.1 g/dl (31.0-36.0); Mean Corpuscular Hemoglobin 25.7 pg (27.0-33.0); Mean Corpuscular Volume 80.0 fL (80.0-98.0); NRBC Abs Auto 0.000 X10*3/uL (0.0-0.012); NRBC Pct Auto 0.0 /100WBC (0.0-0.2); Platelet Count 401 X10*3/uL (160-400); Red Blood Count 3.50 X10*6/uL (4.60-5.80); White Blood Count 12.2 X10*3/uL (4.8-10.8)
[2024-12-01] MEDS: oxyCODONE HCl Immed Release 5 MG TABLET PO ×3 (11:10→20:00)
--- NOTE | 2024-12-01 12:18 | P.PNADD_ITS ---
Subjective Subjective Date of Service: 11/30/24 Reason For Visit: Leg Pain Interim History: Late entry Patient seen on 11/30. He is awake, alert, engaged in interview. Reporting leg pain and clavicle pain. Reporting injection drug use to the neck. He states clavicle area was very swollen over a week ago, and while swelling has gone down considerably, discomfort has not. PRN oxycodone order in place. Review of Systems Constitutional: Reports as per HPI and Reports no additional constitutional complaints Mental Status Exam Mental Status Exam Level of Consciousness: Awake and Appropriate Patient Behavior: Appropriate, Talkative and Cooperative Affect Description: Calm Speech Pattern: Clear Hallucinations: None Thought Process: Intact Thought Content: positive for Intact Judgement: Good Diagnostics Vital Signs (24Hr): Vital Signs - 24 hr 11/30/24 15:27 11/30/24 23:27 12/01/24 07:32 Temperature 98 F 99.1 F 98.9 F Pulse Rate 61 56 63 Respiratory Rate 17 16 18 Blood Pressure 120/75 115/76 124/78 Pulse Oximetry 96 98 98 Oxygen Delivery Method Room Air Room Air Room Air 12/01/24 09:05 Temperature Pulse Rate Respiratory Rate Blood Pressure 124/78 Pulse Oximetry Oxygen Delivery Method BMI result Body Mass Index 21.5 Labs 12/01/24 10:35 12/01/24 09:58 Labs: Laboratory Results - last 48 hr 11/30/24 11/30/24 12/01/24 07:42 10:10 09:58 WBC 16.5 H RBC 3.64 L Hgb 9.5 L Hct 28.5 L MCV 78.3 L MCH 26.1 L MCHC 33.3 RDW 14.6 Plt Count 379 MPV 9.4 Absolute Nucleated RBC 0.000 Nucleated RBC % (auto) 0.0 Sodium 138 136 Potassium 3.5 3.6 Chloride 104 101 Carbon Dioxide 26 25 Anion Gap 12 14 BUN 11 9 Creatinine 0.78 0.71 Estim Creat Clear Calc 121.1 133.0 Estimated GFR > 60 > 60 Random Glucose 87 113 Calcium 8.1 L 8.2 L Random Vancomycin 9.0 L 14.5 L HIV 1&2 Ab/P24 Ag 4thGn Nonreactive 12/01/24 10:35 WBC 12.2 H RBC 3.50 L Hgb 9.0 L Hct 28.0 L MCV 80.0 MCH 25.7 L MCHC 32.1 RDW 14.6 Plt Count 401 H MPV 9.9 Absolute Nucleated RBC 0.000 Nucleated RBC % (auto) 0.0 Sodium Potassium Chloride Carbon Dioxide Anion Gap BUN Creatinine Estim Creat Clear Calc Estimated GFR Random Glucose Calcium Random Vancomycin HIV 1&2 Ab/P24 Ag 4thGn Imaging Radiology Impressions: ITS Impressions Venous Duplex 11/29/24 07:13 IMPRESSION: No evidence of acute DVT in the right lower extremity. Right inguinal lymphadenopathy. Electronically signed by: Aldo Ramos MD 11/29/2024 09:16 AM EDT RP Medications Medications Current Medications Acetaminophen (Acetaminophen 325 Mg Tablet) 650 mg PO Q6H PRN PRN Reason: Pain, Mild 1-3,fever,headache Last Admin: 11/29/24 17:12 Dose: 650 mg Bupropion HCl (Bupropion Hcl Xl 300 Mg Tab.Er.24h) 300 mg PO DAILY [facility] Last Admin: 12/01/24 09:05 Dose: 300 mg Calcium Carbonate (Calcium Carbonate 750 Mg Tab.Chew) 750 mg PO Q4H PRN PRN Reason: Heartburn Ceftriaxone Sodium (Ceftriaxone Sodium 2 Gm Vial) 2 gm IVPUSH Q24H [facility] Last Admin: 11/30/24 15:18 Dose: 2 gm Clonidine HCl (Clonidine Hcl 0.1 Mg Tablet) 0.1 mg PO TID [facility]; Protocol Last Admin: 12/01/24 09:05 Dose: 0.1 mg Cyclobenzaprine HCl (Cyclobenzaprine Hcl 5 Mg Tablet) 5 mg PO TID PRN PRN Reason: Muscle Spasm Last Admin: 12/01/24 11:11 Dose: 5 mg Enoxaparin Sodium (Enoxaparin Sodium 40 Mg/0.4 Ml Syringe) 40 mg SUBCUT Q24H [facility] Last Admin: 12/01/24 03:08 Dose: 40 mg Fluoxetine HCl (Fluoxetine Hcl 20 Mg Capsule) 20 mg PO DAILY [facility] Last Admin: 12/01/24 09:05 Dose: 20 mg Vancomycin HCl 1,000 mg/ (Sodium Chloride) 270 mls @ 270 mls/hr IV Q8H [facility] Last Admin: 12/01/24 11:12 Dose: 270 mls/hr Magnesium Hydroxide (Milk Of Magnesia 30 Ml Oral.Susp) 30 ml PO DAILY PRN PRN Reason: Constipation Melatonin (Melatonin 3 Mg Tablet) 6 mg PO BEDTIME PRN PRN Reason: Insomnia Methadone HCl (Methadone Hcl 20 Mg/2 Ml Oral.Conc) 95 mg PO DAILY [facility] Last Admin: 12/01/24 09:05 Dose: 95 mg Ondansetron HCl (Ondansetron Hcl 4 Mg/2 Ml Vial) 4 mg IVPUSH Q8H PRN PRN Reason: Nausea and Vomiting Oxycodone HCl (Oxycodone Hcl Immed Release 5 Mg Tablet) 5 mg PO Q4H PRN PRN Reason: Pain, Severe (Pain Scale 7-10) Last Admin: 12/01/24 11:10 Dose: 5 mg Pharmacy Consult (Consult Rx Vancomycin Dosing) 1 each MISCELLANE DAILY PRN PRN Reason: Consult order Sodium Chloride (0.9 % Sodium Chloride Flush 3 Ml Syringe) 3 ml IVFLUSH QSHIFT [facility] Last Admin: 12/01/24 09:05 Dose: 3 ml Allergies Allergies Allergy/AdvReac Type Severity Reaction Status Date / Time ibuprofen Allergy Unknown headaches Verified 11/28/24 22:18 onion (ONION) Allergy Unknown ANAPHYLAXIS Verified 11/28/24 22:18 Assessment & Plan Assessment & Plan (1) Opioid use disorder: Status: Acute Code(s): F11.99 - Opioid use, unspecified with unspecified opioid-induced disorder Assessment and Plan: * safer injection practices discussed, including avoiding the neck area * reviewed stimulant use and extreme heat--encouraged hydration and being with someone he feels safe with * PRN oxycodone for pain as needed. Advised patient that CT scan showed soft tissue swelling in clavicle area and no abscess. * corporate responsibility officer to follow up and complete MARIA TERESA eval--already connected to [facility]. Total time managing care of this patient today _20___ minutes.
--- NOTE | 2024-12-01 12:50 | P.PNID_ITS ---
Subjective Subjective Date of Service: 12/01/24 Critical Care Time (minutes): 15 Comment: He has no complaints except right knee discomfort Objective Data Labs 12/01/24 10:35 12/01/24 09:58 Labs: Laboratory Results - last 24 hr 12/01/24 12/01/24 09:58 10:35 WBC 12.2 H RBC 3.50 L Hgb 9.0 L Hct 28.0 L MCV 80.0 MCH 25.7 L MCHC 32.1 RDW 14.6 Plt Count 401 H MPV 9.9 Absolute Nucleated RBC 0.000 Nucleated RBC % (auto) 0.0 Sodium 136 Potassium 3.6 Chloride 101 Carbon Dioxide 25 Anion Gap 14 BUN 9 Creatinine 0.71 Estim Creat Clear Calc 133.0 Estimated GFR > 60 Random Glucose 113 Calcium 8.2 L Random Vancomycin 14.5 L Microbiology Microbiology Results: Microbiology 11/28/24 23:04 Blood - Venous Blood Culture - Preliminary Bacillus species 11/28/24 23:57 Leg - Left Gram Stain - Final 11/28/24 23:57 Leg - Left Routine Culture - Final Staphylococcus aureus 11/28/24 22:45 Blood - Venous Blood Culture - Preliminary Bacillus species Physical Exam 2 Vital Signs: Vital Signs: Last Vital Signs Temp 98.9 F 12/01/24 07:32 Pulse 63 12/01/24 07:32 Resp 18 12/01/24 07:32 BP 124/78 12/01/24 09:05 Pulse Ox 98 12/01/24 07:32 O2 Del Method Room Air 12/01/24 07:32 BMI result Body Mass Index 21.5 Const: General: cooperative HEENT: Head: Yes normal to inspection Face and sinus: Yes normal facial exam Mouth: Normal oral and palatal mucosa present Teeth and gingiva: d entition normal Eyes: General: appearance normal, both eyes and all related structures P upils: Equal, round and reactive pupils present Resp: Effort & Inspection: normal respiratory effort Cardio: Rate: regular rate Rhythm: regular rhythm GI: Palpation (GI): Soft to palpation and nontender : General: Yes no CVA tenderness Back/Spine/Pelvis: Back: no CVA tenderness Skin: General skin exam: no rashes or lesions noted Neuro: General: moves all extremities Cranial nerves: Yes Equal, round and reactive pupils present Extrem: Other: redness right knee General: Yes normal to inspection Psych: Appearance: grossly normal Assessment and Plan Assessment and plan (1) Opioid use disorder: Status: Acute (2) Abscess of skin or subcutaneous tissue: Status: Acute (3) Sepsis: Problem details: Bacillus bacteremia,likely real from wounds Status: Acute (4) Bacteremia: Status: Acute Plan IV Vancomycin or Daptomycin for four weeks with weekly CK and creatinine. Get appt with me when he leaves hospital. Time Spent With Patient Time: Total time managing care of this patient today ____ minutes.
[2024-12-01 13:29] LABS: HCV Log PCR <1.18 NOT DETECTED Log IU/mL (NOT DETECTED); HepC Viral Load <15 NOT DETECTED IU/mL (NOT DETECTED)
[2024-12-01 15:31] VITALS: BP 135/81; PULSE 64; RESP 18; TEMP 37.2; O2SAT 98
--- NOTE | 2024-12-01 16:07 | MHC.CM.PN ---
A clinical update has been sent to the facility. The patient will need an MDS. ID consult recommendation is IV ABX, Dapto vs Vanco x 4 weeks. NAVIN Corrales via BLS. Pending medical clearance, guest dosing, and MDS for elder services approval.
[2024-12-01 23:42] VITALS: BP 123/76; PULSE 60; RESP 18; TEMP 36.5; O2SAT 97
[2024-12-02 07:27] VITALS: BP 122/76; PULSE 62; RESP 16; TEMP 36.4; O2SAT 98
[2024-12-02 08:43] LABS: Hematocrit 29.9 % (42.0-52.0); Hemoglobin 9.7 g/dl (14.0-18.0); Mean Corpuscular HGB Conc 32.4 g/dl (31.0-36.0); Mean Corpuscular Hemoglobin 25.7 pg (27.0-33.0); Mean Corpuscular Volume 79.3 fL (80.0-98.0); NRBC Abs Auto 0.000 X10*3/uL (0.0-0.012); NRBC Pct Auto 0.0 /100WBC (0.0-0.2); Platelet Count 439 X10*3/uL (160-400); Red Blood Count 3.77 X10*6/uL (4.60-5.80); White Blood Count 12.9 X10*3/uL (4.8-10.8)
[2024-12-02 09:05] LABS: Blood Urea Nitrogen 10 mg/dL (9-16); Calcium 8.6 mg/dL (8.4-10.2); Creatinine Clr Calc Pharmacy 127.7; Estimated Glomerular Filt Rate > 60
[2024-12-02] MEDS: methADONE HCl 20 MG/2 ML ORAL.CONC 95 MG PO (09:07)
[2024-12-02] MEDS: buPROPion HCl XL 300 MG TAB.ER.24H PO (09:10)
[2024-12-02 09:11] VITALS: BP 124/76; PULSE 64
[2024-12-02] MEDS: 0.9 % Sodium Chloride Flush 3 ML SYRINGE IVFLUSH ×3 (09:12→19:59)
[2024-12-02 09:20] LABS: Anion Gap 14 (12-20); Carbon Dioxide 25 mmol/L (22-29); Chloride 102 mmol/L (96-108); Potassium 4.4 mmol/L (3.3-5.1); Sodium 137 mmol/L (135-145)
[2024-12-02] MEDS: oxyCODONE HCl Immed Release 5 MG TABLET PO ×3 (09:42→19:58)
--- NOTE | 2024-12-02 11:30 | HE.PHANOTE ---
RE: VANCO DOSING Trough came back as 13.8 mg/L (subtherapeutic for sepsis) and renal function is stable. Dose is increased to 1250 mg q8h, next troug is scheduled for 12/03/24 @1000.
--- NOTE | 2024-12-02 12:06 | HO.PM.IMPN ---
Subjective Subjective Date of Service: 12/02/24 Interval History: seen and evaluated leg still painful but erythema improving reports Rt shoulder pain No other events Review of Systems Review of Systems: Yes all other systems are reviewed and are negative Physical Exam Vital Signs: Vital Signs: Last Vital Signs Temp 97.6 F 12/02/24 07:27 Pulse 64 12/02/24 09:11 Resp 16 12/02/24 07:27 BP 124/76 12/02/24 09:11 Pulse Ox 98 12/02/24 07:27 O2 Del Method Room Air 12/02/24 07:27 BMI result Body Mass Index 21.5 Const: Other: General: AO X 3, no acute distress Resp: CTA bilateral CVS: S1,S2,RRR GI: +BS, NT, no distention Skin: redness and scabs on right legs, right medial clavicle swelling and tendenress Neuro: motor grossly intact Psych: appropriate affect Objective Data Active Medications Acetaminophen (Acetaminophen 325 Mg Tablet) 650 mg PO Q6H PRN PRN Reason: Pain, Mild 1-3,fever,headache Last Admin: 12/02/24 09:52 Dose: 650 mg Documented By: JESSE Bupropion HCl (Bupropion Hcl Xl 300 Mg Tab.Er.24h) 300 mg PO DAILY [facility] Last Admin: 12/02/24 09:10 Dose: 300 mg Documented By: JESSE Calcium Carbonate (Calcium Carbonate 750 Mg Tab.Chew) 750 mg PO Q4H PRN PRN Reason: Heartburn Ceftriaxone Sodium (Ceftriaxone Sodium 2 Gm Vial) 2 gm IVPUSH Q24H [facility] Last Admin: 12/01/24 15:28 Dose: 2 gm Documented By: SHIVANI Clonidine HCl (Clonidine Hcl 0.1 Mg Tablet) 0.1 mg PO TID [facility]; Protocol Last Admin: 12/02/24 09:12 Dose: 0.1 mg Documented By: JESSE Cyclobenzaprine HCl (Cyclobenzaprine Hcl 5 Mg Tablet) 5 mg PO TID PRN PRN Reason: Muscle Spasm Last Admin: 12/01/24 20:01 Dose: 5 mg Documented By: CARRIE Enoxaparin Sodium (Enoxaparin Sodium 40 Mg/0.4 Ml Syringe) 40 mg SUBCUT Q24H [facility] Last Admin: 12/02/24 03:29 Dose: 40 mg Documented By: CARRIE Fluoxetine HCl (Fluoxetine Hcl 20 Mg Capsule) 20 mg PO DAILY [facility] Last Admin: 12/02/24 09:13 Dose: 20 mg Documented By: JESSE Vancomycin HCl 1,250 mg/ (Sodium Chloride) 250 mls @ 166.667 mls/hr IV Q8H [facility] Magnesium Hydroxide (Milk Of Magnesia 30 Ml Oral.Susp) 30 ml PO DAILY PRN PRN Reason: Constipation Melatonin (Melatonin 3 Mg Tablet) 6 mg PO BEDTIME PRN PRN Reason: Insomnia Methadone HCl (Methadone Hcl 20 Mg/2 Ml Oral.Conc) 95 mg PO DAILY [facility] Last Admin: 12/02/24 09:07 Dose: 95 mg Documented By: JESSE Co-signed By: AMI Ondansetron HCl (Ondansetron Hcl 4 Mg/2 Ml Vial) 4 mg IVPUSH Q8H PRN PRN Reason: Nausea and Vomiting Oxycodone HCl (Oxycodone Hcl Immed Release 5 Mg Tablet) 5 mg PO Q4H PRN PRN Reason: Pain, Severe (Pain Scale 7-10) Last Admin: 12/02/24 09:42 Dose: 5 mg Documented By: JESSE Pharmacy Consult (Consult Rx Vancomycin Dosing) 1 each MISCELLANE DAILY PRN PRN Reason: Consult order Sodium Chloride (0.9 % Sodium Chloride Flush 3 Ml Syringe) 3 ml IVFLUSH QSHIFT [facility] Last Admin: 12/02/24 09:12 Dose: 3 ml Documented By: JESSE Labs 12/02/24 08:14 12/02/24 08:14 Labs: Laboratory Results - last 24 hr 11/30/24 12/02/24 12/02/24 07:42 08:14 10:08 MCV 79.3 L MCH 25.7 L MCHC 32.4 RDW 14.6 Plt Count 439 H MPV 9.4 Absolute Nucleated RBC 0.000 Nucleated RBC % (auto) 0.0 Anion Gap 14 Estim Creat Clear Calc 127.7 Estimated GFR > 60 Random Glucose 88 Calcium 8.6 Random Vancomycin 13.8 L Hep C Viral Load <15 NOT DETECTED Hep C Viral Load Log <1.18 NOT DETECTED Microbiology Microbiology Results: Microbiology 11/28/24 23:04 Blood Culture - Preliminary Blood - Venous Bacillus species 11/28/24 23:57 Gram Stain - Final Leg - Left Routine Culture - Final Staphylococcus aureus Assessment and Plan (1) Bacteremia: Status: Acute (2) Cellulitis: Status: Acute (3) Sepsis: Status: Acute (4) Opioid use disorder: Status: Acute Plan 39-year-old male with pertinent history of polysubstance IV drug use disorder, history of MRSA infection, mood disorder, hypertension who presents to the emergency department for evaluation of leg pain and swelling and found to have cellulitis of right leg Sepsis due to right lower extremity cellulitis in setting of IVDA complicated with bacteremia WBC down from 29K to 16 now GPR bacteremia (Bacillus species) being sent out for , sensitivity.. Wound culture staph aureus (MSSA) continue vanco and Rocephin echo 11/29 no vegetations ID consult, 4 weeks of IV Abx Vanco\Dapto repeat blood cultures pending follow Vancomycin trough right medial clavicle swelling and tendenress CT showing lucency with surrounding swelling concerning for OM might need longer course of treatment consider MRI , ID eval Polysubstance use disorder: Monitor for withdrawal. addiction med consult continue methadone and clonidine Hypertension, non compliant with meds continue Norvasc and clonidine Mood disorder resume home meds Right medial clavicle injury due to trauma, not abscess: Imaging with lucency and soft tissue swelling. Conservative management Microcytic anemia: Obtaining iron studies Homelessness: Consulted case management DVT propyhlaxis: Levenox Full code Quality Stroke Does the patient have a stroke diagnosis?: No VTE Prior VTE?: No VTE Risk Level:: Medical - moderate - high VTE Device Contraindication: Treatment Not Indicated VTE Drug Contraindication: N/A - Med Ordered
[2024-12-02 14:36] VITALS: BP 121/72
[2024-12-02 15:24] VITALS: BP 128/82; PULSE 60; RESP 16; TEMP 36.3; O2SAT 95
[2024-12-02 23:15] VITALS: BP 121/70; PULSE 62; RESP 16; TEMP 36.3; O2SAT 97
[2024-12-03] MEDS: oxyCODONE HCl Immed Release 5 MG TABLET PO ×5 (01:53→21:42)
[2024-12-03 07:25] VITALS: BP 134/77; PULSE 62; RESP 16; TEMP 36.3; O2SAT 99
[2024-12-03] MEDS: methADONE HCl 20 MG/2 ML ORAL.CONC 95 MG PO (08:29)
[2024-12-03] MEDS: buPROPion HCl XL 300 MG TAB.ER.24H PO (08:34)
[2024-12-03] MEDS: 0.9 % Sodium Chloride Flush 3 ML SYRINGE IVFLUSH ×3 (08:34→20:14)
[2024-12-03 10:38] LABS: MANUAL DIFF FLAG NO
[2024-12-03 10:45] LABS: Hematocrit 30.6 % (42.0-52.0); Hemoglobin 9.6 g/dl (14.0-18.0); Imm Gran Abs Auto 0.26 X10*3/uL (0.00-0.03); Imm Gran Pct Auto 2.1 % (0.0-0.4); Lymphocytes Absolute Auto 2.4 X10*3/uL (1.2-4.9); Mean Corpuscular HGB Conc 31.4 g/dl (31.0-36.0); Mean Corpuscular Hemoglobin 25.7 pg (27.0-33.0); Mean Corpuscular Volume 81.8 fL (80.0-98.0); NRBC Abs Auto 0.000 X10*3/uL (0.0-0.012); NRBC Pct Auto 0.0 /100WBC (0.0-0.2); Platelet Count 531 X10*3/uL (160-400); Red Blood Count 3.74 X10*6/uL (4.60-5.80); White Blood Count 12.4 X10*3/uL (4.8-10.8)
--- NOTE | 2024-12-03 10:50 | P.PNIM_ITS ---
Subjective Subjective Date of Service: 12/03/24 Interval History: seen and evaluated leg still painful but erythema improving slowly Vancomycin trough still running low level reports Rt shoulder pain better No other events Review of Systems Review of Systems: Yes all other systems are reviewed and are negative Physical Exam 2 Vital Signs: Vital Signs: Last Vital Signs Temp 97.4 F 12/03/24 07:25 Pulse 62 12/03/24 07:25 Resp 16 12/03/24 07:25 BP 134/77 12/03/24 07:25 Pulse Ox 99 12/03/24 07:25 O2 Del Method Room Air 12/03/24 07:25 BMI result Body Mass Index 21.5 Const: Other: General: AO X 3, no acute distress Resp: CTA bilateral CVS: S1,S2,RRR GI: +BS, NT, no distention Skin: redness and scabs with Injection medina on right leg, right medial clavicle swelling and tenderness Neuro: motor grossly intact Psych: appropriate affect Objective Data Active Medications Acetaminophen (Acetaminophen 325 Mg Tablet) 650 mg PO Q6H PRN PRN Reason: Pain, Mild 1-3,fever,headache Last Admin: 12/02/24 09:52 Dose: 650 mg Documented By: JESSE Bupropion HCl (Bupropion Hcl Xl 300 Mg Tab.Er.24h) 300 mg PO DAILY [facility] Last Admin: 12/03/24 08:34 Dose: 300 mg Documented By: JESSE Calcium Carbonate (Calcium Carbonate 750 Mg Tab.Chew) 750 mg PO Q4H PRN PRN Reason: Heartburn Ceftriaxone Sodium (Ceftriaxone Sodium 2 Gm Vial) 2 gm IVPUSH Q24H [facility] Last Admin: 12/02/24 14:32 Dose: 2 gm Documented By: JESSE Clonidine HCl (Clonidine Hcl 0.1 Mg Tablet) 0.1 mg PO TID [facility]; Protocol Last Admin: 12/03/24 08:33 Dose: 0.1 mg Documented By: JESSE Cyclobenzaprine HCl (Cyclobenzaprine Hcl 5 Mg Tablet) 5 mg PO TID PRN PRN Reason: Muscle Spasm Last Admin: 12/02/24 19:58 Dose: 5 mg Documented By: CARRIE Enoxaparin Sodium (Enoxaparin Sodium 40 Mg/0.4 Ml Syringe) 40 mg SUBCUT Q24H [facility] Last Admin: 12/03/24 01:53 Dose: 40 mg Documented By: CARRIE Fluoxetine HCl (Fluoxetine Hcl 20 Mg Capsule) 20 mg PO DAILY [facility] Last Admin: 12/03/24 08:33 Dose: 20 mg Documented By: JESSE Vancomycin HCl 1,250 mg/ (Sodium Chloride) 250 mls @ 166.667 mls/hr IV Q8H [facility] Last Infusion: 12/03/24 05:46 Dose: Infused Documented By: CARRIE Magnesium Hydroxide (Milk Of Magnesia 30 Ml Oral.Susp) 30 ml PO DAILY PRN PRN Reason: Constipation Melatonin (Melatonin 3 Mg Tablet) 6 mg PO BEDTIME PRN PRN Reason: Insomnia Methadone HCl (Methadone Hcl 20 Mg/2 Ml Oral.Conc) 95 mg PO DAILY [facility] Last Admin: 12/03/24 08:29 Dose: 95 mg Documented By: JESSE Co-signed By: RAYNM Ondansetron HCl (Ondansetron Hcl 4 Mg/2 Ml Vial) 4 mg IVPUSH Q8H PRN PRN Reason: Nausea and Vomiting Oxycodone HCl (Oxycodone Hcl Immed Release 5 Mg Tablet) 5 mg PO Q4H PRN PRN Reason: Pain, Severe (Pain Scale 7-10) Last Admin: 12/03/24 08:33 Dose: 5 mg Documented By: JESSE Pharmacy Consult (Consult Rx Vancomycin Dosing) 1 each MISCELLANE DAILY PRN PRN Reason: Consult order Sodium Chloride (0.9 % Sodium Chloride Flush 3 Ml Syringe) 3 ml IVFLUSH QSMSFT [facility] Last Admin: 12/03/24 08:34 Dose: 3 ml Documented By: JESSE Labs 12/03/24 10:03 12/02/24 08:14 Labs: Laboratory Results - last 24 hr 12/02/24 12/03/24 10:08 10:03 MCV 81.8 MCH 25.7 L MCHC 31.4 RDW 14.6 Plt Count 531 H MPV 9.6 Immature Gran % (Auto) 2.1 H Neut % (Auto) 73.6 H Lymph % (Auto) 19.1 L [place] % (Auto) 3.6 Eos % (Auto) 1.0 Baso % (Auto) 0.6 Lymph # (Auto) 2.4 [place] # (Auto) 0.5 Eos # (Auto) 0.1 Baso # (Auto) 0.1 Abs Immat Gran (auto) 0.26 H Absolute Neuts (auto) 9.2 H Absolute Nucleated RBC 0.000 Nucleated RBC % (auto) 0.0 Random Vancomycin 13.8 L Microbiology Microbiology Results: Microbiology 12/01/24 09:58 Blood Culture - Preliminary Blood - Venous No growth after 24 hours. 12/01/24 09:58 Blood Culture - Preliminary Blood - Venous No growth after 24 hours. 11/28/24 23:04 Blood Culture - Preliminary Blood - Venous Bacillus species Assessment and Plan (1) IV drug user: Status: Acute (2) Opioid use disorder: Status: Acute (3) Cellulitis: Status: Acute (4) Bacteremia: Status: Acute Plan 39-year-old male with pertinent history of polysubstance IV drug use disorder, history of MRSA infection, mood disorder, hypertension who presents to the emergency department for evaluation of leg pain and swelling and found to have cellulitis of right leg Sepsis due to right lower extremity cellulitis in setting of IVDA complicated with bacteremia WBC down from 29K to 12 now GPR bacteremia (Bacillus species) being sent out for sensitivity Wound culture staph aureus (MSSA) continue vanco and Rocephin for now, adjust Vanco dose echo 11/29 no vegetations ID consult, 4-6 weeks of IV Abx Vanco\Dapto repeat blood cultures negative afte [address] PICC line follow Vancomycin trough right medial clavicle swelling and tendenress CT showing lucency with surrounding swelling concerning for OM might need longer course of treatment up to 6 weeks Discussed with ID, no need for MRI at this point, treat with Abx Polysubstance use disorder: Monitor for withdrawal. addiction med consult continue methadone and clonidine Hypertension, non compliant with meds continue Norvasc and clonidine Mood disorder resume home meds Right medial clavicle injury due to trauma, not abscess: Imaging with lucency and soft tissue swelling. Conservative management Microcytic anemia: Obtaining iron studies Homelessness: Consulted case management DVT propyhlaxis: Levenox Full code Quality Stroke Does the patient have a stroke diagnosis?: No VTE Prior VTE?: No VTE Risk Level:: Medical - moderate - high VTE Device Contraindication: Treatment Not Indicated VTE Drug Contraindication: N/A - Med Ordered
[2024-12-03 11:05] LABS: Anion Gap 14 (12-20); Blood Urea Nitrogen 13 mg/dL (9-16); Calcium 8.2 mg/dL (8.4-10.2); Carbon Dioxide 26 mmol/L (22-29); Chloride 100 mmol/L (96-108); Creatinine Clr Calc Pharmacy 119.6; Estimated Glomerular Filt Rate > 60; Potassium 4.3 mmol/L (3.3-5.1); Sodium 136 mmol/L (135-145)
[2024-12-03 14:23] VITALS: BP 111/75
[2024-12-03 15:11] VITALS: BP 112/72; PULSE 65; RESP 16; TEMP 36.5; O2SAT 97
--- NOTE | 2024-12-03 15:31 | MHC.CM.PN ---
Per MD, patient may be ready for dc to SNF tomorrow. Loraine Diaz is aware. Will need prior to dc: PICC: ordered PASRR: completed, pending in system, will need less than 30 day on dc summary [facility] Approval: MDS completed and faxed to [facility] with PASRR and clinicals. DC summary w/ less than 30 should be faxed when available ([phone]). Guest Dosing: Initiated 11/30 w/ clinicals sent to [employer] & MARLENE emailed to [facility]. Have not received a response from [facility]. Sent follow up email today w/ updated guest dosing start date of 12/05. Will need to confirm receipt w/ both [employer] and [facility] when open.
[2024-12-03 20:13] VITALS: BP 113/72
[2024-12-03 23:57] VITALS: BP 117/71; PULSE 63; RESP 18; TEMP 36.3; O2SAT 96
[2024-12-04] MEDS: oxyCODONE HCl Immed Release 5 MG TABLET PO ×4 (03:56→21:11)
[2024-12-04 06:04] LABS: MANUAL DIFF FLAG NO
[2024-12-04 06:17] LABS: Hematocrit 29.9 % (42.0-52.0); Hemoglobin 9.3 g/dl (14.0-18.0); Imm Gran Abs Auto 0.21 X10*3/uL (0.00-0.03); Imm Gran Pct Auto 1.9 % (0.0-0.4); Lymphocytes Absolute Auto 3.1 X10*3/uL (1.2-4.9); Mean Corpuscular HGB Conc 31.1 g/dl (31.0-36.0); Mean Corpuscular Hemoglobin 25.2 pg (27.0-33.0); Mean Corpuscular Volume 81.0 fL (80.0-98.0); NRBC Abs Auto 0.000 X10*3/uL (0.0-0.012); NRBC Pct Auto 0.0 /100WBC (0.0-0.2); Platelet Count 533 X10*3/uL (160-400); Red Blood Count 3.69 X10*6/uL (4.60-5.80); White Blood Count 11.0 X10*3/uL (4.8-10.8)
[2024-12-04 06:25] LABS: Anion Gap 11 (12-20); Blood Urea Nitrogen 20 mg/dL (9-16); Calcium 8.1 mg/dL (8.4-10.2); Carbon Dioxide 29 mmol/L (22-29); Chloride 101 mmol/L (96-108); Creatinine Clr Calc Pharmacy 121.1; Estimated Glomerular Filt Rate > 60; Potassium 4.3 mmol/L (3.3-5.1); Sodium 137 mmol/L (135-145)
[2024-12-04 07:17] VITALS: BP 127/85; PULSE 58; RESP 16; TEMP 36.5; O2SAT 96
[2024-12-04 09:45] VITALS: BP 130/82
[2024-12-04] MEDS: buPROPion HCl XL 300 MG TAB.ER.24H PO (09:45)
[2024-12-04] MEDS: methADONE HCl 20 MG/2 ML ORAL.CONC 95 MG PO (09:46)
--- NOTE | 2024-12-04 13:19 | HO.PM.IMPN ---
Subjective Subjective Date of Service: 12/04/24 Interval History: leg still painful but erythema improving slowly Vancomycin trough still running low level No other events Review of Systems Review of Systems: Yes all other systems are reviewed and are negative Physical Exam Vital Signs: Vital Signs: Last Vital Signs Temp 97.7 F 12/04/24 07:17 Pulse 58 12/04/24 07:17 Resp 16 12/04/24 07:17 BP 130/82 12/04/24 09:45 Pulse Ox 96 12/04/24 07:17 O2 Del Method Room Air 12/04/24 07:17 BMI result Body Mass Index 21.5 Appearing in no acute distress lung sounds are clear to auscultation heart regular rate rhythm, clear S1, S2 positive bowel sounds, abdomen is soft, nontender neuro patient is alert x3, no focal deficits Objective Data Active Medications Acetaminophen (Acetaminophen 325 Mg Tablet) 650 mg PO Q6H PRN PRN Reason: Pain, Mild 1-3,fever,headache Last Admin: 12/02/24 09:52 Dose: 650 mg Documented By: JESSE Bupropion HCl (Bupropion Hcl Xl 300 Mg Tab.Er.24h) 300 mg PO DAILY [facility] Last Admin: 12/04/24 09:45 Dose: 300 mg Documented By: NAIDA Calcium Carbonate (Calcium Carbonate 750 Mg Tab.Chew) 750 mg PO Q4H PRN PRN Reason: Heartburn Ceftriaxone Sodium (Ceftriaxone Sodium 2 Gm Vial) 2 gm IVPUSH Q24H [facility] Last Admin: 12/03/24 14:25 Dose: 2 gm Documented By: JESSE Clonidine HCl (Clonidine Hcl 0.1 Mg Tablet) 0.1 mg PO TID [facility]; Protocol Last Admin: 12/04/24 09:45 Dose: 0.1 mg Documented By: NAIDA Cyclobenzaprine HCl (Cyclobenzaprine Hcl 5 Mg Tablet) 5 mg PO TID PRN PRN Reason: Muscle Spasm Last Admin: 12/03/24 14:27 Dose: 5 mg Documented By: JESSE Enoxaparin Sodium (Enoxaparin Sodium 40 Mg/0.4 Ml Syringe) 40 mg SUBCUT Q24H [facility] Last Admin: 12/04/24 01:48 Dose: 40 mg Documented By: DAYNA Fluoxetine HCl (Fluoxetine Hcl 20 Mg Capsule) 20 mg PO DAILY [facility] Last Admin: 12/04/24 09:45 Dose: 20 mg Documented By: NAIDA Vancomycin HCl 1,000 mg/ (Sodium Chloride) 270 mls @ 270 mls/hr IV Q8H [facility] Last Admin: 12/04/24 11:57 Dose: 270 mls/hr Documented By: NAIDA Magnesium Hydroxide (Milk Of Magnesia 30 Ml Oral.Susp) 30 ml PO DAILY PRN PRN Reason: Constipation Melatonin (Melatonin 3 Mg Tablet) 6 mg PO BEDTIME PRN PRN Reason: Insomnia Methadone HCl (Methadone Hcl 20 Mg/2 Ml Oral.Conc) 95 mg PO DAILY [facility] Last Admin: 12/04/24 09:46 Dose: 95 mg Documented By: NAIDA Co-signed By: AMAYA Ondansetron HCl (Ondansetron Hcl 4 Mg/2 Ml Vial) 4 mg IVPUSH Q8H PRN PRN Reason: Nausea and Vomiting Oxycodone HCl (Oxycodone Hcl Immed Release 5 Mg Tablet) 5 mg PO Q4H PRN PRN Reason: Pain, Severe (Pain Scale 7-10) Last Admin: 12/04/24 09:46 Dose: 5 mg Documented By: NAIDA Pharmacy Consult (Consult Rx Vancomycin Dosing) 1 each MISCELLANE DAILY PRN PRN Reason: Consult order Sodium Chloride (0.9 % Sodium Chloride Flush 3 Ml Syringe) 3 ml IVFLUSH QSHIFT [facility] Last Admin: 12/04/24 09:49 Dose: Not Given Documented By: NAIDA Non-Admin Reason: Previously Administered Labs 12/04/24 05:56 12/04/24 05:56 Labs: Laboratory Results - last 24 hr 12/03/24 12/04/24 18:06 05:56 MCV 81.0 MCH 25.2 L MCHC 31.1 RDW 14.4 Plt Count 533 H MPV 9.0 L Immature Gran % (Auto) 1.9 H Neut % (Auto) 62.7 Lymph % (Auto) 28.0 [place] % (Auto) 5.6 Eos % (Auto) 1.5 Baso % (Auto) 0.3 Lymph # (Auto) 3.1 [place] # (Auto) 0.6 Eos # (Auto) 0.2 Baso # (Auto) 0.0 Abs Immat Gran (auto) 0.21 H Absolute Neuts (auto) 6.9 Absolute Nucleated RBC 0.000 Nucleated RBC % (auto) 0.0 Anion Gap 11 L Estim Creat Clear Calc 121.1 Estimated GFR > 60 Random Glucose 92 Calcium 8.1 L Random Vancomycin 10.4 L Microbiology Microbiology Results: Microbiology 12/01/24 09:58 Blood Culture - Preliminary Blood - Venous No growth after 48 hours. 12/01/24 09:58 Blood Culture - Preliminary Blood - Venous No growth after 48 hours. Assessment and Plan (1) IV drug user: Status: Acute (2) Opioid use disorder: Status: Acute (3) Cellulitis: Status: Acute (4) Bacteremia: Status: Acute Plan 39-year-old male with pertinent history of polysubstance IV drug use disorder, history of MRSA infection, mood disorder, hypertension who presents to the emergency department for evaluation of leg pain and swelling and found to have cellulitis of right leg Sepsis due to right lower extremity cellulitis in setting of IVDA complicated with bacteremia> Sepsis resolved GPR bacteremia (Bacillus species) being sent out for sensitivity Wound culture staph aureus (MSSA) continue vanco and Rocephin for now, adjust Vanco dose echo 11/29 no vegetations ID consult, 4-6 weeks of IV Abx Vanco\Dapto repeat blood cultures negative afte [address] PICC line follow Vancomycin trough Right medial clavicle swelling and tenderness CT showing lucency with surrounding swelling concerning for OM might need longer course of treatment up to 6 weeks Discussed with ID, no need for MRI at this point, treat with Abx Polysubstance use disorder Monitor for withdrawal. addiction med consult continue methadone and clonidine Hypertension, non compliant with meds continue Norvasc and clonidine Mood disorder resume home meds Right medial clavicle injury due to trauma, not abscess Imaging with lucency and soft tissue swelling. Conservative management Microcytic anemia Obtaining iron studies DVT propyhlaxis: Levenox Full code Quality Stroke Does the patient have a stroke diagnosis?: No VTE Prior VTE?: No VTE Risk Level:: Medical - moderate - high VTE Device Contraindication: Treatment Not Indicated VTE Drug Contraindication: N/A - Med Ordered
--- NOTE | 2024-12-04 13:22 | HO.PICC ---
PICC Line Insertion [facility] Insertion Diagnosis: Sepsis/Bacteremia Indication: [facility]x Pertinent Labs: Reviewed Technique: Following informed consent including risks, benefits and alternatives and using sterile technique including cap and mask, sterile gown, glove and drape, the Left arm was prepped and draped in the usual sterile fashion of full barrier technique with [facility]. Following completion of [place] Protocol the skin and soft tissues were anesthetized with 1% Lidocaine plain. Using ultrasound guidance, Left Basilic vein access was obtained. Over an 0.018 wire through peel-away sheath, a 4Fr Single lumen PASV PowerPicc line was positioned. Catheter length is 40CM internal length, 0CM external length, for a total trimmed length of 40CM. The procedure was performed in Rm 272. Tip verification was performed by Janeth Velasco with Sherlock 3CG. Tip located in SVC. Ultrasound was used to document vein patency and for needle entry. A formal ultrasound picture and cardiac rhythm strip was recorded. [employer] has released the line for use and it is currently dressed with a StatLock, Tegaderm, and CHG disc. Verification has been performed for blood return and line patency. Arm Circumference: 29CM Equipment: [employer] PowerPicc Solo Catheter with Sherlock 3CG Tip Catheter Type: 4Fr Single Lumen PASV PowerPicc Lot #: [id number]
[2024-12-04 14:06] VITALS: BP 116/78; PULSE 69; RESP 16; TEMP 36.2; O2SAT 96
--- NOTE | 2024-12-04 14:51 | PM.DS ---
DS: Providers Provider Date of Service: 12/04/24 Date of admission: 11/29/24 00:46 Date of discharge: 12/04/24 Primary care physician: None Physician Consults: 11/29/24 01:42 Addiction Medicine Provider Routine Consulting Provider: Addiction Covering Reason for consultation: Polysubstance IV drug use 11/29/24 09:56 Consult to Infectious Diseases Routine Consulting Provider: [facility] Reason for consultation: cellulitis of right leg and abscess of clavicular area 12/01/24 08:31 Inpt - Recovery Team Routine Comment: Reason for consultation: MARIA TERESA BH eval DS: Diagnosis Discharge Diagnosis (1) IV drug user: Status: Acute (2) Opioid use disorder: Status: Acute (3) Cellulitis: Status: Acute (4) Bacteremia: Status: Acute DS: Summary Hospital Course Hospital Course: History and physical as per admitting provider. This is a 39-year-old male with pertinent history of polysubstance IV drug use disorder, history of MRSA infection, mood disorder, hypertension who presents to the emergency department for evaluation of leg pain and swelling. Patient is a poor historian. Admits IV drug use. States he noticed right lower extremity swelling and redness 4 days prior to presentation. States he kicked his back that had a mirror in it that caused his leg injury. Also reports trauma to the right clavicle and it has been paining since, unclear duration. Patient is unable to verify if he takes any home p.o. prescription medications. He is homeless. Denies palpitations, shortness of breath, abdominal pain, changes in urinary or bowel habits. In the emergency department, patient was found to be septic with leukocytosis 29 and fever 102.2. He was given IV fluids and IV vancomycin in the ER Sepsis due to right lower extremity cellulitis in setting of IVDA complicated with bacteremia> Sepsis resolved GPR bacteremia (Bacillus species) being sent out for sensitivity Wound culture staph aureus (MSSA) Initially treated with vancomycin and Rocephin. now continue vancomycin with last day being 11/29/2024.continue vanco and Rocephin for now, adjust Vanco dose echo 11/29 no vegetations repeat blood cultures negative PICC line placed, may remove after last dose of IV vancomycin follow Vancomycin trough weekly creatinine kinase and creatinine Right medial clavicle swelling and tenderness CT showing lucency with surrounding swelling might need longer course of treatment up to 6 weeks Discussed with ID, no need for MRI at this point, treat with Abx Polysubstance use disorder no obvious signs of withdrawal continue methadone and clonidine Hypertension, non compliant with meds continue Norvasc and clonidine Mood disorder resume home meds Microcytic anemia stable H&H less than 30 day stay Time Attestation Discharge Coordination Time (in mins): 45 Quality: Safe Use of Opioids Does Pt have an Active Cancer Diagnosis on the Problem List?: No Quality: Stroke Does the patient have a stroke diagnosis?: No Physical Exam Vital Signs: Vital Signs: Last Vital Signs Temp 97.2 F 12/04/24 14:06 Pulse 69 12/04/24 14:06 Resp 16 12/04/24 14:06 BP 116/78 12/04/24 14:06 Pulse Ox 96 12/04/24 14:06 O2 Del Method Room Air 12/04/24 14:06 BMI result Body Mass Index 21.5 Appearing in no acute distress head is normocephalic atraumatic eyes pupils are PERRLA sclera is anicteric mouth throat mucous membranes are intact and moist neck is supple no lymphadenopathy, no JVD noted lung sounds are clear to auscultation heart regular rate rhythm, clear S1, S2 positive bowel sounds, abdomen is soft, nontender neuro patient is alert x3, no focal deficits right more with erythema and mild edema DS: Data Data Completed and Pending Completed studies during hospitalization [Text1]: Procedures Detoxification Services for Substance Abuse Treatment (03/19/24) Drainage of Left Upper Arm Skin, External Approach (10/17/20) Drainage of Right Upper Arm Skin, External Approach (10/17/20) Resection of Gallbladder, Percutaneous Endoscopic Approach (01/12/24) Labs on day of discharge: Laboratory Results - last 24 hr 12/03/24 12/04/24 18:06 05:56 WBC 11.0 H RBC 3.69 L Hgb 9.3 L Hct 29.9 L MCV 81.0 MCH 25.2 L MCHC 31.1 RDW 14.4 Plt Count 533 H MPV 9.0 L Immature Gran % (Auto) 1.9 H Neut % (Auto) 62.7 Lymph % (Auto) 28.0 [place] % (Auto) 5.6 Eos % (Auto) 1.5 Baso % (Auto) 0.3 Lymph # (Auto) 3.1 [place] # (Auto) 0.6 Eos # (Auto) 0.2 Baso # (Auto) 0.0 Abs Immat Gran (auto) 0.21 H Absolute Neuts (auto) 6.9 Absolute Nucleated RBC 0.000 Nucleated RBC % (auto) 0.0 Sodium 137 Potassium 4.3 Chloride 101 Carbon Dioxide 29 Anion Gap 11 L BUN 20 H Creatinine 0.78 Estim Creat Clear Calc 121.1 Estimated GFR > 60 Random Glucose 92 Calcium 8.1 L Random Vancomycin 10.4 L Preliminary micro results at discharge 11/28/24 22:45 Blood Culture - Preliminary Blood - Venous Bacillus cereus 12/01/24 09:58 Blood Culture - Preliminary Blood - Venous No growth after 48 hours. 12/01/24 09:58 Blood Culture - Preliminary Blood - Venous No growth after 48 hours. 11/28/24 23:04 Blood Culture - Preliminary Blood - Venous Bacillus species Discharge Plan Discharge Anticipated Discharge Date/Time: 12/04/24 14:16 Patient Disposition: er [facility] Discharge Diagnosis: Sepsis Right lower extremity cellulitis Bacteremia Right medial clavicle swelling Discharge Medications: New vancomycin in 0.9 % sodium chl 1 gram/250 mL solution 1 g IV Q8H Continued methadone 10 mg/5 mL Solution 95 mg PO DAILY clonidine HCl 0.1 mg tablet 0.1 mg PO TID fluoxetine 20 mg capsule 20 mg PO DAILY cyclobenzaprine 5 mg tablet 5 mg PO TID PRN (Reason: Muscle Spasm) bupropion HCl 300 mg tablet extended release 24 hr 300 mg PO DAILY Discharge Orders: Discharge Order (Routine); Ordered 12/04/24 Ordered By: Skylar Ruffin Diet: Advance to usual diet Activity on Discharge: As tolerated Stand Alone Forms: Patient Portal Discharge page Print Language: Polish Care Plan Goals: last day of IV vancomycin 12/27/2024, RN may remove PICC line after last dose weekly creatinine kinase and creatinine, next date 11/11/24 Health Concerns: Sepsis Right lower extremity cellulitis Bacteremia Right medial clavicle swelling Plan of Treatment: follow up with primary care provider as needed Take all medications as prescribed Assessment: see discharge summary
[2024-12-04 15:08] VITALS: BP 118/75; PULSE 61; RESP 18; TEMP 36.6; O2SAT 95
[2024-12-04] MEDS: 0.9 % Sodium Chloride Flush 3 ML SYRINGE IVFLUSH ×2 (15:25→23:16)
--- NOTE | 2024-12-04 15:44 | MHC.CM.PN ---
PT CLEARED TO DC TODAY TO [facility] FOR IV ABX CM CALLED [facility]UC AT [facility] [phone] WHO INDICATED HE WOULD INITIATE GUEST DOSING GUEST DOSING THEN CONFIRMED WITH [facility] IN [place] ACP HAS APPROVED LOC AND WILL FAX IT TO [facility] AT [phone] BLS TRANSPORT BOOKED WITH [facility] FOR 1700 HOURS
--- NOTE | 2024-12-04 16:54 | PC.NURSE ---
STR called and states can't take the patient until tomorrow. Provider notified.
[2024-12-04] MEDS: 0.9 % Sodium Chloride Flush 10 ML SYRINGE IVFLUSH (20:17)
[2024-12-04 23:28] VITALS: BP 110/68; PULSE 63; RESP 18; TEMP 36.3; O2SAT 96
[2024-12-05] MEDS: oxyCODONE HCl Immed Release 5 MG TABLET PO (03:19)
[2024-12-05 07:32] LABS: Anion Gap 10 (12-20); Blood Urea Nitrogen 22 mg/dL (9-16); Calcium 8.3 mg/dL (8.4-10.2); Carbon Dioxide 30 mmol/L (22-29); Chloride 99 mmol/L (96-108); Creatinine Clr Calc Pharmacy 109.8; Estimated Glomerular Filt Rate > 60; Potassium 4.4 mmol/L (3.3-5.1); Sodium 135 mmol/L (135-145)
[2024-12-05 07:44] VITALS: BP 116/75; PULSE 58; RESP 16; TEMP 36.3; O2SAT 98
[2024-12-05] MEDS: methADONE HCl 20 MG/2 ML ORAL.CONC 95 MG PO (08:29)
[2024-12-05] MEDS: buPROPion HCl XL 300 MG TAB.ER.24H PO (08:30)
[2024-12-05] MEDS: 0.9 % Sodium Chloride Flush 10 ML SYRINGE IVFLUSH (08:31)
--- NOTE | 2024-12-05 09:42 | MHC.CM.PN ---
Patient is discharged to [facility] facility today. All dc info including last dose letter have been sent to the facility. Transportation is scheduled for 10am [facility].
[2024-12-05 10:40] VITALS: BP 136/78; PULSE 66; RESP 18; TEMP 36.3; O2SAT 95
== END 2024-12-05 12:00 | disposition skilled nursing facility (03) | DRG 720 ==
LOC: HO.ED 11-29 00:29 → HO.EDOVER 11-29 02:31 → HO.S3 11-29 11:46
PROVIDERS: Internal Medicine; Student in an Organized Health Care Education/Training Program; Admitting Provider Student in an Organized Health Care Education/Training Program; Emergency Provider Emergency Medicine; Visit Provider Nurse Practitioner Acute Care
DX: A41.9 Sepsis, unspecified organism (principal); L03.115 Cellulitis of right lower limb; F11.20 Opioid dependence, uncomplicated; D50.9 Iron deficiency anemia, unspecified; M86.9 Osteomyelitis, unspecified; F17.210 Nicotine dependence, cigarettes, uncomplicated; Z71.6 Tobacco abuse counseling; B95.61 Methicillin susceptible Staphylococcus aureus infection as the cause of diseases classified elsewhere; B96.89 Other specified bacterial agents as the cause of diseases classified elsewhere; F19.90 Other psychoactive substance use, unspecified, uncomplicated; Z86.14 Personal history of Methicillin resistant Staphylococcus aureus infection; I10 Essential (primary) hypertension; F39 Unspecified mood [affective] disorder; Z91.148 Patient's other noncompliance with medication regimen for other reason; Z59.02 Unsheltered homelessness; Z79.899 Other long term (current) drug therapy
CPT/HCPCS: 36415; 36573; 71250; 73590; 73701; 80048; 80053; 80202; 80307; 81001; 83540; 83605; 85025; 85027; 85652; 86140; 87040; 87070; 87077; 87186; 87205; 87389; 87522; 93005; 93306; 93971; 99285; C1751; J0696; J1650; J1885; J3370; J3371; Q9967; S9485

== ENCOUNTER → 2024-11-28 22:05 | Outpatient (BNV) | payer MEDICAID, SELFPAY | PROVIDERS: Admitting Provider Student in an Organized Health Care Education/Training Program; Emergency Provider Emergency Medicine; Visit Provider Internal Medicine | DX: R94.31 Abnormal electrocardiogram [ECG] [EKG] (principal); S81.801A Unspecified open wound, right lower leg, initial encounter | CPT/HCPCS: 93010 ==

== ENCOUNTER → 2024-11-28 22:25 | Outpatient (BNV) | payer MEDICAID, SELFPAY | PROVIDERS: Emergency Provider Emergency Medicine; Visit Provider General Practice | DX: R91.8 Other nonspecific abnormal finding of lung field (principal); M79.89 Other specified soft tissue disorders | CPT/HCPCS: 71250 ==

== ENCOUNTER → 2024-11-29 00:27 | Outpatient (BNV) | payer MEDICAID, SELFPAY | PROVIDERS: Emergency Provider Emergency Medicine; Visit Provider Student in an Organized Health Care Education/Training Program | DX: A41.9 Sepsis, unspecified organism (principal); L03.90 Cellulitis, unspecified | CPT/HCPCS: 99222; 99232; 99233; 99499 ==

== ENCOUNTER 2024-11-29 00:46 | Outpatient (BNV) | payer MEDICAID, SELFPAY | END 2024-11-29 01:02 | PROVIDERS: Admitting Provider Student in an Organized Health Care Education/Training Program; Emergency Provider Emergency Medicine; Visit Provider General Practice | DX: A41.9 Sepsis, unspecified organism (principal); L03.115 Cellulitis of right lower limb; R59.0 Localized enlarged lymph nodes | CPT/HCPCS: 73701; 93971 ==

== ENCOUNTER 2024-11-29 00:46 | Outpatient (BNV) | payer MEDICAID, SELFPAY | END 2024-11-29 09:56 | PROVIDERS: Admitting Provider Student in an Organized Health Care Education/Training Program; Emergency Provider Emergency Medicine; Visit Provider Internal Medicine | DX: I51.7 Cardiomegaly (principal); I36.1 Nonrheumatic tricuspid (valve) insufficiency | CPT/HCPCS: 93306 ==

== ENCOUNTER 2024-11-29 00:46 | Outpatient (BNV) | payer MEDICAID, SELFPAY | END 2024-12-04 13:43 | PROVIDERS: Admitting Provider Student in an Organized Health Care Education/Training Program; Emergency Provider Emergency Medicine; Visit Provider Radiology Diagnostic Radiology | DX: R22.41 Localized swelling, mass and lump, right lower limb (principal) | CPT/HCPCS: 73590 ==

== ENCOUNTER → 2024-11-29 00:46 | Outpatient (BNV) | payer MEDICAID, SELFPAY | PROVIDERS: Admitting Provider Student in an Organized Health Care Education/Training Program; Emergency Provider Emergency Medicine; Visit Provider Internal Medicine | DX: F11.99 Opioid use, unspecified with unspecified opioid-induced disorder (principal); L02.91 Cutaneous abscess, unspecified; A41.9 Sepsis, unspecified organism; R78.81 Bacteremia | CPT/HCPCS: 99232 ==

== ENCOUNTER → 2024-11-29 00:46 | Outpatient (BNV) | payer OTHER, SELFPAY | PROVIDERS: Admitting Provider Student in an Organized Health Care Education/Training Program; Emergency Provider Emergency Medicine; Visit Provider Nurse Practitioner Psychiatric/Mental Health | DX: F11.99 Opioid use, unspecified with unspecified opioid-induced disorder (principal) | CPT/HCPCS: 99221; 99231 ==

== ENCOUNTER 2025-01-02 12:44 | Emergency (ER) | payer MEDICAID, SELFPAY ==
--- OUTSIDE RECORDS SUMMARY | 2024-08-01 05:00 | XMS_ITS ---
Author Organization [facility] Address [address] [place] [phone] Care Team Providers Care [employer] Manager Name Role Phone NO, PCP Primary Care Provider [facility], Nursing Unavailable [phone] REASON FOR VISIT Office; Initial Intake Encounters Encounter Location Date Provider Diagnosis [facility] [address] [place] [phone] 08/01/[address] [facility] Plan Of Treatment No Information Progress Notes * GARCIAGustaboDOB:[birth year] (39 yo M)Acc No.[id number]:08/01/2024 Progress Notes Patient: Gustabo ROLAND Provider: Tiburcio arce [facility] :1985 A ge:38 Y S ex:Male Date:08/01/2024 Address:[address] [place] [address] Pcp:PCP NO Subjective: * Chief Complaints: * 1 . Office; Initial Intake. * Medical History: Objective: * Vitals: Assessment: Plan: * Treatment: * Images: Billing Information: * Visit Code: * Procedure Codes: * Electronic signature of Giulia [facility] on 01/02/2025 at 02:53 PM EDT Sign off status: Pending * Provider: Tiburcio arce [facility] Date: 08/01/2024 Generated for Albert medrano/Katharina/eTransmitting on: 0 01/02/2025 02:53 PM EDT
[2025-01-02 12:55] VITALS: BP 156/98; BP 158/90; PULSE 120; RESP 24; TEMP 36.9; O2SAT 97; O2SAT 98; BMI 21.8
--- NOTE | 2025-01-02 13:00 | ED.GENADULT ---
HPI - General Adult General Chief complaint: ETOH/Substance Use Stated complaint: ETOH & COCAINE USE PER EMS Time Seen by Provider: 01/02/25 12:55 History of Present Illness ED Provider: Sand[facility] narrative: The patient is a 39-year-old male who admits to using cocaine. He says he does not inject cocaine or any other drugs. He says he has not injected any drugs for a long time, several years. He says that he recently was discharged from a transitional housing program. He also says that he recently finished a course of antibiotics for an infection in his leg. He was brought to the hospital by ambulance after he had a confrontation with the police. Apparently he was trust passed from some location. He was told by police that he had the option of coming to the hospital because of his drug use or going with the police and he chose to come here. He is not currently under arrest. He does not wish to be here. He admits to cocaine use but denies any suicidality or homicidality. He does not wish to have any testing done or receive any treatment here today. He is requesting that he be discharged. He denies any fever, sweats, chills. Related Data Home Medications ?Medication ?Instructions ?Recorded ?Confirmed methadone 10 mg/5 mL oral solution 95 mg PO DAILY 03/20/24 11/29/24 bupropion HCl 300 mg 24 hr tablet, 300 mg PO DAILY 11/29/24 11/29/24 extended release clonidine HCl 0.1 mg tablet 0.1 mg PO TID 11/29/24 11/29/24 cyclobenzaprine 5 mg tablet 5 mg PO TID PRN Muscle Spasm 11/29/24 11/29/24 fluoxetine 20 mg capsule 20 mg PO DAILY 11/29/24 11/29/24 Previous Rx's ?Medication ?Instructions ?Recorded vancomycin 1 gram/250 mL in 0.9 % 1 g (250 mL) IV Q8H 12/04/24 sodium chloride intravenous Allergies Allergy/AdvReac Type Severity Reaction Status Date / Time ibuprofen Allergy Unknown headaches Verified 01/02/25 13:00 onion (ONION) Allergy Unknown ANAPHYLAXIS Verified 01/02/25 13:00 Review of Systems Review of Systems: Yes all other systems are reviewed and are negative PMFSH Past Medical History Medical History (Updated 01/02/25 @ 13:02 by Ra Junior MD) Bacteremia Opioid use disorder Polysubstance abuse Alcohol abuse IV drug user No known health problems Social History Social History Household Members: None Housing: Homeless Do you presently have visiting nurse or other home services: No Alcohol intake: never Comment: discontinued Patient Tobacco Use Status: Current everyday Tobacco user Tobacco use type: Cigarette Cigarette Packs Per Day: 0.5 Cigarettes Per Day: 10.0 e-Cigarette/Vaping Use: Never Used Second Hand Smoke Exposure: No Substance Use Type: Crack/Cocaine, Heroin, IV Drugs and Marijuana Do you have a plan to hurt others: No Plan service: No Physical Exam ED Vital Signs: Vital Signs - 24 hr 01/02/25 12:55 Temperature 98.4 F Pulse Rate 120 H Respiratory Rate 24 H Blood Pressure 156/98 H Pulse Oximetry 97 Oxygen Delivery Method Room Air BMI result Body Mass Index 21.8 Const Other: The patient is a 39-year-old man. He is a thin, unkempt man. His clothes seemed soaked with sweat. He seemed somewhat restless. He did not seem in obvious distress otherwise however. HENMT Other: Face is symmetrical. Mucous membranes moist. Eyes Other: Pupils are round equal, conjunctivae are clear, extraocular movements intact Neck Neck: Yes normal visual inspection, Yes full ROM and Yes no lymphadenopathy Resp Effort & Inspection: normal respiratory effort Auscultation: clear to auscultation bilaterally Cardio Other: No murmur heard Rate: regular rate Rhythm: regular rhythm Heart sounds: S1 normal heart sound present and S2 normal heart sound present GI Other: Abdomen is soft and nontender Skin Other: The patient's clothing was wet as if soaked with sweat. He was not having active diaphoresis. I thought there were track medina present in his upper extremities which look subacute. Neuro Other: The patient was awake and alert. He was oriented with a fairly clear mental status although he seemed somewhat restless. He did not seem overtly intoxicated or out of touch with reality. Cranial nerves 2-12 are intact. He moves his extremities normally. He is steady on his feet. He seemed restless. Extrem Other: No peripheral edema. Medical Decision Making Medical Decision Making MDM Narrative: The patient is a 39-year-old male with a history of substance use disorder. He was recently hospitalized for a cellulitis of his right lower extremity. He was hospitalized from November 29 through December 04. A culture from the wound grew a bacillus species and an MSSA species. He has a PICC line and was treated with vancomycin. At discharge the patient went to a [facility]. He says that he finished his antibiotics several days ago and also was discharged from the [facility] at about the same time. He says he is currently homeless. The patient was brought here by ambulance after some kind of an interaction with the police where he was given the option of coming to the hospital or going with the police. He chose the option of coming to the hospital. However he does not wish to be here at the hospital and he does not wish to have any medical testing or interventions done. He would like to be discharged. He is not suicidal or homicidal. He says that he has been sad because of his mother's but he is not suicidal. I explained to the patient that he seemed sweaty and had a rapid heart rate and that it would be medically [place] for him to stay in the emergency room for evaluation and possible treatment. He respectfully said that he did not wish to have anything like that done and he maintained that he wanted to be discharged. Given that the patient seemed to have a clear mental status and given that he was not suicidal or homicidal I felt he had capacity to make h He says he is connected with the [place] medical system and he agreed that he would try to follow up with the [place]. Discharge Plan Discharge Clinical Impression: Substance use disorder Patient Disposition: Home, Self-Care Additional Instructions: Please do your best to stay cool today. Today it is supposed to be extremely hot. Do your best to avoid the heat. Try to stay cool and drink fluids. Please try to avoid any additional cocaine or crack use today especially because it is so hot. [facility]. If you feel significantly worse at any time we are open 24 hours. Please come back to the emergency room if you feel worse. Prescriptions: No Action methadone 10 mg/5 mL Solution 95 mg PO DAILY clonidine HCl 0.1 mg tablet 0.1 mg PO TID fluoxetine 20 mg capsule 20 mg PO DAILY cyclobenzaprine 5 mg tablet 5 mg PO TID PRN (Reason: Muscle Spasm) bupropion HCl 300 mg tablet extended release 24 hr 300 mg PO DAILY vancomycin in 0.9 % sodium chl 1 gram/250 mL solution 1 g IV Q8H Referrals: [facility] [Provider Group] [facility] [Outside] Print Language: Bulgarian
[2025-01-02 13:05] VITALS: BP 156/98; PULSE 120; RESP 24; TEMP 36.9; O2SAT 97
== END 2025-01-02 14:16 | disposition home or self-care (01) ==
LOC: HO.ED 14:12
PROVIDERS: Emergency Provider Emergency Medicine
DX: F19.10 Other psychoactive substance abuse, uncomplicated (principal); F17.210 Nicotine dependence, cigarettes, uncomplicated
CPT/HCPCS: 99283; 99284

== ENCOUNTER 2025-03-12 13:24 | Emergency (ER) | payer MEDICAID, SELFPAY ==
--- OUTSIDE RECORDS SUMMARY | 2024-08-01 05:00 | XMS_ITS ---
Author Organization [facility] Address [address] [place] [id number] Care Team Providers Care Sales And Marketing Professional Name Role Phone NO, PCP Primary Care Provider [phone] [facility], Nursing Unavailable [phone] REASON FOR VISIT Office; Initial Intake Encounters Encounter Location Date Provider Diagnosis [facility] [address] [place] [phone] 08/01/2024 Nursing [facility] Plan Of Treatment No Information Progress Notes * GARCIAGustaboDOB:[birth year] (39 yo M)Acc No.[id number]:08/01/2024 Progress Notes Patient: Gustabo ROLAND Provider: Tiburcio arce [facility] :1985 A ge:38 Y S ex:Male Date:08/01/2024 Address:[address] [place] [address] Pcp:PCP NO Subjective: * Chief Complaints: * 1 . Office; Initial Intake. * Medical History: Objective: * Vitals: Assessment: Plan: * Treatment: * Images: Billing Information: * Visit Code: * Procedure Codes: * Electronic signature of Giulia [facility] on 03/12/2025 at 05:17 PM EDT Sign off status: Pending * Provider: Tiburcio arce [facility] Date: 0 08/01/2024 Generated for Albert medrano/Katharina/eTransmitting on: 1 05:17 PM EDT
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
[2025-03-12 13:33] VITALS: BP 143/97; BP 161/101; PULSE 80; PULSE 87; RESP 18; TEMP 37.3; O2SAT 100; O2SAT 98; BMI 22.1
--- NOTE | 2025-03-12 13:45 | ECG_ITS ---
Test Reason : CP Blood Pressure : */* mmHG Vent. Rate : 80 BPM Atrial Rate : 80 BPM P-R Int : 138 ms QRS Dur : 84 ms QT Int : 370 ms P-R-T Axes : 65 44 43 degrees QTcB Int : 426 ms Normal sinus rhythm Minimal voltage criteria for LVH, may be normal variant ( Sokolow-Ortez ) Borderline ECG When compared with ECG of 28-Nov-2024 22:16, Nonspecific T wave abnormality no longer evident in Lateral leads Referred By: Valeri Sweeney Electronically Signed By: AMY HENRIQUEZ MD
[2025-03-12 14:00] VITALS: BP 137/70; PULSE 80; RESP 15; TEMP 36.9; O2SAT 100
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
[2025-03-12 16:00] VITALS: BP 134/70; PULSE 70; RESP 15; TEMP 36.6; O2SAT 100
[2025-03-12 16:42] VITALS: BP 134/70; PULSE 70; RESP 15; TEMP 36.6; O2SAT 100
[2025-03-12] MEDS: Naloxone HCl Nasal TAKE HOME 4 MG SPRAY 8 MG NOSTRILALT (16:42)
--- OUTSIDE RECORDS SUMMARY | 2025-03-12 17:17 | XMS_ITS | Patient Health Record ---
Author Organization [facility] Address [address] [place] [address] Care Team Providers Care Pricing Clerk Name Role Phone NO, PCP Primary Care Provider [phone] [facility], Nursing Unavailable [phone] [facility], CH[facility] Unavailable [phone] Reason For Referral No Information Problems Problem Type SNOMED Code ICD Code Onset Dates Problem Status W/U Status Risk Notes Problem Sheltered homelessness (756835136030175 ) Sheltered homelessness (Z59.01) Active confirmed Encounters Encounter Location Date Provider Diagnosis [facility] [address] [place] [address] [phone] 07/27/2024 [facility] Plan Of Treatment No Information Insurance Providers Payer Name Payer Address Payer Phone Subscriber Number Group Number Insured Name Patient Relationship to Insured Coverage Start Date Coverage End Date [place] Medicaid PCC [address] [place], [place] [id number] Khadar Alcocer Self - patient is the insured 5
== END 2025-03-12 16:42 | disposition home or self-care (01) ==
PROVIDERS: Emergency Provider Student in an Organized Health Care Education/Training Program
DX: S20.212A Contusion of left front wall of thorax, initial encounter (principal); W50.0XXA Accidental hit or strike by another person, initial encounter; Y93.9 Activity, unspecified; Y92.9 Unspecified place or not applicable; Y99.9 Unspecified external cause status; R07.9 Chest pain, unspecified; R06.02 Shortness of breath
CPT/HCPCS: 71101; 93005; 96372; 99284; J1885

== ENCOUNTER → 2025-03-12 13:45 | Outpatient (BNV) | payer MEDICAID, SELFPAY | PROVIDERS: Emergency Provider Student in an Organized Health Care Education/Training Program; Visit Provider Internal Medicine Cardiovascular Disease | DX: R07.89 Other chest pain (principal) | CPT/HCPCS: 93010 ==

== ENCOUNTER → 2025-03-12 13:45 | Outpatient (BNV) | payer MEDICAID, SELFPAY | PROVIDERS: Emergency Provider Student in an Organized Health Care Education/Training Program; Visit Provider Radiology Diagnostic Radiology | DX: R07.89 Other chest pain (principal) | CPT/HCPCS: 71101 ==